=== PATIENT | female | born 1965 | race Caucasian/White ===

== ENCOUNTER 2023-09-15 07:30 | Outpatient (OUT) | payer OTHER, SELFPAY ==
[2023-09-15 08:01] LABS: Hemoglobin 13.8 g/dL (12.0-16.0); Mean Corpuscular HGB Conc 32.1 g/dL (29.9-35.2); Mean Corpuscular Hemoglobin 28.3 pg (26.7-34.0); Mean Corpuscular Volume 88.1 fL (81.0-99.0); Mean Platelet Volume 9.9 fL (9.5-13.5); Platelet Count 186 10^3/uL (150-450); Red Blood Count 4.88 10^6/uL (4.20-5.40); Red Cell Distribution Width 13.2 % (11.0-15.0); White Blood Count 4.9 10^3/uL (4.0-11.0)
[2023-09-15 08:47] LABS: Alanine Aminotransferase 35 U/L (14-59); Albumin Globulin Ratio 1.1; Albumin Level 3.5 g/dL (3.4-5.0); Alkaline Phosphatase 40 U/L (46-116); Anion Gap 9.5; Aspartate Amino Transferase 27 U/L (15-37); BUN Creatinine Ratio 27.6; Bilirubin Total 0.4 mg/dL (0.2-1.0); Calcium 8.7 mg/dL (8.5-10.1); Carbon Dioxide 32.6 mmol/L (21.0-32.0); Chloride 104 mmol/L (98-107); Chol HDL Ratio 2.2; Cholesterol 180 mg/dL (<=200); Estimated GFR (African America >60 (>=60); Estimated GFR (Non-African Ame >60 (>=60); Globulin 3.2 g/dL; Glucose 92 mg/dL (74-106); HDL Cholesterol 80 mg/dL (40-60); Potassium 4.1 mmol/L (3.5-5.1); Sodium 142 mmol/L (136-145); Total Protein 6.7 g/dL (6.4-8.2); Triglycerides 56 mg/dL (<=150); VLDL CHOLESTEROL 11.2 mg/dL
== END 2023-09-15 07:31 | disposition home or self-care (01) ==
LOC: LAB 07:36
PROVIDERS: PCP Family Medicine; Visit Provider Family Medicine
DX: E83.52 Hypercalcemia (principal); I10 Essential (primary) hypertension
CPT/HCPCS: 36415; 80053; 80061; 85027

== ENCOUNTER 2024-03-23 07:23 | Outpatient (OUT) | payer OTHER, SELFPAY ==
--- OUTSIDE RECORDS SUMMARY | 2024-03-23 07:27 | XMS_ITS ---
Patient Summarization (C-CDA 2.1 CCD) Created on: March 23, 2024 MARICEL EASTON : 1965 Sex: Female Author Organization Sample organization Care Team Providers Care Epic Kaleidoscope Analyst Name Role Phone Nica Nelson Unavailable Unavailable Michelle Perry Unavailable Fidel Soler Unavailable MD Nica Nelson Attending Provider [phone] DO Chente Barcenas Referring Provider DO Vishal Barcenas Primary Care Provider MD Fidel Soler Attending Provider DO Vishal Barcenas Primary Care Provider DO Vishal Barcensa Attending Provider [phone] ETHEL Perry Attending Provider VISHAL BARCENAS Primary Care Physician [phone] Darci Ambrose Attending Unavailable MD Nica Nelson Attending Provider DO Chente Barcenas Referring Provider [phone] DO Vishal Barcenas Primary Care Provider [phone] DO Vishal Carreon Attending Provider [phone] NO FAMILY, PHYSICIAN Primary Care Provider Unava ilable Vishal Barcenas Primary Care Unavailable Michelle Perry Admitting Unavailable Michelle Perry Attending Unavailable NO FAMILY, PHYSICIAN Primary Care Unavailable Vishal Carreon Admitting Unavailable Vishal Carreon Attending Unavailable Vishal Barcenas Primary Care Unavailable Chente Barcenas Referring Unavailable Nica Nelson Admitting Unavailable Nica Nelson Attending Unavailable Vishal Barcenas Primary Care Unavailable Michelle Perry Admitting Unavailable Vicky, Michelle R Attending Unavailable Vishal Barcenas Primary Care Unavailable Vishal Barcenas Attending Unavailable Vishal Barcenas Admitting Unavailable Vishal Barcenas DO Unavailable Sidney CenterMissy murray DO Primary Care Provider [phone] CUTLER, MISSY L Attending Unavailable VISHAL BARCENAS Referring Unavailable VISHAL CARREON Attending Unavailable VISHAL BARCENAS Attending Unavailable CUTLER, MISSY L Attending Unavailable CUTLER, MISSY L Referring Unavailable BLACKSTON, JONATHAN Attending Unavailable BLACKSTON, JONATHAN Attending Unavailable CUTLER, MISSY L Referring Unavailable BLACKSTON, JONATHAN Attending Unavailable CUTLER, MISSY L Referring Unavailable BLACKSTON, JONATHAN Attending Unavailable CUTLER, MISSY L Referring Unavailable BLACKSTON, JONATHAN Attending Unavailable CUTLER, MISSY L Referring Unavailable BLACKSTON, JONATHAN Attending Unavailable CUTLER, MISSY L Referring Unavailable BLACKSTON, JONAHTAN Attending Unavailable CUTLER, MISSY L Referring Unavailable BLACKSTON, JONATHAN Attending Unavailable CUTLER, MISSY L Referring Unavailable BLACKSTON, JONATHAN Attending Unavailable CUTLER, MISSY L Referring Unavailable BLACKSTON, JONATHAN Attending Unavailable CUTLER, MISSY L Referring Unavailable SWAPNAVISHAL Attending Unavailable VISHAL BARCENAS Referring Unavailable BIBONNY, VISHAL Paul Attending Unavailable BLACKSTON, JONATHAN Attending Unavailable CUTLER, MISSY L Referring Unavailable BLACKSTON, JONATHAN Attending Unavailable CUTLER, MISSY L Referring Unavailable SWAPNA, VISHAL Graham Attending Unavailable Allergies Allergy Classification Reported Allergen(s) Allergy Type Date of Onset Reaction(s) Facility (5 sources) HYDROmorphone; Translations: [hydromorphone] Drug Allergy 2 [facility] (1 source) Adhesive Bandage 1 Drug allergy [facility] Comment on above: durabond (1 source) Adhesive bandage; Translations: [Adhesive Bandage] Propensity to adverse reactions (disorder) [facility] (1 source) traMADol Drug Allergy 3 [facility] (1 source) Other Allergy to substance 2 [facility] (1 source) Wound Dressing Adhesive Drug Allergy 3 [facility] Encounters Encounter Date Encounter Type Care Provider Facility Start: 03-04-2024 End: 03-05-2024 ambulatory VISHAL BARCENAS Not Available Start: 02-23-2024 End: 02-23-2024 ambulatory JONATHAN ODENTON Not Available Start: 02-19-2024 End: 02-19-2024 ambulatory JONATHAN SALAZAR Not Available Start: 02-16-2024 End: 02-16-2024 ambulatory JONATHAN SALAZAR Not Available Start: 02-12-2024 End: 02-12-2024 ambulatory JONATHAN SALAZAR Not Available Start: 02-09-2024 End: 02-09-2024 ambulatory JONATHAN SALAZAR Not Available Start: 02-05-2024 End: 02-05-2024 ambulatory JONATHAN SALAZAR Not Available Start: 01-29-2024 End: 01-29-2024 ambulatory JONATHAN SALAZAR Not Available Start: 01-26-2024 End: 01-26-2024 ambulatory JONATHAN SALAZAR Not Available Start: 01-22-2024 End: 01-22-2024 ambulatory JONATHAN SALAZAR Not Available Start: 01-15-2024 End: 01-15-2024 ambulatory JONATHAN SALAZAR Not Available Start: 01-12-2024 End: 01-12-2024 ambulatory JONATHAN SALAZAR Not Available Start: 01-01-2024 End: 01-01-2024 ambulatory JONATHAN SALAZAR Not Available Start: 12-26-2023 End: 12-26-2023 ambulatory MISSY L CUTLER Not Available Start: 12-11-2023 End: 12-11-2023 ambulatory VISHAL BARCENAS Not Available Start: 12-11-2023 Chart abstracting Vishal shin DO Work Phone: [facility] Start: 11-13-2023 End: 11-13-2023 ambulatory MISSY L CUTLER Not Available Start: 09-26-2023 End: 09-26-2023 ambulatory VISHAL CARREON Not Available Start: 09-25-2023 End: 09-25-2023 ambulatory VISHAL BARCENAS Not Available Start: 09-12-2023 End: 09-12-2023 ambulatory PHYSICIAN NO FAMILY [facility] Start: 09-12-2023 End: 09-12-2023 ambulatory DO Chente Barcenas Work Phone: [facility] Work Phone: Start: 09-12-2023 End: 09-12-2023 Departed Referred DO Chente Barcenas Work Phone: [facility] [place] Work Phone: Start: 07-11-2023 ambulatory Vishal Barcenas Facility:[facility] Start: 07-11-2023 Registered Recurring DO Angeline Barcenas Work Phone: [facility] Work Phone: Start: 05-08-2023 End: 05-09-2023 Emergency department patient visit aAliyahmirnacoleman Ambrose Facility:[facility] Start: 05-08-2023 End: 05-08-2023 Emergency department patient visit Darci Ambrose [facility] Start: 03-10-2023 End: 03-10-2023 Patient encounter procedure Michelle Kingbarbrabruce [facility] Start: 03-10-2023 End: 03-10-2023 ambulatory DO Vishal Barcenas Work Phone: [facility] Other Start: 03-03-2023 End: 03-03-2023 ambulatory Vishal Barcenas Facility[facility] Start: 03-03-2023 End: 03-03-2023 Patient encounter procedure DO Vishal Barcenas Work Phone: [facility] [place] Work Phone: Start: 02-27-2023 End: 02-27-2023 ambulatory Michelle Perry Other [facility] Other Start: 02-27-2023 Patient encounter procedure Michelle Perry [facility] Start: 10-30-2022 Postop follow up vis it related to original px Fidel Soler [facility] Start: 10-30-2022 End: 10-30-2022 ambulatory Vishal Barcenas [email or web address] Other Start: 10-10-2022 End: 10-10-2022 ambulatory Michelle Perry Other [facility] Other Start: 10-10-2022 Patient encounter procedure Michelle Kingammon [facility] Start: 07-11-2022 End: 07-11-2022 Patient encounter procedure MD Nica Nelson Work Phone: [facility] Start: 07-10-2022 End: 07-10-2022 Registered Recurring MD Nica Nelson Work Phone: [facility] Start: 07-03-2022 (EVLT) EVLT saphenou s vein ablation Fidel Soler [facility] V[facility] Surgery Start: 07-03-2022 End: 07-03-2022 ambulatory Fidel Soler Other [facility] Other Start: 04-25-2022 End: 04-25-2022 ambulatory Fidel Soler Other [facility] Other Start: 04-25-2022 Office outpatient vi sit 25 minutes Fidel Soler [facility] V[facility] Surgery Start: 04-19-2022 End: 04-19-2022 ambulatory Michelle Kingbarbrabruce Other [facility] Other Start: 04-19-2022 Telephone encounter Michelle Kingammon [facility] Start: 04-04-2022 End: 04-04-2022 ambulatory Michelle Perry Other [facility] Other Start: 04-04-2022 Telephone encounter Michelle Kingammon [facility] [place] Start: 03-15-2022 (Sclerother) Sclerotherapy Fidel Soler [facility] Start: 03-15-2022 End: 03-15-2022 ambulatory Fidel Soler Other [facility] Other Start: 01-24-2022 End: 01-24-2022 ambulatory Michelle Perry Other [facility] Other Start: 01-24-2022 Follow-up encounter Michelle Corder[facility] Start: 12-17-2021 End: 12-17-2021 ambulatory Michelle Perry Other [facility] Other Start: 12-17-2021 Telephone encounter Michelle Corder[facility] Start: 12-11-2021 End: 12-11-2021 ambulatory Michelle Perry Other [facility] Other Start: 12-11-2021 Office outpatient vi sit 15 minutes Michelle Perry [facility] Vascular Surgery Start: 07-02-2018 Patient encounter Nica Arambula cility:[id number] Medications Current Medications Medication Drug Class(es) Dates Sig (Normalized) Sig (Original) ascorbic acid 60 mg / beta carotene 5000 unt / copper sulfate 40 mg / dl-alpha tocopheryl acetate 30 unt / sodium selenite 0.04 mg / zinc oxide 40 mg oral tablet (1 source) Vitamin C Multiple Vitamin (Multivitamin Adult) tablet Orally 0 Active calcium carbonate 1500 mg oral tablet (1 source) Start: 10-23-2023 take 1 tablet by mouth once daily at mealtime calcium carbonate 1500 (600 Ca) MG tablet Indications: Hyperparathyroidism (CMS/HCC) TAKE ONE TABLET BY MOUTH DAILY WITH A MEAL 30 tablet 5 10/23/2023 Active calcium carbonate 1500 mg / cholecalciferol 800 unt chewable tablet (6 sources) Vitamin D Start: 06-26-2017 Calcium Carbonate-Vitamin D3 (Caltrate 600 + D) 600 mg (1,500 mg)-800 unit Tablet,Chewable Active 1 TAB PO Twice daily June 25, 2017 11:00pm take 1 tablet by mouth twice gabby ly Calcium Carbonate-Vitamin D 600-400 MG-UNIT TAKE 1 TABLET BY MOUTH TWICE DAILY Oral for 30 Active Calcium Carbonate-Vitamin D 600-400 MG-UNIT (11 sources) take 1 tablet by mouth twice daily Calcium Carbonate-Vitamin D 600-400 MG-UNIT TAKE 1 TABLET BY MOUTH TWICE DAILY Oral for 30 Active cholecalciferol 0.05 mg oral tablet (1 source) Vitamin D Start: 3 take 1 tablet by mouth once daily cholecalciferol (Vitamin D-3) 50 MCG (1999 UT) tablet Indications: Vitamin D deficiency TAKE 1 TABLET BY MOUTH DAILY 30 tablet 5 10/23/2023 Active Compression stockings, 20-30mmHg, thigh 20-30mmHg (8 sources) Start: 2 Compression stockings, 20-30mmHg, thigh 20-30mmHg externally daily as directed for 3 months Mar, Active ferrous sulfate 325 mg delayed release oral tablet (20 sources) Start: 0 End: 3 take 325 mg by mouth once daily Ferrous Sulfate Active 325 MG PO Daily July 17, 2023 7:09am Start: 01-20-2020 End: 01-24-2020 take 325 mg by mouth once daily Ferrous Sulfate Discon tinued 325 MG PO Daily January 20, 2020 12:16pm January 24, 2020 8:58am Start: 06-26-2017 End: 01-20-2020 take 325 mg by mouth once daily Ferrous Sulfate Discon tinued 325 MG PO Daily January 18, 2020 7:32am January 20, 2020 12:15pm Start: 05-25-2015 take 1 tablet by [facility] three times daily ferrous sulfate 325 mg Tab 325 mg = 1 tab(s), Oral, TID, Refills(s) 0, Prophylaxis Start Date: 05/25/15 Status: Ordered take 1 tablet by [facility] once daily Ferrous Sulfate 325 (65 Fe) MG 1 tablet Orally Once a day Active lidocaine 0.05 mg/mg medicated patch (1 source) Antiarrhythmic, Amide Local Anesthetic Start: 05-08-2023 Lidoderm 5% Patch 1 patch(es), Topical, Daily, 7 EA, Refill(s) 0, apply 12 hours on and 12 hours off daily, [facility] [id number], 163, cm, 05/08/23 19:14:00 EDT, Height/Length Dosing, 47.8, kg, 05/08/23 19:14:00 EDT, Weight Dosing Start Date: 05/08/23 Status: Ordered lisinopril 10 mg oral tablet (18 sources) Angiotensin Converting Enzyme Inhibitor Start: 06-26-2017 End: 08-25-2024 take 1 tablet by mouth once daily lisinopril 10 MG tablet Indications: Primary hypertension (CMS/HCC) Take 1 tablet (10 mg) by mouth 1 (one) time each day at the same time. Take 10 mg by mouth 1 (one) time each day at the same time. 90 tablet 3 08/26/2023 08/25/2024 Active methocarbamol 500 mg oral tablet (1 source) Muscle Relaxant Start: 05-08-2023 End: 05-11-2023 take 1 tablet by mouth three times daily Robaxin 500 mg Tab 500 mg = 1 tab(s), Oral, TID, X 3 day(s), # 9 tab(s), Refills(s) 0, Pharmacy: [facility] [id number], 163, cm, 05/08/23 19:14:00 EDT, Height/Length Dosing, 47.8, kg, 05/08/23 19:14:00 EDT, Weight Dosing Start Date: 05/08/23 Stop Date: 05/11/23 Status: Ordered Multi Complete - (13 sources) Multi Complete - as directed Orally Active Multivitamin preparation (4 sources) Start: 06-26-2017 take 1 capsule by mouth once daily Multivitamin Active 1 CAP PO Daily June 25, 2017 11:00pm Start: 06-26-2017 take 1 capsule by [facility] once daily Multivitamin Active 1 CAP PO Daily June 26, 2017 12:00am naproxen 500 mg oral tablet (1 source) Nonsteroidal Anti-inflammatory Drug Start: 05-08-2023 take 1 tablet by mouth twice daily as needed for pain Naprosyn 500 mg Tab 500 mg = 1 tab(s), Oral, BID, PRN for pain, # 20 tab(s), Refills(s) 0, Pharmacy: [facility] [id number], 163, cm, 05/08/23 19:14:00 EDT, Height/Length Dosing, 47.8, kg, 05/08/23 19:14:00 EDT, Weight Dosing Start Date: 05/08/23 Status: Ordered omeprazole 40 mg delayed release oral capsule (1 source) Proton Pump Inhibitor Start: 05-26-2015 take 1 capsule by mouth once daily omeprazole 40 mg Cap-EC 40 mg = 1 cap(s), Oral, Daily, # 30 cap(s), Refills(s) 3 Start Date: 05/26/15 Status: Ordered Completed/Discontinued Medications Medication Drug Class(es) Dates Sig (Normalized) Sig (Original) acetaminophen 325 mg / HYDROcodone bitartrate 5 mg oral tablet (4 sources) Opioid Agonist Start: 12-25-2017 End: 01-06-2018 take 1 tablet by mouth every four to six hours Hydrocodone-Acetam inophen (Americus) 5-325 mg tablet Discontinued 1 TAB PO EVERY 4-6 HOURS December 25, 2017 January 06, 2018 2:32pm ascorbic acid 500 mg oral tablet (4 sources) Vitamin C Start: 12-17-2017 End: 07-02-2018 take 1 tablet by mouth once daily Ascorbic Acid (Vitamin C) (Vitamin C) 500 mg Tablet Discontinued 500 MG PO Daily December 17, 2017 12:00am July 02, 2018 2:37pm ibuprofen 600 mg oral tablet (4 sources) Nonsteroidal Anti-inflammatory Drug Start: 12-25-2017 End: 01-06-2018 take 600 mg by mouth every six hours Ibuprofen Discontinued 600 MG PO Q6H 28 December 25, 2017 12:00am January 06, 2018 2:32pm tamoxifen 20 mg oral tablet (20 sources) Estrogen Agonist/Antagonist Start: 06-26-2017 End: 12-09-2022 take 20 mg by mouth once Tamoxifen Discontinued 20 MG PO Once 1 September 23, 2019 12:00am February 16, 2020 7:29am Start: 05-25-2015 take 10 mg by mouth twice cinthia y tamoxifen 10 mg, Oral, BID, Refills(s) 0, Prophylaxis Start Date: 05/25/15 Status: Ordered Payers Date Payer Category Payer Unknown [id number] 2017 Self-pay [id number] 2016 Medicaid [employer] [place] [id number] 2016-Present [address] [place] [address] [id number] 2016 Unknown [id number] [id number] 1965 Unknown [id number] 2.16.840.1.745407.3.579.2.727 1965 Unknown [id number] 2.16.840.1.112774.3.579.2.1259 1965 Unknown [id number] 2.16.840.1.945519.3.579.2.1259 1965 Unknown [id number] 2.16.840.1.487774.3.579.2.1259 1965 Unknown [id number] 2.16.840.1.959606.3.579.2.125 1965 Unknown [id number] 2.16.840.1.096512.3.579.2.1259 1965 Unknown [id number] 2.16840.1.888297.3.579.2.125 1965 Unknown [id number] 2.16.840.1.774525.3.579.2.1259 1965 Unknown [id number] 2.16.840.1.304766.3.579.2.1259 1965 Unknown [id number] 2.16.840.1.698141.3.579.2.1259 1965 Unknown [id number] 2.16.840.1.678117.3.579.2.1259 1965 Unknown [id number] 2.16.840.1.761577.3.579.2.1259 1965 Unknown [id number] 2.16.840.1.027465.3.579.2.1259 1965 Unknown [id number] 2.16.840.1.943375.3.579.2.1259 1965 Unknown [id number] 2.16.840.1.278624.3.579.2.1259 1965 Unknown [id number] 2.16.840.1.125659.3.579.2.1259 1965 Unknown [id number] 2.16.840.1.663192.3.579.2.1259 1965 Unknown [id number] 2.16.840.1.310018.3.579.2.9 1965 Unknown [id number] 2.16.840.1.006668.3.579.2.1259 1965 Unknown [id number] 2.16.840.1.304213.3.579.2.1259 Unknown [id number] 2.16.840.1.387008.3.579.2.531 Unknown [id number] 2.16.840.1.219475.3.579.2.531 Unknown [id number] 2.16.840.1.322138.3.579.2.531 Unknown [id number] 2.16.840.1.488390.3.579.2.531 Unknown [id number] 2.16.840.1.071770.3.579.2.531 Plan of Treatment Date Care Activity Detail Author Start: 01-24-2031 Screening for malign ant neoplasm of colon [facility] Start: 07-16-2024 End: 07-16-2024 Patient encounter procedure 07/16/2024 9:15 AM EDT Office Visit [facility] [address] [place] [id number] Chente Barcenas, [address] [place] [address] [facility] Start: 04-02-2024 End: 04-02-2024 Patient encounter procedure 04/02/2024 9:45 AM EDT Office Visit [facility] [place] [address] [place] [phone] Vishal Carreon, DO [address] [place] [address] [facility] Start: 04-01-2024 End: 04-01-2024 Patient encounter procedure 04/01/2024 3:40 PM EDT [facility] [address] [place] [phone] Vishal Barcenas, DO [address] [place], [place] [id number] [facility] Start: 12-11-2023 End: 12-11-2023 Patient encounter procedure 12/11/2023 3:20 PM EST Office Visit [facility] [address] [place] [address] Vishal Barcenas, DO [address] [place], [place] [id number] [facility] Start: 06-27-2023 Influenza vaccination Influenza Vacc ine (#1) [facility] Start: 1965 Screening for malign ant neoplasm of colon [facility] MG Breast - left Screening [facility] Work Phone: MG Breast - left Screening [facility] Problems Active Problems Problem Classification Problem Date Documented Da te Episodic/Chronic Administrative/social admission (4 sources) Repeated prescription; Translations: [Encounter for issue of repeat prescription] 09-23-2019 Episodic Cancer of breast (9 sources) Malignant neoplasm of central part of female breast; Translations: [Malignant neoplasm of central portion of right female breast] Onset: 02-26-2023 07-14-2019 Chronic Essential hypertension (3 sources) Hypertensive disorder; Translations: [Essential (primary) hypertension] Onset: 02-26-2023 05-08-2023 Chronic Menopausal disorders (1 source) Atrophic vaginitis; Translations: [Postmenopausal atrophic vaginitis] Onset: 02-26-2023 02-26-2023 Chronic Menstrual disorders (2 sources) Menorrhagia; Translations: [Excessive and frequent menstruation with regular cycle] Onset: 11-26-2017 02-26-2023 Chronic Nonmalignant breast conditions (1 source) Fibrocystic disease of breast; Translations: [Diffuse cystic mastopathy of unspecified breast] Onset: 02-26-2023 02-26-2023 Chronic Other acquired deformities (13 sources) Scoliosis deformity of spine; Translations: [Scoliosis, unspecified] Chronic Other aftercare (3 sources) Patient encounter status; Translations: [Encounter for therapeutic drug level monitoring] 07-10-2022 Episodic Other aftercare (2 sources) Encounter for therapeutic drug level monitoring; Translations: [Encounter for therapeutic drug monitoring] 07-10-2022 Episodic Other and ill-defined heart disease (4 sources) Cardiomegaly; Translations: [Cardiomegaly] 07-02-2019 Chronic Other and ill-defined heart disease (3 sources) Cardiomegaly; Translations: [Cardiomegaly] 07-10-2022 Chronic Other bone disease and musculoskeletal deformities (4 sources) Idiopathic scoliosis of thoracic and lumbar spine; Translations: [Other idiopathic scoliosis, thoracolumbar region] 07-14-2019 Chronic Other bone disease and musculoskeletal deformities (3 sources) Other idiopathic scoliosis, thoracolumbar region; Translations: [Scoliosis [and kyphoscoliosis], idiopathic] 07-10-2022 Chronic Other bone disease and musculoskeletal deformities (1 source) Juvenile idiopathic scoliosis, thoracic region; Translations: [Scoliosis [and kyphoscoliosis], idiopathic] Onset: 02-26-2023 02-26-2023 Chronic Other bone disease and musculoskeletal deformities (1 source) Idiopathic kyphoscoliosis; Translations: [Other idiopathic scoliosis, site unspecified] Onset: 08-31-2012 05-13-2023 Chronic Other diseases of veins and lymphatics (13 sources) Peripheral venous insufficiency; Translations: [Venous insufficiency (chronic) (peripheral)] Episodic Other diseases of veins and lymphatics (5 sources) Venous insufficiency (chronic) (peripheral) Onset: 04-19-2022 Resolved: 04-19-2022 Episodic Other diseases of veins and lymphatics (4 sources) Venous insufficiency of leg; Translations: [Venous insufficiency (chronic) (peripheral)] Episodic Other endocrine disorders (1 source) Hyperparathyroidism, unspecified; Translations: [Hyperparathyroidism , unspecified] Onset: 03-03-2023 Chronic Other endocrine disorders (1 source) Hyperparathyroidism; Translations: [Hyperparathyroidism , unspecified] Onset: 02-26-2023 02-26-2023 Chronic Other female genital disorders (1 source) Abnormal uterine bleeding; Translations: [Abnormal uterine and vaginal bleeding, unspecified] Onset: 02-26-2023 02-26-2023 Chronic Other hematologic conditions (4 sources) H/O: anemia - iron deficient; Translations: [Personal history of diseases of the blood and blood-forming organs and certain disorders involving the immune mechanism] 07-02-2019 Episodic Other hematologic conditions (3 sources) Personal history of diseases of the blood and blood-forming organs and certain disorders involving the immune mechanism; Translations: [Personal history of diseases of blood and blood-forming organs] 07-10-2022 Episodic Other lower respiratory disease (13 sources) Dyspnea on exertion; Translations: [Other forms of dyspnea] Episodic Other lower respiratory disease (13 sources) Restrictive lung disease; Translations: [Other disorders of lung] Episodic Other lower respiratory disease (1 source) Pleuritic pain; Translations: [Pleurodynia] Onset: 05-08-2023 Episodic Other nutritional; endocrine; and metabolic disorders (1 source) Hypercalcemia; Translations: [Hypercalcemia] Onset: 02-26-2023 02-26-2023 Chronic Pulmonary heart disease (7 sources) Pulmonary hypertension, unspecified; Translations: [Mild pulmonary hypertension] 07-12-2020 Chronic Residual codes; unclassified (4 sources) History of total hysterectomy with bilateral salpingo-oophorectom y; Translations: [Acquired absence of both cervix and uterus] 01-06-2018 Episodic Residual codes; unclassified (3 sources) Acquired absence of both cervix and uterus; Translations: [Acquired absence of both cervix and uterus] 07-10-2022 Episodic Spondylosis; intervertebral disc disorders; other back problems (20 sources) Inflammation of sacroiliac joint; Translations: [Sacroiliitis, not elsewhere classified] Onset: 08-31-2012 05-13-2023 Chronic Spondylosis; intervertebral disc disorders; other back problems (13 sources) Low back pain; Translations: [Low back pain] Episodic Thyroid disorders (11 sources) Thyroid nodule; Translations: [Nontoxic single thyroid nodule] Onset: 02-26-2023 10-23-2020 Chronic Transient cerebral ischemia (2 sources) Amaurosis fugax; Translations: [Amaurosis fugax] Onset: 02-26-2023 02-26-2023 Chronic Unclassified (1 source) Malignant neoplasm of central portion of right female breast; Translations: [Malignant neoplasm of central portion of right female breast] Onset: 07-11-2023 Unclassified (1 source) Varicose veins of right lower extremity with pain; Translations: [Varicose veins of right lower extremity with pain] Onset: 03-10-2023 Past or Other Problems Problem Classification Problem Date Documented Da te Episodic/Chronic Cancer of breast (1 source) History of malignant neoplasm of breast; Translations: [Personal history of malignant neoplasm of breast] Onset: 08-14-2017 07-08-2023 Episodic Other screening for suspected conditions (not mental disorders or infectious disease) (15 sources) Imaging of liver abnormal; Translations: [Abnormal findings on diagnostic imaging of liver and biliary tract] Onset: 02-26-2023 07-12-2020 Episodic Phlebitis; thrombophlebitis and thromboembolism (1 source) Embolism and thrombosis of superficial veins of left lower extremity Onset: 04-25-2022 Resolved: 04-25-2022 Episodic Varicose veins of lower extremity (19 sources) Varicose veins of lower extremity; Translations: [Varicose veins of bilateral lower extremities with other complications] Onset: 09-11-2021 Resolved: 01-24-2022 Episodic Procedures Date Procedure Procedure Detail Performing Clinician Start: 07-10-2023 Screening mammograph y of left breast DO Chente Barcenas Work Phone: Start: 03-10-2023 Duplex scan of lower limb veins DO Vishal Barcenas Work Phone: Start: 07-11-2022 Duplex scan of lower limb veins MD Nica Nelson Work Phone: Start: 07-08-2022 Screening mammograph y of left breast MD Nica Nelson Work Phone: Start: 07-05-2021 Screening mammograph y of left breast MD Nica Nelson Work Phone: Start: 04-16-2021 Ultrasonography of b ilateral breasts MD Nica Nelson Work Phone: Start: 01-24-2021 Tova shin DO Work Phone: Start: 10-05-2020 Ultrasound procedure on topographic region MD Nica Nelson Work Phone: Start: 07-19-2020 Computed tomography of abdomen and pelvis with contrast MD Nica Nelson Work Phone: Start: 07-19-2020 CT of thorax with contrast MD Nica Nelson Work Phone: Start: 07-04-2020 Screening mammography Pato Nelson Work Phone: Start: 07-05-2019 US scan of thyroid MD Jean Carlos Nelson Work Phone: Start: 06-29-2019 Mammography MD Nica Page se Work Phone: Start: 07-01-2017 MM diagnostic mammo LT w/CAD MD Nica Nelson Work Phone: Results Test Name Value Interpretation Reference Range [facility] 09-12-2023 - -------- Specimen: [id number] Received: 09/15/23 Status: TIMOTHY Garibay Num: [id number] Spec Type: Cytology Subm Dr: Vishal Carreon,DO Tissues: A FNA SLIDES NOPATH (LT THYROID NOD) Procedures: Cyto Int and Re, PAPSTN/11 -------- Age/ Patient Sex Location Account Attending Physician -------- Maricel Easton 58/F OR [id number] Vishal Carreon,DO -------- SPEC NUM: [id number] RECD: 09/15/23 STATUS: TIMOTHY GARIBAY NUM: [id number] ALETA: 09/12/231145 [facility] DR: Vishal Carreon DO ENTERED: 09/15/[address] [facility] [address]: NOE TYPE: Cytology DEPT: CNG ENTERED BY: [id number] RECV BY: [id number] ORDERED: Cyto Int and Re, PAPSTN/11 ORDERED: Cyto Int and Re, PAPSTN/11 Pathological Diagnosis Thyroid nodule, left lobe, FNA: - Follicular lesion of undetermined significance (FLUS) - Crooks system diagnostic category: III Clinical Information Left thyroid nodule; fine needle aspiration left thyroid Gross Description Received is 15 ml of bright, red, hazy fixed fluid for cytology said to have been obtained as fine needle aspiration left thyroid. ThinPrep preparation is prepared for microscopic examination. Also received are ten smeared slides for microscopic examination. (SS/emmett) CPT Codes 95496 -------- -------- Specimen: [id number] Received: 09/15/23-1257 Status: TIMOTHY Hernandezyovani Num: [id number] Spec Type: Cytology Subm Dr: Vishal CarreonDO Tissues: A FNA SLIDES NOPATH (LT THYROID NOD) Procedures: Cyto Int and Re, PAPSTN/11 -------- Patient: Maricel Easton [id number] (Continued) -------- Signed (signature on file) Clay Chavira MD 09/17/23 1428 [facility] MM screening mammo LT w/CADo n 07-10-2023 MM screening mammo LT w/CAD [address] [address] Mammography Report Signed Patient: Maricel Easton MR#: [id number] : 1965 Acct:[id number] Age/Sex: 58 / F ADM Date: 07/10/23 Loc: XT Room: Type: REG RCR Attending Dr: Nica Nelson MD Copies to: MD Vishal Holman DO William D Bruner, DO Ordering Provider: Nica Nelson MD Date of Service: 07/10/23 MM/MM screening mammo LT w/CAD: history of breast cancer CLINICAL DATA: Screening for malignancy. Prior right mastectomy for carcinoma LEFT SCREENING MAMMOGRAMS - FULL FIELD DIGITAL WITH TOMOSYNTHESIS AND CAD Tomosynthesis craniocaudal and mediolateral oblique views of the left breast were obtained using low-dose digital technique. Comparison is made to prior studies from June 29, 2019 through July 08, 2022. This examination was reviewed with the aid of CAD. The breast parenchyma remains dense, lowering the sensitivity of mammography. There are no developing masses, typically malignant calcifications or architectural distortion. There has been no significant interval change. MM/MM screening mammo LT w/CAD IMPRESSION: NO MAMMOGRAPHIC EVIDENCE OF MALIGNANCY. ROUTINE FOLLOW-UP IS RECOMMENDED IN ONE YEAR. RESULT CODE: 1 Negative DENSITY CODE: 3 (approximately 51-75% glandular) FOLLOW UP: 1YR The false-negative rate of mammography is approximately 10-percent. Management of a palpable abnormality must be based on clinical grounds. Patient was entered into a reminder system with a target due date for the next mammogram. Impression dictated by: Delores Hi M.D.07/10/2023 1:45 PM Dictation Location: [facility] Transcribed By: [facility] 07/10/23 1345 Dictated By: Delores Hi MD 07/10/23 134 Signed By: 07/10/23 1345 [facility] CTA [place] 05-09-2023 CTA Chest Exam Date/Time: 05/08/2023 21:31 EDT Reason for Exam: Pulmonary embolism (PE) suspected, low to intermediate prob, positive D-dimer;Other (please specify) Report IMPRESSION: NO EVIDENCE OF PULMONARY EMBOLISM. NO ACUTE PROCESS IN THE CHEST. CLINICAL HISTORY: Pulmonary embolism (PE) suspected, low to intermediate prob, positive D-dimer COMPARISON: NONE. FINDINGS: Axial images were obtained after the rapid injection of IV contrast with the narrow collimation and reconstructed at a narrow interval. Coronal and sagittal reconstruction were performed. On the PACS, images were reviewed in cine display and using MIP postprocessing. Main, right and left pulmonary disease are well-opacified with contrast without filling defect. There are no filling defect in the segmental and lobar pulmonary arteries. There is mild right apical pleuroparenchymal thickening. There is no lung contusion or pleural effusion. There is no pericardial effusion. There is no mediastinal or axillary lymphadenopathy. Upper abdomen is unremarkable. There is S-shaped scoliosis of the thoracolumbar spine with marked dextroscoliosis of middle dorsal spine. There are bilateral breast implants. All CT scans at this facility use dose modulation, iterative reconstruction, and/or weight based dosing when appropriate to reduce radiation dose to as low as reasonably achievable. Ordering Provider: Darci Ambrose FINAL REPORT Dictated: 05/09/2023 9:23 am Loy Diaz M.D. Signed (Electronic Signature): 05/09/2023 9:23 am Signed by: Loy Diaz M.D. Transcribed by: ÓSCAR Technologist: MANUELA Technical Comments GFR (mL/min/1/73m2) na Contrast: Isovue 370 Contrast amount in ml's: 65 Normal [facility] Discharge Instructionson Discharge Instructions [id number] 3070 [id number]# 1.00CD:127 Normal [facility] ED Clinical Summaryon 2022 ED Clinical Summary [place] [id number] ED Clinical Summary Person Information Name: MARICEL EASTON [facility] Age: 58 Years : 1965 Sex: Female Language: Lao PCP: VISHAL BARCENAS DO Marital Status: Visit Id: Visit Reason: Shortness of breath; SOB/HURTS TO BREATHE Speciality: Acuity: 3 Enc Type: Emergency Med Service: Emergency Arrival: 05/08/2023 19:01:46 Discharge: 05/08/2023 22:53:20 LOS: 000 03:52 Checkin: 05/08/2023 19:01:46 Checkout: 05/08/2023 22:53:20 Dispo Type: Home (Routine DC) EVENTS: Event Name Event Status Request Date/Time Start Date/Time Complete Date/Time Arrive Complete 05/08/2023 19:01:46 05/08/2023 19:01:46 05/08/2023 19:01:46 Document Home Meds Request 05/08/2023 19:01:46 Triage Complete 05/08/2023 19:01:46 05/08/2023 19:14:11 05/08/2023 19:14:11 EKG Complete 05/08/2023 19:05:43 05/08/2023 19:10:34 Registration Complete 05/08/2023 19:09:59 05/08/2023 19:09:59 05/08/2023 19:09:59 Reg Complete Request 05/08/2023 19:09:59 Reg Bed Request Complete 05/08/2023 19:09:59 05/08/2023 19:09:59 05/08/2023 19:09:59 Bed Assign Complete 05/08/2023 19:12:50 05/08/2023 19:12:50 05/08/2023 19:12:50 Dr Exam Complete 05/08/2023 19:12:50 05/08/2023 19:19:12 05/08/2023 19:19:12 RN Exam Complete 05/08/2023 19:12:50 05/08/2023 19:23:30 05/08/2023 19:23:30 Registration Request 05/08/2023 19:19:12 Pending Labs Request 05/08/2023 19:37:35 Lab Complete 05/08/2023 19:37:35 05/08/2023 20:48:50 Meds Admin Complete 05/08/2023 19:37:35 05/08/2023 20:15:29 Patient Care Request 05/08/2023 19:37:35 RT Request 05/08/2023 19:37:35 X-Ray Complete 05/08/2023 19:37:35 05/08/2023 19:55:49 05/08/2023 20:52:52 Pending Labs Complete 05/08/2023 19:50:50 05/08/2023 19:50:50 05/08/2023 20:10:36 Lab Complete 05/08/2023 19:50:50 05/08/2023 19:50:50 05/08/2023 20:10:36 Pending Labs Complete 05/08/2023 19:54:47 05/08/2023 19:54:47 05/08/2023 19:54:54 Lab Complete 05/08/2023 19:54:47 05/08/2023 19:54:47 05/08/2023 19:54:54 CT Complete 05/08/2023 20:51:02 05/08/2023 21:29:14 05/08/2023 21:31:07 Wet Read Request 05/08/2023 20:52:52 Discharge Complete 05/08/2023 22:29:44 05/08/2023 22:53:27 05/08/2023 22:53:27 Meds Admin Complete 05/08/2023 22:30:15 05/08/2023 22:42:54 Transfer Complete 05/08/2023 22:53:27 05/08/2023 22:53:27 05/08/2023 22:53:27 ADDRESS: [address] [place] [id number] PHYS DOC NOTES: MEDICAL INFORMATION: Prescriptions Given: New Medications [facility] [id number], [address], [place] [id number], [phone] lidocaine topical (Lidoderm 5% Patch) 1 Patches Topical every day. apply 12 hours on and 12 hours off daily. Refills: 0. methocarbamol (Robaxin 500 mg Tab) 1 Tablets By Mouth 3 times a day for 3 Days. Refills: 0. naproxen (Naprosyn 500 mg Tab) 1 Tablets By Mouth 2 times a day as needed for pain. Refills: 0. Medications to Continue with No Changes Other Medications ferrous sulfate (ferrous sulfate 325 mg Tab) 1 Tablets By Mouth 3 times a day. omeprazole (omeprazole 40 mg Cap-EC) 1 Capsules By Mouth every day. Refills: 3. tamoxifen 10 Milligram By Mouth 2 times a day. PATIENT EDUCATION INFORMATION: Instructions: Costochondritis, Jfwg-qd-Ndbk Follow up: With: Address: When: VISHAL BARCENAS [address], [address] [place] [address] Business (1) In 3 days 05/11/2023 Comments: You can take the medications as prescribed as needed for pain. Please follow-up with your primary care doctor in the next 2 to 3 days for further evaluation management. Please return to the ED for any new or worsening symptoms. DIAGNOSIS: Rib pain on right side Normal [facility] ED Note-Physicianon 05-09-20 ED Note-Physician Basic Information Time Seen: Arnol Farooqaura Evangelista 05/08/2023 19:19 Chief Complaint SOB started tonight while she was batting during a baseball game. denies CP or palpitations. History of Present Illness Patient is a 58-year-old female with past medical history of hypertension, breast cancer in remission presenting to the ED for evaluation of right-sided chest wall pain in addition to shortness of breath. Patient states she has been having intermittent pain noted predominantly when she goes to swing the bat while playing baseball. Patient denies any fevers, chills, nausea, vomiting, recent falls or trauma. Review of Systems A 10 point review of systems is negative except as noted above. Medical and Surgical History: Reviewed and noted Social history: Lives at home Tobacco: Denies Physical Exam Vitals & Measurements T: 36.9 ?C(Oral) HR: 76(Monitored) RR: 16 BP: 138/89 SpO2: 99% HT: 163 cm WT: 47.8 kg BMI: 17.99 General: Well developed, non toxic appearing, no acute distress HEENT: Head atraumatic, Mucosa moist, hearing grossly normal Neck: No JVD, tracheal deviation Cardiac: Regular rate, rhythm, no murmurs, or gallops, 2+ radial pulses Respiratory: Lungs clear to auscultation B/L, normal respiratory effort there is palpation of the right chest wall Abdomen: Soft non tender, no rebound or guarding, no peritoneal signs Extremities: No edema noted in the LE B/L, no tenderness to palpation Neurologic: Alert and oriented, speech clear Skin: No rashes or lesions Psych: Appropriate mood and behavior Medical Decision Making .MEDICAL DECISION MAKING Number and Complexity of Problems Differential Diagnosis: [] [facility] Data External documents reviewed: [] My EKG interpretation: [] My CT interpretation: [] My X-ray interpretation: [] My Ultrasound interpretation: [] Decision rules/scores evaluated: [] Discussed with: [] Treatment and Disposition ED Course: Patient is a 58-year-old female presenting to the ED for evaluation of right chest wall pain. Patient is nontoxic and on arrival, no acute distress. Does have reproducible right chest wall pain noted on examination. Laboratory evaluation is obtained patient is given morphine, Toradol, lidocaine patch. Patient's laboratory evaluations unremarkable exception of a D-dimer elevated at 574. Chest x-ray with no focal infiltrates. CTA of the chest is obtained which shows no evidence of pulmonary embolism. On reevaluation patient is feeling improved. I believe this is likely muscular pain. She is discharged home with short course of pain medication, Muscle relaxers and Lidoderm patch. She is to follow-up with her primary care doctor in the next 2 to 3 days. She is to return to the ED for any new or worsening symptoms. Shared decision making: [] Code status: [] Assessment/Plan Rib pain on right side (R07.81: Pleurodynia) Orders: acetaminophen-hydroco done, 1 EA, Tab, Oral, Once, Stop date 05/08/23 22:30:00 EDT, STAT, Start date 05/08/23 22:30:00 EDT ketorolac, 30 mg = 1 mL, Injection, IV Push, Once, Stop date 05/08/23 19:37:00 EDT, STAT, Start date 05/08/23 19:37:00 EDT, 05/08/23 19:37:00 EDT lidocaine topical, 1 patch(es), Patch, TransDermal, Once, Stop date 05/08/23 19:37:00 EDT, STAT, Start date 05/08/23 19:37:00 EDT lidocaine topical, 1 patch(es), Topical, Daily, 7 EA, Refill(s) 0, apply 12 hours on and 12 hours off daily, [facility] [id number], 163, cm, 05/08/23 19:14:00 EDT, Height/Length Dosing, 47.8, kg, 05/08/23 19:14:00 EDT, Weight Dosing methocarbamol, 500 mg = 1 tab(s), Oral, TID, X 3 day(s), # 9 tab(s), Refills(s) 0, Pharmacy: [facility] [id number], 163, cm, 05/08/23 19:14:00 EDT, Height/Length Dosing, 47.8, kg, 05/08/23 19:14:00 EDT, Weight Dosing morphine, 4 mg = 2 mL, Injection, IV Push, Once, Stop date 05/08/23 19:37:00 EDT, STAT, Start date 05/08/23 19:37:00 EDT, 05/08/23 19:37:00 EDT naproxen, 500 mg = 1 tab(s), Oral, BID, PRN for pain, # 20 tab(s), Refills(s) 0, Pharmacy: [facility] [id number], 163, cm, 05/08/23 19:14:00 EDT, Height/Length Dosing, 47.8, kg, 05/08/23 19:14:00 EDT, Weight Dosing Automated Diff Basic Metabolic Panel CBC w/ Auto Diff CTA Chest D-Dimer ED Cardiac Monitoring eGFR Hepatic Function Panel Oxygen Saturation Oxygen Therapy PT & PTT Saline Lock Insert Troponin 0 Hr. XR Chest Single View Medications Administered Given ketorolac 30 mg/mL Inj 1 mL, 30 mg, IV Push Lidoderm 5% Patch, 1 patch(es), TransDermal morphine 2 mg/mL Inj, 2 mg, IV Push TO GO acetaminophen-hydroco done 325 mg - 5 mg, 1 EA, Oral Disposition Plan Discharge Prescription List Prescriptions Lidoderm 5% Patch, 1 patch(es), Topical, Daily Naprosyn 500 mg Tab, 500 mg= 1 tab(s), Oral, BID, PRN Robaxin 500 mg Tab, 500 mg= 1 tab(s), Oral, TID Follow-up With When Contact Information VISHAL BARCENAS In 3 days 05/11/[address], [address] [place] [address]- [phone] (more content not included)... [facility] Comment on above: Result Comment: Elec tronically Signed By: Darci Ambrose DO\.br\Date and Time Signed: 05/08/23 23:31 EDT ED Patient Education Noteon 05-09-2023 ED Patient Education Note Orthopedics Costochondritis Costochondritis is irritation and swelling (inflammation) of the tissue that connects the ribs to the breastbone (sternum). This tissue is called cartilage. Costochondritis causes pain in the front of the chest. Usually, the pain: ? Starts slowly. ? Is in more than one rib. What are the causes? The exact cause of this condition is not always known. It results from stress on the tissue in the affected area. The cause of this stress could be: ? Chest injury. ? Exercise or activity, such as lifting. ? Very bad coughing. What increases the risk? You are more likely to develop this condition if you: ? Are female. ? Are 30?40 years old. ? Recently started a new exercise or work activity. ? Have low levels of vitamin D. ? Have a condition that makes you cough often. What are the signs or symptoms? The main symptom of this condition is chest pain. The pain: ? Usually starts slowly and can be sharp or dull. ? Gets worse with deep breathing, coughing, or exercise. ? Gets better with rest. ? May be worse when you press on the affected area of your ribs and breastbone. How is this treated? This condition usually goes away on its own over time. Your doctor may prescribe an NSAID, such as ibuprofen. This can help reduce pain and inflammation. Treatment may also include: ? Resting and avoiding activities that make pain worse. ? Putting heat or ice on the painful area. ? Doing exercises to stretch your chest muscles. If these treatments do not help, your doctor may inject a numbing medicine to help relieve the pain. Follow these instructions at home: Managing pain, stiffness, and swelling ? If told, put ice on the painful area. To do this: ? Put ice in a plastic bag. ? Place a towel between your skin and the bag. ? Leave the ice on for 20 minutes, 2?3 times a day. ? If told, put heat on the affected area. Do this as often as told by your doctor. Use the heat source that your doctor recommends, such as a moist heat pack or a heating pad. ? Place a towel between your skin and the heat source. ? Leave the heat on for 20?30 minutes. ? Take off the heat if your skin turns bright red. This is very important if you cannot feel pain, heat, or cold. You may have a greater risk of getting burned. Activity ? Rest as told by your doctor. ? Do not do anything that makes your pain worse. This includes any activities that use chest, belly (abdomen), and side muscles. ? Do not lift anything that is heavier than 10 lb (4.5 kg), or the limit that you are told, until your doctor says that it is safe. ? Return to your normal activities as told by your doctor. Ask your doctor what activities are safe for you. General instructions ? Take hxud-ldi-cwngizo and prescription medicines only as told by your doctor. ? Keep all follow-up visits as told by your doctor. This is important. Contact a doctor if: ? You have chills or a fever. ? Your pain does not go away or it gets worse. ? You have a cough that does not go away. Get help right away if: ? You are short of breath. ? You have very bad chest pain that is not helped by medicines, heat, or ice. These symptoms may be an emergency. Do not wait to see if the symptoms will go away. Get medical help right away. Call your local emergency services (911 in the [place] Do not drive yourself to the hospital. Summary ? Costochondritis is irritation and swelling (inflammation) of the tissue that connects the ribs to the breastbone (sternum). ? This condition causes pain in the front of the chest. ? Treatment may include medicines, rest, heat or ice, and exercises. This information is not intended to replace advice given to you by your health care provider. Make sure you discuss any questions you have with your health care provider. Document Revised: 08/25/2020 Document Reviewed: 08/25/2020 Elsevier Patient Education ? 2022 [employer] Normal [facility] ED Patient Summaryon 023 ED Patient Summary [place] [id number] Patient Discharge Instructions Person Information Name: MARICEL EASTON Age: 58 Years [facility]: [id number] Arrival Date: 05/08/2023 19:01:46 Discharge Diagnosis: Rib pain on right side Primary Care Physician: VISHAL BARCENAS DO Provider Information Primary Provider: Darci Ambrose DO Advanced Finance Advisor:None The exam and treatment you received in the Emergency Department were for an urgent problem and are not intended as complete care. It is important that you follow up with a doctor, nurse practitioner, or physician?s blood donor unit assistant for ongoing care. If your symptoms become worse or you do not improve as expected and you are unable to reach your usual health care provider, you should return to the Emergency Department. We are available 24 hours a day. MARICEL EASTON has been given the following list of patient education materials, prescriptions and follow-up instructions: Follow-up Instructions: With: Address: When: VISHAL BARCENAS [address] [place] [address], [facility] [address] [place] [address] Business (1) In 3 days 05/11/2023 Comments: You can take the medications as prescribed as needed for pain. Please follow-up with your primary care doctor in the next 2 to 3 days for further evaluation management. Please return to the ED for any new or worsening symptoms. In the event that this physician does not participate in your insurance network, please consult with your insurance company to find a nearby participating provider. Patient Education Materials: Costochondritis, Qwuu-yf-Zkda A MESSAGE TO ALL PATIENTS REGARDING OPIOIDS PRESCRIPTION OPIOIDS: WHAT YOU NEED TO KNOW Prescription opioids can be used to help relieve uchvzkbi-vt-kuwodg pain and are often prescribed following a surgery or injury, or for certain health conditions. These medications can be an important part of the treatment but also come with serious risks. It is important to work with your healthcare provider to make sure you are getting the safest, most effective care. WHAT ARE THE RISKS AND SIDE EFFECTS OF OPIOID USE? Prescription opioids carry serious risks of addiction and overdose, especially with prolonged use. An opioid overdose, often marked by slowed breathing, can cause sudden . The use of prescription opioids can have a number of side effects as well, even when taken as directed: ? Tolerance?meaning you might need to take more of the medication for the same pain relief ? Physical dependence?meaning you have symptoms of withdrawal when a medication is stopped ? Increased sensitivity to pain ? Constipation ? Nausea, vomiting, and dry mouth ? Sleepiness and dizziness ? Confusion ? Depression ? Low levels of testosterone that can result in lower sex drive, energy, and strength ? Itching and sweating RISKS ARE GREATER WITH: ? History of drug misuse, substance use disorder, or overdose ? Mental health conditions (such as depression or anxiety) ? Sleep apnea ? Older age (65 years and older) ? Avoid alcohol while taking prescription opioids. Also, unless specifically advised by your health care provider, medications to avoid include: ? Benzodiazepines (such as Xanax or Valium) ? Muscle relaxants (such as Soma or Flexeril) ? Hypnotics (such as Ambien or Lunesta) ? Other prescription opioids KNOW YOUR OPTIONS Talk to your health care provider about ways to manage your pain that don?t involve prescription opioids. Some of these options may actually work better and have fewer risks and side effects. Options may include: ? Pain relievers such as acetaminophen, ibuprofen, and naproxen ? Some medication that are also used for depression or seizures ? Physical therapy and exercise ? Cognitive behavioral therapy, a psychological, goal-directed approach, in which patients learn how to modify physical, behavioral, and emotional triggers of pain and stress. IF YOU ARE PRESCRIBED OPIOIDS FOR PAIN: ? Never take opioids in greater amounts or more often than prescribed. ? Follow up with your primary health care provider. o Work together to create a plan on how to manage your pain. o Talk about ways to help manage your pain that don?t involve prescription opioids. o Talk about any and all concerns and side effects. ? Help prevent misuse and abuse o Never sell or share prescription opioids. o Never use another person?s prescription opioids. ? Store prescription opioids in a secure place and out of reach of others (this may include visitors, children, friends, and family). ? Safely dispose of unused prescription opioids: Find your community drug take-back program or your pharmacy mail-back program, or flush them down the toilet, following guidance from the Food and Drug Administration (www.fda.gov/Drugs/Re sourcesForYou). ? Visit www.cdc.gov/drugoverd ose to l (more content not included)... Normal [facility] RAD - Preliminary Cat Scan R eporton 05-09-2023 RAD - Preliminary Cat Scan Report [id number]# 1.00CD:127 Normal [facility] XR Chest Single Viewon 05-09 XR Chest Single View Exam Date/Time: 05/08/2023 20:52 EDT Reason for Exam: Chest pain Report IMPRESSION: NO ACTIVE PULMONARY DISEASE. CLINICAL HISTORY: Chest pain SOB COMPARISON: NONE. FINDINGS: AP upright portable chest shows normal-sized heart and unremarkable both lungs. There is marked dextroscoliosis of middle dorsal spine. Descending aorta is crossing the midline to the right. Ordering Provider: Darci Ambrose FINAL REPORT Dictated: 05/09/2023 6:56 am Loy Diaz M.D. Signed (Electronic Signature): 05/09/2023 6:56 am Signed by: Loy Diaz M.D. Transcribed by: ÓSCAR Technologist: BENITO Technical Comments Radiation Dose: Ka,r in mGy = na DAP = na Normal [facility] Auto Diffon 05-08-2023 Basophils/100 WBC (Bld) 0.9 % Normal 0.0-2.0 [facility] Comment on above: Order Comment: Order Added by Discern Expert. Performed By: #### 2 607840, 6911275, 6500029, 9160215, 61088147, 28927039, 6143591, 16512256 #### [facility] [address] [place] [address] Basophils/Leukocytes Auto (Bld) [Pure # fraction] 0.1 E9/L Normal 0.0-0.2 [facility] Comment on above: Order Comment: Order Added by Discern Expert. Performed By: #### 2 634061, 0818770, 2971017, 9963287, 89325517, 58117914, 5714940, 82542491 #### [facility] [address] [place] [address] Eosinophils/100 WBC (Bld) 1.2 % Normal 0.0-8.0 [facility] Comment on above: Order Comment: Order Added by Discern Expert. Performed By: #### 2 783129, 2461335, 8002335, 3415039, 99013908, 86158310, 8898547, 77752132 #### [facility] [address] [place] [address] Eosinophils/Leukocytes Auto (Bld) [Pure # fraction] 0.1 E9/L Normal 0.0-0.5 [facility] Comment on above: Order Comment: Order Added by Discern Expert. Performed By: #### 2 643906, 3890445, 4002161, 9442132, 48037083, 73794855, 8764053, 76683449 #### [facility] [address] [place] [address] Lymphocytes/100 WBC (Bld) 11.9 % Low 14.0-50.0 [facility] Comment on above: Order Comment: Order Added by Discern Expert. Performed By: #### 2 567798, 5729292, 6976988, 0689343, 50466000, 32121012, 9606314, 37481233 #### [facility] [address] [place] [address] Lymphocytes/Leukocytes Auto (Bld) [Pure # fraction] 0.8 E9/L Low 1.0-4.0 [facility] Comment on above: Order Comment: Order Added by Discern Expert. Performed By: #### 2 003858, 8610176, 7560889, 3370316, 91071034, 41827902, 3053205, 41729097 #### [facility] [address] [place] [address] Monocytes/100 WBC (Bld) 5.9 % Normal 4.0-14.0 [facility] Comment on above: Order Comment: Order Added by Discern Expert. Performed By: #### 2 645476, 6159025, 8520749, 0099829, 45872482, 15568948, 2164032, 42325469 #### [facility] [address] [place] [address] Monocytes/Leukocytes Auto (Bld) [Pure # fraction] 0.4 E9/L Normal 0.2-1.0 [facility] Comment on above: Order Comment: Order Added by Discern Expert. Performed By: #### 2 607139, 3645860, 8464362, 1550306, 75044145, 62306097, 5715053, 04521829 #### [facility] [address] [place] [address] Neutrophils/100 WBC (Bld) 80.1 % High 36.0-75.0 [facility] Comment on above: Order Comment: Order Added by Discern Expert. Performed By: #### 2 255567, 0598151, 3665114, 6536492, 90706345, 50529871, 2650138, 69840520 #### [facility] [address] [place] [address] Neutrophils/Leukocytes Auto (Bld) [Pure # fraction] 5.4 E9/L Normal 2.0-7.5 [facility] Comment on above: Order Comment: Order Added by Discern Expert. Performed By: #### 2 260448, 4155691, 4678738, 7950061, 40531656, 59996275, 4578694, 41053033 #### [facility] [address] [place] [address] [facility] 05-08-2023 Anion gap [Moles/Vol] 12 mmol/L Normal 6-16 [facility] Comment on above: Performed By: #### 2 421217, 1849301, 5377243, 5480143, 57553988, 70826845, 0371935, 25289209 #### [facility] [address] [place] [address] Calcium [Mass/Vol] 9.3 mg/dL Normal 8.9-11.1 [facility] Comment on above: Performed By: #### 2 271456, 7061078, 4650824, 2918519, 02499913, 00949754, 9685269, 86093278 #### [facility] [address] [place] [address] Chloride [Moles/Vol] 103 mmol/L Normal 101-111 [facility] Comment on above: Performed By: #### 2 156336, 8113074, 4961501, 7076660, 72767781, 54608154, 5005817, 14784188 #### [facility] [address] [place] [address] CO2 [Moles/Vol] 27 mmol/L Normal 21-31 [facility] Comment on above: Performed By: #### 2 751869, 4080445, 4268998, 5089260, 12119446, 60899660, 9863574, 50970587 #### [facility] [address] [place] [address] Creatinine [Mass/Vol] 1.0 mg/dL Normal 0.5-1.3 [facility] Comment on above: Performed By: #### 2 720024, 1255045, 3430925, 1493991, 24408966, 21874444, 9347905, 17055160 #### [facility] [address] [place] [address] Glucose [Mass/Vol] 103 mg/dL Normal 55-199 [facility] Comment on above: Result Comment: If t his glucose result represents a fasting glucose, interpretation should refer to the following reference range: 55-99 mg/dL Performed By: #### 2 548326, 4701967, 4762911, 7850344, 43436661, 63411842, 0399975, 78003761 #### [facility] [address] [place] [address] Potassium [Moles/Vol] 4.1 mmol/L Normal 3.5-5.3 [facility] Comment on above: Performed By: #### 2 355964, 2883347, 4919452, 1269026, 42037303, 82062731, 3023260, 71488139 #### [facility] [address] [place] [address] Sodium [Moles/Vol] 138 mmol/L Normal 135-145 [facility] Comment on above: Performed By: #### 2 849464, 1924323, 4059933, 9883261, 57314466, 12537995, 6566248, 17674123 #### [facility] [address] [place] [address] Urea nitrogen [Mass/Vol] 32 mg/dL High 5-21 [facility] Comment on above: Performed By: #### 2 172333, 7511420, 2203988, 4991855, 89290363, 46130878, 6629536, 81587824 #### [facility] [address] [place] [address] Urea nitrogen/Creatinine [Mass ratio] 32 No Units High 10-20 [facility] Comment on above: Performed By: #### 2 779908, 5012785, 5364464, 8947938, 31688224, 98820210, 7999929, 80601691 #### [facility] [address] [place] [address] CBC w/ Auto Diffon 3 Erythrocyte distribution width (RBC) [Ratio] 13.4 % Normal 10.9-14.2 [facility] Comment on above: Performed By: #### 2 583882, 4312315, 5845214, 4431574, 56197233, 07235749, 2175228, 51368341 #### [facility] [address] [place] [address] Hematocrit (Bld) [Volume fraction] 41.8 % Normal 34.0-46.0 [facility] Comment on above: Performed By: #### 2 922699, 9652345, 1210409, 7244829, 72457410, 11758777, 3008176, 71724867 #### [facility] [address] [place] [address] Hemoglobin (Bld) [Mass/Vol] 13.8 g/dL Normal 12.0-16.0 [facility] Comment on above: Performed By: #### 2 709830, 7027021, 0827410, 2347777, 76325405, 39109593, 8314299, 78536803 #### [facility] [address] [place] [address] MCH (RBC) [Entitic mass] 28.6 pg Normal 27.0-34.0 [facility] Comment on above: Performed By: #### 2 998399, 8549218, 4811429, 5689178, 03951232, 51582989, 7034327, 34711710 #### [facility] [address] [place] [address] MCHC (RBC) [Mass/Vol] 33.0 g/dL Normal 31.4-36.0 [facility] Comment on above: Performed By: #### 2 453036, 7125987, 0610007, 1655552, 77296054, 17111198, 3350001, 06844419 #### [facility] [address] [place] [address] MCV (RBC) [Entitic vol] 86.7 fL Normal 80.0-100.0 [facility] Comment on above: Performed By: #### 2 513542, 9676927, 6322174, 6198989, 42925112, 93852899, 7025984, 28995645 #### [facility] [address] [place] [address] Platelet mean volume (Bld) [Entitic vol] 8.7 fL Normal 6.4-10.8 [facility] Comment on above: Performed By: #### 2 132371, 5143772, 6152238, 9386707, 28721637, 07529662, 5567277, 24790393 #### [facility] [address] [place] [address] Platelets (Bld) [#/Vol] 179.0 E9/L Normal 150.0-500.0 [facility] Comment on above: Performed By: #### 2 042388, 5004477, 5024932, 3572677, 93731284, 80047493, 6468151, 49373500 #### [facility] [address] [place] [address] RBC (Bld) [#/Vol] 4.8 E12/L Normal 4.3-5.9 [facility] Comment on above: Performed By: #### 2 169166, 7728242, 5053992, 5078173, 55924232, 09589467, 0552913, 07615032 #### [facility] [address] [place] [address] WBC corrected for nucl RBC Auto (Bld) [#/Vol] 6.7 E9/L Normal 4.0-11.0 [facility] Comment on above: Performed By: #### 2 308835, 9528631, 0398258, 0843684, 95755108, 69518841, 6210712, 17155142 #### [facility] [address] [place] [address] CHEMISTRYOrdered By: SYSTEM SYSTEM on 05-08-2023 Albumin [Mass/Vol] 4.1 g/dL Normal 3.3 - 5.0 gm/dL [facility] Albumin/Globulin [Mass ratio] 1.6 {ratio} Normal 1.1 - 2.2 [facility] ALP [Catalytic activity/Vol] 34 [iU]/d Normal 21 - 98 Int._Unit/L [facility] ALT No additional P-5'-P [Catalytic activity/Vol] 30 [iU]/d Normal 6 - 46 Int._Unit/L [facility] Anion gap [Moles/Vol] 12 mmol/L Normal 6 - 16 mEq/L [facility] AST [Catalytic activity/Vol] 38 [iU]/d Normal 5 - 43 Int._Unit/L [facility] Bilirubin [Mass/Vol] 0.2 mg/dL Normal 0.0 - 1 .1 mg/dL [facility] Bilirubin.direct [Mass/Vol] mg/dL Normal 0.1 - 0.4 mg/dL [facility] Bilirubin.indirect [Mass or moles/Vol] Unable to Calculate mg/dL Invalid Interpretation Code 0.1 - 0.9 mg/dL [facility] Calcium [Mass/Vol] 9.3 mg/dL Normal 8.9 - 11. 1 mg/dL [facility] Chloride [Moles/Vol] 103 mmol/L Normal 101 - 1 11 mmol/L [facility] CO2 [Moles/Vol] 27 mmol/L Normal 21 - 31 mmol/L [facility] Creatinine [Mass/Vol] 1.0 mg/dL Normal 0.5 - 1.3 mg/dL [facility] GFR/1.73 sq M.predicted among non-blacks MDRD (S/P/Bld) [Vol rate/Area] 65 mL/min/1.73 m2 Normal >=59mL/min/1 .73 m2 [facility] Chem S Globulin (S) [Mass/Vol] 2.6 g/dL Normal 1.4 - 4.0 gm/dL [facility] Glucose [Mass/Vol] 103 mg/dL Normal 55 - 199 mg/dL [facility] Potassium [Moles/Vol] 4.1 mmol/L Normal 3.5 - 5.3 mmol/L [facility] Protein [Mass/Vol] 6.7 g/dL Normal 6.0 - 7.8 gm/dL [facility] Sodium [Moles/Vol] 138 mmol/L Normal 135 - 145 mmol/L [facility] Troponin I.cardiac [Mass/Vol] 10.00 pg/mL Low 10.10 - 27.10 pg/mL [facility] Urea nitrogen [Mass/Vol] 32 mg/dL High 5 - 21 mg/dL [facility] Urea nitrogen/Creatinine [Mass ratio] 32 mg/mg High 10 - 20 [facility] COAGULATIONOrdered By: Virginia June on 05-08-2023 aPTT Coag (PPP) [Time] 28.2 s Normal 25.1 - 36.5 second(s) [facility] Auto Coag Fibrin D-dimer FEU (PPP) [Mass/Vol] 574 ng/mL FEU Invalid Interpretation Code 215 - 500 ng/mL FEU [facility] Comment on above: Result Comment: Resu lts Called To medina sarabia By ts And Read Back For Confirmation On 05/08/2023 20:47:16 EDT Results Verified By Repeat Analysis INR Coag (PPP) [Relative time] 1.0 {INR} Invalid Interpretation Code [facility] Auto Coag PT Coag (PPP) [Time] 10.9 s Normal 9.4 - 1 2.5 second(s) [facility] Auto Coag Consent for Treatmenton 04-26 Consent for Treatment [id number] .[id number]:127 Normal [facility] D-Dimeron 05-08-2023 Fibrin D-dimer FEU (PPP) [Mass/Vol] 574 [id number] Abnormal 215-500 [facility] Comment on above: Result Comment: Resu lts Called To medina sarabia By ts And Read Back For Confirmation On 05/08/2023 20:47:16 EDT Results Verified By Repeat Analysis This assay is intended for use as an aid in the diagnosis of DVT or PE. These conditions cannot be excluded with certainty solely on the basis of a D-dimer concentration being within the reference range This D-Dimer assay may be used in conjunction with a non-high clinical pretest probability assessment to exclude deep-vein thrombosis(DVT). For exclusion of venous thrombosis or pulmonary embolism the analyte D-Dimer should not be used as an aid in patients with: Therapeutic dose anticoagulant therapy for >24 hours Fibrinolytic therapy within previous 7 days Trauma or surgery within previous 4 weeks Disseminated malignacies Aortic aneurysm Sepsis, severe infections, pneumonia, severe skin infections Liver cirrhosis Performed By: #### 2 594421, 5840137, 1549171, 0579219, 37993902, 47975356, 3450103, 09037049 #### [facility] [address] [place] [address] HEMATOLOGYOrdered By: SYSTEM SYSTEM on 05-08-2023 Basophils/100 WBC (Bld) 0.9 % Normal 0.0 - 2.0 % [facility] HemeAutoSS Basophils/Leukocytes Auto (Bld) [Pure # fraction] 0.1 E9/L Normal 0.0 - 0.2 E9/L [facility] HemeAutoSS Eosinophils/100 WBC (Bld) 1.2 % Normal 0.0 - 8.0 % [facility] HemeAutoSS Eosinophils/Leukocytes Auto (Bld) [Pure # fraction] 0.1 E9/L Normal 0.0 - 0.5 E9/L [facility] HemeAutoSS Lymphocytes/100 WBC (Bld) 11.9 % Low 14.0 - 50.0 % [facility] HemeAutoSS Lymphocytes/Leukocytes Auto (Bld) [Pure # fraction] 0.8 E9/L Low 1.0 - 4.0 E9/L [facility] HemeAutoSS Monocytes/100 WBC (Bld) 5.9 % Normal 4.0 - 14.0 % [facility] HemeAutoSS Monocytes/Leukocytes Auto (Bld) [Pure # fraction] 0.4 E9/L Normal 0.2 - 1.0 E9/L [facility]eAutoSS Neutrophils/100 WBC (Bld) 80.1 % High 36.0 - 75.0 % [facility] HemeAutoSS Neutrophils/Leukocytes Auto (Bld) [Pure # fraction] 5.4 E9/L Normal 2.0 - 7.5 E9/L [facility] HemeAutoSS HEMATOLOGYOrdered By: Mariola Hoskins on 05-08-2023 Erythrocyte distribution width (RBC) [Ratio] 13.4 % Normal 10.9 - 14.2 % [facility]eAutoSS Hematocrit (Bld) [Volume fraction] 41.8 % Normal 34.0 - 46.0 % [facility]eAutoSS Hemoglobin (Bld) [Mass/Vol] 13.8 g/dL Normal 12.0 - 16.0 gm/dL [facility]eAutoSS MCH (RBC) [Entitic mass] 28.6 pg Normal 27.0 - 34.0 pg [facility]eAutoSS MCHC (RBC) [Mass/Vol] 33.0 g/dL Normal 31.4 - 36.0 gm/dL [facility] MCV (RBC) [Entitic vol] 86.7 fL Normal 80.0 - 100.0 fL [facility]eAutoSS Platelet mean volume (Bld) [Entitic vol] 8.7 fL Normal 6.4 - 10.8 fL [facility] HemeAutoSS Platelets (Bld) [#/Vol] 179.0 E9/L Normal 150. 0 - 500.0 E9/L [facility] HemeAutoSS RBC (Bld) [#/Vol] 4.8 E12/L Normal 4.3 - 5.9 E12/L [facility] HemeAutoSS WBC corrected for nucl RBC Auto (Bld) [#/Vol] 6.7 E9/L Normal 4.0 - 11.0 E9/L [facility] HemeAutoSS Hep Func Panelon 05-08-2023 Albumin [Mass/Vol] 4.1 g/dL Normal 3.3-5.0 [facility] Comment on above: Performed By: #### 2 267691, 0379471, 3802932, 3298247, 58484764, 04128285, 4226524, 81980782 #### [facility] [address] [place] [address] Albumin/Globulin (S) [Mass conc ratio] 1.6 Normal 1.1-2.2 [facility] Comment on above: Performed By: #### 2 995347, 0355414, 8678144, 3957608, 23223217, 64931210, 2939854, 57077577 #### [facility] [address] [place] [address] ALP [Catalytic activity/Vol] 34 Int._Unit/L Normal 21-98 [facility] Comment on above: Performed By: #### 2 924846, 8228607, 4969393, 6377491, 11244489, 28568824, 2590740, 64783549 #### [facility] [address] [place] [address] ALT No additional P-5'-P [Catalytic activity/Vol] 30 Int._Unit/L Normal 6-46 [facility] Comment on above: Performed By: #### 2 915746, 7899682, 2902522, 8670693, 60569552, 02000635, 7245282, 47458315 #### [facility] [address] [place] [address] AST [Catalytic activity/Vol] 38 Int._Unit/L Normal 5-43 [facility] Comment on above: Performed By: #### 2 487831, 5765167, 4192568, 3816658, 57754234, 88328133, 6834073, 44134014 #### [facility] [address] [place] [address] Bilirubin [Mass/Vol] 0.2 mg/dL Normal 0.0-1.1 [facility] Comment on above: Performed By: #### 2 915350, 3973427, 7813224, 4334226, 68025305, 87619275, 9564924, 07890891 #### [facility] [address] [place] [address] Bilirubin.direct [Mass/Vol] mg/dL Normal 0.1-0.4 [facility] Comment on above: Performed By: #### 2 830185, 8045917, 7035172, 5485793, 74782937, 20370563, 0653023, 35239644 #### [facility] [address] [place] [address] Bilirubin.indirect [Mass or moles/Vol] UTC Abnormal 0.1-0.9 [facility] Comment on above: Result Comment: Resu lt verified by Discern Rule. Performed result UTC (Unable to Calculate) was sent as an Alpha code due the inability to calculate a valid numeric value. Performed By: #### 2 126990, 8102920, 7980135, 4066703, 66397855, 05265542, 9157739, 64093340 #### [facility] [address] [place] [address] Globulin (S) [Mass/Vol] 2.6 g/dL Normal 1.4-4.0 [facility] Comment on above: Performed By: #### 2 613246, 9538391, 0170692, 1980850, 47167616, 12394611, 4270343, 00336317 #### [facility] [address] [place] [address] Protein [Mass/Vol] 6.7 g/dL Normal 6.0-7.8 [facility] Comment on above: Performed By: #### 2 082881, 7206741, 2166759, 2116816, 19851397, 20374935, 6005345, 29192108 #### [facility] [address] [place] [address] PT & PTTon 05-08-2023 aPTT Coag (PPP) [Time] 28.2 second(s) Normal 25.1-36.5 [facility] Comment on above: Result Comment: Para meter 15 days - 4 weeks 1 - 5 months 6 - 11 months 1 - 5 years 6 - 10 years 11 - 17 years PTT Mean: 35.4 (27.6-45.6) Mean: 33.5 (24.8-40.7) Mean: 32.4 (25.1-40.7) Mean: 31.6 (24.0-39.2) Mean: 31.6 (26.9-38.7) Mean: 31.0 (24.6-38.4) Pediatric Reference ranges were obtained from a study by silverio Florian al. prepared from 1437 samples obtained at 7 different centers using the same coagulation reagent and instrumentation as [facility]. Currently there are no coagulation studies available worldwide for children to 14 days, and no normal ranges. Heparin therapeutic range (represented by Anti-Factor Xa activity of 0.2 - 0.4 U/mL) corresponds to PTT of 56.6 - 109.0 sec. Performed By: #### 2 024484, 9135550, 7838426, 3258130, 74709102, 86029427, 5844820, 61075286 #### [facility] [address] [place] [address] INR Coag (PPP) [Relative time] 1.0 {INR} Invalid Interpretation Code [facility] Comment on above: Result Comment: INR results are specifically intended to assess patients stabilized on long-term Anticoagulation therapy suggested INR?s ?Less Intensive Anticoagulation? 2.0 ? 3.0 Conventional Range 3.0 ? 4.5 Performed By: #### 2 655006, 5075207, 6077686, 6621137, 18908279, 48000184, 7232399, 91556903 #### [facility] [address] [place] [address] PT Coag (PPP) [Time] 10.9 second(s) Normal 9.4-12.5 [facility] Comment on above: Result Comment: 15 d ays - 4 weeks 1 - 5 months 6 -11 months 1 ? 5 years 6 ? 10 years 11 -17 years Mean: 11.2 (9.5 ? 12.6) Mean: 11.0 (9.7 ? 12.8) Mean: 11.0 (9.8 ? 13.0) Mean: 11.3 (9.9 ? 13.4) Mean: 11.7 (10.0 ? 14.6) Mean: 11.8 (10.0 - 14.1) Pediatric Reference ranges were obtained from a study by Tereso Mendez et al. prepared from 1437 samples obtained at 7 different centers using the same coagulation reagent and instrumentation as [facility]. Currently there are no coagulation studies available worldwide for children to 14 days, and no normal ranges. Performed By: #### 2 908337, 5724560, 2436327, 2172916, 45012793, 43136116, 5200009, 47494620 #### [facility] [address] [place] [address] Troponin 0 Hr.on 05-08-2023 Troponin I.cardiac [Mass/Vol] 10.00 pg/mL Low 10.10-27.10 [facility] Comment on above: Result Comment: The 95% CI (Confidence Interval) PPV (Positive Predictive Value) for myocardial infarction in females is 38 pg/mL, in males 51 pg/mL. The results should be used in conjunction with clinical conditions of myocardial infarction. (Access High Sensitivity Troponin I Instructions For Use, [place], May 2018) Performed By: #### 2 695762, 3682064, 0783921, 7655488, 18628778, 91064345, 9812835, 78571704 #### [facility] [address] [place] [address] eGFRon 05-08-2023 GFR/1.73 sq M.predicted among non-blacks MDRD (S/P/Bld) [Vol rate/Area] 65 mL/min/1.73 m2 Normal >=59 [facility] Comment on above: Order Comment: Order added by Discern Expert. Result Comment: Suspect Artist Supervisor preston kidney disease could be indicated at eGFR's of less than 60 mL/min/1.73m2. Kidney failure is indicated at less than 15 mL/min/1.73m2. Performed By: #### 2 242035, 5135103, 4854442, 8602999, 47022312, 43547701, 5419371, 44796180 #### [facility] [address] [id number] US venous duplex LE RTon US venous duplex LE RT [facility] [place] [address] [place], [place] [id number] Ultrasound Report Signed Patient: Maricel Easton MR#: [id number] : 1965 Acct:[id number] Age/Sex: 57 / F ADM Date: 03/10/23 Loc: [facility] Room: Type: [facility] Attending Dr: Michelle Perry BONDING AGENT-C Ordering Provider: Michelle Perry APRN Date of Service: 03/10/23 US/US venous duplex LE RT: [id number] Copies to: Michelle Perry APRN RIGHT LOWER EXTREMITY VENOUS DUPLEX INDICATION: Symptomatic varicose veins Unilateral right lower extremity venous duplex Doppler study was obtained utilizing B-mode, color- flow and spectral Doppler. FINDINGS: The right common femoral, femoral, and popliteal veins showed adequate compressibility, color-flow and augmentation. The right posterior tibial and peroneal veins were compressible, as well as proximal greater saphenous vein. The contralateral left common femoral vein was compressible with color-flow and augmentation. US/US venous duplex LE RT IMPRESSION: NO EVIDENCE OF DEEP VENOUS THROMBOSIS IN THE RIGHT LOWER EXTREMITY. NO SUPERFICIAL THROMBOPHLEBITIS WAS NOTED. No reflux was identified in the right lower extremity. This includes both the deep and superficial system. Impression dictated by: Fidel Soler MD03/10/2023 2:16 PM Dictation [facility] Tech: Jessica Kai Transcribed By: [facility] 03/10/23 141 Dictated By: Fidel Soler MD 03/10/231414 Signed By: 03/10/23 141 [facility] Alanine Aminotransferaseon 0 03-03-2023 ALT [Catalytic activity/Vol] 25 U/L [facility] Comment on above: Order Comment: PT FA STED 12 HOURS Reason for Exam Hyperparathyroidism;Primary hypertension;Thyroid nodule Reason for Exam Primary hypertension;Hyperparathyroidism;Thyroid nodule Performed By: #### T SH3, T4F, BMP, ALT, LIPID #### [facility] [address] [id number] [facility] Alanine aminotransferase [En zymatic activity/volume] in Serum or PlasmaOrdered By: Vishal Barcenas on 03-03-2023 ALT [Catalytic activity/Vol] 25 U/L [facility] Basic Metabolic Panelon Anion gap [Moles/Vol] 8.7 mmol/L Normal 6.0-15.0 [facility] Comment on above: Order Comment: PT FA STED 12 HOURS Reason for Exam Hyperparathyroidism;Primary hypertension;Thyroid nodule Reason for Exam Primary hypertension;Hyperparathyroidism;Thyroid nodule Performed By: #### T SH3, T4F, BMP, ALT, LIPID #### [facility] [address] Calcium [Mass/Vol] 8.5 mg/dL Low 8.6-10.3 [facility] Comment on above: Order Comment: PT FA STED 12 HOURS Reason for Exam Hyperparathyroidism;Primary hypertension;Thyroid nodule Reason for Exam Primary hypertension;Hyperparathyroidism;Thyroid nodule Performed By: #### T SH3, T4F, BMP, ALT, LIPID #### [facility] [address] [id number] [place] Chloride [Moles/Vol] 105 mmol/L Normal 98-107 [facility] Comment on above: Order Comment: PT FA STED 12 HOURS Reason for Exam Hyperparathyroidism;Primary hypertension;Thyroid nodule Reason for Exam Primary hypertension;Hyperparathyroidism;Thyroid nodule Performed By: #### T SH3, T4F, BMP, ALT, LIPID #### [facility] [address] [id number] [place] CO2 [Moles/Vol] 30.3 mmol/L Normal 21.0-31.0 [facility] Comment on above: Order Comment: PT FA STED 12 HOURS Reason for Exam Hyperparathyroidism;Primary hypertension;Thyroid nodule Reason for Exam Primary hypertension;Hyperparathyroidism;Thyroid nodule Performed By: #### T SH3, T4F, BMP, ALT, LIPID #### [facility] [address] Creatinine [Mass/Vol] 0.83 mg/dL Normal 0.60-1.20 [facility] Comment on above: Order Comment: PT FA STED 12 HOURS Reason for Exam Hyperparathyroidism;Primary hypertension;Thyroid nodule Reason for Exam Primary hypertension;Hyperparathyroidism;Thyroid nodule Performed By: #### T SH3, T4F, BMP, ALT, LIPID #### [facility] [address] [place] [address] [place] GFR/1.73 sq M.predicted MDRD (S/P/Bld) [Vol rate/Area] mL/min/{1.73_m2} [facility] Comment on above: Order Comment: PT FA STED 12 HOURS Reason for Exam Hyperparathyroidism;Primary hypertension;Thyroid nodule Reason for Exam Primary hypertension;Hyperparathyroidism;Thyroid nodule Performed By: #### T SH3, T4F, BMP, ALT, LIPID #### [facility] [address] Glucose [Mass/Vol] 83 mg/dL Normal 70-100 [facility] Comment on above: Order Comment: PT FA STED 12 HOURS Reason for Exam Hyperparathyroidism;Primary hypertension;Thyroid nodule Reason for Exam Primary hypertension;Hyperparathyroidism;Thyroid nodule Result Comment: [facility] Glucose Reference Range is dependent on time and content of last meal. Glucose of more than 200 mg/dL in a nonstressed, ambulatory subject supports the diagnosis of Diabetes Mellitus. ADA recommended reference range Performed By: #### T SH3, T4F, BMP, ALT, LIPID #### [facility] [address] Potassium [Moles/Vol] 4.0 mmol/L Normal 3.5-5.1 [facility] Comment on above: Order Comment: PT FA STED 12 HOURS Reason for Exam Hyperparathyroidism;Primary hypertension;Thyroid nodule Reason for Exam Primary hypertension;Hyperparathyroidism;Thyroid nodule Performed By: #### T SH3, T4F, BMP, ALT, LIPID #### [facility] [address] Sodium [Moles/Vol] 140 mmol/L Normal 136-145 [facility] Comment on above: Order Comment: PT FA STED 12 HOURS Reason for Exam Hyperparathyroidism;Primary hypertension;Thyroid nodule Reason for Exam Primary hypertension;Hyperparathyroidism;Thyroid nodule Performed By: #### T SH3, T4F, BMP, ALT, LIPID #### [facility] [address] Urea nitrogen [Mass/Vol] 17 mg/dL Normal 7-25 [facility] Comment on above: Order Comment: PT FA STED 12 HOURS Reason for Exam Hyperparathyroidism;Primary hypertension;Thyroid nodule Reason for Exam Primary hypertension;Hyperparathyroidism;Thyroid nodule Performed By: #### T SH3, T4F, BMP, ALT, LIPID #### [facility] [address] Basophils Auto (Bld) [#/Vol] Ordered By: Vishal Barcenas on 03-03-2023 Basophils (Bld) [#/Vol] 0.0 10*3/uL 0.0-0.2 [facility] Basophils/100 WBC Auto (Bld) Ordered By: Vishal Barcenas on 03-03-2023 Basophils/100 WBC (Bld) 0.9 % . [facility] [place] Calcium [Mass/volume] in Ser um or PlasmaOrdered By: Vishal Barcenas on 03-03-2023 Calcium [Mass/Vol] 8.5 mg/dL 8.6-10.3 [facility] Carbon dioxide, total [Moles /volume] in Serum or PlasmaOrdered By: Vishal Barcenas on 03-03-2023 CO2 [Moles/Vol] 30.3 mmol/L 21.0-31.0 [facility] Chloride [Moles/volume] in S alissa or PlasmaOrdered By: Vishal Barcenas on 03-03-2023 Chloride [Moles/Vol] 105 mmol/L 98-107 [facility] Cholesterol [Mass/volume] in Serum or PlasmaOrdered By: Vishal Barcenas on 03-03-2023 Cholesterol [Mass/Vol] 158 mg/dL 140-200 [facility] Comment on above: Chol less than 200 m g/dl low riskChol 201-239 mg/dl borderline riskChol 240 mg/dl and greater high risk Cholesterol in LDL Calc [Mas s/Vol]Ordered By: Vishal Barcenas on 03-03-2023 Cholesterol in LDL [Mass/Vol] 80 mg/dL 0-100 [facility] Comment on above: LDL ATP III CLASSIFI CATIONLDL less than 100 mg/dL OptimalLDL 100-129 mg/dL Near or above optimalLDL 130-159 mg/dL Borderline highLDL 160-189 mg/dL HighLDL greater than 189 mg/dL Very high Cholesterol in VLDL Calc [Ma ss/Vol]Ordered By: Vishal Barcenas on 03-03-2023 Cholesterol in VLDL [Mass/Vol] 8 mg/dL [facility] Complete Blood Count Auto Di ffon 03-03-2023 Basophils (Bld) [#/Vol] 0.0 10*3/uL Normal 0.0-0.2 [facility] Comment on above: Order Comment: Reaso n for Exam Primary hypertension;Hyperparathyroidism;Thyroid nodule Result Comment: PERF ORMED BY: [place] [address] PATHOLOGIST SHROUDMAN HIREN SMITH M.D. Performed By: #### C BC #### [facility] [address] Basophils/100 WBC (Bld) 0.9 % Normal . [facility] [place] Comment on above: Order Comment: Reaso n for Exam Primary hypertension;Hyperparathyroidism;Thyroid nodule Performed By: #### C BC #### [facility] [address] [place] [address] [place] Eosinophils (Bld) [#/Vol] 0.2 10*3/uL Normal 0.0-0.45 [facility] Comment on above: Order Comment: Reaso n for Exam Primary hypertension;Hyperparathyroidism;Thyroid nodule Performed By: #### C BC #### [facility] [address] [place] [address] [place] Eosinophils/100 WBC (Bld) 3.9 % Normal . [facility] Comment on above: Order Comment: Reaso n for Exam Primary hypertension;Hyperparathyroidism;Thyroid nodule Performed By: #### C BC #### [facility] [address] [place] [address] [place] Erythrocyte distribution width (RBC) [Ratio] 13.6 % Normal 11.9-15.3 [facility] Comment on above: Order Comment: Reaso n for Exam Primary hypertension;Hyperparathyroidism;Thyroid nodule Performed By: #### C BC #### [address] Hematocrit (Bld) [Volume fraction] 41.6 % Normal 34.0-46.4 [facility] Comment on above: Order Comment: Reaso n for Exam Primary hypertension;Hyperparathyroidism;Thyroid nodule Performed By: #### C BC #### [address] Hemoglobin (Bld) [Mass/Vol] 13.6 g/dL Normal 11.8-15.4 [facility] Comment on above: Order Comment: Reaso n for Exam Primary hypertension;Hyperparathyroidism;Thyroid nodule Performed By: #### C BC #### [address] Lymphocytes (Bld) [#/Vol] 1.4 10*3/uL Normal 1.00-4.8 [facility] Comment on above: Order Comment: Reaso n for Exam Primary hypertension;Hyperparathyroidism;Thyroid nodule Performed By: #### C BC #### [address] Lymphocytes/100 WBC (Bld) 27.4 % Normal . [facility] Comment on above: Order Comment: Reaso n for Exam Primary hypertension;Hyperparathyroidism;Thyroid nodule Performed By: #### C BC #### [address] MCH (RBC) [Entitic mass] 28.3 pg Normal 24.7-34.3 [facility] Comment on above: Order Comment: Reaso n for Exam Primary hypertension;Hyperparathyroidism;Thyroid nodule Performed By: #### C BC #### [address] MCV (RBC) [Entitic vol] 86.7 fL Normal 80-100 [facility] [place] Comment on above: Order Comment: Reaso n for Exam Primary hypertension;Hyperparathyroidism;Thyroid nodule Performed By: #### C BC #### [address] [place] [address] [place] Mean Corpuscular HGB Conc 32.7 g/dL Normal 32.0-35.0 [facility] Comment on above: Order Comment: Reaso n for Exam Primary hypertension;Hyperparathyroidism;Thyroid nodule Performed By: #### C BC #### [facility] [address] Monocytes (Bld) [#/Vol] 0.4 10*3/uL Normal 0.0-0.8 [facility] Comment on above: Order Comment: Reaso n for Exam Primary hypertension;Hyperparathyroidism;Thyroid nodule Performed By: #### C BC #### [facility] [address] [place] [address] Monocytes/100 WBC (Bld) 8.6 % Normal . [facility] Comment on above: Order Comment: Reaso n for Exam Primary hypertension;Hyperparathyroidism;Thyroid nodule Performed By: #### C BC #### [facility] [address] [place] [address] Neutrophils (Bld) [#/Vol] 3.1 10*3/uL Normal 1.8-7.7 [facility] Comment on above: Order Comment: Reaso n for Exam Primary hypertension;Hyperparathyroidism;Thyroid nodule Performed By: #### C BC #### [address] Neutrophils/100 WBC (Bld) 59.2 % Normal . [facility] Comment on above: Order Comment: Reaso n for Exam Primary hypertension;Hyperparathyroidism;Thyroid nodule Performed By: #### C BC #### [address] NRBC% 0.1 /100{WBC} Normal 0-0.5 [facility] Comment on above: Order Comment: Reaso n for Exam Primary hypertension;Hyperparathyroidism;Thyroid nodule Performed By: #### C BC #### [address] Platelet mean volume (Bld) [Entitic vol] 9.1 fL Normal 6.3-10.7 [facility] Comment on above: Order Comment: Reaso n for Exam Primary hypertension;Hyperparathyroidism;Thyroid nodule Performed By: #### C BC #### [facility] [address] Platelets (Bld) [#/Vol] 175 10*3/uL Normal 150-450 [facility] Comment on above: Order Comment: Reaso n for Exam Primary hypertension;Hyperparathyroidism;Thyroid nodule Performed By: #### C BC #### [facility] [address] RBC (Bld) [#/Vol] 4.80 10*6/uL Normal 3.60-5.00 [facility] Comment on above: Order Comment: Reaso n for Exam Primary hypertension;Hyperparathyroidism;Thyroid nodule Performed By: #### C BC #### [facility] [address] WBC (Bld) [#/Vol] 5.2 10*3/uL Normal 3.8-11.6 [facility] Comment on above: Order Comment: Reaso n for Exam Primary hypertension;Hyperparathyroidism;Thyroid nodule Performed By: #### C BC #### [facility] [address] Creatinine [Mass/volume] in Serum or PlasmaOrdered By: Vishal Barcenas on 03-03-2023 Creatinine [Mass/Vol] 0.83 mg/dL 0.60-1.20 [facility] Creatinine [Mass/volume] in UrineOrdered By: Vishal Barcenas on 03-03-2023 Creatinine (U) [Mass/Vol] 203.0 mg/dL 11.0-20.0 [facility] Eosinophils Auto (Bld) [#/Vo l]Ordered By: Vishal Barcenas on 03-03-2023 Eosinophils (Bld) [#/Vol] 0.2 10*3/uL 0.0-0.45 [facility] Eosinophils/100 WBC Auto (Bl d)Ordered By: Vishal Barcenas on 03-03-2023 Eosinophils/100 WBC (Bld) 3.9 % . [facility] Erythrocyte distribution wid th Auto (RBC) [Ratio]Ordered By: Vishal Barcenas on 03-03-2023 Erythrocyte distribution width (RBC) [Ratio] 13.6 % 11.9-15.3 [facility] Free T4 (Free Thyroxine)on 0 03-03-2023 Free T4 [Mass/Vol] 0.92 ng/dL Normal 0.61-1.12 [facility] Comment on above: Order Comment: PT FA STED 12 HOURS Reason for Exam Hyperparathyroidism;Primary hypertension;Thyroid nodule Reason for Exam Primary hypertension;Hyperparathyroidism;Thyroid nodule Performed By: #### T SH3, T4F, BMP, ALT, LIPID #### [address] Glucose [Mass/volume] in Ser um or PlasmaOrdered By: Vishal Barcenas on 03-03-2023 Glucose [Mass/Vol] 83 mg/dL 70-100 [facility] Comment on above: ADA recommended refe rence rangeRandom Glucose Reference Range is dependent on time and content of last meal. Glucose of more than 200 mg/dL in a nonstressed, ambulatory subject supports the diagnosis of Diabetes Mellitus. Hematocrit Auto (Bld) [Volum e fraction]Ordered By: Vishal Barcenas on 03-03-2023 Hematocrit (Bld) [Volume fraction] 41.6 % 34.0-46.4 [facility] Hemoglobin [Mass/volume] in BloodOrdered By: Vishal Barcenas on 03-03-2023 Hemoglobin (Bld) [Mass/Vol] 13.6 g/dL 11.8-15.4 [facility] Leukocytes [#/volume] correc jimob for nucleated erythrocytes in Blood by Automated counOrdered By: Vishal Barcenas on 03-03-2023 WBC corrected for nucl RBC Auto (Bld) [#/Vol] 5.2 10*3/uL 3.8-11.6 [facility] Lipid Panelon 03-03-2023 Cholesterol [Mass/Vol] 158 mg/dL Normal 140-200 [facility] Comment on above: Order Comment: PT FA STED 12 HOURS Reason for Exam Hyperparathyroidism;Primary hypertension;Thyroid nodule Reason for Exam Primary hypertension;Hyperparathyroidism;Thyroid nodule Result Comment: Chol less than 200 mg/dl low risk Chol 201-239 mg/dl borderline risk Chol 240 mg/dl and greater high risk Performed By: #### T SH3, T4F, BMP, ALT, LIPID #### [facility] [address] [place] [address] [place] Cholesterol in HDL [Mass/Vol] 70 mg/dL Normal 35-85 [facility] Comment on above: Order Comment: PT FA STED 12 HOURS Reason for Exam Hyperparathyroidism;Primary hypertension;Thyroid nodule Reason for Exam Primary hypertension;Hyperparathyroidism;Thyroid nodule Result Comment: HDL CHOL ATP-III CLASSIFICATION Cardiovascular Risk HDL > or equal to 60 mg/dL LOW HDL < 40 mg/dL HIGH Performed By: #### T SH3, T4F, BMP, ALT, LIPID #### [facility] [address] Cholesterol.total/Eva sterol in HDL [Mass ratio] 2.3 {ratio} Normal <5.0 [facility] Comment on above: Order Comment: PT FA STED 12 HOURS Reason for Exam Hyperparathyroidism;Primary hypertension;Thyroid nodule Reason for Exam Primary hypertension;Hyperparathyroidism;Thyroid nodule Performed By: #### T SH3, T4F, BMP, ALT, LIPID #### [facility] [address] LDL Cholesterol,Calculated 80 mg/dL Normal 0-100 [facility] Comment on above: Order Comment: PT FA STED 12 HOURS Reason for Exam Hyperparathyroidism;Primary hypertension;Thyroid nodule Reason for Exam Primary hypertension;Hyperparathyroidism;Thyroid nodule Result Comment: LDL ATP III CLASSIFICATION LDL less than 100 mg/dL Optimal LDL 100-129 mg/dL Near or above optimal LDL 130-159 mg/dL Borderline high LDL 160-189 mg/dL High LDL greater than 189 mg/dL Very high Performed By: #### T SH3, T4F, BMP, ALT, LIPID #### [facility] [address] [id number] [place] Triglyceride w/Reflex 41 mg/dL Normal 0-149 [facility] Comment on above: Order Comment: PT FA STED 12 HOURS Reason for Exam Hyperparathyroidism;Primary hypertension;Thyroid nodule Reason for Exam Primary hypertension;Hyperparathyroidism;Thyroid nodule Result Comment: TRIG ATP III CLASSIFICATION TRIG less than 150 mg/dL Normal TRIG 150-199 mg/dL Borderline high TRIG 200-500 mg/dL High TRIG greater than 500 mg/dL Very high Standard traceable to the Center for Disease Conrtrol and Prevention (CDC) test method. Performed By: #### T SH3, T4F, BMP, ALT, LIPID #### [facility] [address] VLDL CHOLESTEROL 8 mg/dL Normal [facility] Comment on above: Order Comment: PT FA STED 12 HOURS Reason for Exam Hyperparathyroidism;Primary hypertension;Thyroid nodule Reason for Exam Primary hypertension;Hyperparathyroidism;Thyroid nodule Performed By: #### T SH3, T4F, BMP, ALT, LIPID #### [facility] [address] Lymphocytes Auto (Bld) [#/Vo l]Ordered By: Vishal Barcenas on 03-03-2023 Lymphocytes (Bld) [#/Vol] 1.4 10*3/uL 1.00-4.8 [facility] Lymphocytes/100 WBC Auto (Bl d)Ordered By: Vishal Barcenas on 03-03-2023 Lymphocytes/100 WBC (Bld) 27.4 % . [facility] MCH Auto (RBC) [Entitic mass ]Ordered By: Vishal Barcenas on 03-03-2023 MCH (RBC) [Entitic mass] 28.3 pg 24.7-34.3 [facility] MCHC Auto (RBC) [Mass/Vol]Or dered By: Vishal Barcenas on 03-03-2023 MCHC (RBC) [Mass/Vol] 32.7 g/dL 32.0-35.0 [facility] MCV Auto (RBC) [Entitic vol] Ordered By: Vishal Barcenas on 03-03-2023 MCV (RBC) [Entitic vol] 86.7 fL 80-100 [facility] MicroAlb Creat Ratio,Uon Albumin DL <= 20 mg/L (U) [Mass/Vol] 29.3 mg/dL High 0.0-1.8 [facility] Comment on above: Order Comment: Reaso n for Exam Hyperparathyroidism;Primary hypertension;Thyroid nodule Performed By: #### U RMACRERAT #### [facility] [address] Creatinine, Urine (Random) 203.0 mg/dL High 11.0-20.0 [facility] Comment on above: Order Comment: Reaso n for Exam Hyperparathyroidism;Primary hypertension;Thyroid nodule Performed By: #### U RMACRERAT #### [facility] [address] [place] [address] [place] Microalbumin/Creatinine Ratio 144.0 mg/g High 0.0-30.0 [facility] Comment on above: Order Comment: Reaso n for Exam Hyperparathyroidism;Primary hypertension;Thyroid nodule Result Comment: 30-3 00 mg/g indicates an increased risk for diabetic nephropathy. Greater than 300 mg/g is consistent with clinical nephropathy. (Am. J. Kidney Disease 1995, 25:107) PERFORMED BY: [facility] [address] [facility] [place] [address] PATHOLOGIST SHROUDMAN HIREN SMITH M.D. Performed By: #### U RMACRERAT #### [facility] [address] [id number] [facility] Microalbumin [Mass/volume] i n UrineOrdered By: Vishal Barcenas on 03-03-2023 Albumin DL <= 20 mg/L (U) [Mass/Vol] 29.3 mg/dL 0.0-1.8 [facility] Monocytes Auto (Bld) [#/Vol] Ordered By: Vishal Barcenas on 03-03-2023 Monocytes (Bld) [#/Vol] 0.4 10*3/uL 0.0-0.8 [facility] Monocytes/100 WBC Auto (Bld) Ordered By: Vishal Barcenas on 03-03-2023 Monocytes/100 WBC (Bld) 8.6 % . [facility] Neutrophils Auto (Bld) [#/Vo l]Ordered By: Vishal Barcenas on 03-03-2023 Neutrophils (Bld) [#/Vol] 3.1 10*3/uL 1.8-7.7 [facility] Neutrophils/100 WBC Auto (Bl d)Ordered By: Vishal Barcenas on 03-03-2023 Neutrophils/100 WBC (Bld) 59.2 % . [facility] No Panel InformationOrdered By: Vishal Barcenas on 03-03-2023 Estimated GFR (CKD-EPI) > 60.0 mL/Min [facility] Creatinine Clearance (Chem N/A [facility] Nucleated erythrocytes [Pres ence] in Blood by Automated countOrdered By: Vishal Barcenas on 03-03-2023 Nucleated RBC Auto Ql (Bld) 0.1 /100{WBC} 0-0.5 [facility] Platelet mean volume Auto (B ld) [Entitic vol]Ordered By: Vishal Barcenas on 03-03-2023 Platelet mean volume (Bld) [Entitic vol] 9.1 fL 6.3-10.7 [facility] Platelets Auto (Bld) [#/Vol] Ordered By: Vishal Barcenas on 03-03-2023 Platelets (Bld) [#/Vol] 175 10*3/uL 150-450 [facility] Potassium [Moles/volume] in Serum or PlasmaOrdered By: Vishal Barcenas on 03-03-2023 Potassium [Moles/Vol] 4.0 mmol/L 3.5-5.1 [facility] RBC Auto (Bld) [#/Vol]Ordere d By: Vishal Barcenas on 03-03-2023 RBC (Bld) [#/Vol] 4.80 10*6/uL 3.60-5.00 [facility] Serum or plasma anion gap de terminationOrdered By: Vishal Barcenas on 03-03-2023 Anion gap [Moles/Vol] 8.7 mmol/L 6.0-15.0 [facility] Serum or plasma high density lipoprotein (HDL) cholesterol measurementOrdered By: Vishal Barcenas on 03-03-2023 Cholesterol in HDL [Mass/Vol] 70 mg/dL 35-85 [facility] Comment on above: HDL CHOL ATP-III CLA SSIFICATION Cardiovascular RiskHDL > or equal to 60 mg/dL LOWHDL < 40 mg/dL HIGH Serum or plasma total choles terol/high density lipoprotein (HDL) cholesterol mass ratOrdered By: Vishal Barcenas on 03-03-2023 Cholesterol.total/Eva sterol in HDL [Mass ratio] 2.3 {ratio} <5.0 [facility] Sodium [Moles/volume] in Ser um or PlasmaOrdered By: Vishal Barcenas on 03-03-2023 Sodium [Moles/Vol] 140 mmol/L 136-145 [facility] Thyroid Stimulating Hormoneo n 03-03-2023 TSH Qn 1.40 m[IU]/L Normal 0.45-5.33 [facility] Comment on above: Order Comment: PT FA STED 12 HOURS Reason for Exam Hyperparathyroidism;Primary hypertension;Thyroid nodule Reason for Exam Primary hypertension;Hyperparathyroidism;Thyroid nodule Result Comment: PERF ORMED BY: [facility] [address] [place] [address] PATHOLOGIST SHROUDMAN HIREN SMITH M.D. Performed By: #### T SH3, T4F, BMP, ALT, LIPID #### [facility] [address] Thyrotropin [Units/volume] i n Serum or PlasmaOrdered By: Vishal Barcenas on 03-03-2023 TSH Qn 1.40 m[IU]/L 0.45-5.33 [facility] Thyroxine (T4) free [Mass/vo lume] in Serum or PlasmaOrdered By: Vishal Barcenas on 03-03-2023 Free T4 [Mass/Vol] 0.92 ng/dL 0.61-1.12 [facility] Triglyceride [Mass/volume] i n Serum or PlasmaOrdered By: Vishal Barcenas on 03-03-2023 Triglyceride [Mass/Vol] 41 mg/dL 0-149 [facility] Comment on above: TRIG ATP III CLASSIF ICATIONTRIG less than 150 mg/dL NormalTRIG 150-199 mg/dL Borderline highTRIG 200-500 mg/dL High TRIG greater than 500 mg/dL Very highStandard traceable to the Center for Disease Conrtrol and Prevention (CDC) test method. Urea nitrogen [Mass/volume] in Serum or PlasmaOrdered By: Vishal Barcenas on 03-03-2023 Urea nitrogen [Mass/Vol] 17 mg/dL 7- [facility] Urine microalbumin/creatinin e mass ratioOrdered By: Vishal Barcenas on 03-03-2023 Albumin/Creatinine DL <= 20 mg/L (U) [Mass ratio] 144.0 mg/g 0.0-30.0 [facility] Comment on above: 30-300 mg/g indicate s an increased risk for diabetic nephropathy. Greater than 300 mg/g is consistent with clinical nephropathy. (Am. J. Kidney Disease 1995, 25:107) WBC Auto (Bld) [#/Vol]Ordere d By: Vishal Barcenas on 03-03-2023 WBC (Bld) [#/Vol] 5.2 10*3/uL 3.8-11.6 [facility] US venous duplex LE RTon US venous duplex LE RT [place] [address] Ultrasound Report Signed with Addenda Patient: Maricel Easton MR#: [id number] : 1965 Acct:[id number] Age/Sex: 57 / F ADM Date: 10/30/22 Loc: [facility] Room: Type: [facility] Attending Dr: Michelle Perry [employer] Ordering Provider: Michelle Perry APRN Date of Service: 10/30/22 US/US venous duplex LE RT: [id number] Copies to: Michelle Perry APRN ADDENDUM 1 No reflux was identified in the right lower extremity. This includes the deep and superficial system. Impression dictated by: Fidel Soler MD11/04/2022 2:24 PM Dictation Location: [place] [address] Addendum Dictated By: Fidel Soler MD Addendum Signed By: 11/04/221423 Addendum Cosigned By: DD/ /19/1424 TD/TT: 11/04/2207/19/1424 RIGHT LOWER EXTREMITY VENOUS DUPLEX INDICATION: Symptomatic varicose veins Unilateral right lower extremity venous duplex Doppler study was obtained utilizing B-mode, color- flow and spectral Doppler. FINDINGS: The right common femoral, femoral, and popliteal veins showed adequate compressibility, color-flow and augmentation. The right posterior tibial and peroneal veins were compressible, as well as proximal greater saphenous vein. The contralateral left common femoral vein was compressible with color-flow and augmentation. US/US venous duplex LE RT IMPRESSION: NO EVIDENCE OF DEEP VENOUS THROMBOSIS IN THE RIGHT LOWER EXTREMITY. NO SUPERFICIAL THROMBOPHLEBITIS WAS NOTED. Impression dictated by: Fidel Soler MD10/31/2022 4:01 PM Dictation Location: [place] [address] Tech: Patti Luke Transcribed By: CHA 10/31/22 1601 Dictated By: Fidel Soler MD 10/31/22 1600 Signed By: 10/31/22 1601 [facility] Blood Count with Au to Diffon 03-04-2022 Basophils (Bld) [#/Vol] 0.06 10*3/uL Normal 0.00-0.20 [facility] Comment on above: Performed By: #### C MP, LIPD, CBCAD #### [facility] [address], [place] [id number] Basophils/100 WBC (Bld) 1.4 % Normal N [facility] Comment on above: Performed By: #### C MP, LIPD, CBCAD #### [facility] [address], [place] [id number] Eosinophils (Bld) [#/Vol] 0.17 10*3/uL Normal 0.02-0.50 [facility] Comment on above: Performed By: #### C MP, LIPD, CBCAD #### [facility] [address] [facility] [place] [id number] Eosinophils/100 WBC (Bld) 4.0 % Normal [facility] Comment on above: Performed By: #### C MP, LIPD, CBCAD #### [facility] [address], [place] [id number] Erythrocyte distribution width (RBC) [Ratio] 13.0 % Normal 11.0-15.0 [facility] Comment on above: Performed By: #### C MP, LIPD, CBCAD #### [facility] [address] [facility] [place] [id number] Hematocrit (Bld) [Volume fraction] 42.7 % Normal 35.0-47.0 [facility] Comment on above: Performed By: #### C MP, LIPD, CBCAD #### [facility] [address] [facility] [place] [id number] Hemoglobin (Bld) [Mass/Vol] 13.8 g/dL Normal 11.6-15.5 [facility] Comment on above: Performed By: #### C MP, LIPD, CBCAD #### [facility] [address], [place] [id number] Lymphocytes (Bld) [#/Vol] 1.5 10*3/uL Normal 0.9-3.9 [facility] Comment on above: Performed By: #### C MP, LIPD, CBCAD #### [facility] [address], [place] [id number] Lymphocytes/100 WBC (Bld) 35.5 % Normal [facility] Comment on above: Performed By: #### C MP, LIPD, CBCAD #### [facility] [address], [place] [id number] MCH (RBC) [Entitic mass] 28.1 pg Normal 27.0-33.0 [facility] Comment on above: Performed By: #### C MP, LIPD, CBCAD #### [facility] [address], [place] [id number] MCHC (RBC) [Mass/Vol] 32.3 g/dL Normal 32.0-36.0 [facility] Comment on above: Performed By: #### C MP, LIPD, CBCAD #### [facility] [address], [place] [id number] MCV (RBC) [Entitic vol] 87 fL Normal 80-100 [facility] Comment on above: Performed By: #### C MP, LIPD, CBCAD #### [facility] [address], [place] [id number] Monocytes (Bld) [#/Vol] 0.4 10*3/uL Normal 0.2-0.9 [facility] Comment on above: Performed By: #### C MP, LIPD, CBCAD #### [facility] [address], [place] [id number] Monocytes/100 WBC (Bld) 9.2 % Normal [facility] Comment on above: Performed By: #### C MP, LIPD, CBCAD #### [facility] [address], [place] [id number] Neutrophils (Bld) [#/Vol] 2.1 10*3/uL Normal 1.5-7.8 [facility] Comment on above: Performed By: #### C MP, LIPD, CBCAD #### [facility] [address], [place] [id number] Neutrophils/100 WBC (Bld) 49.7 % Normal [facility] Special[facility] Comment on above: Performed By: #### C MP, LIPD, CBCAD #### [facility] [address], [place] [id number] Platelet mean volume (Bld) [Entitic vol] 11.40 fL Normal 7.50-12.50 [facility] Comment on above: Performed By: #### C MP, LIPD, CBCAD #### [facility] [address], [place] [id number] Platelets (Bld) [#/Vol] 198 10*3/uL Normal 140-400 [facility] Comment on above: Performed By: #### C MP, LIPD, CBCAD #### [facility] [address], [place] [id number] RBC (Bld) [#/Vol] 4.91 10*6/uL Normal 3.90-5.20 [facility] Comment on above: Performed By: #### C MP, LIPD, CBCAD #### [facility] [address], [place] [id number] RDW-SD 41.5 fL Normal 37.0-50.0 [facility] Comment on above: Performed By: #### C MP, LIPD, CBCAD #### [facility] [address], [place] [id number] WBC (Bld) [#/Vol] 4.2 10*3/uL Normal 3.8-11.0 [facility] Comment on above: Performed By: #### C MP, LIPD, CBCAD #### [facility] [address], [place] [id number] Comprehensive Metabolic Pane cortney 03-04-2022 Albumin [Mass/Vol] 4.6 g/dL Normal 3.6-5.1 [facility] Comment on above: Performed By: #### C MP, LIPD, CBCAD #### [facility] [address], [place] [id number] Albumin/Globulin [Mass ratio] 2.6 {ratio} High 1.0-2.5 [facility] Comment on above: Performed By: #### C MP, LIPD, CBCAD #### [facility] [address], [place] [id number] ALP [Catalytic activity/Vol] 40 U/L Normal 35-119 [facility] Comment on above: Performed By: #### C MP, LIPD, CBCAD #### [facility] [address], [place] [id number] ALT [Catalytic activity/Vol] 25 U/L Normal 6-33 [facility] Comment on above: Result Comment: 09/26 Female reference range changed. Performed By: #### C MP, LIPD, CBCAD #### [facility] [address], [place] [id number] Anion gap [Moles/Vol] 15 mmol/L Normal 12-20 [facility] Comment on above: Result Comment: Effe ctive 11/01/2019 reference range changed. Performed By: #### C MP, LIPD, CBCAD #### [facility] [address], [place] [id number] AST [Catalytic activity/Vol] 33 U/L Normal 9-34 [facility] Comment on above: Performed By: #### C MP, LIPD, CBCAD #### [facility] [address], [place] [id number] Bilirubin [Mass/Vol] 0.32 mg/dL Normal 0.30-1.20 [facility] Comment on above: Performed By: #### C MP, LIPD, CBCAD #### [facility] [address], [place] [id number] BUN/CREA 24 Ratio High 6-22 [facility] Special[facility] Comment on above: Performed By: #### C MP, LIPD, CBCAD #### [facility] [address] [facility] [place] [id number] Calcium [Mass/Vol] 9.0 mg/dL Normal 8.6-10.2 [facility] [employer] Comment on above: Performed By: #### C MP, LIPD, CBCAD #### [facility] [address], [place] [id number] Chloride [Moles/Vol] 102 mmol/L Normal 98-107 [facility] Comment on above: Performed By: #### C MP, LIPD, CBCAD #### [facility] [address], [place] [id number] CO2 [Moles/Vol] 26 mmol/L Normal 20-31 [facility] Comment on above: Performed By: #### C MP, LIPD, CBCAD #### [facility] [address], [place] [id number] Creatinine [Mass/Vol] 0.7 mg/dL Normal 0.6-1.4 [facility] Comment on above: Performed By: #### C MP, LIPD, CBCAD #### [facility] [address], [place] [id number] eGFRAA 102 mL/min/1.73m2 Normal >60 [facility] Specialist Comment on above: Performed By: #### C MP, LIPD, CBCAD #### [facility] [address], [place] [id number] eGFRNAA 84 mL/min/1.73m2 Normal >60 [facility] Comment on above: Performed By: #### C MP, LIPD, CBCAD #### [facility] [address], [place] [id number] Globulin (S) [Mass/Vol] 1.8 g/dL Low 1.9-3.7 [facility] Comment on above: Performed By: #### C MP, LIPD, CBCAD #### [facility] [address], [place] [id number] Glucose [Mass/Vol] 89 mg/dL Normal 65-99 [facility] [place] [employer] Comment on above: Result Comment: For FASTING Glucose --- ADA reference ranges: Normal 65-99 mg/dl Prediabetes 100-125 Diabetes >/= 126 Performed By: #### C MP, LIPD, CBCAD #### [facility] [address] [place], [place] [id number] Potassium [Moles/Vol] 4.3 mmol/L Normal 3.5-5.5 [facility] Comment on above: Performed By: #### C VINNIE STROUDD, CBCAD #### [facility] [address], [place] [id number] Protein [Mass/Vol] 6.4 g/dL Normal 6.1-8.1 [facility] Specialist Comment on above: Performed By: #### C MAXIMUS, LIPD, CBCAD #### [facility] [address], [place] [id number] Sodium [Moles/Vol] 139 mmol/L Normal 135-146 [facility] [employer] Comment on above: Performed By: #### C MAXIMUS LIPD, CBCAD #### [facility] [address], [place] [id number] Urea nitrogen [Mass/Vol] 18 mg/dL Normal 7-25 [facility] Special[facility] Comment on above: Performed By: #### C MAXIMUS LIPD, CBCAD #### [facility] [address], [place] [id number] Lipid Panelon 03-04-2022 Cholesterol [Mass/Vol] 165 mg/dL Normal 125-200 No [facility] Comment on above: Result Comment: Low risk < 200mg/dL Borderline risk 201-239 mg/dl High risk > or equal to 240 Performed By: #### C MAXIMUS LIPD, CBCAD #### [facility] [address], [place] [id number] Cholesterol in HDL [Mass/Vol] 74 mg/dL Normal >40 [facility] Special[facility] Comment on above: Result Comment: High Cardiovascular Risk HDL <40 mg/dL Low Cardiovascular Risk HDL > or equal to 60 mg/dl Performed By: #### C MAXIMUS, LIPD, CBCAD #### [facility] [address], [place] [id number] Cholesterol in LDL [Mass/Vol] 82 mg/dL Normal [facility] Comment on above: Result Comment: LDL ATP III CLASSIFICATION LDL less than 100 mg/dl Optimal LDL 100-129 mg/dl Near or above optimal LDL 130-159 Borderline high LDL 160-189 High LDL greater than 189 mg/dl Very High Performed By: #### C MP, LIPD, CBCAD #### [facility] [address], [place] [id number] Cholesterol in VLDL [Mass/Vol] 9 mg/dL Normal [facility] Specialist Comment on above: Performed By: #### C MP, LIPD, CBCAD #### [facility] [address], [place] [id number] Cholesterol.total/Eva sterol in HDL [Mass ratio] 2 {ratio} Normal [facility] Specialist Comment on above: Performed By: #### C MP, LIPD, CBCAD #### [facility] [address], [place] [id number] Triglyceride [Mass/Vol] 45 mg/dL Normal 30-150 [facility] Comment on above: Result Comment: TRIG ATPIII CLASSIFICATIONS TRIG less than 150 mg/dl Normal TRIG 150-199 mg/dl Borderline High TRIG 200-500 mg/dl High TRIG greather than 500 mg/dl Very High Performed By: #### C MP, LIPD, CBCAD #### [facility] [address], [place] [id number] Microalbumin (with Creat)on 03-04-2022 mALB 18.8 mg/dL Normal [facility] Comment on above: Result Comment: mALB reference range not established. Performed By: #### m ALBC #### [facility] [address], [place] [id number] mALB/Creat Ratio 80.0 MCG/MG Normal [facility] Specialist Comment on above: Result Comment: The ADA (Diabetes Care 26:S94-S98, 2003) defines abnormalities in Albumin excretion as follows: Category Result (MCG/MG Creatinine) Normal <30 Microalbuminuria 30-299 Clinical Albuminuria > or = 300 Performed By: #### m ALBC #### [facility] [address], [place] [id number] UCREA 235 mg/dL High 28-217 [facility] Specialist Comment on above: Performed By: #### m ALBC #### [facility] [address], [place] [id number] US Venous, Unilat, Lower Ext Lefton 11-20-2021 US Venous, Unilat, Lower Ext Left CLINICAL HISTORY: 3 day history of leg pain with bruise in the upper medial calf COMPARISON: None. TECHNIQUE: The left lower extremity veins were evaluated with color Doppler, grayscale imaging, and spectral analysis while using compression and augmentation when possible. FINDINGS: Evaluation of the left lower extremity veins from the thigh to the calf shows normal phasic flow, normal augmentation of the Doppler signal, and normal compression of the deep veins. There is no sonographic evidence for acute deep venous thrombosis from the left groin to the popliteal region. There is no sonographic evidence for acute deep vein thrombosis in the left calf veins. Multiple noncompressible varicose veins are noted in the medial calf, corresponding with the area of pain IMPRESSION: No acute DVT of the left lower extremity veins from the groin to the knee. No acute DVT of the left calf veins. Multiple noncompressible varicose veins. Report reported and signed by JAKE MCCOY on 11/20/2021 1206 Normal [facility] Specialist Albumin [Mass/volume] in Ser um or Plasmaon 07-19-2020 Albumin [Mass/Vol] 4.1 g/dL 3.2-5.5 [facility] Basophils Auto (Bld) [#/Vol] on 07-19-2020 Basophils (Bld) [#/Vol] 0.1 10*3/uL 0.0-0.2 [facility] Basophils/100 WBC Auto (Bld) on 07-19-2020 Basophils/100 WBC (Bld) 1.2 % . [facility] [place] Blood hemoglobin measurement (mass/volume)on 07-19-2020 Hemoglobin (Bld) [Mass/Vol] 14.4 g/dL 11.8-15.4 [facility] Blood leukocytes automated c ount (number/volume)on 07-19-2020 WBC (Bld) [#/Vol] 5.0 10*3/uL 4.5-11.0 [facility] Creatinine and Glomerular fi ltration rate.predicted panel (S/P/Bld)on 07-19-2020 Creatinine [Mass/Vol] 0.83 mg/dL 0.44-1.03 [facility] Eosinophils Auto (Bld) [#/Vo l]on 07-19-2020 Eosinophils (Bld) [#/Vol] 0.2 10*3/uL 0.0-0.45 [facility] Eosinophils/100 WBC Auto (Bl d)on 07-19-2020 Eosinophils/100 WBC (Bld) 4.4 % . [facility] Erythrocyte distribution wid th Auto (RBC) [Ratio]on 07-19-2020 Erythrocyte distribution width (RBC) [Ratio] 13.4 % 11.9-15.3 [facility] Estimated glomerular filtrat ion rate (GFR) non- Americanon 07-19-2020 GFR/1.73 sq M.predicted among non-blacks MDRD (S/P/Bld) [Vol rate/Area] mL/min/{1.73_m2} [facility] Globulin Calc (S) [Mass/Vol] on 07-19-2020 Globulin (S) [Mass/Vol] 2.7 g/dL [facility] [place] Hematocrit Auto (Bld) [Volum e fraction]on 07-19-2020 Hematocrit (Bld) [Volume fraction] 43.7 % 34.0-46.4 [facility] - Chemistry and C hemistry - challengeon 07-19-2020 GFR/1.73 sq M.predicted MDRD (S/P/Bld) [Vol rate/Area] mL/min/{1.73_m2} [facility] Comment on above: GFR estimated refere nce range: According to KDOQI guidelines, <60 ml/min/1.73m2 is sufficient to diagnose a patient with chronic kidney disease. Laboratory - Hematology and Cell countson 07-19-2020 Nucleated RBC/100 WBC (Bld) [Ratio] 0.2 % 0-0.5 [facility] Lymphocytes Auto (Bld) [#/Vo l]on 07-19-2020 Lymphocytes (Bld) [#/Vol] 1.5 10*3/uL 1.00-4.8 [facility] Lymphocytes/100 WBC Auto (Bl d)on 07-19-2020 Lymphocytes/100 WBC (Bld) 29.5 % . [facility] MCH Auto (RBC) [Entitic mass ]on 07-19-2020 MCH (RBC) [Entitic mass] 28.6 pg 24.7-34.3 [facility] MCHC Auto (RBC) [Mass/Vol]on 07-19-2020 MCHC (RBC) [Mass/Vol] 33.0 g/dL 32.0-35.0 [facility] MCV Auto (RBC) [Entitic vol] on 07-19-2020 MCV (RBC) [Entitic vol] 86.5 fL 80-100 [facility] [place] Monocytes Auto (Bld) [#/Vol] on 07-19-2020 Monocytes (Bld) [#/Vol] 0.5 10*3/uL 0.0-0.8 [facility] Monocytes/100 WBC Auto (Bld) on 07-19-2020 Monocytes/100 WBC (Bld) 9.7 % . [facility] Neutrophils Auto (Bld) [#/Vo l]on 07-19-2020 Neutrophils (Bld) [#/Vol] 2.7 10*3/uL 1.8-7.7 [facility] Neutrophils/100 WBC Auto (Bl d)on 07-19-2020 Neutrophils/100 WBC (Bld) 55.2 % . [facility] No Panel Informationon 07-19 Pharmacy Creatinine Clearance (Chem 65.81 [facility] Platelet mean volume Auto (B ld) [Entitic vol]on 07-19-2020 Platelet mean volume (Bld) [Entitic vol] 8.6 fL 6.3-10.7 [facility] Platelets Auto (Bld) [#/Vol] on 07-19-2020 Platelets (Bld) [#/Vol] 183 10*3/uL 150-450 [facility] Protein [Mass/volume] in Ser um or Plasmaon 07-19-2020 Protein [Mass/Vol] 6.8 g/dL 6.1-7.9 [facility] RBC Auto (Bld) [#/Vol]on RBC (Bld) [#/Vol] 5.05 10*6/uL 3.60-5.00 [facility] Serum or plasma alanine tao otransferase measurement without P-5'-P (enzymatic activion 07-19-2020 ALT No additional P-5'-P [Catalytic activity/Vol] 25 U/L 10-60 [facility] Serum or plasma albumin/glob ulin mass ratioon 07-19-2020 Albumin/Globulin [Mass ratio] 1.5 {ratio} [facility] Serum or plasma alkaline syeda sphatase measurement (enzymatic activity/volume)on 07-19-2020 ALP [Catalytic activity/Vol] 36 U/L 32-92 [facility] Serum or plasma aspartate am inotransferase measurement (enzymatic activity/volume)on 07-19-2020 AST [Catalytic activity/Vol] 31 U/L 10-42 [facility] Serum or plasma calcium naatoliy urement (mass/volume)on 07-19-2020 Calcium [Mass/Vol] 8.9 mg/dL 8.2-10.2 [facility] Serum or plasma chloride bob surement (moles/volume)on 07-19-2020 Chloride [Moles/Vol] 104 mmol/L 95-114 [facility] Serum or plasma glucose anatoliy urement (mass/volume)on 07-19-2020 Glucose [Mass/Vol] 98 mg/dL 70-100 [facility] Comment on above: ADA recommended refe rence range Random Glucose Reference Range is dependent on time and content of last meal. Glucose of more than 200 mg/dL in a nonstressed, ambulatory subject supports the diagnosis of Diabetes Mellitus. ADA recommended refe rence rangeRandom Glucose Reference Range is dependent on time and content of last meal. Glucose of more than 200 mg/dL in a nonstressed, ambulatory subject supports the diagnosis of Diabetes Mellitus. Serum or plasma potassium me asurement (moles/volume)on 07-19-2020 Potassium [Moles/Vol] 3.7 mmol/L 3.5-5.1 [facility] Serum or plasma sodium measu rement (moles/volume)on 07-19-2020 Sodium [Moles/Vol] 139 mmol/L 136-146 [facility] Serum or plasma total biliru bin measurement (mass/volume)on 07-19-2020 Bilirubin [Mass/Vol] 0.6 mg/dL 0.3-1.2 [facility] Serum or plasma total carbon dioxide measurement (moles/volume)on 07-19-2020 CO2 [Moles/Vol] 27.0 mmol/L 22.0-30.0 [facility] Serum or plasma urea nitroge n measurement (mass/volume)on 07-19-2020 Urea nitrogen [Mass/Vol] 17 mg/dL 07-19 [facility] Ferritin [Mass/volume] in Se rum or Plasmaon 07-02-2019 Ferritin [Mass/Vol] 225.0 ng/mL 11-306.8 [facility] Iron [Mass/volume] in Serum or Plasmaon 07-02-2019 Iron [Mass/Vol] 77 ug/dL 40-150 [facility] Iron binding capacity [Mass/ volume] in Serum or Plasmaon 07-02-2019 Iron binding capacity [Mass/Vol] 356 ug/dL 255-450 [facility] Iron saturation [Mass Fracti on] in Serum or Plasmaon 07-02-2019 Iron saturation [Mass fraction] 21.0 % 20-50 [facility] Serum or plasma transferrin measurement (mass/volume)on 07-02-2019 Transferrin [Mass/Vol] 254 mg/dL 180-380 [facility] TSH DL <= 0.005 mIU/L Qnon 0 07-02-2019 TSH Qn 0.90 m[IU]/L 0.45-5.33 [facility] Thyroxine (T4) free [Mass/vo lume] in Serum or Plasmaon 07-02-2019 Free T4 [Mass/Vol] 0.81 ng/dL 0.61-1.12 [facility] Social History Date Type Detail Facility Start: 12-11-2023 Alcohol intake Lifetime non-d baljit (finding) [facility] Start: 09-26-2023 Tobacco use and exposure Smokeless tobacco non-user [facility] Start: 07-08-2023 End: 11-13-2023 Sex Assigned At [facility] Start: 07-08-2023 End: 11-13-2023 History of Social function [facility] Start: 02-28-2023 Alcohol Comment Caffeine intak e: none [facility] Start: 07-10-2022 End: 09-26-2023 Tobacco smoking status NHIS Never smoked tobacco (finding) [facility] Start: 1965 Sex Assigned At Female [facility] [place] Start: 1965 Sex Assigned At Not on file [facility] Tobacco smoking status No Smoking Status Entered [facility] How often to you hav e a drink containing alcohol? Never [facility] How many standard drinks containing alcohol do you have on a typical day? Patient does not drink [facility] NEGATED: Highlighted rowStart: NINF History of tobacco use Passive smoker [facility] Vital Signs Date Time Vital Sign Value Performing Clinician Facility 07-11-2023 08:56-0400 Body height 164.49 cm DO Chente Barcenas Work Phone: [facility] 07-11-2023 08:56-0400 Body temperature 97.8 [degF] DO Chente Barcenas Work Phone: [facility] 07-11-2023 08:56-0400 Body weight 48.67 kg DO Chente Barcenas Work Phone: [facility] 07-11-2023 08:56-0400 Diastolic blood pressure 78 mm[Hg] DO Chente Barcenas Work Phone: [facility] 07-11-2023 08:56-0400 Heart rate 60 /min DO Chente Barcenas Work Phone: [facility] 07-11-2023 08:56-0400 Respiratory rate 20 /min DO Chente Barcenas Work Phone: [facility] 07-11-2023 08:56-0400 SaO2% (BldA) [Mass fraction] 97 % DO Chente Barcenas Work Phone: [facility] 07-11-2023 08:56-0400 Systolic blood pressure 117 mm[Hg] DO Chente Barcenas Work Phone: [facility] 05-08-2023 22:52-0400 Diastolic blood pressure 89 mm[Hg] Farooqaura Doteaen [facility] 05-08-2023 22:52-0400 Heart rate 76 /min Kaanan Dokken [facility] 05-08-2023 22:52-0400 Mean blood pressure 105 mm[Hg] Kaylinn Dokken [facility] 05-08-2023 22:52-0400 Nursing Progress Note Reason Other: discharge instructons given. pt verbalized understanding. family at bedside Kaylinn Dokken [facility] 05-08-2023 22:52-0400 SaO2% (BldA) [Mass fraction] 99 % Kaylinn Dokken [facility] 05-08-2023 22:52-0400 Systolic blood pressure 138 mm[Hg] Kaylinn Dokken [facility] 05-08-2023 22:45-0400 Diastolic blood pressure 69 mm[Hg] Kaylinn Dokken [facility] 05-08-2023 21:47-0400 Diastolic blood pressure 78 mm[Hg] Kaylinn Dokken [facility] 05-08-2023 21:47-0400 Heart rate 66 /min Kaylinn Dokken [facility] 05-08-2023 21:47-0400 Mean blood pressure 98 mm[Hg] Kaylinn Dokken [facility] 05-08-2023 21:47-0400 Nursing Progress Note Reason Other: resting in bed. states pain slightly better family at bedside Kaylinn Dokken [facility] 05-08-2023 21:47-0400 SaO2% (BldA) [Mass fraction] 100 % Kaylinn Dokken [facility] 05-08-2023 21:47-0400 Systolic blood pressure 139 mm[Hg] Kaylinn Dokken [facility] 05-08-2023 21:46-0400 Heart rate 64 /min Kaylinn Dokken [facility] 05-08-2023 21:46-0400 Respiratory rate 16 /min Kaylinn Dokken [facility] 05-08-2023 21:46-0400 SaO2% (BldA) [Mass fraction] 99 % Kaylinn Dokken [facility] 05-08-2023 20:15-0400 Heart rate 61 /min Kaylinn Dokken [facility] 05-08-2023 20:15-0400 Respiratory rate 16 /min Kaylinn Dokken [facility] 05-08-2023 19:05-0400 Body temperature 98.42 [degF] Kaylinn Dokken [facility] 05-08-2023 19:05-0400 Heart rate 84 /min Kaylinn Dokken [facility] 05-08-2023 19:05-0400 Respiratory rate 18 /min Kaylinn Dokken [facility] 03-10-2023 10:30-0400 Body height 165.1 cm Michelle Perry Other [email or web address] Other 03-10-2023 10:30-0400 Body temperature Michelle Perry Other [employer] Other 03-10-2023 10:30-0400 Diastolic blood pressure 78 mm[Hg] Michelle Perry Other [employer] Other 05-15-2023 10:30-0400 SaO2% (BldA) [Mass fraction] 97 % Michelle Perry Other [employer] Other 03-10-2023 10:30-0400 Systolic blood pressure 122 mm[Hg] Michelle Teeo Other [employer] Other 02-27-2023 10:00-0400 Body height 165.1 cm Michelle Perry Other [employer] Other 02-27-2023 10:00-0400 Body mass index (BMI) [Ratio] 17.64 kg/m2 Michelle Perry Other [employer] Other 02-27-2023 10:00-0400 Body temperature 97.3 [degF] Michelle Perry Other [employer] Other 02-27-2023 10:00-0400 Body weight 48.08 kg Michelle Perry Other [employer] Other 02-27-2023 10:00-0400 Diastolic blood pressure 72 mm[Hg] Michelle Perry Other [employer] Other 02-27-2023 10:00-0400 SaO2% (BldA) [Mass fraction] 99 % Michelle Perry Other [employer] Other 02-27-2023 10:00-0400 Systolic blood pressure 116 mm[Hg] Michelle [facility] Other [facility] Other 10-30-2022 10:30-0500 Body height 165.1 cm Fidel Soler Other [facility] Other 10-30-2022 10:30-0500 Body mass index (BMI) [Ratio] 17.64 kg/m2 Fidel Ryder Other [facility] Other 10-30-2022 10:30-0500 Body temperature 96.2 [degF] Fidel Soler Other [facility] Other 10-30-2022 10:30-0500 Body weight 48.08 kg Fidel Ryder Other [facility] Other 10-30-2022 10:30-0500 Diastolic blood pressure 60 mm[Hg] Fidel Soler Other [facility] Other 10-30-2022 10:30-0500 SaO2% (BldA) [Mass fraction] 96 % Fidelmarcela Soler Other [facility] Other 10-30-2022 10:30-0500 Systolic blood pressure 102 mm[Hg] Fidel Soler Other [facility] Other 10-10-2022 09:30-0500 Body height 165.1 cm Michelle Perry Other [facility] Other 10-10-2022 09:30-0500 Body mass index (BMI) [Ratio] 17.64 kg/m2 Michelle Perry Other [facility] Other 10-10-2022 09:30-0500 Body temperature 97.8 [degF] Michelle Perry Other [facility] Other 10-10-2022 09:30-0500 Body weight 48.08 kg Michelle Perry Other [email or web address] Other 10-10-2022 09:30-0500 Diastolic blood pressure 82 mm[Hg] Michelle Perry Other [email or web address] Other 10-10-2022 09:30-0500 SaO2% (BldA) [Mass fraction] 98 % Michelle Perry Other [email or web address] Other 10-10-2022 09:30-0500 Systolic blood pressure 22 mm[Hg] Michelle Perry Other [email or web address] Other 07-10-2022 09:03-0400 Body temperature 97.8 [degF] MD Nica Nelson Work Phone: [facility] 07-10-2022 09:03-0400 Body weight 48.98 kg MD Nica Nelson Work Phone: [facility] 07-10-2022 09:03-0400 Diastolic blood pressure 84 mm[Hg] MD Nica Nelson Work Phone: [facility] 07-10-2022 09:03-0400 Heart rate 66 /min MD Nica Nelson Work Phone: [facility] 07-10-2022 09:03-0400 Respiratory rate 16 /min MD Nica Nelson Work Phone: [facility] 07-10-2022 09:03-0400 SaO2% (BldA) [Mass fraction] 99 % MD Nica Nelson Work Phone: [facility] 07-10-2022 09:03-0400 Systolic blood pressure 128 mm[Hg] MD Nica Nelson Work Phone: [facility] 04-25-2022 09:45-0400 Body height 165.1 cm Fidel Soler Other [facility] Other 04-25-2022 09:45-0400 Body mass index (BMI) [Ratio] 19.97 kg/m2 Fidel Ryder Other [facility] Other 04-25-2022 09:45-0400 Body temperature 96.6 [degF] Fidel Soler Other [facility] Other 04-25-2022 09:45-0400 Body weight 54.43 kg Fidel Soler Other [facility] Other 04-25-2022 09:45-0400 Diastolic blood pressure 82 mm[Hg] Fidel Soler Other [facility] Other 04-25-2022 09:45-0400 SaO2% (BldA) [Mass fraction] 99 % Fidel Ryder Other [facility] Other 04-25-2022 09:45-0400 Systolic blood pressure 120 mm[Hg] Fidel Soler Other [facility] Other 01-24-2022 10:30-0400 Body height 165.1 cm Michelle Perry Other [facility] Other 01-24-2022 10:30-0400 Body mass index (BMI) [Ratio] 19.97 kg/m2 Michelle Perry Other [facility] Other 01-24-2022 10:30-0400 Body temperature 97.4 [degF] Michelle Perry Other [facility] Other 01-24-2022 10:30-0400 Body weight 54.43 kg Michelle Perry Other [facility] Other 01-24-2022 10:30-0400 Diastolic blood pressure 64 mm[Hg] Michelle Teeo Other [facility] Other 01-24-2022 10:30-0400 SaO2% (BldA) [Mass fraction] 97 % Michelle Teeo Other [facility] Other 01-24-2022 10:30-0400 Systolic blood pressure 100 mm[Hg] Michelle Teeo Other [facility] Other 12-11-2021 10:15-0500 Body height 165.1 cm Michelle Perry Other [facility] Other 12-11-2021 10:15-0500 Body mass index (BMI) [Ratio] 19.97 kg/m2 Michelle Teeo Other [facility] Other 12-11-2021 10:15-0500 Body temperature 99 [degF] Michelle Teeo Other [facility] Other 12-11-2021 10:15-0500 Body weight 54.43 kg Michelle Teeo Other [facility] Other 12-11-2021 10:15-0500 Diastolic blood pressure 68 mm[Hg] Michelle Teeo Other [facility] Other 12-11-2021 10:15-0500 SaO2% (BldA) [Mass fraction] 89 % Michelle Teeo Other [facility] Other 12-11-2021 10:15-0500 Systolic blood pressure 102 mm[Hg] Michelle Perry Other [facility] Other 04-18-2021 09:09-0400 Body height 164.49 cm MD Nica Nelson Work Phone: [facility] Functional Status Date Assessment Result Facility 05-08-2023 Functional Status N/A [facility] Clinical Notes 07-08-2017 to 05-09-2023 Note Date & Type Note Facility 05-09-2023 Hospital Discharg e instructions Patient Education 05/08/2023 22:53:28 Costochondritis, [id number] Costochondritis Costochondritis is irritation and swelling (inflammation) of the tissue that connects the ribs to the breastbone (sternum). This tissue is called cartilage. Costochondritis causes pain in the front of the chest. Usually, the pain: Starts slowly. Is in more than one rib. What are the causes? The exact cause of this condition is not always known. It results from stress on the tissue in the affected area. The cause of this stress could be: Chest injury. Exercise or activity, such as lifting. Very bad coughing. What increases the risk? You are more likely to develop this condition if you: Are female. Are 30 40 years old. Recently started a new exercise or work activity. Have low levels of vitamin D. Have a condition that makes you cough often. What are the signs or symptoms? The main symptom of this condition is chest pain. The pain: Usually starts slowly and can be sharp or dull. Gets worse with deep breathing, coughing, or exercise. Gets better with rest. May be worse when you press on the affected area of your ribs and breastbone. How is this treated? This condition usually goes away on its own over time. Your doctor may prescribe an NSAID, such as ibuprofen. This can help reduce pain and inflammation. Treatment may also include: Resting and avoiding activities that make pain worse. Putting heat or ice on the painful area. Doing exercises to stretch your chest muscles. If these treatments do not help, your doctor may inject a numbing medicine to help relieve the pain. Follow these instructions at home: Managing pain, stiffness, and swelling If told, put ice on the painful area. To do this: ?Put ice in a plastic bag. ?Place a towel between your skin and the bag. ?Leave the ice on for 20 minutes, 2 3 times a day. If told, put heat on the affected area. Do this as often as told by your doctor. Use the heat source that your doctor recommends, such as a moist heat pack or a heating pad. ?Place a towel between your skin and the heat source. ?Leave the heat on for 20 30 minutes. ?Take off the heat if your skin turns bright red. This is very important if you cannot feel pain, heat, or cold. You may have a greater risk of getting burned. Activity Rest as told by your doctor. Do not do anything that makes your pain worse. This includes any activities that use chest, belly (abdomen), and side muscles. Do not lift anything that is heavier than 10 lb (4.5 kg), or the limit that you are told, until your doctor says that it is safe. Return to your normal activities as told by your doctor. Ask your doctor what activities are safe for you. General instructions Take [id number] and prescription medicines only as told by your doctor. Keep all follow-up visits as told by your doctor. This is important. Contact a doctor if: You have chills or a fever. Your pain does not go away or it gets worse. You have a cough that does not go away. Get help right away if: You are short of breath. You have very bad chest pain that is not helped by medicines, heat, or ice. These symptoms may be an emergency. Do not wait to see if the symptoms will go away. Get medical help right away. Call your local emergency services (911 in the [place] Do not drive yourself to the hospital. Summary Costochondritis is irritation and swelling (inflammation) of the tissue that connects the ribs to the breastbone (sternum). This condition causes pain in the front of the chest. Treatment may include medicines, rest, heat or ice, and exercises. This information is not intended to replace advice given to you by your health care provider. Make sure you discuss any questions you have with your health care provider. Document Revised: 08/25/2020 Document Reviewed: 08/25/2020 [employer] Patient Education 2022 [employer]. Follow Up Care 05/08/2023 19:03:42 With:VISHAL BARCENAS Address: [address] [place] [address], [address] [address] [facility] (1) When:05/11/2023 Comments:You can take the medications as prescribed as needed for pain. Please follow-up with your primary care doctor in the next 2 to 3 days for further evaluation management. Please return to the ED for any new or worsening symptoms. [facility] 05-08-2023 Evaluation + Plan note Extrac jimbo from: Title:ED Note Author:Darci Ambrose DO Date :05/08/23 Rib pain on right side (R07. 81: Pleurodynia) Orders: acetaminophen-hydrocodone, 1 EA, Tab, Oral, Once, Stop date 05/08/23 22:30:00 EDT, STAT, Start date 05/08/23 22:30:00 EDT ketorolac, 30 mg = 1 mL, Injection, IV Push, Once, Stop date 05/08/23 19:37:00 EDT, STAT, Start date 05/08/23 19:37:00 EDT, 05/08/23 19:37:00 EDT lidocaine topical, 1 patch(es), Patch, TransDermal, Once, Stop date 05/08/23 19:37:00 EDT, STAT, Start date 05/08/23 19:37:00 EDT lidocaine topical, 1 patch(es), Topical, Daily, 7 EA, Refill(s) 0, apply 12 hours on and 12 hours off daily, [facility] [id number], 163, cm, 05/08/23 19:14:00 EDT, Height/Length Dosing, 47.8, kg, 05/08/23 19:14:00 EDT, Weight Dosing methocarbamol, 500 mg = 1 tab(s), Oral, TID, X 3 day(s), # 9 tab(s), Refills(s) 0, Pharmacy: [facility] [id number], 163, cm, 05/08/23 19:14:00 EDT, Height/Length Dosing, 47.8, kg, 05/08/23 19:14:00 EDT, Weight Dosing morphine, 4 mg = 2 mL, Injection, IV Push, Once, Stop date 05/08/23 19:37:00 EDT, STAT, Start date 05/08/23 19:37:00 EDT, 05/08/23 19:37:00 EDT naproxen, 500 mg = 1 tab(s), Oral, BID, PRN for pain, # 20 tab(s), Refills(s) 0, Pharmacy: [facility] [id number], 163, cm, 05/08/23 19:14:00 EDT, Height/Length Dosing, 47.8, kg, 05/08/23 19:14:00 EDT, Weight Dosing Automated Diff Basic Metabolic Panel CBC w/ Auto Diff CTA Chest D-Dimer ED Cardiac Monitoring eGFR Hepatic Function Panel Oxygen Saturation Oxygen Therapy PT & PTT Saline Lock Insert Troponin 0 Hr. XR Chest Single View [facility]05-15-2023 Evaluation note* Encounter Date Diagnosis Assessment Notes Treatment Notes Treatment Clinical Notes February, Venous insufficiency (ICD-10 - I87.2) We reviewed today's full functional duplex of the right lower extremity which shows very mild reflux of the right GSV otherwise no valvular incompetence identified. I Do not believe this mild reflux is the cause of her ongoing right leg pain. We discussed the various etiologies of leg pain to include low back issues. I do not believe that she would benefit from Varithena injection of the right AASV at this point in time. We discussed the chronic nature of venous disease and the importance of ongoing conservative therapy efforts. I would recommend that she follow-up with her PCP and pain management for further evaluation of her right leg symptoms. We will continue to follow her along on an as-needed basis going forward. She is aware of the chronic and progressive nature of venous disease. [facility] Other 05-04-2023 Evaluation note* Encounter Date Diagnosis Assessment Notes Treatment Notes Treatment Clinical Notes February, Venous insufficiency of both lower extremities (ICD-10 - I87.2) This patient continues to do well with management of her chronic venous disease overall. She does continue with complaints of achiness and heaviness on the right leg. She does have significant secondary varicosities present to the anterior leg with a quite prominent anterior saphenous branch by physical exam. We will go ahead and order a repeat full functional duplex on the right leg as it has been a year he has had 1 obtained to evaluate for any right anterior saphenous branch insufficiency. She understands the importance of conservative therapy efforts long-term to avoid issues with her chronic venous disease. She understands the chronic and progressive nature of venous disease. February, Symptomatic varicose veins of both lower extremities (ICD-10 - I83.893) [facility] Other 01-04-2023 Evaluation note* Encounter Date Diagnosis Assessment Notes Treatment Notes Treatment Clinical Notes Oct, Venous insufficiency (ICD-10 - I87.2) Oct, Other We will see thi s patient back in 2 to 4 months. She is undergoing the remodeling phase after her vein procedure and I expect full recovery in the near future. She should continue with the prescribed treatment of leg elevation moisturizer therapy alternating ice with warm compresses and compression stockings. All of her questions were addressed. She understands agrees the plan. [facility] Other 12-15-2022 Evaluation note* Encounter Date Diagnosis Assessment Notes Treatment Notes Treatment Clinical Notes Sep, Venous insufficiency of both lower extremities (ICD-10 - I87.2) This patient continues with achiness and heaviness in the right lower extremity along with some pain in her anterior upper leg. She has had RF ablation of the right GSV. Postprocedure duplex showed good closure of the greater saphenous vein 1.9 cm from the junction as expected.. With her reports of symptoms today, I would recommend repeat full functional venous duplex of the right lower extremity to evaluate for any other problematic areas for treatment. She should continue use of her graded compression stockings, leg elevation, and good skin care moisturizer therapy along with weight management and frequent activity in the overall management of her chronic venous disease. We will get this full functional of the right lower extremity and go from there and have her back to the office to discuss any further treatment recommendations based on those studies. She verbalizes understanding of all discussion, agrees with this plan, denies any questions. [facility] Other 06-30-2022 Evaluation note* Encounter Date Diagnosis Assessment Notes Treatment Notes Treatment Clinical Notes Mar, Superficial thrombosis of left lower extremity (ICD-10 - I82.812) This patient has superficial thrombosis of the left greater saphenous vein as to be expected. This was our goal of the procedure. I consider this a successful outcome. I explained to the patient that this is normal and that she is going through a remodeling phase with her vein. This is the reason why her pain has gone away. I congratulated her. Now, we need to work on the right leg. The patient also has pain in this leg which I believe is related to her superficial varicosities. The patient has reflux of 3 seconds in the right greater saphenous vein although she does have a severely dilated right greater saphenous vein of 0.50. There are also 2 locations that the measures 0.42 along the thigh. For this side I do not recommend the foam injection because of the diameter. I am recommending an ablation with either the VenaSeal closure technique and with a over the RFA. I believe this approach will address her pain in the right lower extremity as well. We will submit this for insurance approval and plan to schedule this in the vein clinic in a few weeks. The patient understands agrees the plan all of her questions were addressed. [facility] Other 06-24-2022 Evaluation note* Encounter Date Diagnosis Assessment Notes Treatment Notes Treatment Clinical Notes Mar, Venous insufficiency (ICD-10 - I87.2) [facility] Other 03-31-2022 Evaluation note* Encounter Date Diagnosis Assessment Notes Treatment Notes Treatment Clinical Notes Dec, Symptomatic varicose veins of both lower extremities (ICD-10 - I83.893) We reviewed results of today's full functional venous duplex which revealed reflux of the right GSV 2 to 3 seconds and left GSV of 3 seconds. The left lower extremity had reflux 1 to 2 seconds of the CFV, 3 seconds in the SF J, and 3 seconds in the GSV. The LSV from the thigh shows continuous flow bilaterally through proximal LSV he understands that about 80% of individuals. She also has significant dilation of the vessels in the left lower extremity in excess of 0.73 cm which travels down the leg into the calf to an area of bulging varicosities. Discussed recommendation for Varithena procedure bilaterally and as her left lower extremity is more symptomatic than her right, she would like to start with treatment of the left leg. Are happy with the results after this procedure. She will continue using her graded compression stockings, elevation of her legs, and continue practicing good skin care moisturizer therapy. We discussed the procedure, risk, benefits of Varithena and she wishes to proceed with treatment at this time. We will get this scheduled for her in the future. [facility] Other 03-31-2022 Evaluation note* Encounter Date Diagnosis Assessment Notes Treatment Notes Treatment Clinical Notes Dec, Symptomatic varicose veins of both lower extremities (ICD-10 - I83.893) We reviewed results of today's full functional venous duplex which revealed reflux of the right GSV 2 to 3 seconds and left GSV of 3 seconds. The left lower extremity had reflux 1 to 2 seconds of the CFV, 3 seconds in the SF J, and 3 seconds in the GSV. The LSV from the thigh shows continuous flow bilaterally through proximal LSV he understands that about 80% of individuals Are happy with the results after this procedure. She also has significant dilation of the vessels in the left lower extremity in excess of 0.73 cm which travels down the leg into the calf to an area of bulging varicosities. Discussed recommendation for Varithena procedure bilaterally and as her left lower extremity is more symptomatic than her right, she would like to start with treatment of the left leg. She will continue using her graded compression stockings, elevation of her legs, and continue practicing good skin care moisturizer therapy. We discussed the procedure, risk, benefits of Varithena and she wishes to proceed with treatment at this time. We will get this scheduled for her in the future. [facility] Other 02-17-2022 Progress note Author [facility] December 13, 2021 10:37am Note Date/Time December 13, 2021 10:26am [facility] at [address] [address] Hem/Onc Follow Up Note - OP Signed Patient: Maricel Easton MR#: [id number] : 1965 Acct:[id number] Age/Sex: 56 / F Type: REG RCR Copies to: Vishal Barcenas,DO Chente Barcenas,DO~ Subjective Date/Time of Service: Date of Service: 12/13/2021 Time of Service: 10:24 Chief Complaint: Patient is here today for 8 month follow up visit and last mamogram was 07/05/2021 HPI: Patient is a 56-year-old female with history of early stage right breast cancer,pT1b pN0 M0, ER/NE positive, HER-2 negative, status post right breast mastectomy. She started tamoxifen because she was premenopausal when she was diagnosed. She has continued tamoxifen ever since. Clinically she has been doing well and she has tolerated tamoxifen well without significant complaints. She denies coughing, SOB, headaches, new lumps/bumps, pain, lymphedema, lower extremity edema or weight loss. She does mention some occasional pain in her right hand and right foot, but very rarely. She has continued work at [employer]. She had negative mammogram in June 2021 and bilateral axillary lymph node U/S in 03/2021 which demonstrated benign findings. DIAGNOSES 1. 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 She status post mastectomy with specimen sent for Oncotype, returning aslow risk, recurrence score 16, correlating to 10-year distant recurrence of 6% on tamoxifen alone. She is premenopausal and has tolerated tamoxifen well since 11/15/2014. 2. Iron deficiency anemia after complaint of fatigue summer 2014. She was on ferrous sulfate twice daily and had EGD and colonoscopy with Dr. Mcdaniel at [facility]. She was found to have moderate antral gastritis with gastric erosions, normal duodenum, with random biopsies for celiac disease negative, and colonoscopy with small nonbleeding internal hemorrhoids, otherwisenegative. She had prior low platelets and was referred for a liver biopsy, whichwas normal. She stopped oral iron in late May 2015 and followup iron studies in October 2015 were normal, therefore the patient was changed to a multivitaminwith iron. 3. She was seen in the emergency department for hypertensive urgency. She reported a home blood pressure on a wrist cuff of 181/115, and when presented tot ER in late September 2015 blood pressure was 164/110. She was treated with increased dose of lisinopril. 4. She had previous oligomenorrhea, but now cycles are heavier. Her menses were about every six weeks, then menses 12/20/2016 was heavy like a normal menstrual period lasting 7 days, prior month menses lasted 13 days. No hot flashes on tamoxifen. She experienced urinary retention over the past year and had endometrial biopsy which was negative for malignancy. She underwent total abdominal hysterectomy and bilateral oophorectomy on 12/24/2017 with no evidence of malignancy (fibroid tumors, adenomyosis, right hemorrhagic luteal cyst only). Recovered well without pelvic pain. 5. She has long-standing scoliosis and has noted increasing back pain over the last 1-2 years. She has a 69? curvature and has been seeing Dr. Jensen without any improvement of symptoms with injection therapy. She previously was seen by [facility] spine service many years ago and was told this was not covered by her current insurance. She had a second opinion with another area Neurosurgeon but was not felt to be a surgical candidate. Back pain is stable and she does not take chronic pain meds. 07/01/2019: Maricel presents today for her annual follow-up nearly 5 years after diagnosis of right breast cancer, s/p mastectomy. I was contacted by Dr. Raymond who ordered a CT of chest due to worsening right chest pain over incisionover the past few months. No skin erythema, nodularity, or right axillary or arm swelling. CT did not show any abnormalities of the right chest wall, but she raised concerns with multiple incidental findings on imaging and Dr. Ryan referred her back to me for further workup. She has not reviewed these issues with her primary physician Dr. Cr. --Cardiomegaly noted. She has no history of chest pain, dizziness, dyspnea on exertion, or pedal edema. She does not know of any prior history of valvular disease but agrees to echocardiogram to evaluate wall motion and valve function. No obvious murmur on exam. --Found to have a small left thyroid nodule . Size was not characterized and Iadvised her that we will send TSH, free T4 to see if this is a functional noduleand send for thyroid ultrasound. --Indeterminate liver lesion. This is tiny and may be followed up with subsequent imaging. - Summary of Therapies Summary of Therapies: 1. Right mastectomy 10/06/2014 2. Tamoxifen 20 mg daily since October 2014 for a planned 10 year course due to premenopausal status. Does not want to change to aromatase inhibitor therapyafter KIMO/BSO as she is worried that she will have worsening arthralgias. ROS Details: All systems reviewed & no additional complaints except as documented Subjective/ROS - Narrative: Constitutional: no fever or weight loss. HEENT: Eyes: no visual changes or eye pain; no headache, no congestion, sore throat, sinusitis or ear pain. Cardiovascular: no palpitations, dyspnea on exertion, edema, syncope or claudication. Respiratory: no shortness of breath, cough, congestion, wheezing or sputum production. Gastrointestinal: no abdominal pain, hematemesis, melena, nausea, vomiting, diarrhea, or reflux disease. Genitourinary: no dysuria, urgency, or burning with urination. Musculoskeletal: no chronic muscle or joint pain. No current cervical, thoracic or lumbar pain or immobility. Skin: No rash, pruritus, ulcerations. Neurologic: no headache, vertigo, weakness, numbness or tingling. No syncope described. Endocrine: no polyuria, polydipsia, heat or cold intolerance. No history of thyroid disease. Psychiatric: no hallucinations, new stressors, or change in sleep patterns. Hematologic: no abnormal bleeding or bruising. No lymphadenopathy noted. Immunologic: No history of frequent infections or delayed wound healing. [facility] - Medical History Medical History: Medical History (Last Updated 08/06/21 @ 12:44 by Delores Sanderson RN) Breast CA rt breast Hypertension Scoliosis - Surgical History Surgical History: Surgical History (Last Updated 08/06/21 @ 12:44 by Delores Sanderson RN) H/O exploratory laparotomy H/O right mastectomy Hx of hysterectomy - Family History Family History: Family History (Last Updated 08/06/21 @ 12:45 by Delores Sanderson RN) Father Prostate cancer Diabetes Mother Pacemaker Brother Lung cancer - Social History Smoking Status: Never smoker Substance Use Type: None Home Medications & Allergies Allergies hydromorphone [From Dilaudid] Adverse Reaction (Mild, Verified 12/13/21 09:54) [place] Home Medications calcium carbonate 600 mg-vitamin D3 20 mcg (800 unit) chewable tablet (Caltrate 600 plus D) 1 tab PO BID 06/26/17 [History Confirmed 08/06/21] lisinopril 10 mg tablet 10 mg PO QDAY 06/26/17 [History Confirmed 08/06/21] multivitamin 1 cap PO DAILY 06/26/17 [History Confirmed 08/06/21] ferrous sulfate 325 mg (65 mg iron) tablet,delayed release 325 mg PO DAILY #30 tab 10/16/21 [Rx] tamoxifen 20 mg tablet 20 mg PO QDAY #90 tab 12/13/21 [Rx] Objective - Resuscitation Status Resuscitation Status: Full Code - Height/Weight Height/Weight: Height 5 ft 4.76 in Weight 53.524 kg - Vital Signs Vital Signs: 12/13/21 09:54 Pulse Rate [Left Brachial] 67 Respiratory Rate 16 Blood Pressure [Left Arm] 131/80 02 Sat by Pulse Oximetry 99 - Pain Right Breast Pain Intensity: 0 Lower Back Pain Intensity: 3 Pain Location Body Site: Back Right Leg Pain Intensity: 0 Medial Abdomen Pain Intensity: 0 Bilateral Leg Pain Intensity: 0 - Distress Screening Distress Screen Results: RN Distress Screening Start: 07/08/17 15:42 Freq: Q30D Status: Active Protocol: Document 07/08/17 15:42 AA (Rec: 07/08/17 15:46 AA [id number]) Distress Screening Distress Score: 10 Worst distress/worry Physical Concerns Pain,Feeling tired or a lack of energy,Trouble Sleeping Distress Screening Total 10 Physical Exam Narrative: CONSTITUTIONAL: [No apparent distress. Alert, oriented.] HEAD: [Normocephalic, atraumatic.] EYES: [EOMI. Pupils equal and reactive. Conjunctiva normal.] ENT: [External auditory canals wnl. No rhinorrhea. No pharyngeal exudates or erythema.] NECK: [Supple, no adenopathy.] LYMPH NODES: [No palpable lymph nodes.] LUNGS: [No distress. Lungs clear bilaterally. No wheezes, rales or rhonchi.] CARDIOVASCULAR: [Regular rate and rhythm. No murmurs. Symmetric palpable radial and dorsalis pedis pulses.] ABDOMEN: [Soft, non-tender, non-distended. Normal bowel sounds.] BREAST: Right breast mastectomy; left breast no masses, skin changes or abnormalities. No palpable axillary, infra/supraclavicular or cervical lymphadenopathy. BACK: [No midline or paraspinal tenderness.] SKIN: [Intact. No rash. No trauma.] NEUROLOGIC: [II-XII Cranial nerves grossly intact. No focal neurologic deficits.] PSYCHIATRIC: [Mood is appropriate.] - ECOG Performance Status ECOG Score: 0 Results - Labs Labs: Diagram of Most Recent CBC and CMP 07/19/20 08:45 07/19/20 08:32 - Impressions Ordering Provider: Nica Nelson MD Date of Service: 07/05/21 MM/MM screening mammo LT w/CAD: annual on tamoxifen Copies to: MD Gwendolyn Holman MD William D Bruner,DO~ Left Screening Full Field digital mammogram with 3-D imaging. Full field digital CC and MLO imaging performed. CAD utilized. COMPARISON: 07/04/20 HISTORY:Screening FINDINGS: The breast parenchyma is heterogeneously dense. No developing architectural distortion, developing focal breast asymmetry or developing malignant calcifications identified. MM/MM screening mammo LT w/CAD IMPRESSION:No mammographic evidence of malignancy. Routine follow-up recommended in one year. RESULT CODE: 1 Negative DENSITY CODE: 3 (approximately 51-75% glandular) FOLLOW UP: 1YR Assessment and Plan (1) Cancer of central portion of right female breast Qualifiers: Estrogen receptor status: positive Qualified Code(s): C50.111 - Malignant neoplasm of central portion of right female breast; Z17.0 - Estrogen receptor positive status [ER+] This is a 56-year-old female who was originally diagnosed with early stage (hormone positive), stage I right central breast cancer in September 2014, status post mastectomy with low risk Oncotype RS, who has completed 7 years of Tamoxifen. - Tamoxifen is well tolerated and she denies any issues or untoward side effects. Her last screening mammogram dated: 07/05/2021 was negative for evidence of malignancy. Her next left breast screening mammogram will be due in June 2022 - this was ordered today and she has requested follow up thereafter. We will see her back in ~ 7 months after mammogram and she may be changed to annually once again, thereafter. Of note, She had ultrasound of her bilateral axilla which showed small benign looking lymph nodes back in March 2021; she has no changes on self breast exam and no changes/concerns or physical findings of enlarging lymph nodes. She will continue tamoxifen for a total of 10 years (through October 2024). (2) S/P total hysterectomy and bilateral salpingo-oophorectomy Prior altered menstrual frequency with heavier periods over several months. She referred to EXTENDER with negative endometrial biopsy for malignancy and pelvic ultrasound revealing only a large fibroid. Since she was taking tamoxifen, EXTENDER ultimately decided to perform hysterectomy and this was negative for malignancy. Patient recovered well. She continues annual follow up with Dr. Chente Barcenas - last saw June 2021. - Chemo Plan Chemo Plan (Dose, Rate, Freq): Tamoxifen 20mg daily for 10 year course (end of therapy in 10/2024) Goal of Treatment: Curative - Time with Patient Time Spent with Patient (Follow Up Visit): 25 minutes Coordination of Care & Counseling Time: Greater than 50% of time spent with patient was for coordination of care (as documented) and [id number] counseling of patient and/or family. Dictated By: Rachel Hastings APRN DD/ 1024 Signed By: <Electronically signed by FERNANDO Hastings> 12/13/[address] [place] [address] Work Phone: [phone] 855-782402-15-2022 Evaluation note* Encounter Date Diagnosis Assessment Notes Treatment Notes Treatment Clinical Notes Nov, Symptomatic varicose veins of both lower extremities (ICD-10 - I83.893) Extensive discussion with the patient over her symptomatic varicose veins and overall history. We discussed the vein handout page by page and all of her questions were addressed. Recommend graded compression stockings, elevation of lower extremities when she can, and good skin care and moisturizer therapy. We will start by obtaining a full functional venous duplex of bilateral lower extremities and have her back to discuss these results and any further treatment recommendations based on the studies. She verbalizes understanding of all discussion, agrees with this plan, denies any additional questions. [place] Other 06-23-2021 Progress note Author Donnell [facility] April 18, 2021 1:38pm Note Date/Time April 18, 2021 11:3 0[facility] [place] [id number] Hem/Onc Follow Up Note - OP Signed Patient: Maricel Easton MR#: [id number] : 1965 Acct:[id number] Age/Sex: 55 / F Type: REG RCR Copies to: MD Chente Ponce,DO~ Subjective Date/Time of Service: Date of Service: 04/18/2021 Time of Service: 11:29 Chief Complaint: Patient is here for a 6 month follow up for breast cancer. She had a breast ultrasound 04/16/21 for review today. She is on Tamoxifen. She has questions about the COVID vaccine. She states she is having new pain in her hands, legs, and feet. HPI: Patient is a 55-year-old female with history of stage renal vein breast cancer, pT1b pN0 M0, ER/NE positive, HER-2 negative, status post mastectomy. She started tamoxifen because she was premenopausal when she was diagnosed. She hascontinued tamoxifen ever since. Clinically she has been doing well and she has tolerated tamoxifen well without significant complaints. She denies coughing, SOB, headaches, new lumps bumps, or weight loss. She does mention some occasional pain in her right hand and right foot, but very rarely. She has continued work at [employer]. She has not had Covid- 19 vaccination yet. DIAGNOSES 1. 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 She status post mastectomy with specimen sent for Oncotype, returning aslow risk, recurrence score 16, correlating to 10-year distant recurrence of 6% on tamoxifen alone. She is premenopausal and has tolerated tamoxifen well since 11/15/2014. 2. Iron deficiency anemia after complaint of fatigue summer 2014. She was on ferrous sulfate twice daily and had EGD and colonoscopy with Dr. Mcdaniel at [facility]. She was found to have moderate antral gastritis with gastric erosions, normal duodenum, with random biopsies for celiac disease negative, and colonoscopy with small nonbleeding internal hemorrhoids, otherwisenegative. She had prior low platelets and was referred for a liver biopsy, whichwas normal. She stopped oral iron in late May 2015 and followup iron studies in October 2015 were normal, therefore the patient was changed to a multivitaminwith iron. 3. She was seen in the emergency department for hypertensive urgency. She reported a home blood pressure on a wrist cuff of 181/115, [facility]110. She was treated with increased dose of lisinopril. 4. She had previous oligomenorrhea, but now cycles are heavier. Her menses were about every six weeks, then menses 12/20/2016 was heavy like a normal menstrual period lasting 7 days, prior month menses lasted 13 days. No hot flashes on tamoxifen. She experienced urinary retention over the past year and had endometrial biopsy which was negative for malignancy. She underwent total abdominal hysterectomy and bilateral oophorectomy on 12/24/2017 with no evidence of malignancy (fibroid tumors, adenomyosis, right hemorrhagic luteal cyst only). Recovered well without pelvic pain. 5. She has long-standing scoliosis and has noted increasing back pain over the last 1-2 years. She has a 69? curvature and has been seeing Dr. Jensen without any improvement of symptoms with injection therapy. She previously was seen by [facility] spine service many years ago and was told this was not covered by her current insurance. She had a second opinion with another area Neurosurgeon but was not felt to be a surgical candidate. Back pain is stable and she does not take chronic pain meds. 07/01/2019: Maricel presents today for her annual follow-up nearly 5 years after diagnosis of right breast cancer, s/p mastectomy. I was contacted by Dr. Raymond who ordered a CT of chest due to worsening right chest pain over incisionover the past few months. No skin erythema, nodularity, or right axillary or arm swelling. CT did not show any abnormalities of the right chest wall, but she raised concerns with multiple incidental findings on imaging and Dr. Ryan referred her back to me for further workup. She has not reviewed these issues with her primary physician Dr. Cr. --Cardiomegaly noted. She has no history of chest pain, dizziness, dyspnea on exertion, or pedal edema. She does not know of any prior history of valvular disease but agrees to echocardiogram to evaluate wall motion and valve function. No obvious murmur on exam. --Found to have a small left thyroid nodule . Size was not characterized and Iadvised her that we will send TSH, free T4 to see if this is a functional noduleand send for thyroid ultrasound. --Indeterminate liver lesion. This is tiny and may be followed up with subsequent imaging. - Summary of Therapies Summary of Therapies: 1. Right mastectomy 10/06/2014 2. Tamoxifen 20 mg daily since October 2014 for a planned 10 year course due topremenopausal status. Does not want to change to aromatase inhibitor therapy after KIMO/BSO as she is worried that she will have worsening arthralgias. ROS Details: All systems reviewed & no additional complaints except as documented Subjective/ROS - Narrative: Constitutional: [No fever or weight loss.] Eyes: [No visual changes or eye pain.] Ear, Nose and throat: [No congestion, sore throat, sinusitis or ear pain.] Cardiovascular: [No palpitations, dyspnea on exertion, edema, syncope or claudication.] Respiratory: [No shortness of breath, cough, congestion, wheezing or sputum production.] Gastrointestinal: [No abdominal pain, hematemesis, melena, nausea, vomiting, diarrhea, or reflux disease.] Genitourinary: [No dysuria, urgency, or burning with urination.] Musculoskeletal: [No chronic muscle or joint pain. No current cervical, thoracic or lumbar pain or immobility. She reports very occasional pain in her right hand and foot, last one 2 months ago.] Skin: [No rash, pruritus, ulcerations.] Neurologic: [No headache, vertigo, weakness, numbness or tingling. No syncope described.] Endocrine: [No polyuria, polydipsia, heat or cold intolerance. No history of thyroid disease.] Psychiatric: [No hallucinations, new stressors, or change in sleep patterns.] Hematologic: [No abnormal bleeding or bruising. No lymphadenopathy noted.] Immunologic: [No history of frequent infections or delayed wound healing.] PMFSH - Medical History Medical History: Medical History (Last Reviewed 10/23/20 @ 19:03 by Nica Nelson MD) Breast CA Hypertension Scoliosis - Surgical History Surgical History: Surgical History (Last Reviewed 10/23/20 @ 19:03 by Nica Nelson MD) Hx of hysterectomy - Social History Smoking Status: Never smoker Substance Use Type: None Home Medications & Allergies Allergies hydromorphone [From Dilaudid] Adverse Reaction (Mild, Verified 04/18/21 09:09) [place] Home Medications calcium carbonate-vitamin D3 [Caltrate 600 + D] 1 tab PO BID 06/26/17 [History Confirmed 04/18/21] lisinopril 10 mg PO QDAY 06/26/17 [History Confirmed 04/18/21] multivitamin 1 cap PO DAILY 06/26/17 [History Confirmed 04/18/21] tamoxifen 20 mg PO QDAY #90 tab 02/09/21 [Rx Confirmed 04/18/21] ferrous sulfate 325 mg PO DAILY #30 tab 03/19/21 [Rx Confirmed 04/18/21] Objective - Height/Weight Height/Weight: Height 5 ft 4.76 in Weight 53.932 kg - Vital Signs Vital Signs: 04/18/21 09:09 Temperature 97.8 F Pulse Rate [Left Brachial] 67 Respiratory Rate 20 Blood Pressure [Left Arm] 128/82 02 Sat by Pulse Oximetry 100 - Pain Lower Back Pain Intensity: 8 Pain Location Body Site: Back Medial Abdomen Pain Intensity: 5 Bilateral Leg Pain Intensity: 5 Right Breast Pain Intensity: 4 Right Leg Pain Intensity: 2 - Emotional Needs Assessment Emotional Needs Assessment: Emotional Needs Identified? No Physical Exam Narrative: CONSTITUTIONAL: [No apparent distress. Alert, oriented.] HEAD: [Normocephalic, atraumatic.] EYES: [EOMI. Pupils equal and reactive. Conjunctiva normal.] ENT: [External auditory canals wnl. No rhinorrhea. No pharyngeal exudates or erythema.] NECK: [Supple, no adenopathy.] LYMPH NODES: [No palpable lymph nodes.] LUNGS: [No distress. Lungs clear bilaterally. No wheezes, rales or rhonchi.] CARDIOVASCULAR: [Regular rate and rhythm. No murmurs. Symmetric palpable radial and dorsalis pedis pulses.] ABDOMEN: [Soft, non-tender, non-distended. Normal bowel sounds.] BACK: [No midline or paraspinal tenderness.] SKIN: [Intact. No rash. No trauma.] NEUROLOGIC: [II-XII Cranial nerves grossly intact. No focal neurologic deficits.] PSYCHIATRIC: [Mood is appropriate.] - ECOG Performance Status ECOG Score: 0 Results - Labs Labs: Diagram of Most Recent CBC and CMP 07/19/20 08:45 07/19/20 08:32 - Impressions Ultrasound: Redemonstration of benign-appearing lymph nodes in the left axilla which are essentially unchanged. There is a benign-appearing lymph node in the right axilla demonstrated. No pathologically enlarged or atypical lymph nodes are noted. Assessment and Plan (1) Cancer of central portion of right female breast Qualifiers: Estrogen receptor status: positive Qualified Code(s): C50.111 - Malignant neoplasm of central portion of right female breast; Z17.0 - Estrogen receptor positive status [ER+] This is a 55-year-old female who was diagnosed with stage I right central breast cancer in September 2014, status post mastectomy with low risk Oncotype RS, who has completed 6.5 years of Tamoxifen. Her next screening mammogram is due in June 2021. She had ultrasound of her bilateral axilla which showed small benign looking lymph nodes. She will continue tamoxifen for a total of 10 years. She will follow up with Dr. Nelson in 6 months. (2) S/P total hysterectomy and bilateral salpingo-oophorectomy Prior altered menstrual frequency with heavier periods over several months. She referred to EXTENDER with negative endometrial biopsy for malignancy and pelvic ultrasound revealing only a large fibroid. Since she was taking tamoxifen, EXTENDER ultimately decided to perform hysterectomy and this was negative for malignancy. Patient recovered well. - Chemo Plan Goal of Treatment: Curative - Time with Patient Time Spent with Patient (Follow Up Visit): 35 minutes Coordination of Care & Counseling Time: Greater than 50% of time spent with patient was for coordination of care (as documented) and [id number] counseling of patient and/or family. Dictated By: Donnell Jane MD DD/ [id number] Signed By: <Electronically signed by Donnell Jane MD> 04/18/[id number] [facility] Work Phone: [phone] Progress note Author Nica [facility] October 23, 2020 7:19pm Note Date/Time October 23, 2020 10:06am [facility] [place] [id number] Hem/Onc Follow Up Note - OP Signed Patient: Maricel Easton MR#: [id number] : 1965 Acct:[id number] Age/Sex: 55 / F Type: REG RCR Copies to: MD Vishal Ponce DO William D Bruner,~ Subjective Date/Time of Service: Date of Service: 10/23/2020 Time of Service: 10:06 Chief Complaint: Patient is here for a 3 month follow up for breast cancer. She had an ultrasound of the right axilla 10/05 for review. She is concerned about some discoloration in her left ear. HPI: 10/23/2020: Maricel is here for 3 month followup and ultrasound review for left axillary lymph node enlargement seen on 06/2020 CT ordered for right chest wall pain. She still notes persistent right chest wall pain. She was evaluated by pulmonary medicine for dyspnea and pulmonary hypertension on prior Echo. No further intervention required and recommended prn followup only with pulmonary medicine. She also notes recent discoloration of mid left ear pinna--I recommended she discuss this with her primary physician for dermatology evaluation--this appears more consistent with telangiectasia, but I am not concerned with malignant features. --Left axillary ultrasound showed fatty hilum which suggests benign reactive changes. No palpable adenopathy on exam. In absence of left breast changes or lymphedema of left arm, I recommend f/u surveillance US and exam in 6 months. Continue Tamoxifen 20mg daily. Next left mammogram due 06/2021. 07/12/2020: Maricel is here for annual followup. She was evaluated by cardiology last year--noted to have findings on Echo with cardiomegaly, normal ejection fraction, and mild pulmonary hypertension. He did not feel this was clinically significant. May be related to pulmonary changes due to severe scoliosis. She also had an indeterminate tiny lesion in the liver. She has stable intermittent right chest wall pain at mastectomy site with no changes on exam. She requests followup chest and abdomen CT to evaluate heart and liver lesions. I will contact her with results. Prefers Tamoxifen over AI therapy as she fearsworsening myalgias. 07/14/2019: Maricel is here for two-week follow-up of her imaging for incidental findings of cardiomegaly and thyroid nodules on CT scan. She notes some mild dyspnea on exertion with activities at work and leg cramping but no other interval symptoms. --07/05/2019: Thyroid ultrasound showed a small septated cyst within the upper portion of the left thyroid measuring 4 x 2 x 4 mm. A complex cystic solid structure in the midportion of the left thyroid measuring 1.4 x 0.8 x 0.9 cm corresponding to a smal hypoechoic lesions shown on recent CT chest.l recommendation was for thyroid ultrasound-guided fine-needle aspiration. TSH and free T4 are normal. I have requested ENT consultation to arrange ultrasound-guided biopsy and further follow-up of results. --07/08/2019: Echocardiogram revealed normal ejection fraction 55 to 60%, normal left ventricular size, thickness, and function. Normal left ventricular wall motion. Trace mitral regurgitation and trace tricuspid regurgitation. Abnormalfinding of inferior vena cava severely dilated with a decrease in inspiratory collapse. This may be consistent with pulmonary hypertension and I am referringthe patient to cardiology for further evaluation. The patient is now annual follow-up for her right breast cancer which showed no evidence of recurrence at her follow-up 2 weeks ago. Her primary physician Dr. Cr is unavailable until early July, therefore I will have her follow-up after ENT and cardiology consultations with him and I will defer follow-up with me until her one year mammography and surveillance exam. DIAGNOSES 1. 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 She status post mastectomy with specimen sent for Oncotype, returning aslow risk, recurrence score 16, correlating to 10-year distant recurrence of 6% on tamoxifen alone. She is premenopausal and has tolerated tamoxifen well since 11/15/2014. 2. Iron deficiency anemia after complaint of fatigue summer 2014. She was on ferrous sulfate twice daily and had EGD and colonoscopy with Dr. Mcdaniel at [facility]. She was found to have moderate antral gastritis with gastric erosions, normal duodenum, with random biopsies for celiac disease negative, and colonoscopy with small nonbleeding internal hemorrhoids, otherwisenegative. She had prior low platelets and was referred for a liver biopsy, whichwas normal. She stopped oral iron in late May 2015 and followup iron studies in October 2015 were normal, therefore the patient was changed to a multivitaminwith iron. 3. She was seen in the emergency department for hypertensive urgency. She reported a home blood pressure on a wrist cuff of 181/115, and when presented tot ER in late September 2015 blood pressure was 164/110. She was treated with increased dose of lisinopril. 4. She had previous oligomenorrhea, but now cycles are heavier. Her menses were about every six weeks, then menses 12/20/2016 was heavy like a normal menstrual period lasting 7 days, prior month menses lasted 13 days. No hot flashes on tamoxifen. She experienced urinary retention over the past year and had endometrial biopsy which was negative for malignancy. She underwent total abdominal hysterectomy and bilateral oophorectomy on 12/24/2017 with no evidence of malignancy (fibroid tumors, adenomyosis, right hemorrhagic luteal cyst only). Recovered well without pelvic pain. 5. She has long-standing scoliosis and has noted increasing back pain over the last 1-2 years. She has a 69? curvature and has been seeing Dr. Jensen without any improvement of symptoms with injection therapy. She previously was seen by [facility] spine service many years ago and was told this was not covered by her current insurance. She had a second opinion with another area Neurosurgeon but was not felt to be a surgical candidate. Back pain is stable and she does not take chronic pain meds. 07/01/2019: Maricel presents today for her annual follow-up nearly 5 years after diagnosis of right breast cancer, s/p mastectomy. I was contacted by Dr. Raymond who ordered a CT of chest due to worsening right chest pain over incisionover the past few months. No skin erythema, nodularity, or right axillary or arm swelling. CT did not show any abnormalities of the right chest wall, but she raised concerns with multiple incidental findings on imaging and Dr. Ryan referred her back to me for further workup. She has not reviewed these issues with her primary physician Dr. Cr. --Cardiomegaly noted. She has no history of chest pain, dizziness, dyspnea on exertion, or pedal edema. She does not know of any prior history of valvular disease but agrees to echocardiogram to evaluate wall motion and valve function. No obvious murmur on exam. --Found to have a small left thyroid nodule . Size was not characterized and Iadvised her that we will send TSH, free T4 to see if this is a functional noduleand send for thyroid ultrasound. --Indeterminate liver lesion. This is tiny and may be followed up with subsequent imaging. For annual left mammogram was reviewed from 06/29/2019 showing no evidence of recurrence. Routine follow-up in 1 year recommended. --She agrees to follow-up results of repeat imaging in 1-2 weeks. If no new issues she will resume annual breast cancer follow-up. Plan to continue tamoxifen for 10-year course unless poor tolerance. - Summary of Therapies Summary of Therapies: 1. Right mastectomy 10/06/2014 2. Tamoxifen 20 mg daily since October 2014 for a planned 10 year course due topremenopausal status. Does not want to change to aromatase inhibitor therapy after KIMO/BSO as she is worried that she will have worsening arthralgias. ROS Details: All systems reviewed & no additional complaints except as documented Subjective/ROS - Narrative: Constitutional: fair state of general health, no fatigue, no fever, no weakness,no weight gain, no weight loss Eyes: no symptoms, no change in vision ENT: no symptoms, no headaches, no vertigo, no lightheadedness, no decreased hearing, no nasal congestion, no sore throat--no dysphagia or hoarseness, no obvious neck mass. Cardiovascular: no chest pain, no palpitations, no dyspnea on exertion, no edema Respiratory: no cough, no respiratory infections, mild shortness of breath with exertion, mild exercise intolerance (pulmonary medicine without new recommendations for pulmonary hypertension likely due to severe scoliosis), no sputum production, no wheezing Gastrointestinal: no change in appetite, no dysphagia, no indigestion, no postprandial pain, no abdominal pain, no bloating, no nausea, no vomiting, no jaundice, no constipation, no diarrhea, no flatulence, no change in bowel habits, no rectal bleeding Genitourinary: other - S/P KIMO/BSO 12/24/2017, no frequency, no dysuria, no hematuria, no change in stream, no urinary retention - Resolved, no vaginal discharge Musculoskeletal: other - Thoracolumbar pain which is stable recently and has notresponded to injection therapy by Dr. Jensen. Marked kyphoscoliosis. Right chestwall pain prompting Dr. Ryan to order CT scan 06/2020. Patient is anxious regarding multiple abnormalities but no evidence of chest wall recurrence or masses in opposite breast. 3 month surveillance axillary US with mild enlargement of left axillary LN, fatty hilum suggests benign disease. Integumentary: no rash, no eczema, no lesions, no petechiae, no bruising, no pruritus LEFT breast: no changes, no lumps, no tenderness, no swelling, no nipple discharge RIGHT breast: other - Status post prior right mastectomy well-healed, no changes, no lumps, no tenderness, no incision site Neurological: no dizzy, no headache, no numbness, no paraesthesias Psychiatric: Positive anxiety regarding recent CT scan findings, no depression, no insomnia Endocrine: no excessive sweating, no flushing, no intolerance to cold, no intolerance to heat Hematologic/Lymphatic: no bleeds easily, no bruises easily, no enlarged lymph nodes Allergic/Immunologic: no pruritus PMFSH - History Attestation statement: The following information was validated with the patient. Source: Old Records Reviewed - Medical History Medical History: Medical History (Last Reviewed 10/23/20 @ 19:02 by Nica Nelson MD) Breast CA Hypertension Scoliosis - Surgical History Surgical History: Surgical History (Last Reviewed 10/23/20 @ 19:02 by Nica Nelson MD) Hx of hysterectomy - Social History Smoking Status: Never smoker Substance Use Type: None Home Medications & Allergies Allergies hydromorphone [From Dilaudid] Adverse Reaction (Mild, Verified 10/23/20 09:57) [place] Home Medications calcium carbonate-vitamin D3 [Caltrate 600 + D] 1 tab PO BID 06/26/17 [History Confirmed 10/23/20] lisinopril 10 mg PO QDAY 06/26/17 [History Confirmed 10/23/20] multivitamin 1 cap PO DAILY 06/26/17 [History Confirmed 10/23/20] tamoxifen 20 mg PO QDAY #90 tab 02/16/20 [Rx Confirmed 10/23/20] ferrous sulfate 325 mg PO DAILY #30 tab 08/21/20 [Rx Confirmed 10/23/20] Objective - Height/Weight Height/Weight: Height 5 ft 4.76 in Weight 55.1 kg - Vital Signs Vital Signs: 10/23/20 09:58 Temperature 96.7 F L Pulse Rate [Left Brachial] 59 L Respiratory Rate 20 Blood Pressure [Left Arm] 135/87 02 Sat by Pulse Oximetry 99 - Pain Lower Back Pain Intensity: 8 Pain Location Body Site: Back Medial Abdomen Pain Intensity: 5 Bilateral Leg Pain Intensity: 5 Right Breast Pain Intensity: 4 - Emotional Needs Assessment Emotional Needs Assessment: Emotional Needs Identified? No Distress Screening Total 0 Expressed/Other Feelings patient states that she is feeling fine today Comment Physical Exam Narrative: - Constitutional no acute distress, thin, no cachectic, no chronically ill appearing, cooperative - Routine HEENT Exam Head: normocephalic, atraumatic Eye: EOMI, PERRL, normal accommodation ENT: mucous membranes moist, dentition normal - Routine Neck Exam supple, full ROM--no palpable thyroid nodule - Routine Chest/Breast/Axilla Exam Chest wall: no tenderness Breast: no tenderness, no induration, no mass, no swelling, right mastectomy - Well-healed, no tenderness of the chest wall or nodularity. Left breast unremarkable Axillae: no lymphadenopathy (no tenderness or swelling in area of concern), no mass, no tenderness, other - No right or left upper extremity lymphedema - Routine Respiratory Exam no accessory muscle use, CTA bilaterally, no rales, no respiratory distress, no rhonchi, no wheezes - Routine Cardiovascular Exam RRR, no murmur, no gallop, no irregular rhythm - Routine Abdominal Exam soft, normoactive bowel sounds, no tenderness, no distended, no organomegaly, nomass, no hernia, surgical scars - well healed incision pelvis from abdominal hysterectomy - Routine Exam Groin: Absent: inguinal lymphadenopathy - Routine Extremities Exam Present: full ROM, pulses intact, normal capillary refill. Absent: cyanosis, clubbing, edema, calf tenderness, tenderness - Routine Back/Spine/Pelvis Exam Back/Spine: Present: paraspinal tenderness - Unchanged from baseline, muscle spasm, marked scoliosis/kyphosis. Absent: CVA tenderness, vertebral tenderness - Routine Skin Exam Present: intact, warm, normal turgor. Absent: lesions, jaundice - Routine Neurological Exam Present: alert, oriented X3, CN II-XII intact, normal reflexes, moving all extremities, vision grossly intact, hearing grossly intact, normal speech. Absent: abnormal gait - Routine Psychiatric Exam Present: normal affect, normal thought process, cooperative. + anxious. Absent:depressed. - ECOG Performance Status ECOG Score: 1 Results - Labs Labs: Diagram of Most Recent CBC and CMP 07/19/20 08:45 07/19/20 08:32 - Impressions Date of Service: 10/05/20 US/US extremity nonvascular: enlarged left axilla LN with normal mammo, surveil LIMITED LEFT AXILLARY ULTRASOUND CLINICAL DATA: History of right mastectomy for cancer. Enlarging left axillary lymph node on CT COMPARISON: CT 07/19/2020 Real-time ultrasound evaluation the right axilla was performed. There are a couple lymph nodes with fatty ivanna. The larger measures 19 x 7 x 9 mm. This correlates with the lymph node of concern on CT. The smaller node measures 13 x5 x 5 mm. No other cystic or solid masses are seen. US/US extremity nonvascular IMPRESSION: LEFT AXILLARY LYMPH NODES WITH FATTY VIANNA. CLINICAL MANAGEMENT IS SUGGESTED. Impression dictated by: Delores Hi M.D.10/05/2020 2:[address] chest w con, CT abdomen pelvis w con 07/19/2020 8:32 AM SIGN AND SYMPTOMS: History of breast cancer, evaluate prior to liver lesion, follow-up CONTRAST: 95 mL of intravenous Isovue-300 TECHNIQUE: Multidetector CT axial slices of the chest, abdomen and pelvis were obtainedwith IV contrast. Multiplanar reformats were performed and viewed on a separate workstation and reviewed to further define anatomy and possible pathology. CT was performed with one or more of the following dose reduction techniques: Automated exposure control, adjustment of the mA and/or kV accordingto patient size, or use of iterative reconstruction technique. COMPARISON: 06/17/2019. FINDINGS: Lower neck: Thyroid gland within normal limits, no supraclavicle adenopathy. Vessels: Within normal limits. Mediastinum and Ivanna: Within normal limits. Heart: There is mild cardiomegaly. . Airways: Within normal limits Lungs: There is scarring there is also scarring in the right lung base. In the lung apices. Pleura: Within normal limits. Chest Wall: There is evidence of previous right mastectomy. There is a larger 1.2 x 0.9 cm left axillary lymph node. This is nonspecific but has increased insize when compared to the prior study. Abdomen: Liver: There is a similar 8 mm hypoattenuating structure posteriorly along the right hepatic lobe which becomes isoattenuating on delayed phase images. This is unchanged in size. This most likely represents a hemangioma. There is an unchanged 8 mm hypoattenuating lesion along the anterior margin of the right hepatic lobe near the junction of the right and left hepatic lobe which shows no enhancement on portal venous or delayed phase. This most likely represents a cyst and is unchanged. The liver is otherwise normal in appearance. Bile Ducts: Normal caliber. Gallbladder: No calcified gallstones. Normal caliber wall. Pancreas: within normal limits. Spleen: within normal limits. Adrenals: within normal limits. Kidneys: Simple cysts are noted in the renal cortices bilaterally which require no further follow-up. There is no evidence of hydronephrosis. Pelvis: Reproductive Organs: No pelvic masses. Ureters: within normal limits. Bladder: within normal limits. Bowel: Normal caliber. Mesenteric Lymph Nodes: No enlarged mesenteric lymph nodes. Peritoneum: No ascites or free air, no fluid collection. Vessels: Minimal atherosclerotic changes are noted in the lower abdominal aorta.. Retroperitoneum: within normal limits. Abdominal Wall: within normal limits. Bones: There is a dextro convex curvature of the thoracic spine. There is a levoconvex curvature of the lumbar spine. CT/CT chest w con IMPRESSION: Unchanged liver lesions suggesting one hepatic cyst and one hemangioma with measurements given above. Evidence of prior bilateral mastectomy. Interval increase in size of a left axillary lymph node now measuring 1.2 x 0.9 cm in greatest dimension. No metastatic disease is not excluded. The lung parenchyma is grossly within normal limits. No evidence of new metastatic disease otherwise. Impression dictated by: Germán Cummings M.D.07/19/2020 3:10 PM Assessment and Plan (1) Cancer of central portion of right female breast Qualifiers: Estrogen receptor status: positive Qualified Code(s): C50.111 - Malignant neoplasm of central portion of right female breast; Z17.0 - Estrogen receptor positive status [ER+] 1. This is a 55-year-old female who was diagnosed with stage I right central breast cancer in September 2014, status post mastectomy with low risk Oncotype, who has completed nearly six years of hormonal antagonist therapy. We are continuing tamoxifen for a total of 10 years as patient does not wish to change to aromatase inhibitor therapy due to chronic back pain and leg cramps from scoliosis and varicosities. 2. She was noted to have iron deficiency summer 2015 due to gastric erosions one year ago and had normalization of her complete blood count (borderline low platelets in November 2017). Her recurrent charley horses of the legs responded to resuming her iron therapy and use of compression stockings for venous varicosities. Resolved leg cramps and with normal iron levels 06/2019 and normal hemoglobin today. 3. She has hypertension, now managed by her primary care physician. This appears to be in better control, and her workup showed no evidence of secondary hypertension, although she did have abnormal echocardiogram showing signs of possible pulmonary hypertension. I requested cardiology consultation without concerning findings and followup as needed. She is also being evaluated by ENT for complex cyst of the left thyroid. 4. We will continue annual mammograms for surveillance of potential recurrence with clinical exam now annually. --Her most recent unilateral diagnostic mammogram showed no recurrence in all June 2020. --She saw Dr. Ryan in 06/2019 and due to right-sided chest wall pain CT was ordered with multiple findings as noted below. No evidence of local recurrence on chest CT and chest wall pain is intermittent and manageable. --F/u Chest and Abdomen CT to followup heart and liver lesion: left axillary LN with 3 month surveillance ultrasound showing findings consistent with benign reactive changes (fatty hilum). Liver lesion most consistent with benign hemangioma RECOMMENDATION: 6 month f/u surveillance left axillary US and exam with Dr. Nelson. Next mammogram due 06/2021. --This is a moderate complexity visit 30 minutes due to follow-up of exam and imaging noted above. (2) Mild pulmonary hypertension She was noted to have cardiomegaly on Chest CT scan and does not have a prior cardiac history. No signs or symptoms of congestive heart failure and she has not had a prior documented heart murmur. Echocardiogram from 07/08/2019 showed normal ejection fraction, normal left ventricular wall motion, normal valves, but severe inspiratory collapse of the IVC. I recommended cardiology consultation for possible pulmonary hypertension although he did not recommend further cardiology evaluation or followup. --Referred to pulmonary medicine for chronic dyspnea--no further interventions recommended for pulmonary hypertension. Stable cardiomegaly on one year Chest CT. Continue surveillance of symptoms with primary care physician (3) Thyroid nodule Incidental finding of thyroid nodule on recent imaging. She does not have symptomatic hyper or hypothyroidism, and we reviewed that her TSH and free T4 are normal which excludes a functional nodule. Thyroid ultrasound was reviewed and she was found to have a complex cystic left thyroid nodule. I sent her for ENT consultation to coordinate ultrasound-guided biopsy and to review results. Follow-up with her primary physician after ENT evaluation--Dr. Carreon receommended annual thyroid US (overdue, should have been in 06/2020 and will need f/u with ENT). --Follow-up with me will be in 6 months for US and exam surveillance as noted above for her breast cancer (4) History of iron deficiency anemia Prior increased leg cramps and required iron repletion in the past due to iron deficiency anemia. Follow-up CBC and iron studies 06/2019 had no evidence of deficiency. Hemoglobin normal and leg cramps improved. (5) Abnormal finding on imaging of liver She had a small indeterminate lesion of liver on imaging. Comprehensive metabolic panel with liver function normal. One year f/u Chest/Abdomen CT 06/2020 shows this lesion is most consistent with hemangioma and stable in size. No further recommendation for surveillance imaging. (6) Idiopathic scoliosis of thoracolumbar region She has marked scoliosis and did not have improvement of her pain after injections with Dr. Jensen of pain clinic. She had a followup spine clinic consultation in 2016 (she did not state who she saw or provide records) but she was not felt to be a surgical candidate. Will continue followup with pain clinic as needed for local therapy. (7) S/P total hysterectomy and bilateral salpingo-oophorectomy Prior altered menstrual frequency with heavier periods over several months. She referred to [facility] with negative endometrial biopsy for malignancy and pelvic ultrasound revealing only a large fibroid. Since she was taking tamoxifen, EXTENDER ultimately decided to perform hysterectomy and this was negative for malignancy. Patient recovered well. - Chemo Plan Chemo Plan (Dose, Rate, Freq): Tamoxifen 20mg daily for 10 year course (end of therapy in 10/2024) Goal of Treatment: Curative - Time with Patient Total Time Spent with Patient: 30 min Coordination of Care & Counseling Time: Greater than 50% of time spent with patient was for coordination of care (as documented) and [id number] counseling of patient and/or family. Dictated By: Nica Nelson MD DD/ [id number] Signed By: <Electronically signed by MD Nica Nelson> 10/23/[id number] [facility] Work Phone: [phone] Progress note Author Nica [facility] July 12, 2020 11:21pm Note Date/Time July 12, 2020 10:11am [facility] at [address] [address] Hem/Onc Follow Up Note - OP Signed Patient: Maricel Easton MR#: [id number] : 1965 Acct:[id number] Age/Sex: 55 / F Type: REG RCR Copies to: MD Gwendolyn Babcock MD William D Bruner,DO~ Subjective Date/Time of Service: Date of Service: 07/12/2020 Time of Service: 10:10 Chief Complaint: Patient is here for one year follow up history of breast cancerwith mammogram for review. Patient continues with Tamoxifen. Patient complains of having a burning sensation in left nipple when she showered at a few different occasions. Patient has a rash on neck that is also bothers here. Patient also wonders if spot on liver needs monitored. HPI: 07/12/2020: Maricel is here for annual followup. She was evaluated by cardiology last year--noted to have findings on Echo with cardiomegaly, normal ejection fraction, and mild pulmonary hypertension. He did not feel this was clinically significant. May be related to pulmonary changes due to severe scoliosis. She also had an indeterminate tiny lesion in the liver. She has stable intermittent right chest wall pain at mastectomy site with no changes on exam. She requests followup chest and abdomen CT to evaluate heart and liver lesions. I will contact her with results. Prefers Tamoxifen over AI therapy as she fearsworsening myalgias. 07/14/2019: Maricel is here for two-week follow-up of her imaging for incidental findings of cardiomegaly and thyroid nodules on CT scan. She notes some mild dyspnea on exertion with activities at work and leg cramping but no other interval symptoms. --07/05/2019: Thyroid ultrasound showed a small septated cyst within the upper portion of the left thyroid measuring 4 x 2 x 4 mm. A complex cystic solid structure in the midportion of the left thyroid measuring 1.4 x 0.8 x 0.9 cm corresponding to a smal hypoechoic lesions shown on recent CT chest.l recommendation was for thyroid ultrasound-guided fine-needle aspiration. TSH and free T4 are normal. I have requested ENT consultation to arrange ultrasound-guided biopsy and further follow-up of results. --07/08/2019: Echocardiogram revealed normal ejection fraction 55 to 60%, normal left ventricular size, thickness, and function. Normal left ventricular wall motion. Trace mitral regurgitation and trace tricuspid regurgitation. Abnormalfinding of inferior vena cava severely dilated with a decrease in inspiratory collapse. This may be consistent with pulmonary hypertension and I am referringthe patient to cardiology for further evaluation. The patient is now annual follow-up for her right breast cancer which showed no evidence of recurrence at her follow-up 2 weeks ago. Her primary physician Dr. Cr is unavailable until early July, therefore I will have her follow-up after ENT and cardiology consultations with him and I will defer follow-up with me until her one year mammography and surveillance exam. DIAGNOSES 1. 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 She status post mastectomy with specimen sent for Oncotype, returning aslow risk, recurrence score 16, correlating to 10-year distant recurrence of 6% on tamoxifen alone. She is premenopausal and has tolerated tamoxifen well since 11/15/2014. 2. Iron deficiency anemia after complaint of fatigue summer 2014. She was on ferrous sulfate twice daily and had EGD and colonoscopy with Dr. Mcdaniel at [facility]. She was found to have moderate antral gastritis with gastric erosions, normal duodenum, with random biopsies for celiac disease negative, and colonoscopy with small nonbleeding internal hemorrhoids, otherwisenegative. She had prior low platelets and was referred for a liver biopsy, whichwas normal. She stopped oral iron in late May 2015 and followup iron studies in October 2015 were normal, therefore the patient was changed to a multivitaminwith iron. 3. She was seen in the emergency department for hypertensive urgency. She reported a home blood pressure on a wrist cuff of 181/115, [facility]110. She was treated with increased dose of lisinopril. 4. She had previous oligomenorrhea, but now cycles are heavier. Her menses were about every six weeks, then menses 12/20/2016 was heavy like a normal menstrual period lasting 7 days, prior month menses lasted 13 days. No hot flashes on tamoxifen. She experienced urinary retention over the past year and had endometrial biopsy which was negative for malignancy. She underwent total abdominal hysterectomy and bilateraly oophorectomy on 12/24/2017 with no evidenceof malignancy (fibroid tumors, adenomyosis, right hemorrhagic luteal cyst only). Recovered well without pelvic pain. 5. She has long-standing scoliosis and has noted increasing back pain over the last 1-2 years. She has a 69? curvature and has been seeing Dr. Jensen without any improvement of symptoms with injection therapy. She previously was seen by [facility] spine service many years ago and was told this was not covered by her current insurance. She had a second opinion with another area Neurosurgeon but was not felt to be a surgical candidate. Back pain is stable and she does not take chronic pain meds. 07/01/2019: Maricel presents today for her annual follow-up nearly 5 years after diagnosis of right breast cancer, s/p mastectomy. I was contacted by Dr. Raymond who ordered a CT of chest due to worsening right chest pain over incisionover the past few months. No skin erythema, nodularity, or right axillary or arm swelling. CT did not show any abnormalities of the right chest wall, but she raised concerns with multiple incidental findings on imaging and Dr. Ryan referred her back to me for further workup. She has not reviewed these issues with her primary physician Dr. Cr. --Cardiomegaly noted. She has no history of chest pain, dizziness, dyspnea on exertion, or pedal edema. She does not know of any prior history of valvular disease but agrees to echocardiogram to evaluate wall motion and valve function. No obvious murmur on exam. --Found to have a small left thyroid nodule . Size was not characterized and Iadvised her that we will send TSH, free T4 to see if this is a functional noduleand send for thyroid ultrasound. --Indeterminate liver lesion. This is tiny and may be followed up with subsequent imaging. For annual left mammogram was reviewed from 06/29/2019 showing no evidence of recurrence. Routine follow-up in 1 year recommended. --She agrees to follow-up results of repeat imaging in 1-2 weeks. If no new issues she will resume annual breast cancer follow-up. Plan to continue tamoxifen for 10-year course unless poor tolerance. - Summary of Therapies Summary of Therapies: 1. Right mastectomy 10/06/2014 2. Tamoxifen 20 mg daily since October 2014 for a planned 10 year course due topremenopausal status. Does not want to change to aromatase inhibitor therapy after KIMO/BSO as she is worried that she will have worsening arthralgias. ROS Details: All systems reviewed & no additional complaints except as documented Subjective/ROS - Narrative: Constitutional: fair state of general health, no fatigue, no fever, no weakness,no weight gain, no weight loss Eyes: no symptoms, no change in vision ENT: no symptoms, no headaches, no vertigo, no lightheadedness, no decreased hearing, no nasal congestion, no sore throat--no dysphagia or hoarseness, no obvious neck mass. Cardiovascular: no chest pain, no palpitations, no dyspnea on exertion, no edema Respiratory: no cough, mild exercise intolerance, no respiratory infections, mild shortness of breath with exertional, mild exercise intolerance, no sputum production, no wheezing Gastrointestinal: no change in appetite, no dysphagia, no indigestion, no postprandial pain, no abdominal pain, no bloating, no nausea, no vomiting, no jaundice, no constipation, no diarrhea, no flatulence, no change in bowel habits, no rectal bleeding Genitourinary: other - S/P KIMO/BSO 12/24/2017, no frequency, no dysuria, no hematuria, no change in stream, no urinary retention - Resolved, no vaginal discharge Musculoskeletal: other - Thoracolumbar pain which is stable recently and has notresponded to injection therapy by Dr. Jensen. Marked kyphoscoliosis. Recent right chest wall pain prompting Dr. Ryan to order CT scan. Patient is anxiousregarding multiple abnormalities but no evidence of chest wall recurrence or masses in opposite breast. Integumentary: no rash, no eczema, no lesions, no petechiae, no bruising, no pruritus LEFT breast: no changes, no lumps, no tenderness, no swelling, no nipple discharge RIGHT breast: other - Status post prior right mastectomy well-healed, no changes, no lumps, no tenderness, no incision site Neurological: no dizzy, no headache, no numbness, no paraesthesias Psychiatric: Positive anxiety regarding recent CT scan findings, no depression, no insomnia Endocrine: no excessive sweating, no flushing, no intolerance to cold, no intolerance to heat Hematologic/Lymphatic: no bleeds easily, no bruises easily, no enlarged lymph nodes Allergic/Immunologic: no pruritus PMFSH - History Attestation statement: The following information was validated with the patient. Source: Old Records Reviewed - Medical History Medical History: Medical History (Last Reviewed 07/12/20 @ 23:09 by Nica Nelson MD) Breast CA Hypertension Scoliosis - Surgical History Surgical History: Surgical History (Last Reviewed 07/12/20 @ 23:09 by Nica Nelson MD) Hx of hysterectomy - Social History Smoking Status: Never smoker Substance Use Type: None Home Medications & Allergies Allergies hydromorphone [From Dilaudid] Adverse Reaction (Mild, Verified 09/23/19 09:45) [place] Home Medications calcium carbonate-vitamin D3 [Caltrate 600 + D] 1 tab PO BID 06/26/17 [History Confirmed 07/12/20] lisinopril 10 mg PO QDAY 06/26/17 [History Confirmed 07/12/20] multivitamin 1 cap PO DAILY 06/26/17 [History Confirmed 07/12/20] ferrous sulfate 325 mg PO DAILY #30 tab 01/24/20 [Rx Confirmed 07/12/20] tamoxifen 20 mg PO QDAY #90 tab 02/16/20 [Rx Confirmed 07/12/20] Objective - Height/Weight Height/Weight: Height 5 ft 4.76 in Weight 54.431 kg - Vital Signs Vital Signs: 07/12/20 10:01 Temperature 97.7 F Pulse Rate [Left Brachial] 67 Respiratory Rate 20 Blood Pressure [Left Arm] 137/88 02 Sat by Pulse Oximetry 99 - Pain Lower Back Pain Intensity: 8 Pain Location Body Site: Back Medial Abdomen Pain Intensity: 5 Bilateral Leg Pain Intensity: 5 Right Breast Pain Intensity: 4 - Emotional Needs Assessment Emotional Needs Assessment: Emotional Needs Identified? No Distress Screening Total 0 - ECOG Performance Status ECOG Score: 1 - Secondary to thoracolumbar pain Physical Exam Narrative: - Constitutional no acute distress, thin, no cachectic, no chronically ill appearing, cooperative - Routine HEENT Exam Head: normocephalic, atraumatic Eye: EOMI, PERRL, normal accommodation ENT: mucous membranes moist, dentition normal - Routine Neck Exam supple, full ROM--no palpable thyroid nodule - Routine Chest/Breast/Axilla Exam Chest wall: no tenderness Breast: no tenderness, no induration, no mass, no swelling, right mastectomy - Well-healed, no tenderness of the chest wall or nodularity. Left breast unremarkable Axillae: no lymphadenopathy, no mass, no tenderness, other - No right upper extremity lymphedema - Routine Respiratory Exam no accessory muscle use, CTA bilaterally, no rales, no respiratory distress, no rhonchi, no wheezes - Routine Cardiovascular Exam RRR, no murmur, no gallop, no irregular rhythm - Routine Abdominal Exam soft, normoactive bowel sounds, no tenderness, no distended, no organomegaly, nomass, no hernia, surgical scars - well healed incision pelvis from abdominal hysterectomy - Routine Exam Groin: Absent: inguinal lymphadenopathy - Routine Extremities Exam Present: full ROM, pulses intact, normal capillary refill. Absent: cyanosis, clubbing, edema, calf tenderness, tenderness - Routine Back/Spine/Pelvis Exam Back/Spine: Present: paraspinal tenderness - Unchanged from baseline, muscle spasm, marked scoliosis/kyphosis. Absent: CVA tenderness, vertebral tenderness - Routine Skin Exam Present: intact, warm, normal turgor. Absent: lesions, jaundice - Routine Neurological Exam Present: alert, oriented X3, CN II-XII intact, normal reflexes, moving all extremities, vision grossly intact, hearing grossly intact, normal speech. Absent: abnormal gait - Routine Psychiatric Exam Present: normal affect, normal thought process, cooperative. + anxious. Absent:depressed. Results - Labs Labs: Diagram of Most Recent CBC and CMP 07/02/19 16:45 07/02/19 16:45 - Impressions Date of Service: 07/04/20 MM/MM screening mammo LT w/CAD: prior R mastectomy Copies to: MD Gwendolyn Holman MD William D Bruner,DO~ CLINICAL DATA: Screening for malignancy. Prior right mastectomy for carcinoma LEFT SCREENING MAMMOGRAMS - FULL FIELD DIGITAL WITH TOMOSYNTHESIS AND CAD Tomosynthesis craniocaudal and mediolateral oblique views of the left breast were obtained using low-dose digital technique. Comparison is made to prior studies from June 27, 2016 through June 29, 2019. This examination was reviewed with the aid of CAD. The breast parenchyma is heterogeneously dense. There are no dominant masses, typically malignant calcifications or architectural distortion. There has been no significant interval change. MM/MM screening mammo LT w/CAD IMPRESSION: NO MAMMOGRAPHIC EVIDENCE OF MALIGNANCY. ROUTINE FOLLOW-UP IS RECOMMENDED IN ONE YEAR. RESULT CODE: 1 Negative DENSITY CODE: 3 (approximately 51-75% glandular) FOLLOW UP: 1YR The false-negative rate of mammography is approximately 10-percent. Management of a palpable abnormality must be based on clinical grounds. Patient was entered into a reminder system with a target due date for the next mammogram. Impression dictated by: Delores Hi M.D.07/04/2020 11:31 AM Assessment and Plan (1) Cancer of central portion of right female breast Qualifiers: Estrogen receptor status: positive Qualified Code(s): C50.111 - Malignant neoplasm of central portion of right female breast; Z17.0 - Estrogen receptor positive status [ER+] 1. This is a 55-year-old female who was diagnosed with stage I right central breast cancer in September 2014, status post mastectomy with low risk Oncotype, who has completed nearly six years of hormonal antagonist therapy. We are continuing tamoxifen for a total of 10 years as patient does not wish to change to aromatase inhibitor therapy due to chronic back pain and leg cramps from scoliosis and varicosities. 2. She was noted to have iron deficiency summer 2015 due to gastric erosions one year ago and had normalization of her complete blood count (borderline low platelets in November 2017). Her recurrent charley horses of the legs responded to resuming her iron therapy and use of compression stockings for venous varicosities. Resolved leg cramps and with normal iron levels 06/2019 and normal hemoglobin today. 3. She has hypertension, now managed by her primary care physician. This appears to be in better control, and her workup showed no evidence of secondary hypertension, although she did have abnormal echocardiogram showing signs of possible pulmonary hypertension. I requested cardiology consultation without concerning findings and followup as needed. She is also being evaluated by ENT for complex cyst of the left thyroid. 4. We will continue annual mammograms for surveillance of potential recurrence with clinical exam now annually. Her most recent unilateral diagnostic mammogram showed no recurrence in all June 2020. She saw Dr. Ryan in 06/2019 and due to right- sided chest wall pain CT was ordered with multiple findings as noted below. No evidence of local recurrence on chest CT and chest wall pain is intermittent and manageable. F/u Chest and Abdomen CT to followup heart and liver lesion and will call with results. --This is a moderate complexity visit 30 minutes due to follow-up of labs and imaging noted below (2) Mild pulmonary hypertension She is noted to have cardiomegaly on recent CT scan and does not have a prior cardiac history. No signs or symptoms of congestive heart failure and she has not had a prior documented heart murmur. Echocardiogram from 07/08/2019 showed normal ejection fraction, normal left ventricular wall motion, normal valves, but severe inspiratory collapse of the IVC. I recommended cardiology consultation for possible pulmonary hypertension although he did not recommend further cardiology evaluation or followup. Will followup chronic dyspnea and reeval cardiomegaly on one year Chest CT. (3) Thyroid nodule Incidental finding of thyroid nodule on recent imaging. She does not have symptomatic hyper or hypothyroidism, and we reviewed that her TSH and free T4 are normal which excludes a functional nodule. Thyroid ultrasound was reviewed and she was found to have a complex cystic left thyroid nodule. I sent her for ENT consultation to coordinate ultrasound-guided biopsy and to review results. Follow-up with her primary physician after ENT evaluation. Follow-up with me will be annual as noted above for her breast cancer (4) History of iron deficiency anemia Prior increased leg cramps and required iron repletion in the past due to iron deficiency anemia. Follow-up CBC and iron studies 06/2019 had no evidence of deficiency. Hemoglobin normal and leg cramps improved. (5) Abnormal finding on imaging of liver She had a small indeterminate lesion of liver on imaging. Comprehensive metabolic panel with liver function normal. She request one year f/u Chest/Abdomen CT. (6) Idiopathic scoliosis of thoracolumbar region She has marked scoliosis and did not have improvement of her pain after injections with Dr. Jensen of pain clinic. She had a followup spine clinic consultation in 2017 (she did not state who she saw or provide records) but she was not felt to be a surgical candidate. Will continue followup with pain clinic as needed for local therapy. (7) S/P total hysterectomy and bilateral salpingo-oophorectomy Prior altered menstrual frequency with heavier periods over several months. She referred to [facility] with negative endometrial biopsy for malignancy and pelvic ultrasound revealing only a large fibroid. Since she was taking tamoxifen, EXTENDER ultimately decided to perform hysterectomy and this was negative for malignancy. Patient recovered well. - Chemo Plan Goal of Treatment: Curative - Time with Patient Total Time Spent with Patient: 30 min Coordination of Care & Counseling Time: Greater than 50% of time spent with patient was for coordination of care (as documented) and [id number] counseling of patient and/or family. Dictated By: Nica Nelson MD [id number]/ [id number] Signed By: <Electronically signed by MD Nica Nelson> 07/12/[address] [facility] Work Phone: [phone] Progress note Author Nica [facility] July 14, 2019 8:34am Note Date/Time July 14, 2019 8:08am [facility] [place] [address] Hem/Onc Follow Up Note - OP Signed Patient: Maricel Easton MR#: [id number] : 1965 Acct:[id number] Age/Sex: 54 / F Type: REG RCR Copies to: MD Chente Ponce,DO~ Subjective Date/Time of Service: Date of Service: 07/14/2019 Time of Service: 08:07 Chief Complaint: Patient is here for follow up appointment for review of thyroidultrasound, echo and lab results. HPI: 07/14/2019: Maricel is here for two-week follow-up of her imaging for incidental findings of cardiomegaly and thyroid nodules on CT scan. She notes some mild dyspnea on exertion with activities at work and leg cramping but no other interval symptoms. --07/05/2019: Thyroid ultrasound showed a small septated cyst within the upper portion of the left thyroid measuring 4 x 2 x 4 mm. A complex cystic solid structure in the midportion of the left thyroid measuring 1.4 x 0.8 x 0.9 cm corresponding to a smal hypoechoic lesions shown on recent CT chest.l recommendation was for thyroid ultrasound-guided fine-needle aspiration. TSH and free T4 are normal. I have requested ENT consultation to arrange ultrasound-guided biopsy and further follow-up of results. --07/08/2019: Echocardiogram revealed normal ejection fraction 55 to 60%, normal left ventricular size, thickness, and function. Normal left ventricular wall motion. Trace mitral regurgitation and trace tricuspid regurgitation. Abnormalfinding of inferior vena cava severely dilated with a decrease in inspiratory collapse. This may be consistent with pulmonary hypertension and I am referringthe patient to cardiology for further evaluation. The patient is now annual follow-up for her right breast cancer which showed no evidence of recurrence at her follow-up 2 weeks ago. Her primary physician Dr. Cr is unavailable until early July, therefore I will have her follow-up after ENT and cardiology consultations with him and I will defer follow-up with me until her one year mammography and surveillance exam. 07/01/2019: Maricel presents today for her annual follow-up nearly 5 years after diagnosis of right breast cancer, s/p mastectomy. I was contacted by Dr. Raymond who ordered a CT of chest due to worsening right chest pain over incisionover the past few months. No skin erythema, nodularity, or right axillary or arm swelling. CT did not show any abnormalities of the right chest wall, but she raised concerns with multiple incidental findings on imaging and Dr. Ryan referred her back to me for further workup. She has not reviewed these issues with her primary physician Dr. Cr. --Cardiomegaly noted. She has no history of chest pain, dizziness, dyspnea on exertion, or pedal edema. She does not know of any prior history of valvular disease but agrees to echocardiogram to evaluate wall motion and valve function. No obvious murmur on exam. --Found to have a small left thyroid nodule . Size was not characterized and Iadvised her that we will send TSH, free T4 to see if this is a functional noduleand send for thyroid ultrasound. --Indeterminate liver lesion. This is tiny and may be followed up with subsequent imaging. For annual left mammogram was reviewed from 06/29/2019 showing no evidence of recurrence. Routine follow-up in 1 year recommended. --She agrees to follow-up results of repeat imaging in 1-2 weeks. If no new issues she will resume annual breast cancer follow-up. Plan to continue tamoxifen for 10-year course unless poor tolerance. DIAGNOSES 1. 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 She status post mastectomy with specimen sent for Oncotype, returning aslow risk, recurrence score 16, correlating to 10-year distant recurrence of 6% on tamoxifen alone. She is premenopausal and has tolerated tamoxifen well since 11/15/2014. 2. Iron deficiency anemia after complaint of fatigue summer 2014. She was on ferrous sulfate twice daily and had EGD and colonoscopy with Dr. Mcdaniel at [facility]. She was found to have moderate antral gastritis with gastric erosions, normal duodenum, with random biopsies for celiac disease negative, and colonoscopy with small nonbleeding internal hemorrhoids, otherwisenegative. She had prior low platelets and was referred for a liver biopsy, whichwas normal. She stopped oral iron in late May 2015 and followup iron studies in October 2015 were normal, therefore the patient was changed to a multivitaminwith iron. 3. She was seen in the emergency department for hypertensive urgency. She reported a home blood pressure on a wrist cuff of 181/115, [facility]110. She was treated with increased dose of lisinopril. 4. She had previous oligomenorrhea, but now cycles are heavier. Her menses were about every six weeks, then menses 12/20/2016 was heavy like a normal menstrual period lasting 7 days, prior month menses lasted 13 days. No hot flashes on tamoxifen. She experienced urinary retention over the past year and had endometrial biopsy which was negative for malignancy. She underwent total abdominal hysterectomy and bilateraly oophorectomy on 12/24/2017 with no evidence ofmalignancy (fibroid tumors, adenomyosis, right hemorrhagic luteal cyst only). Recovered well without pelvic pain. 5. She has long-standing scoliosis and has noted increasing back pain over the last 1-2 years. She has a 69? curvature and has been seeing Dr. Jensen without any improvement of symptoms with injection therapy. She previously was seen by [facility] spine service many years ago and was told this was not covered by her current insurance. She had a second opinion with another area Neurosurgeon but was not felt to be a surgical candidate. Back pain is stable and she does not take chronic pain meds. - Summary of Therapies Summary of Therapies: 1. Right mastectomy 10/06/2014 2. Tamoxifen 20 mg daily since October 2014 for a planned 10 year course due topremenopausal status. Does not want to change to aromatase inhibitor therapy after KIMO/BSO as she is worried that she will have worsening arthralgias. ROS Details: All systems reviewed & no additional complaints except as documented Subjective/ROS - Narrative: No interval change in review of systems but now notes some mild exercise intolerance and shortness of breath with exertion only Constitutional: fair state of general health, no fatigue, no fever, no weakness,no weight gain, no weight loss Eyes: no symptoms, no change in vision ENT: no symptoms, no headaches, no vertigo, no lightheadedness, no decreased hearing, no nasal congestion, no sore throat--no dysphagia or hoarseness, no obvious neck mass. Cardiovascular: no chest pain, no palpitations, no dyspnea on exertion, no edema Respiratory: no cough, mild exercise intolerance, no respiratory infections, mild shortness of breath with exertional, no sputum production, no wheezing Gastrointestinal: no change in appetite, no dysphagia, no indigestion, no postprandial pain, no abdominal pain, no bloating, no nausea, no vomiting, no jaundice, no constipation, no diarrhea, no flatulence, no change in bowel habits, no rectal bleeding Genitourinary: other - S/P KIMO/BSO 12/24/2017, no frequency, no dysuria, no hematuria, no change in stream, no urinary retention - Resolved, no vaginal discharge Musculoskeletal: other - Thoracolumbar pain which is stable recently and has notresponded to injection therapy by Dr. Jensen. Marked kyphoscoliosis. Recent right chest wall pain prompting Dr. Ryan to order CT scan. Patient is anxiousregarding multiple abnormalities but no evidence of chest wall recurrence or masses in opposite breast. Integumentary: no rash, no eczema, no lesions, no petechiae, no bruising, no pruritus LEFT breast: no changes, no lumps, no tenderness, no swelling, no nipple discharge RIGHT breast: other - Status post prior right mastectomy well-healed, no changes, no lumps, no tenderness, no incision site Neurological: no dizzy, no headache, no numbness, no paraesthesias Psychiatric: Positive anxiety regarding recent CT scan findings, no depression, no insomnia Endocrine: no excessive sweating, no flushing, no intolerance to cold, no intolerance to heat Hematologic/Lymphatic: no bleeds easily, no bruises easily, no enlarged lymph nodes Allergic/Immunologic: no pruritus PMFSH - History Attestation statement: The following information was validated with the patient. - Social History Smoking Status: Never smoker Substance Use Type: None Home Medications & Allergies Allergies hydromorphone [From Dilaudid] Adverse Reaction (Mild, Verified 12/24/17 14:20) [place] Home Medications calcium carbonate-vitamin D3 [Caltrate 600 + D] 1 tab PO BID 06/26/17 [History Confirmed 07/01/19] lisinopril 10 mg PO QDAY 06/26/17 [History Confirmed 07/01/19] multivitamin 1 cap PO DAILY 06/26/17 [History Confirmed 07/01/19] ferrous sulfate 325 mg PO DAILY #30 tab 11/23/18 [Rx Confirmed 07/01/19] tamoxifen 20 mg PO QDAY #90 tab 02/22/19 [Rx Confirmed 07/01/19] Objective - Resuscitation Status Resuscitation Status: Full Code - Height/Weight Height/Weight: Height 5 ft 4.76 in Weight 55 kg - Vital Signs Vital Signs: 07/14/19 08:04 Temperature 97.7 F Pulse Rate [Left Brachial] 70 Respiratory Rate 20 Blood Pressure [Left Arm] 132/87 02 Sat by Pulse Oximetry 98 - Pain Right Breast Pain Intensity: 4 Lower Back Pain Intensity: 8 Pain Location Body Site: Back Medial Abdomen Pain Intensity: 5 Bilateral Leg Pain Intensity: 5 - Emotional Needs Assessment Emotional Needs Assessment: Emotional Needs Identified? Yes Distress Screening Total 3 Expressed Feelings Stress - ECOG Performance Status ECOG Score: 1 - Secondary to thoracolumbar pain Physical Exam Narrative: Physical exam deferred today. Here for results reviewed. Please see exam from 07/01/2019. - Constitutional no acute distress, thin, no cachectic, no chronically ill appearing, cooperative - Routine HEENT Exam Head: normocephalic, atraumatic Eye: EOMI, PERRL, normal accommodation ENT: mucous membranes moist, dentition normal - Routine Neck Exam supple, full ROM--no palpable thyroid nodule - Routine Chest/Breast/Axilla Exam Chest wall: no tenderness Breast: no tenderness, no induration, no mass, no swelling, right mastectomy - Well-healed, no tenderness of the chest wall or nodularity. Left breast unremarkable Axillae: no lymphadenopathy, no mass, no tenderness, other - No right upper extremity lymphedema - Routine Respiratory Exam no accessory muscle use, CTA bilaterally, no rales, no respiratory distress, no rhonchi, no wheezes - Routine Cardiovascular Exam RRR, no murmur, no gallop, no irregular rhythm - Routine Abdominal Exam soft, normoactive bowel sounds, no tenderness, no distended, no organomegaly, nomass, no hernia, surgical scars - well healed incision pelvis from abdominal hysterectomy - Routine Exam Groin: Absent: inguinal lymphadenopathy - Routine Extremities Exam Present: full ROM, pulses intact, normal capillary refill. Absent: cyanosis, clubbing, edema, calf tenderness, tenderness - Routine Back/Spine/Pelvis Exam Back/Spine: Present: paraspinal tenderness - Unchanged from baseline, muscle spasm, marked scoliosis/kyphosis. Absent: CVA tenderness, vertebral tenderness - Routine Skin Exam Present: intact, warm, normal turgor. Absent: lesions, jaundice - Routine Neurological Exam Present: alert, oriented X3, CN II-XII intact, normal reflexes, moving all extremities, vision grossly intact, hearing grossly intact, normal speech. Absent: abnormal gait - Routine Psychiatric Exam Present: normal affect, normal thought process, cooperative. + anxious. Absent:depressed. Results - Labs Labs: Diagram of Most Recent CBC and CMP 07/02/19 16:45 07/02/19 16:45 - Impressions Date of Service: 07/05/19 US/US thyroid: incidental nodule on imaging, eval size/density Copies to: Nica Nelson MD~ ULTRASOUND THYROID: CLINICAL INFORMATION: Follow-up hypodense nodule within the left thyroid shown on recent CT chest. COMPARISON: CT chest on 06/18/2019 FINDINGS: Multiple ultrasonographic scans of the thyroid gland were obtained and show unremarkable size of the thyroid gland. The right thyroid lobe measures 5.0 x 1.3 x 1.6 cm and the left thyroid lobe measures 3.8 x 1.2 x 1.9 cm. No focal abnormality within the right thyroid lobe is noted. There is a small septated cyst within the upper portion of the left thyroid measuring 4 x 2 x 4 mm. A complex cystic/solid structure is noted within the midportion of left thyroid measuring 1.4 x 0.8 x 0.9 cm corresponding to a smallhypoechoic lesion shown on recent CT chest. US/US thyroid IMPRESSION: A COMPLEX ECHOGENIC LESION WITHIN THE MIDPORTION OF LEFT THYROID MEASURING 1.4 X0.8 X 0.9 CM. FURTHER EVALUATION WITH ULTRASOUND-GUIDED FINE-NEEDLE BIOPSY IS RECOMMENDED. A SMALL SEPTATED CYST WITHIN THE UPPER PORTION OF LEFT THYROID MEASURING 4 X 2 X4 MM. Impression dictated by: Loy Osborne M.D.07/05/2019 11:44 AM - Other Results Results/Comments: Date of Service: 07/08/19 ECH/ECH echo transthoracic: Incidental cardiomegaly on imaging, eval EF/valve Copies to: MD Massimo Holman MD~ Height: 64 in Referring Physician: Chente Barcenas Weight: 119 lb Performed By: LION Kiran BSA: 1.6 m2 HR: 62 Reason For Study: Incidental cardiomegaly on imaging, eval EF/valve History: Hypertension Interpretation Summary Ejection Fraction = 55-60%. The left ventricular size, thickness and function are normal The left ventricular wall motion is normal. There is trace mitral regurgitation. There is trace tricuspid regurgitation. The inferior vena cava is severily dilated with a decrease in inspiratory collapse There is no comparison study available. Procedure/Quality: A two-dimensional transthoracic echocardiogram with color flow and Doppler was performed. Left Ventricle: The left ventricular size, thickness and function are normal. Ejection Fraction = 55-60%. The left ventricular wall motion is normal. Left Atrium: The left atrium appears normal in size. Right Atrium: The right atrium appears normal in size. Right Ventricle: The right ventricular size, thickness and function are normal. Aortic Valve: The aortic valve is normal in structure and function. No aortic regurgitation is present. Mitral Valve: The mitral valve is normal in structure and function. There is trace mitral regurgitation. Tricuspid Valve: The tricuspid valve is normal in structure and function. There is trace tricuspid regurgitation. Pulmonic Valve: The pulmonic valve is normal in structure and function. Arteries: The aortic root is normal size. Pericardium/Pleura: No pericardial effusion seen. There is no pleural effusion. IVC/Hepatic Viens: The inferior vena cava is severily dilated with a decrease in inspiratory collapse. Measurements with Normals IVSd: 0.74 cm (0.7-1.1 cm)LVIDd: 4.6 cm (3.7-5.4 cm) LVPWd: 0.80 cm (0.7-1.1 cm)LVIDs: 3.0 cm (2.3-3.6 cm) LA dimension: 2.6 cm(2.3-4.0 cm)Ao root diam: 3.1 cm(2.0-3.2 cm) Doppler with Normals RVSP(TR): 37.4 mmHg (18-35mmHg) MV E max brian: 80.5 cm/sec(0.8-1.3m/s) MV A max brian: 66.0 cm/sec(0.0-0.0m/s) MV E/A: 1.2 (<1.5) MMode/2D Measurements & Calculations RVDd: 2.1 cm FS: 34.9 % Ao root area: LVLd ap4: 7.5 cm EDV(Teich): 7.7 cm2 EDV(MOD-sp4): 95.2 ml 63.1 ml ESV(Teich): LVLs ap4: 6.4 cm 34.1 ml ESV(MOD-sp4): EF(Teich): 64.2 % 26.4 ml EF(MOD-sp4): 58.2 % __ SV(MOD-sp4): 36.7 ml Doppler Measurements & Calculations MV dec time: MV max PG: E/E' lat: 7.7 MV dec slope: 0.24 sec 72.0 mmHg E/E' med: 9.6 336.3 cm/sec2 __ MR max brian: TV max PG: TR max brian: 423.3 cm/sec 22.0 mmHg 236.5 cm/sec MR max PG: TR max P.7 mmHg 22.4 mmHg RAP systole: 15.0 mmHg __ Assessment and Plan (1) Cancer of central portion of right female breast Qualifiers: Estrogen receptor status: positive Qualified Code(s): C50.111 - Malignant neoplasm of central portion of right female breast; Z17.0 - Estrogen receptor positive status [ER+] 1. This is a 54-year-old female who was diagnosed with stage I right central breast cancer in September 2014, status post mastectomy with low risk Oncotype, who has completed nearly five years of hormonal antagonist therapy. We are continuing tamoxifen for a total of 10 years as patient does not wish to change to aromatase inhibitor therapy due to chronic back pain and leg cramps from scoliosis and varicosities. 2. She was noted to have iron deficiency summer 2015 due to gastric erosions one year ago and had normalization of her complete blood count (borderline low platelets in November 2017). Her recurrent charley horses of the legs responded to resuming her iron therapy and use of compression stockings for venous varicosities. Has persistent leg cramps and repeating iron levels with labs today. 3. She has hypertension, now managed by her primary care physician. This appears to be in better control, and her workup showed no evidence of secondary hypertension, although she did have abnormal echocardiogram showing signs of possible pulmonary hypertension. I have requested cardiology consultation as noted below. She is also being evaluated by ENT for complex cyst of the left thyroid. 4. We will continue annual mammograms for surveillance of potential recurrence with clinical exam now annually. Her most recent unilateral diagnostic mammogram showed no recurrence in all June 2019. She recently saw Dr. Ryan and due to right- sided chest wall pain CT was ordered with multiple findings as noted below. No evidence of local recurrence on chest CT and chest wall pain is intermittent and manageable. --This is a moderate complexity visit 30 minutes due to follow-up of labs and imaging noted below (2) Abnormal echocardiogram findings without diagnosis She is noted to have cardiomegaly on recent CT scan and does not have a prior cardiac history. No signs or symptoms of congestive heart failure and she has not had a prior documented heart murmur. Today we reviewed her echocardiogram from 07/08/2019 which showed normal ejection fraction, normal left ventricular wall motion, normal valves, but severe inspiratory collapse of the IVC. I have recommended cardiology consultation for possible pulmonary hypertension although I do not feel that I have the complete work-up to make this diagnosis. I recommended that she follow-up after cardiology evaluation with her primary physician to discuss findings and any recommended changes in medication. (3) Thyroid nodule Incidental finding of thyroid nodule on recent imaging. She does not have symptomatic hyper or hypothyroidism, and we reviewed that her TSH and free T4 are normal which excludes a functional nodule. Thyroid ultrasound was reviewed and she was found to have a complex cystic left thyroid nodule. I am sending her for ENT consultation to coordinate ultrasound-guided biopsy and to review results. Follow-up with her primary physician after ENT evaluation. Follow-up with me will be annual as noted above for her breast cancer (4) History of iron deficiency anemia She recently notes some increased leg cramps and has required iron repletion in the past due to iron deficiency anemia. Follow-up CBC and iron studies were reviewed and have no evidence of deficiency. Possibly could be related to pulmonary hypertension and should be reviewed with the national park ranger the time of consultation. (5) Abnormal finding on imaging of liver She has a small indeterminate lesion on imaging. Comprehensive metabolic panel is ordered and liver function is within normal limits. I doubt that she requires liver ultrasound at this time, but this may be followed up by her primary physician for surveillance of this tiny opacity. (6) Idiopathic scoliosis of thoracolumbar region She has marked scoliosis and did not have improvement of her pain after injections with Dr. Jensen of pain clinic. She had a followup spine clinic consultation in 2017 (she did not state who she saw or provide records) but she was not felt to be a surgical candidate. Will continue followup with pain clinic as needed for local therapy. (7) S/P total hysterectomy and bilateral salpingo-oophorectomy Prior altered menstrual frequency with heavier periods over several months. She referred to EXTENDER with negative endometrial biopsy for malignancy and pelvic ultrasound revealing only a large fibroid. Since she was taking tamoxifen, EXTENDER ultimately decided to perform hysterectomy and this was negative for malignancy. Patient recovered well. - Chemo Plan Goal of Treatment: Curative - Time with Patient Coordination of Care & Counseling Time: Greater than 50% of time spent with patient was for coordination of care (as documented) and [id number] counseling of patient and/or family. Dictated By: Nica Nelson MD DD/ [id number] Signed By: <Electronically signed by MD Nica Nelson> 07/14/[address] [facility] Work Phone: [phone]) 685-216309-06-2019 Progress note Author Nica [facility] July 02, 2019 2:00pm Note Date/Time July 01, 2019 9:14am [place] [address] Hem/Onc Follow Up Note - OP Signed Patient: Maricel Easton MR#: [id number] : 1965 Acct:[id number] Age/Sex: 54 / F Type: REG RCR Copies to: MD Gwendolyn Babcock MD William D Bruner,DO~ Subjective Date/Time of Service: Date of Service: 07/01/2019 Time of Service: 09:14 Chief Complaint: Patient is here for routine follow up history of breast cancer,mammogram for review. Patient voices concern over recent CT scan of the chest ordered by surgeon. Patient also complains of having hot flashes. HPI: Maricel presents today for her annual follow-up nearly 5 years after diagnosis of right breast cancer, s/p mastectomy. I was contacted by Dr. Casper Ryan who ordered a CT of chest due to worsening right chest pain over incision over the past few months. No skin erythema, nodularity, or right axillary or arm swelling. CT did not show any abnormalities of the right chest wall, but she raised concerns with multiple incidental findings on imaging and Dr. Ryan referred her back to me for further workup. She has not reviewed these issues with her primary physician Dr. Cr. --Cardiomegaly noted. She has no history of chest pain, dizziness, dyspnea on exertion, or pedal edema. She does not know of any prior history of valvular disease but agrees to echocardiogram to evaluate wall motion and valve function. No obvious murmur on exam. --Found to have a small left thyroid nodule . Size was not characterized and Iadvised her that we will send TSH, free T4 to see if this is a functional noduleand send for thyroid ultrasound. --Indeterminate liver lesion. This is tiny and may be followed up with subsequent imaging. For annual left mammogram was reviewed from 06/29/2019 showing no evidence of recurrence. Routine follow-up in 1 year recommended. --She agrees to follow-up results of repeat imaging in 1-2 weeks. If no new issues she will resume annual breast cancer follow-up. Plan to continue tamoxifen for 10-year course unless poor tolerance. DIAGNOSES 1. 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 She status post mastectomy with specimen sent for Oncotype, returning aslow risk, recurrence score 16, correlating to 10-year distant recurrence of 6% on tamoxifen alone. She is premenopausal and has tolerated tamoxifen well since 11/15/2014. 2. Iron deficiency anemia after complaint of fatigue summer 2014. She was on ferrous sulfate twice daily and had EGD and colonoscopy with Dr. Mcdaniel at [facility]. She was found to have moderate antral gastritis with gastric erosions, normal duodenum, with random biopsies for celiac disease negative, and colonoscopy with small nonbleeding internal hemorrhoids, otherwisenegative. She had prior low platelets and was referred for a liver biopsy, whichwas normal. She stopped oral iron in late May 2015 and followup iron studies in October 2015 were normal, therefore the patient was changed to a multivitaminwith iron. 3. She was seen in the emergency department for hypertensive urgency. She reported a home blood pressure on a wrist cuff of 181/115, [facility]110. She was treated with increased dose of lisinopril. 4. She had previous oligomenorrhea, but now cycles are heavier. Her menses were about every six weeks, then menses 12/20/2016 was heavy like a normal menstrual period lasting 7 days, prior month menses lasted 13 days. No hot flashes on tamoxifen. She experienced urinary retention over the past year and had endometrial biopsy which was negative for malignancy. She underwent total abdominal hysterectomy and bilateraly oophorectomy on 12/24/2017 with no evidenceof malignancy (fibroid tumors, adenomyosis, right hemorrhagic luteal cyst only). Recovered well without pelvic pain. 5. She has long-standing scoliosis and has noted increasing back pain over the last 1-2 years. She has a 69? curvature and has been seeing Dr. Jensen without any improvement of symptoms with injection therapy. She previously was seen by [facility] spine service many years ago and was told this was not covered by her current insurance. She had a second opinion with another area Neurosurgeon but was not felt to be a surgical candidate. Back pain is stable and she does not take chronic pain meds. - Summary of Therapies Summary of Therapies: 1. Right mastectomy 10/06/2014 2. Tamoxifen 20 mg daily since October 2014 for a planned 10 year course due topremenopausal status. Does not want to change to aromatase inhibitor therapy after KIMO/BSO as she is worried that she will have worsening arthralgias. ROS Details: All systems reviewed & no additional complaints except as documented Subjective/ROS - Narrative: Constitutional: fair state of general health, no fatigue, no fever, no weakness,no weight gain, no weight loss Eyes: no symptoms, no change in vision ENT: no symptoms, no headaches, no vertigo, no lightheadedness, no decreased hearing, no nasal congestion, no sore throat--no dysphagia or hoarseness, no obvious neck mass. Cardiovascular: no chest pain, no palpitations, no dyspnea on exertion, no edema Respiratory: no cough, no exercise intolerance, no respiratory infections, no shortness of breath, no sputum production, no wheezing Gastrointestinal: no change in appetite, no dysphagia, no indigestion, no postprandial pain, no abdominal pain, no bloating, no nausea, no vomiting, no jaundice, no constipation, no diarrhea, no flatulence, no change in bowel habits, no rectal bleeding Genitourinary: other - S/P KIMO/BSO 12/24/2017, no frequency, no dysuria, no hematuria, no change in stream, no urinary retention - Resolved, no vaginal discharge Musculoskeletal: other - Thoracolumbar pain which is stable recently and has notresponded to injection therapy by Dr. Jensen. Marked kyphoscoliosis. Recent right chest wall pain prompting Dr. Ryan to order CT scan. Patient is anxiousregarding multiple abnormalities but no evidence of chest wall recurrence or masses in opposite breast. Integumentary: no rash, no eczema, no lesions, no petechiae, no bruising, no pruritus LEFT breast: no changes, no lumps, no tenderness, no swelling, no nipple discharge RIGHT breast: other - Status post prior right mastectomy well-healed, no changes, no lumps, no tenderness, no incision site Neurological: no dizzy, no headache, no numbness, no paraesthesias Psychiatric: Positive anxiety regarding recent CT scan findings, no depression, no insomnia Endocrine: no excessive sweating, no flushing, no intolerance to cold, no intolerance to heat Hematologic/Lymphatic: no bleeds easily, no bruises easily, no enlarged lymph nodes Allergic/Immunologic: no pruritus PMFSH - History Attestation statement: The following information was validated with the patient. Source: Old Records Reviewed - Records reviewed from recent evaluation by Dr. Ryan - Social History Smoking Status: Never smoker Substance Use Type: None Home Medications & Allergies Allergies hydromorphone [From Dilaudid] Adverse Reaction (Mild, Verified 12/24/17 14:20) [place] Home Medications calcium carbonate-vitamin D3 [Caltrate 600 + D] 1 tab PO BID 06/26/17 [History Confirmed 07/01/19] lisinopril 10 mg PO QDAY 06/26/17 [History Confirmed 07/01/19] multivitamin 1 cap PO DAILY 06/26/17 [History Confirmed 07/01/19] ferrous sulfate 325 mg PO DAILY #30 tab 11/23/18 [Rx Confirmed 07/01/19] tamoxifen 20 mg PO QDAY #90 tab 02/22/19 [Rx Confirmed 07/01/19] Objective - Height/Weight Height/Weight: Height 5 ft 4.76 in Weight 53.977 kg - Vital Signs Vital Signs: 07/01/19 09:08 Temperature 97.8 F Pulse Rate [Left Brachial] 72 Respiratory Rate 20 Blood Pressure [Left Arm] 139/96 02 Sat by Pulse Oximetry 99 - Pain Right Breast Pain Intensity: 4 Lower Back Pain Intensity: 10 - As per HPI, followed by pain clinic, referral made for spine clinic at Pain Location Body Site: Back Medial Abdomen Pain Intensity: 5 Bilateral Leg Pain Intensity: 5 - Emotional Needs Assessment Emotional Needs Assessment: Emotional Needs Identified? Yes Distress Screening Total 3 Expressed Feelings Stress - ECOG Performance Status ECOG Score: 1 - Secondary to thoracolumbar pain Physical Exam Narrative: - Constitutional no acute distress, thin, no cachectic, no chronically ill appearing, cooperative - Routine HEENT Exam Head: normocephalic, atraumatic Eye: EOMI, PERRL, normal accommodation ENT: mucous membranes moist, dentition normal - Routine Neck Exam supple, full ROM--no palpable thyroid nodule - Routine Chest/Breast/Axilla Exam Chest wall: no tenderness Breast: no tenderness, no induration, no mass, no swelling, right mastectomy - Well-healed, no tenderness of the chest wall or nodularity. Left breast unremarkable Axillae: no lymphadenopathy, no mass, no tenderness, other - No right upper extremity lymphedema - Routine Respiratory Exam no accessory muscle use, CTA bilaterally, no rales, no respiratory distress, no rhonchi, no wheezes - Routine Cardiovascular Exam RRR, no murmur, no gallop, no irregular rhythm - Routine Abdominal Exam soft, normoactive bowel sounds, no tenderness, no distended, no organomegaly, nomass, no hernia, surgical scars - well healed incision pelvis from abdominal hysterectomy - Routine Exam Groin: Absent: inguinal lymphadenopathy - Routine Extremities Exam Present: full ROM, pulses intact, normal capillary refill. Absent: cyanosis, clubbing, edema, calf tenderness, tenderness - Routine Back/Spine/Pelvis Exam Back/Spine: Present: paraspinal tenderness - Unchanged from baseline, muscle spasm, marked scoliosis/kyphosis. Absent: CVA tenderness, vertebral tenderness - Routine Skin Exam Present: intact, warm, normal turgor. Absent: lesions, jaundice - Routine Neurological Exam Present: alert, oriented X3, CN II-XII intact, normal reflexes, moving all extremities, vision grossly intact, hearing grossly intact, normal speech. Absent: abnormal gait - Routine Psychiatric Exam Present: normal affect, normal thought process, cooperative. + anxious. Absent:depressed. Results - Labs Labs: No recent labs for review. I ordered CMP due to cardiomegaly, follow-up iron and TIBC profile with ferritin, and TSH/free T4 due to thyroid nodule. We will follow-up these results in 1-2 weeks with echo and thyroid ultrasound ordered today. - Impressions Date of Service: 06/29/19 MM/MM diagnostic mammo LT w/CAD: r mastectomy for breast cancer, annual f/u Copies to: MD Gwendolyn Holman MD William D Bruner,DO~ CLINICAL DATA: History of right mastectomy for carcinoma. LEFT DIAGNOSTIC MAMMOGRAMS - FULL FIELD DIGITAL WITH TOMOSYNTHESIS AND CAD Tomosynthesis craniocaudal and mediolateral oblique views of the left breast were obtained using low-dose digital technique. Comparison is made to prior studies from June 21, 2015 through June 27, 2018. This examination was reviewed with the aid of CAD. The breast parenchyma is heterogeneously dense. A few benign calcifications arepresent. There are no developing masses, typically malignant calcifications or architectural distortion. There has been no significant interval change. MM/MM diagnostic mammo LT w/CAD IMPRESSION: NO MAMMOGRAPHIC EVIDENCE OF MALIGNANCY. ROUTINE FOLLOW-UP IS RECOMMENDED IN ONE YEAR. RESULT CODE: 2 Benign Findings(s) DENSITY CODE: 3 (approximately 51-75% glandular) FOLLOW UP: 1YR The false-negative rate of mammography is approximately 10-percent. Management of a palpable abnormality must be based on clinical grounds. Patient was entered into a reminder system with a target due date for the next mammogram. Impression dictated by: Delores Hi M.D.06/29/2019 8:08 AM Date of Service: 06/17/19 CT/CT chest w con: chest pain, bone pain;Right-sided chest wall pain;Malignant Copies to: MD Connor Babcock,Cas[place] ~ CT chest 06/17/2019. CLINICAL DATA: Right chest pain. History of breast cancer. TECHNIQUE: CT of the chest was performed with intravenous contrast. Axial, sagittal, and coronal reconstructions were created and reviewed. This CT exam was performed using one or more of the following dose reduction techniques: Automated exposure control, adjustment of the mA and/or kV according to patient size, or use of iterative reconstruction technique. COMPARISON: 10/15/2015. FINDINGS: There is significant thoracic dextroscoliosis. The heart is enlarged. The thoracic aorta appears unremarkable. A small nodule is noted in the left lobe of the thyroid. There is no mediastinal or hilar lymphadenopathy. The central airways appear unremarkable. No pulmonary consolidation or collapse is identified. No pleural effusion is seen. The right breast is surgically absent. Images of the upper abdomen demonstrate a tiny low attenuation lesion in the liver anteriorly. This finding is too small to accurately characterize and is not visualized on the prior exam. CT/CT chest w con IMPRESSION: 1. Significant thoracic dextroscoliosis. 2. Cardiomegaly. 3. Small left thyroid lobe nodule. 4. Tiny indeterminate liver lesion. Impression dictated by: Maris Waddell Jr., M.D.06/18/2019 12:06 PM Assessment and Plan (1) Cancer of central portion of right female breast Qualifiers: Estrogen receptor status: positive Qualified Code(s): C50.111 - Malignant neoplasm of central portion of right female breast; Z17.0 - Estrogen receptor positive status [ER+] 1. This is a 54-year-old female who was diagnosed with stage I right central breast cancer in September 2014, status post mastectomy with low risk Oncotype, who has completed nearly five years of hormonal antagonist therapy. We are continuing tamoxifen for a total of 10 years as patient does not wish to change to aromatase inhibitor therapy due to chronic back pain and leg cramps from scoliosis and varicosities. 2. She was noted to have iron deficiency summer 2015 due to gastric erosions one year ago and had normalization of her complete blood count (borderline low platelets in November 2017). Her recurrent charley horses of the legs responded to resuming her iron therapy and use of compression stockings for venous varicosities. Has persistent leg cramps and repeating iron levels with labs today. 3. She has hypertension, now managed by her primary care physician. This appears to be in better control, and her workup showed no evidence of secondary hypertension. 4. We will continue annual mammograms for surveillance of potential recurrence with clinical exam now annually. Her most recent unilateral diagnostic mammogram showed no recurrence in all June 2019. She recently saw Dr. Steward and due to right- sided chest wall pain CT was ordered with multiple findings as noted below. No evidence of local recurrence on chest CT and chest wall pain is intermittent and manageable. This is a --This is a high complexity visit 45 minutes due to patient's multiple new concerns noted below (2) Cardiomegaly She is noted to have cardiomegaly on recent CT scan and does not have a prior cardiac history. No signs or symptoms of congestive heart failure and she has not had a prior documented heart murmur. We are sending for echocardiogram for further evaluation and to determine whether she requires cardiology evaluation consultation. This will be reviewed at follow-up in the next 1 to 2 weeks. (3) Thyroid nodule Incidental finding of thyroid nodule on recent imaging. She does not have symptomatic hyper or hypothyroidism, however she will have TSH and free T4 to exclude a functional nodule. Thyroid ultrasound will be performed to further characterize the nodule and to determine if ENT or endocrinology follow-up is warranted. Follow- up results in the next 1 to 2 weeks. (4) History of iron deficiency anemia She recently notes some increased leg cramps and has required iron repletion in the past due to iron deficiency anemia. Follow-up CBC and iron studies are ordered with her other labs will be followed up with her in the next 1 to 2 weeks. (5) Abnormal finding on imaging of liver She has a small indeterminate lesion on imaging. Comprehensive metabolic panel is ordered and we will determine whether follow-up liver ultrasound or CT is recommended for surveillance of this tiny opacity. (6) Idiopathic scoliosis of thoracolumbar region She has marked scoliosis and did not have improvement of her pain after injections with Dr. Jensen of pain clinic. She had a followup spine clinic consultation in 2017 (she did not state who she saw or provide records) but she was not felt to be a surgical candidate. Will continue followup with pain clinic as needed for local therapy. (7) S/P total hysterectomy and bilateral salpingo-oophorectomy Prior altered menstrual frequency with heavier periods over several months. She referred to EXTENDER with negative endometrial biopsy for malignancy and pelvic ultrasound revealing only a large fibroid. Since she was taking tamoxifen, EXTENDER ultimately decided to perform hysterectomy and this was negative for malignancy. Patient recovered well. - Chemo Plan Goal of Treatment: Curative - Time with Patient Coordination of Care & Counseling Time: Greater than 50% of time spent with patient was for coordination of care (as documented) and [id number] counseling of patient and/or family. Dictated By: Nica Nelson MD DD/ 2 Signed By: <Electronically signed by MD Nica Nelson> 07/02/19 [address] [facility] Work Phone: [phone] 397-336909-06-2018 Progress note Author Nica [facility] July 02, 2018 6:02pm Note Date/Time July 02, 2018 3:48pm [facility] [place] [address] Hem/Onc Follow Up Note - OP Signed Patient: Maricel Easton MR#: [id number] : 1965 Acct:[id number] Age/Sex: 53 / F Type: REG RCR Copies to: Gwendolyn Cr MD~ Subjective Date/Time of Service: Date of Service: 07/02/2018 Time of Service: 15:47 Chief Complaint: Patient is here for routine follow up history of breast cancer currently on Tamoxifen tolerating well. Patient notes has had leg cramps the past month. - Diagnosis DIAGNOSIS: 1. 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 She status post mastectomy with specimen sent for Oncotype, returning aslow risk, recurrence score 16, correlating to 10-year distant recurrence of 6% on tamoxifen alone. She is premenopausal and has tolerated tamoxifen well since 11/15/2014. 2. Iron deficiency anemia after complaint of fatigue summer 2014. She was on ferrous sulfate twice daily and had EGD and colonoscopy with Dr. Mcdaniel at [facility]. She was found to have moderate antral gastritis with gastric erosions, normal duodenum, with random biopsies for celiac disease negative, and colonoscopy with small nonbleeding internal hemorrhoids, otherwisenegative. She had prior low platelets and was referred for a liver biopsy, whichwas normal. She stopped oral iron in late May 2015 and followup iron studies in October 2015 were normal, therefore the patient was changed to a multivitaminwith iron. 3. She was seen in the emergency department for hypertensive urgency. She reported a home blood pressure on a wrist cuff of 181/115, and when presented tot ER in late September 2015 blood pressure was 164/110. She was treated with increased dose of lisinopril. 4. She had previous oligomenorrhea, but now cycles are heavier. Her menses were about every six weeks, then menses 12/20/2016 was heavy like a normal menstrual period lasting 7 days, prior month menses lasted 13 days. No hot flashes on tamoxifen. She experienced urinary retention over the past year and had endometrial biopsy which was negative for malignancy. She underwent total abdominal hysterectomy and bilateraly oophorectomy on 12/24/2017 with no evidenceof malignancy (fibroid tumors, adenomyosis, right hemorrhagic luteal cyst only). Recovered well without pelvic pain. 5. She has long-standing scoliosis and has noted increasing back pain over the last 1-2 years. She has a 69? curvature and has been seeing Dr. Jensen without any improvement of symptoms with injection therapy. She previously was seen by [facility] spine service over 5 years ago and was told this was not covered by her current insurance. She had a second opinion with another area Neurosurgeon but was not felt to be a surgical candidate. Back pain is stable and she does not take chronic pain meds. SOCIAL HISTORY: She continues to work full-time. She is and a single mother, lifelong nonsmoker. Does not drink alcohol or use recreational drugs. HPI: Maricel presents today for her 8 month follow-up. She had a KIMO/BSO which revealed all benign tissue (fibroids) with no further urinary retention. Deniesany dysuria, hematuria, or pelvic pain (other than postop). She was referred toDr. Jensen for chronic back pain, but reports no improvement of symptoms after previous back injections. She has daily leg pain similar to a charley horse pain. She has not been given any supplemental pain medications. No further surgical interventions offered by geoscience specialist she saw in 2016. She was seen for left leg pain in ED October 2016--doppler US negative for DVT. Improved with use of thigh high compression stockings. Still intermittent cramping due to venous varicosities. She has no changes on self breast exam and her mammogram was unremarkable. Normal left mammogram 06/2018 reviewed with patient today. We will extend to one-year follow-up visits after mammogram unless new symptoms arise. - Summary of Therapies Summary of Therapies: 1. Right mastectomy 10/06/2014 2. Tamoxifen 20 mg daily since October 2014 for a planned 10 year course due topremenopausal status. Does not want to change to aromatase inhibitor therapy after KIMO/BSO as she is worried that she will have worsening arthralgias. ROS Details: All systems reviewed & no additional complaints except as documented Constitutional: fair state of general health, no fatigue, no fever, no weakness,no weight gain, no weight loss Eyes: no symptoms, no change in vision ENT: no symptoms, no headaches, no vertigo, no lightheadedness, no decreased hearing, no nasal congestion, no sore throat Cardiovascular: no chest pain, no palpitations, no dyspnea on exertion, no edema Respiratory: no cough, no exercise intolerance, no respiratory infections, no shortness of breath, no sputum production, no wheezing Gastrointestinal: no change in appetite, no dysphagia, no indigestion, no postprandial pain, no abdominal pain, no bloating, no nausea, no vomiting, no jaundice, no constipation, no diarrhea, no flatulence, no change in bowel habits, no rectal bleeding Genitourinary: other - S/P KIMO/BSO 12/24/2017, no frequency, no dysuria, no hematuria, no change in stream, no urinary retention - Resolved, no vaginal discharge Musculoskeletal: other - Thoracolumbar pain which is stable recently and has notresponded to injection therapy by Dr. Jensen. Marked kyphoscoliosis Integumentary: no rash, no eczema, no lesions, no petechiae, no bruising, no pruritis LEFT breast: no changes, no lumps, no tenderness, no swelling, no nipple discharge RIGHT breast: other - Status post prior right mastectomy well-healed, no changes, no lumps, no tenderness, no incision site Neurological: no dizzy, no headache, no numbness, no parasthesias Psychiatric: no anxiety, no depression, no insomnia Endocrine: no excessive sweating, no flushing, no intolerance to cold, no intolerance to heat Hematologic/Lymphatic: no bleeds easily, no bruises easily, no enlarged lymph nodes Allergic/Immunologic: no pruritis Home Medications & Allergies Allergies Allergy/AdvReac Type Severity Reaction Status Date / Time hydromorphone [From Dilaudid] AdvReac Mild Flushing Verified 12/24/17 14:20 Home Medications Medication Instructions Recorded Confirmed Type calcium carbonate-vitamin D3 1 tab PO BID 06/26/17 07/02/18 History [Caltrate 600 + D] lisinopril 10 mg PO QDAY 06/26/17 07/02/18 History multivitamin 1 cap PO DAILY 06/26/17 07/02/18 History tamoxifen 20 mg PO QDAY 06/26/17 07/02/18 History ferrous sulfate 325 mg PO DAILY #30 tab 04/27/18 07/02/18 Rx Objective - Resuscitation Status Resuscitation Status: Full Code - Height/Weight Height/Weight: Height 5 ft 4.76 in Weight 53.977 kg - Vital Signs Vital Signs: Temp 97.6 F 07/02/18 15:38 Pulse 70 07/02/18 15:38 Resp 20 07/02/18 15:38 BP 124/87 07/02/18 15:38 Pulse Ox 98 07/02/18 15:38 - Pain Lower Back Pain Intensity: 10 - As per HPI, followed by pain clinic, referral made for spine clinic at Pain Location Body Site: Back Medial Abdomen Pain Intensity: 5 Bilateral Leg Pain Intensity: 5 - Emotional Needs Assessment Emotional Needs Assessment: Emotional Needs Identified? No Distress Screening Total 0 Expressed/Other Feelings Patient is dealing with back and sleep problems Comment - ECOG Performance Status ECOG Score: 1 - Secondary to thoracolumbar pain Physical Exam - Constitutional no acute distress, thin, no cachectic, no chronically ill appearing, cooperative - Routine HEENT Exam Head: normocephalic, atraumatic Eye: EOMI, PERRL, normal accommodation ENT: mucous membranes moist, dentition normal - Routine Neck Exam supple, full ROM - Routine Chest/Breast/Axilla Exam Chest wall: no tenderness Breast: no tenderness, no induration, no mass, no swelling, right mastectomy - Well-healed, no tenderness of the chest wall or nodularity. Left breast unremarkable Axillae: no lymphadenopathy, no mass, no tenderness, other - No right upper extremity lymphedema - Routine Respiratory Exam no accessory muscle use, CTA bilaterally, no rales, no respiratory distress, no rhonchi, no wheezes - Routine Cardiovascular Exam RRR, no murmur, no gallop, no irregular rhythm - Routine Abdominal Exam soft, normoactive bowel sounds, no tenderness, no distended, no organomegaly, nomass, no hernia, surgical scars - well healed incision pelvis from abdominal hysterectomy - Routine Exam Groin: Absent: inguinal lymphadenopathy - Routine Extremities Exam Present: full ROM, pulses intact, normal capillary refill. Absent: cyanosis, clubbing, edema, calf tenderness, tenderness - Routine Back/Spine/Pelvis Exam Back/Spine: Present: paraspinal tenderness - Unchanged from baseline, muscle spasm, scoliosis, kyphosis. Absent: CVA tenderness, vertebral tenderness - Routine Skin Exam Present: intact, warm, normal turgor. Absent: lesions, jaundice - Routine Neurological Exam Present: alert, oriented X3, CN II-XII intact, normal reflexes, moving all extremities, vision grossly intact, hearing grossly intact, normal speech. Absent: abnormal gait - Routine Psychiatric Exam Present: normal affect, normal thought process, cooperative. Absent: depressed,anxious Results - Labs Labs: Unremarkable CBC and chemistry panel NovemberDecember 2017. - Other Results Results/Comments: Date of Service: 06/27/18 MM/MM screening mammo LT w/CAD: SCREENING Copies to: Zakcery Mejia MD~ Left Screening Full Field digital mammogram with 3-D imaging. Full field digital CC and MLO imaging performed. CAD utilized. COMPARISON: 07/01/17 HISTORY:Right mastectomy. History of breast cancer FINDINGS: The breast parenchyma is heterogeneously dense. No developing architectural distortion, developing focal breast asymmetry or developing malignant calcifications identified. IMPRESSION:No mammographic evidence of malignancy. Routine follow-up recommended in one year. RESULT CODE: 1 Negative DENSITY CODE: 3 FOLLOW UP: 1YR THE FALSE-NEGATIVE RATE OF MAMMOGRAPHY IS APPROXIMATELY 10%. IMAGING OF A PALPABLE ABNORMALITY MUST BE BASED ON CLINICAL GROUNDS. PATIENT WAS ENTERED INTO A REMINDER SYSTEM WITH A TARGET DUE DATE FOR THE NEXT MAMMOGRAM. Transcribed By: CHA 06/30/18 0849 Dictated By: Jamal Solorzano DO 06/30/18 0853 Assessment and Plan (1) Cancer of central portion of right female breast Qualifiers: Estrogen receptor status: positive Qualified Code(s): C50.111 - Malignant neoplasm of central portion of right female breast; Z17.0 - Estrogen receptor positive status [ER+] Status: Chronic 1. This is a 53-year-old female who was diagnosed with stage I right central breast cancer in September 2014, status post mastectomy with low risk Oncotype, who is on five years of hormonal antagonist therapy. We are continuing tamoxifen for a total of 10 years as patient does not wish to change to aromatase inhibitor therapy due to chronic back pain and leg cramps from scoliosis and varicosities. 2. She was noted to have iron deficiency summer 2015 due to gastric erosions one year ago and had normalization of her complete blood count (borderline low platelets in November 2017). Her recurrent charley horses of the legs responded to resuming her iron therapy and use of compression stockings for venous varicosities. 3. She has hypertension, now managed by her primary care physician. This appears to be in better control, and her workup showed no evidence of secondary hypertension. 4. We will continue annual mammograms for surveillance of potential recurrence with clinical exam now annually. Her next unilateral diagnostic mammogram is ordered for June 2019. This is a low complexity visit. (2) Idiopathic scoliosis of thoracolumbar region Status: Chronic She has marked scoliosis and did not have improvement of her pain after injections with Dr. Jensen of pain clinic. She had a followup spine clinic consultation in 2016 (she did not state who she saw or provide records) but she was not felt to be a surgical candidate. Will continue followup with pain clinic as needed for local therapy. (3) S/P total hysterectomy and bilateral salpingo-oophorectomy Status: Chronic Prior altered menstrual frequency with heavier periods over several months. She referred to EXTENDER with negative endometrial biopsy for malignancy and pelvic ultrasound revealing only a large fibroid. Since she was taking tamoxifen, EXTENDER ultimately decided to perform hysterectomy and this was negative for malignancy. Patient recovered well. - Chemo Plan Goal of Treatment: Curative - Time Spent with Patient Greater than 50% of time spent with patient was for coordination of care (as documented) and [id number] counseling of patient and/or family. less than 15 minutes Dictated By: Nica Nelson MD DD/ 1547 Signed By: <Electronically signed by Nica Nelson MD> 07/02/[address] [facility] Work Phone: [phone] [phone] Progress note Author Nica [facility] January 06, 2018 9:44pm Note Date/Time January 06, 2018 3:5 3pm [facility] [place] [address] Hem/Onc Follow Up Note - OP Signed Patient: Maricel Easton MR#: [id number] : 1965 Acct:[id number] Age/Sex: 52 / F Type: REG RCR Copies to: Gwendolyn Cr MD~ Subjective Date/Time of Service: Date of Service: 01/06/2018 Time of Service: 15:40 Chief Complaint: Patient is here for follow up post hysterctomy, history of breast cancer curently on tamoxifen. - Diagnosis DIAGNOSIS: 1. 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 She status post mastectomy with specimen sent for Oncotype, returning aslow risk, recurrence score 16, correlating to 10-year distant recurrence of 6% on tamoxifen alone. She is premenopausal and has tolerated tamoxifen well since 11/15/2014. 2. Iron deficiency anemia after complaint of fatigue summer 2014. She was on ferrous sulfate twice daily and had EGD and colonoscopy with Dr. Mcdaniel at [facility]. She was found to have moderate antral gastritis with gastric erosions, normal duodenum, with random biopsies for celiac disease negative, and colonoscopy with small nonbleeding internal hemorrhoids, otherwisenegative. She had prior low platelets and was referred for a liver biopsy, whichwas normal. She stopped oral iron in late May 2015 and followup iron studies in October 2015 were normal, therefore the patient was changed to a multivitaminwith iron. 3. She was seen in the emergency department for hypertensive urgency. She reported a home blood pressure on a wrist cuff of 181/115, and when presented tot ER in late September 2015 blood pressure was 164/110. She was treated with increased dose of lisinopril. 4. She had previous oligomenorrhea, but now cycles are heavier. Her menses were about every six weeks, then menses 12/20/2016 was heavy like a normal menstrual period lasting 7 days, prior month menses lasted 13 days. No hot flashes on tamoxifen. She experienced urinary retention over the past year and had endometrial biopsy which was negative for malignancy. She underwent total abdominal hysterectomy and bilateraly oophorectomy on 12/24/2017 with no evidenceof malignancy (fibroid tumors, adenomyosis, right hemorrhagic luteal cyst only). Recovering well without pelvic pain 5. She has long-standing scoliosis and has noted increasing back pain over the last 1-2 years. She has a 69? curvature and has been seeing Dr. Jensen without any improvement of symptoms with injection therapy. She previously was seen by [facility] spine service over 5 years ago and was told this was not covered by her current insurance. She had a second opinion with another area Neurosurgeon but was not felt to be a surgical candidate. Back pain is stable and she does not take chronic pain meds. SOCIAL HISTORY: She continues to work full-time. She is and a single mother, lifelong nonsmoker. Does not drink alcohol or use recreational drugs. HPI: Maricel presents today for her 6 month follow-up. She had a KIMO/BSO which revealed all benign tissue (fibroids) with no further urinary retention. Deniesany dysuria, hematuria, or pelvic pain (other than postop). She was referred toDr. Jensen for chronic back pain, but reports no improvement of symptoms after previous back injections. She has daily leg pain similar to a charley horse pain. She has not been given any supplemental pain medications. No further surgical interventions offered by geoscience specialist she saw over the last 6 months. She was seen for left leg pain in ED October 2016--doppler US negative for DVT. Improved with use of thigh high compression stockings. She has no changes on self breast exam and her mammogram was unremarkable. Nextmammogram due 06/2018. - Summary of Therapies Summary of Therapies: 1. Right mastectomy 10/06/2014 2. Tamoxifen 20 mg daily since October 2014 for a planned 10 year course due topremenopausal status. Does not want to change to aromatase inhibitor therapy after KIMO/BSO as she is worried that she will have worsening arthralgias. ROS Details: All systems reviewed & no additional complaints except as documented Constitutional: fair state of general health, no fatigue, no fever, no weakness,no weight gain, no weight loss Eyes: no symptoms, no change in vision ENT: no symptoms, no headaches, no vertigo, no lightheadedness, no decreased hearing, no nasal congestion, no sore throat Cardiovascular: no chest pain, no palpitations, no dyspnea on exertion, no edema Respiratory: no cough, no exercise intolerance, no respiratory infections, no shortness of breath, no sputum production, no wheezing Gastrointestinal: no change in appetite, no dysphagia, no indigestion, no postprandial pain, no abdominal pain, no bloating, no nausea, no vomiting, no jaundice, no constipation, no diarrhea, no flatulence, no change in bowel habits, no rectal bleeding Genitourinary: other - S/P KIMO/BSO 12/24/2017, no frequency, no dysuria, no hematuria, no change in stream, no urinary retention - Resolved, no vaginal discharge Musculoskeletal: other - Thoracolumbar pain which is stable recently and has notresponded to injection therapy by Dr. Jensen. Marked kyphoscoliosis Integumentary: no rash, no eczema, no lesions, no petechiae, no bruising, no pruritis LEFT breast: no changes, no lumps, no tenderness, no swelling, no nipple discharge RIGHT breast: other - Status post prior right mastectomy well-healed, no changes, no lumps, no tenderness, no incision site Neurological: no dizzy, no headache, no numbness, no parasthesias Psychiatric: no anxiety, no depression, no insomnia Endocrine: no excessive sweating, no flushing, no intolerance to cold, no intolerance to heat Hematologic/Lymphatic: no bleeds easily, no bruises easily Allergic/Immunologic: no pruritis Home Medications & Allergies Allergies Allergy/AdvReac Type Severity Reaction Status Date / Time hydromorphone [From Dilaudid] AdvReac Mild Flushing Verified 12/24/17 14:20 Home Medications Medication Instructions Recorded Confirmed Type calcium carbonate-vitamin D3 1 tab PO BID 06/26/17 01/06/18 History [Caltrate 600 + D] lisinopril 10 mg PO QDAY 06/26/17 01/06/18 History multivitamin 1 cap PO DAILY 06/26/17 01/06/18 History tamoxifen 20 mg PO QDAY 06/26/17 01/06/18 History ferrous sulfate 325 mg PO DAILY #30 tab 09/29/17 01/06/18 Rx ascorbic acid (vitamin C) [Vitamin 500 mg PO DAILY 12/17/17 01/06/18 History C] Objective - Resuscitation Status Resuscitation Status: Full Code - Height/Weight Height/Weight: Height 5 ft 4.76 in Weight 50.7 kg - Vital Signs Vital Signs: Last Vital Signs Temp 97.6 F 01/06/18 15:33 Pulse 67 01/06/18 15:33 Resp 20 01/06/18 15:33 BP 114/76 01/06/18 15:33 Pulse Ox 98 01/06/18 15:33 - Pain Lower Back Pain Intensity: 10 - As per HPI, followed by pain clinic, referral made for spine clinic at Pain Location Body Site: Back Medial Abdomen Pain Intensity: 5 - Emotional Needs Assessment Emotional Needs Assessment: Emotional Needs Identified? No Distress Screening Total 0 Expressed/Other Feelings Patient is dealing with back and sleep problems Comment - ECOG Performance Status ECOG Score: 1 - Secondary to thoracolumbar pain Physical Exam - Constitutional mild distress, thin, no cachectic, no chronically ill appearing, cooperative - Routine HEENT Exam Head: normocephalic, atraumatic Eye: EOMI, PERRL, normal accommodation ENT: mucous membranes moist, dentition normal - Routine Neck Exam supple, full ROM - Routine Chest/Breast/Axilla Exam Chest wall: no tenderness Breast: no tenderness, no induration, no mass, no swelling, right mastectomy - Well-healed, no tenderness of the chest wall or nodularity. Left breast unremarkable Axillae: no lymphadenopathy, no mass, no tenderness, other - No right upper extremity lymphedema - Routine Respiratory Exam no accessory muscle use, CTA bilaterally, no rales, no respiratory distress, no rhonchi, no wheezes - Routine Cardiovascular Exam RRR, no murmur, no gallop, no irregular rhythm - Routine Abdominal Exam soft, normoactive bowel sounds, tenderness - pain over hysterectomy incision, nodrainage, well healed, no distended, no organomegaly, no mass, no hernia, surgical scars - well healed incision pelvis from recent hysterectomy - Routine Extremities Exam Present: full ROM, pulses intact, normal capillary refill. Absent: cyanosis, clubbing, edema, calf tenderness, tenderness - Routine Back/Spine/Pelvis Exam Back/Spine: Present: paraspinal tenderness, muscle spasm, scoliosis, kyphosis. Absent: CVA tenderness, vertebral tenderness - Routine Skin Exam Present: intact, warm, normal turgor. Absent: lesions, jaundice - Routine Neurological Exam Present: alert, oriented X3, CN II-XII intact, normal reflexes, moving all extremities, normal speech. Absent: abnormal gait - Routine Psychiatric Exam Present: normal affect, normal thought process, cooperative. Absent: depressed,anxious Results - Labs Labs: CBC 12/25/2017: WBC 9,500; Hemoglobin 11.5; Hematocrit 34.5%, Platelet 149,000 chemistry with normal preop electrolytes - Other Results Results/Comments: No new imaging for review Assessment and Plan (1) Cancer of central portion of right female breast Qualifiers: Estrogen receptor status: positive Qualified Code(s): C50.111 - Malignant neoplasm of central portion of right female breast; Z17.0 - Estrogen receptor positive status [ER+] Status: Chronic 1. This is a 52-year-old female who was diagnosed with stage I right central breast cancer in September 2014, status post mastectomy with low risk Oncotype, who is on five years of hormonal antagonist therapy. We are continuing tamoxifen at this time due to continued menses. However, if the patient does not have menstrual periods for over 6 months, we would consider checking her estrogen levels and possible change to aromatase inhibitor at that time. 2. She was noted to have iron deficiency summer 2015 due to gastric erosions one year ago and had normalization of her complete blood count (mild anemia recently). Her recurrent charley horses of the legs responded to resuming her iron therapy. 3. She has hypertension, now managed by her primary care physician. This appears to be in better control, and her workup showed no evidence of secondary hypertension. 4. We will continue annual mammograms for surveillance of potential recurrence with clinical exam every 6 months. Her next unilateral mammogram is ordered for June 2018. This is a moderate complexity visit for management of multiple symptomatic complaints. (2) Idiopathic scoliosis of thoracolumbar region Status: Chronic She has marked scoliosis and did not have improvement of her pain after injections with Dr. Jensen of pain clinic. She had a followup spine clinic consultation (she did not state who she saw or provide records) but she was not felt to be a surgical candidate. Will continue followup with pain clinic as needed for local therapy. (3) S/P total hysterectomy and bilateral salpingo-oophorectomy Status: Chronic Prior altered menstrual frequency with heavier periods over several months. She referred to [facility]ENDER with negative endometrial biopsy for malignancy and pelvic ultrasound revealing only a large fibroid. Since she was taking tamoxifen, EXTENDER ultimately decided to perform hysterectomy and this was negative for malignancy. Patient is recovering well. - Chemo Plan Goal of Treatment: Curative - Time Spent with Patient Greater than 50% of time spent with patient was for coordination of care (as documented) and [id number] counseling of patient and/or family. 25 - 35 minutes Dictated By: Nica Nelson MD DD/ 1552 Signed By: <Electronically signed by MD Nica Nelson> 01/06/[address] [facility] Work Phone: [phone] Progress note Author Nica [facility] July 08, 2017 6:57pm Note Date/Time July 08, 2017 4:12pm [facility] [place] [id number] Hem/Onc Follow Up Note - OP Signed Patient: Maricel Easton MR#: [id number] : 1965 Acct:[id number] Age/Sex: 52 / F Type: REG RCR cc: Gwendolyn Cr MD, Albert MD~ Subjective Date/Time of Service: Date of Service: 07/08/2017 Time of Service: 16:00 Chief Complaint: Patient is here for routine follow up. Patient has been following with Dr Jensen for back pain. - Diagnosis DIAGNOSIS: 1. 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 She status post mastectomy with specimen sent for Oncotype, returning aslow risk, recurrence score 16, correlating to 10-year distant recurrence of 6% on tamoxifen alone. She is premenopausal and has tolerated tamoxifen well since 11/15/2014. 2. Iron deficiency anemia after complaint of fatigue summer 2014. She was on ferrous sulfate twice daily and had EGD and colonoscopy with Dr. Mcdaniel at [facility]. She was found to have moderate antral gastritis with gastric erosions, normal duodenum, with random biopsies for celiac disease negative, and colonoscopy with small nonbleeding internal hemorrhoids, otherwisenegative. She had prior low platelets and was referred for a liver biopsy, whichwas normal. She stopped oral iron in late May 2015 and followup iron studies in October 2015 were normal, therefore the patient was changed to a multivitaminwith iron. She now has resumed menses. 3. She was seen in the emergency department for hypertensive urgency. She reported a home blood pressure on a wrist cuff of 181/115, and when presented tot ER in late September 2015 blood pressure was 164/110. She was treated with increased dose of lisinopril. 4. She had previous oligomenorrhea, but now cycles are heavier. Her menses were about every six weeks and she reviewed her menstrual cycles with me today. Mostrecent menses 12/20/2016 was heavy like a normal menstrual period lasting 7 days,prior month menses lasted 13 days. No hot flashes on tamoxifen. Her last EXTENDER exam with Pap smear in April 2016 was normal but she has had some issues with urinary retention recently. She had endometrial biopsy recently which was negative for malignancy. She has not had any further menses since November 2016. 5. She has long-standing scoliosis and has noted increasing back pain over the last 1-2 years. She has a 69? curvature and has been seeing Dr. Jensen without any improvement of symptoms with injection therapy. She previously was seen by [facility] spine service over 5 years ago and was told this was not covered by her current insurance. She is interested in seeking a second opinionif it is covered by insurance. SOCIAL HISTORY: She continues to work full-time. She is and a single mother, lifelong nonsmoker. Does not drink alcohol or use recreational drugs. HPI: Maricel presents today for her 6 month follow-up. She has resolution of prior symptoms of urinary retention and denies any dysuria, hematuria, or pelvic pain. She was referred to Dr. Jensen for chronic back pain, but reports no improvement of symptoms after recent back injections. She has daily leg pain similar to a charley horse pain. She has not been given any supplemental pain medications and is unsure what she can take. She would be interested in seeing a geoscience specialist for further medical or surgical options. Change in menstrual period frequency as noted above. Last menstrual period in 2Febru2016, now scant intermittent flow since negative endometrial biopsy by EXTENDER. Pelvic US in late March 2017 did show heterogeneous uterine mass consistentwith a large fibroid. She was not offered any further options 1 endometrial biopsy was negative and has not noticed any abdominal pain or bloating. She was seen for left leg pain in ED October 2016--doppler US negative for DVT. Now improved with use of thigh high compression stockings. She has no changes on self breast exam and her mammogram was unremarkable. She has chronic thoracolumbar pain but has marked scoliosis and feels that she has increased pain over the past year. She does not take any pain medication other than occasional [id number] Tylenol. - Summary of Therapies Summary of Therapies: 1. Right mastectomy 10/06/2014 2. Tamoxifen 20 mg daily since October 2014 for a planned 10 year course due topremenopausal status. ROS Details: All systems reviewed & no additional complaints except as documented Constitutional: fair state of general health, no fatigue, no fever, no weakness,no weight gain, no weight loss Eyes: no symptoms, no change in vision ENT: no symptoms, no headaches, no vertigo, no lightheadedness, no decreased hearing, no nasal congestion, no sore throat Cardiovascular: no chest pain, no palpitations, no dyspnea on exertion, no edema Respiratory: no cough, no exercise intolerance, no respiratory infections, no shortness of breath, no sputum production, no wheezing Gastrointestinal: no change in appetite, no dysphagia, no indigestion, no postprandial pain, no abdominal pain, no bloating, no nausea, no vomiting, no jaundice, no constipation, no diarrhea, no flatulence, no change in bowel habits, no rectal bleeding Genitourinary: irregular menses - As per HPI, no frequency, no dysuria, no hematuria, no change in stream, no urinary retention - Resolved, no vaginal discharge Musculoskeletal: other - Thoracolumbar pain which is more intense recently and has not responded to injection therapy by Dr. Jensen. Marked kyphoscoliosis Integumentary: no rash, no eczema, no lesions, no petechiae, no bruising, no pruritis LEFT breast: no changes, no lumps, no tenderness, no swelling, no nipple discharge RIGHT breast: other - Status post prior right mastectomy well-healed, no changes, no lumps, no tenderness, no incision site Neurological: no dizzy, no headache, no numbness, no parasthesias Psychiatric: no anxiety, no depression, no insomnia Endocrine: no excessive sweating, no flushing, no intolerance to cold, no intolerance to heat Hematologic/Lymphatic: no bleeds easily, no bruises easily Allergic/Immunologic: no pruritis Home Medications & Allergies Allergies Allergy/AdvReac Type Severity Reaction Status Date / Time No Known Allergies Allergy Verified 07/08/17 15:42 Home Medications Medication Instructions Recorded Confirmed Type calcium carbonate-vitamin D3 1 tab PO BID 06/26/17 07/08/17 History [Caltrate 600 + D] ferrous sulfate 325 mg PO DAILY 06/26/17 07/08/17 History lisinopril 10 mg PO QDAY 06/26/17 07/08/17 History multivitamin 1 cap PO DAILY 06/26/17 07/08/17 History tamoxifen 20 mg PO QDAY 06/26/17 07/08/17 History Objective - Resuscitation Status Resuscitation Status: Full Code - Height/Weight Height/Weight: Height 5 ft 4.76 in Weight 108 lb 0.424 oz - Vital Signs Vital Signs: Last Vital Signs Temp 97.9 F 07/08/17 15:47 Pulse 69 07/08/17 15:47 Resp 69 H 07/08/17 15:47 BP 126/88 07/08/17 15:47 Pulse Ox 98 07/08/17 15:47 - Pain Lower Back Pain Intensity: 10 - As per HPI, followed by pain clinic, referral made for spine clinic at Pain Location Body Site: Back - Emotional Needs Assessment Emotional Needs Assessment: Emotional Needs Identified? Yes Distress Screening Total 10 Expressed/Other Feelings Patient is dealing with back and sleep problems Comment - ECOG Performance Status ECOG Score: 1 - Secondary to thoracolumbar pain Physical Exam - Constitutional mild distress, thin, no cachectic, no chronically ill appearing, cooperative - Routine HEENT Exam Head: normocephalic, atraumatic Eye: EOMI, PERRL, normal accommodation ENT: mucous membranes moist, dentition normal - Routine Neck Exam supple, full ROM - Routine Chest/Breast/Axilla Exam Chest wall: no tenderness Breast: no tenderness, no induration, no mass, no swelling, right mastectomy - Well-healed, no tenderness of the chest wall or nodularity. Left breast unremarkable Axillae: no lymphadenopathy, no mass, no tenderness, other - No right upper extremity lymphedema - Routine Respiratory Exam no accessory muscle use, CTA bilaterally, no rales, no respiratory distress, no rhonchi, no wheezes - Routine Cardiovascular Exam RRR, no murmur, no gallop - Routine Abdominal Exam soft, normoactive bowel sounds, no tenderness, no distended, no organomegaly - Routine Extremities Exam Present: full ROM, pulses intact, normal capillary refill. Absent: cyanosis, clubbing, edema - Routine Back/Spine/Pelvis Exam Back/Spine: Present: paraspinal tenderness, muscle spasm, scoliosis, kyphosis. Absent: CVA tenderness, vertebral tenderness - Routine Skin Exam Present: intact, warm, normal turgor - Routine Neurological Exam Present: alert, oriented X3, normal reflexes, normal speech - Routine Psychiatric Exam Present: normal affect, normal thought process Results - Labs Labs: No recent laboratories for review - Other Results Results/Comments: MRI lumbar spine 04/15/2017. CLINICAL DATA: Low back pain with radiation to both lower extremities. History of scoliosis. TECHNIQUE: MRI of the lumbar spine was performed. COMPARISON: None. FINDINGS: There is lumbar spinal curvature with the apex to the left. Vertebral alignment is normal and the intervertebral disc spaces are relatively intact. Mild posterior disc bulging is identified. Mild hypertrophic ligamentous and facet joint changes are also seen. No significant lumbar spinal canal stenosis or lateral recess narrowing is visualized. No significant neural foraminal narrowing is noted on the right or left. IMPRESSION: 1. Lumbar levoscoliosis. 2. Mild posterior disc bulging and mild hypertrophic ligamentous and facet jointchanges. 3. No significant lumbar spinal canal stenosis and no significant lateral recessor neural foraminal narrowing. Dictation Location: [facility] <Electronically signed by MARIS WADDELL JR, MD in [place]> 04/15/17 1936 Assessment and Plan (1) Cancer of central portion of right female breast Status: Acute 1. This is a 52-year-old female who was diagnosed with stage I right central breast cancer in September 2014, status post mastectomy with low risk Oncotype, who is on five years of hormonal antagonist therapy. We are continuing tamoxifenat this time due to continued menses. However, if the patient does not have menstrual periods for over 6 months, we would consider checking her estrogen levels and possible change to aromatase inhibitor at that time. 2. She was noted to have iron deficiency summer 2015 due to gastric erosions oneyear ago and had normalization of her complete blood count. Her recurrent charley horses of the legs responded to resuming her iron therapy. 3. She has hypertension, now managed by her primary care physician. This appearsto be in better control, and her workup showed no evidence of secondary hypertension. 4. She has variable menstrual frequency that has tended towards heavier periods over the past 2 months. She was r referred to EXTENDER with negative endometrial biopsy for malignancy and pelvic ultrasound revealing only a large fibroid whichdoes not require further intervention. Since she is taking tamoxifen, we are following her menses closely although these seem to be less frequent over the last 6 months. We will continue to follow for perimenopausal symptoms. Patient is in agreement with this plan. 5. He has marked scoliosis and did not have improvement of her pain after injections with Dr. Jensen of pain clinic. We have initiated a [facility] spine clinic consultation has she was told that [facility] does not take her insurance plan. 6. We will continue annual mammograms for surveillance of potential recurrence with clinical exam every 6 months. Her next unilateral mammogram is ordered forSeptember 2018. This is a moderate complexity visit for management of multiple symptomatic complaints. (2) Idiopathic scoliosis of thoracolumbar region Status: Acute Referral to [facility] spine clinic. I am deferring medication therapyfor pain to Dr. Jensen pending her spine clinic referral. - Chemo Plan Chemo Plan (Dose, Rate, Freq): Tamoxifen ?10 years. May change to aromatase inhibitor if deemed menopausal by cessation of menses and low estrogen levels Goal of Treatment: Curative - Time Spent with Patient Greater than 50% of time spent with patient was for coordination of care (as documented) and [id number] counseling of patient and/or family. Dictated By: Nica Nelson MD DD/ 1600 Signed By: <Electronically signed by MD Nica Nelson> 07/08/17 1857 [facility] Work Phone: evaluation noteNo InformationNortUniversity of Pennsylvania Health System [email or web address] Other Evaluation note* Diagnosis Onset Date Resolution Status Cardiomegaly acute Abnormal echocardiogram findings without diagnosis chronic Abnormal finding on imaging of liver chronic Cancer of central portion of right female breast chronic History of iron deficiency anemia chronic Idiopathic scoliosis of thoracolumbar region chronic Mild pulmonary hypertension chronic S/P total hysterectomy and b ilateral salpingo-oophorectomy chronic Thyroid nodule chronic [facility] Work Phone: evaluation note* Diagnosis Onset Date Resolution Status Cardiomegaly acute Abnormal echocardiogram findings without diagnosis chronic Abnormal finding on imaging of liver chronic Cancer of central portion of right female breast chronic Encounter for monitoring tamoxifen therapy chronic History of iron deficiency anemia chronic Idiopathic scoliosis of thoracolumbar region chronic Mild pulmonary hypertension chronic S/P total hysterectomy and b ilateral salpingo-oophorectomy chronic Thyroid nodule chronic [facility] Work Phone: Evaluyrfha noteNo assessment information available [facility] Work Phone: Hisswad general Narrative - Reported* Type Description Date Medical History scoliosis Medical History breast cancer Medical History HTN Medical History VV mari. legs Surgical History wisdom teeth extract Surgical History lump on left breast removed Surgical History mastectomy right 2014 Surgical History Hyster 11/2017 Hospitalization History see above [facility] general Narrative - Reported* Type Description Date Medical History scoliosis Medical History breast cancer Medical History HTN Medical History VV mari. legs Surgical History wisdom teeth extract Surgical History lump on left breast removed Surgical History mastectomy right 2014 Surgical History Hyster 11/2017 Surgical History Bilateral greater saphenous vei n ablation Hospitalization History see above [facility] Other Hospital course Narrative [facility] data [facility] for this section [facility] data available for this section [facility] Summary Purpose Family History No Family History Records Found Relationship Condition Age at Onset Recorded Date/T alex father Malignant neoplasm of prostate Unknown Diabetes mellitus Unknown Not Specified Presence of cardiac pacemaker Unknown brother Malignant neoplasm of lung Unknown Advance Directives No Advanced Directives Records Found Advance Directive Response Recorded Date/ Time Advance Directives No June 23, 2017 7:32pm Advance Directive Response Recorded Date/ Time Advance Directives No June 23, 2017 6:32pm Chief Complaint and Reason for Visit Chief Complaint Breast Cancer Reason for Visit Cardiomegaly Abnormal echocardiogram findings without diagnosis Abnormal finding on imaging of liver Cancer of central portion of right female breast History of iron deficiency anemia Idiopathic scoliosis of thoracolumbar region Mild pulmonary hypertension S/P total hysterectomy and bilateral salpingo-oophorectomy Thyroid nodule Chief Complaint Breast Cancer I83.811 s/p RFA Reason for Visit Cardiomegaly Abnormal echocardiogram findings without diagnosis Abnormal finding on imaging of liver Cancer of central portion of right female breast Encounter for monitoring tamoxifen therapy History of iron deficiency anemia Idiopathic scoliosis of thoracolumbar region Mild pulmonary hypertension S/P total hysterectomy and bilateral salpingo-oophorectomy Thyroid nodule Chief Complaint E21.3;I10;E04.1 i83.811 Chief Complaint Breast Cancer Fine needle aspiration of left thyroid nodule Reason for Visit Cardiomegaly Abnormal echocardiogram findings without diagnosis Abnormal finding on imaging of liver Cancer of central portion of right female breast Encounter for monitoring tamoxifen therapy History of iron deficiency anemia Idiopathic scoliosis of thoracolumbar region Mild pulmonary hypertension S/P total hysterectomy and bilateral salpingo-oophorectomy Thyroid nodule Additional Source Comments INFORMATION SOURCE (unrecogn ized section and content) DATE CREATED AUTHOR 08/05/2018 [facility] DATE CREATED AUTHOR AUTHOR'S ORGANIZ ATION 03/04/2022 [facility] dical Specialist DATE CREATED AUTHOR AUTHOR'S ORGANIZ ATION 05/09/2023 [facility] DATE CREATED AUTHOR AUTHOR'S ORGANIZ ATION 09/23/2023 [facility] DATE CREATED AUTHOR AUTHOR'S ORGANIZ ATION 03/08/2024 [facility] dical Specialists [facility] REASON FOR VISIT (unrecogniz ed section and content) ClinicalVARICOSE VEINSClinic alVASC 6 WK FOLLOW UP; FF VENOUS DUPLEX BOTH LEGS 8:30AVASC 6 WK FOLLOW UP; FF VENOUS DUPLEX BOTH LEGS 8:30AVARITHENA LEFT LEG4 WK S/P VARITHENA LEFT LEGstockingsRFA RT Leg3 mo f/u to rfa rightGO OVER F/F RT LEG4 MONTH FOLLOW UP; VEINS2 WK FOLLOW UP; FULL FUNCTIONAL VENOUS DUPLEX RIGHT LEG 9A Care Teams (unrecognized sec tion and content) Team Status: Active Member Role Status Dates PHYSICIAN NO FAMILY Primary Care Provider Active Team Status: Active Member Role Status Dates Nica Nelson MD Attending Provider Active Chente Barcenas , DO Referring Provider Active Vishal Barcenas , Primary Care Provider Active Team Status: Inactive Member Role Status Dates Vishal Carreon , Attending Provider Active PHYSICIAN NO FAMILY Primary Care Provider Active Team Status: Active Member Role Status Dates Vishal Barcenas , Primary Care Provider Active Team Status: Inactive Member Role Status Dates Vishal Barcenas , Primary Care Provider Active Fidel Soler MD Attending Provider Active Team Status: Inactive Member Role Status Dates Vishal Barcenas , Primary Care Provider, Attending Prov ider Active Team Status: Inactive Member Role Status Dates Vishal Barcenas , Primary Care Provider Active Michelle Perry NP-C Attending Provider Active [employer] Kaleidoscope Analyst Relationship Specialty Start Date End Date Vishal Barcenas DO [address] [place] [address] PCP - [facility] 01/25/23 Missy England DO [address] [place] [address] PCP - General Family Medicine 11/13/23 Goals (unrecognized section and content) Goals may be documented in a n alternate section FOR RECORDS PERTAINING TO PATIENTS WHO ARE OR HAVE BEEN ENROLLED IN A CHEMICAL DEPENDENCY/SUBSTANCEABUSE PROGRAM, SOME INFORMATION MAY BE OMITTED. This clinical summary was aggregated from multiple sources. Caution should be exercised in using it in the provision of clinical care. This summary normalizes information from multiple sources, and as a consequence, information in this document may materially change the coding, format and clinical context of patient data. In addition, data may be omitted in some cases. CLINICAL DECISIONS SHOULD BE BASED ON THE PRIMARY CLINICAL RECORDS. [employer] provides no warranty or guarantee of the accuracy or completeness of information in this document.
[2024-03-23 08:08] LABS: Basophils Absolute Auto 0.1 10^3/uL (0.0-0.1); Basophils Percent Auto 1.3 % (0.2-2.0); Eosinophils Absolute Auto 0.4 10^3/uL (0.0-0.7); Hematocrit 42.5 % (36.0-48.0); Hemoglobin 13.5 g/dL (12.0-16.0); Immature Granulocytes Abs Auto 0.01 10^3/uL (0.00-0.03); Immature Granulocytes Pct Auto 0.2 % (0.0-0.5); Lymphocytes Absolute Auto 1.4 10^3/uL (1.2-3.8); Lymphocytes Percent Auto 26.7 % (20.5-60.0); Mean Corpuscular HGB Conc 31.8 g/dL (29.9-35.2); Mean Corpuscular Hemoglobin 28.7 pg (26.7-34.0); Mean Corpuscular Volume 90.2 fL (81.0-99.0); Mean Platelet Volume 10.6 fL (9.5-13.5); Monocytes Absolute Auto 0.4 10^3/uL (0.3-0.8); Monocytes Percent Auto 7.6 % (1.7-12.0); Neutrophils Absolute Auto 3.1 10^3/uL (1.4-6.5); Neutrophils Percent Auto 57.2 % (43.0-75.0); Platelet Count 210 10^3/uL (150-450); Red Blood Count 4.71 10^6/uL (4.20-5.40); Red Cell Distribution Width 12.9 % (11.0-15.0); White Blood Count 5.4 10^3/uL (4.0-11.0)
[2024-03-23 08:44] LABS: Alanine Aminotransferase 38 U/L (14-59); Albumin Globulin Ratio 1.2; Albumin Level 3.5 g/dL (3.4-5.0); Alkaline Phosphatase 41 U/L (46-116); Anion Gap 9.8; Aspartate Amino Transferase 34 U/L (15-37); Bilirubin Total 0.5 mg/dL (0.2-1.0); Calcium 8.5 mg/dL (8.5-10.1); Carbon Dioxide 30.4 mmol/L (21.0-32.0); Chloride 105 mmol/L (98-107); Chol HDL Ratio 2.2; Cholesterol 164 mg/dL (<=200); Estimated GFR (African America >60 (>=60); Estimated GFR (Non-African Ame >60 (>=60); Glucose 93 mg/dL (74-106); HDL Cholesterol 73 mg/dL (40-60); Potassium 4.2 mmol/L (3.5-5.1); Sodium 141 mmol/L (136-145); Total Protein 6.5 g/dL (6.4-8.2); Triglycerides 35 mg/dL (<=150)
== END 2024-03-23 07:24 | disposition home or self-care (01) ==
LOC: LAB 07:24
PROVIDERS: PCP Family Medicine; Visit Provider Family Medicine
DX: Z00.00 Encounter for general adult medical examination without abnormal findings (principal); I10 Essential (primary) hypertension
CPT/HCPCS: 36415; 80053; 80061; 85025

== ENCOUNTER 2024-10-02 07:03 | Outpatient (OUT) | payer OTHER, SELFPAY ==
[2024-10-02 07:43] LABS: Basophils Absolute Auto 0.1 10^3/uL (0.0-0.1); Basophils Percent Auto 1.2 % (0.2-2.0); Eosinophils Absolute Auto 0.2 10^3/uL (0.0-0.7); Eosinophils Percent Auto 4.2 % (0.9-7.0); Hematocrit 43.4 % (36.0-48.0); Immature Granulocytes Abs Auto 0.01 10^3/uL (0.00-0.03); Immature Granulocytes Pct Auto 0.2 % (0.0-0.5); Lymphocytes Absolute Auto 1.6 10^3/uL (1.2-3.8); Lymphocytes Percent Auto 30.1 % (20.5-60.0); Mean Corpuscular HGB Conc 32.3 g/dL (29.9-35.2); Mean Corpuscular Hemoglobin 28.4 pg (26.7-34.0); Mean Platelet Volume 10.4 fL (9.5-13.5); Monocytes Absolute Auto 0.5 10^3/uL (0.3-0.8); Monocytes Percent Auto 8.7 % (1.7-12.0); Neutrophils Absolute Auto 2.9 10^3/uL (1.4-6.5); Neutrophils Percent Auto 55.6 % (43.0-75.0); Platelet Count 203 10^3/uL (150-450); Red Blood Count 4.93 10^6/uL (4.20-5.40); Red Cell Distribution Width 13.1 % (11.0-15.0); White Blood Count 5.2 10^3/uL (4.0-11.0)
[2024-10-02 08:00] LABS: Alanine Aminotransferase 36 U/L (14-59); Albumin Globulin Ratio 1.2; Albumin Level 3.6 g/dL (3.4-5.0); Alkaline Phosphatase 37 U/L (46-116); Anion Gap 10.2; Aspartate Amino Transferase 35 U/L (15-37); BUN Creatinine Ratio 24.4; Bilirubin Total 0.5 mg/dL (0.2-1.0); Calcium 8.9 mg/dL (8.5-10.1); Carbon Dioxide 33.1 mmol/L (21.0-32.0); Chloride 105 mmol/L (98-107); Chol HDL Ratio 2.2; Cholesterol 173 mg/dL (<=200); Estimated GFR (African America >60 (>=60 mL/min/1.73m^2); Estimated GFR (Non-African Ame >60 (>=60 mL/min/1.73m^2); Glucose 93 mg/dL (74-106); HDL Cholesterol 80 mg/dL (40-60); Potassium 4.3 mmol/L (3.5-5.1); Sodium 144 mmol/L (136-145); Total Protein 6.6 g/dL (6.4-8.2); Triglycerides 39 mg/dL (<=150); VLDL CHOLESTEROL 7.8 mg/dL
== END 2024-10-02 07:04 | disposition home or self-care (01) ==
LOC: LAB 07:05
PROVIDERS: PCP Family Medicine; Visit Provider Family Medicine
DX: E04.1 Nontoxic single thyroid nodule (principal); I10 Essential (primary) hypertension
CPT/HCPCS: 36415; 80053; 80061; 85025

== ENCOUNTER 2025-04-02 07:15 | Outpatient (OUT) | payer OTHER, SELFPAY ==
--- OUTSIDE RECORDS SUMMARY | 2025-03-28 04:04 | XMS_ITS | Continuity of Care Document ---
Author Organization [facility] Address [address] [place] [address] Phone Care Team Providers [facility] Aide Name Role Phone Roma NILTONSurya Unavailable Unavailable [...] Prophylaxis Adult [employer] [place] Oral Hygiene Instruction Moderate Risk Prophylaxis Adult [employer] [place] [employer] Aug Oral Hygiene Instruction Bitewings Four Films Periodic Oral Eval Estab Patient 2023 Prophylaxis Adult Moderate Risk [employer] [place] February Oral Hygiene Instruction Prophylaxis Adult [employer] [place] Aug Oral Hygiene Instruction Bitewings Four Films Prophylaxis Adult Moderate Risk [employer] [place] February Oral Hygiene Instruction Periodic Oral Eval Estab Patient 2022 Prophylaxis Adult Oral Hygiene Instruction Bitewings Four Films Periodic Oral Eval Estab Patient 2021 Prophylaxis Adult Oral Hygiene Instruction Prophylaxis Adult Oral Hygiene Instruction [employer] [place] [employer] Nov Intraoral-periapical 1st Film Periodic Oral Eval Estab Patient 2020 Prophylaxis Adult PPE Prophylaxis Adult Oral Hygiene Instruction Prophylaxis Adult Oral Hygiene Instruction Bitewings Four Films Prophylaxis Adult Periodic Oral Eval Estab Patient 2018 [employer] [place] [employer] Dec Oral Hygiene Instruction Prophylaxis Adult [...] Diagnoses Date Provider Providers Copied on Encounter [facility], [address] [place] [address], [id number] , tel: [phone] [facility] Well child HPI (chief complaint)pa (chief complaint) Body mass index [BMI] 20.0-20.9, adultEncounter for screening for dental disorders 5 Roma London. [address] [place] [address], [id number], [place]. tel:[phone] [facility], [address] [place] [address], [id number] , tel:[phone] [facility] Clinic pa (chief complaint) Encounter for screening for dental disorders 4 Roma London. [address], [place], [id number], [place]. tel:[phone] [facility], [address], [place], [id number] , [place] tel:[phone] [facility] PA (chief complaint) Body mass index [BMI] 20.0-20.9, adultEncounter for screening for dental disorders 4 Kimodarnell CALLAWAY Surya. [address], [place], [id number], [place]. tel:[phone] [facility], [address], [place], [id number] , [place] tel:[phone] [facility] PA (chief complaint) Encounter for screening for dental disorders 3 Roma GARAY Betty. . tel:[phone] [facility], [address], [place], [id number] , [place] tel:[phone] [facility] PA (chief complaint) Encounter for screening for dental disorders 3 Roma CALLAWAY Surya. [address], [place], [id number], [place]. tel:[phone] [facility], [address], [place], [id number] , [place] tel:[phone] [facility] prophy (chief complaint) Encounter for screening for dental disorders 2 Toshia Aguilar. [address] [place], [address], [place]. tel:[phone] [facility], [address], [place], [id number] , [place] tel:[phone] [facility] Prophy (chief complaint) Encounter for screening for dental disorders 2 Vinod Morales. [address], [place], [id number], [place]. tel:[phone] [facility], [address], [place], [id number] , [place] tel:[phone] [facility] prophy (chief complaint) Encounter for screening for dental disorders 1 Meño [facility] Cali. [address] [place], [address], [place]. tel:[phone] [facility], [address], [place], [id number] , [place] tel: [phone] [facility] PA (chief complaint) Encounter for screening for dental disorders 1 Vinod Morales. [address], [place], [id number], [place]. tel:[phone] [facility], [address], [place], [id number] , [place] tel: [phone] Dental Clinic Encounter for screening for dental disorders 0 [facility]. [address] [place] [address], [id number], [place]. tel:[phone] [facility], [address] [place] [address], [id number] , [place] tel: [phone] [facility] Clinic Encounter for screening for dental disorders 9 [facility] [address], [place], [id number], [place]. tel:[phone] [facility], [address] [place] [address], [id number] , [place] tel: [phone] [facility] Prophy (chief complaint) Encounter for screening for dental disorders 9 [facility]. [address] [place] [address], [id number], [place]. tel:[phone] [facility], [address] [place] [address], [id number] , [place] tel: [phone] [facility] Clinic prophy (chief complaint) Encounter for screening for dental disorders 8 Colleen islas. [address] [place], [address], [place]. tel:[phone] [facility], [address], [place], [id number] , [place] tel: [phone] Dental Clinic filling (chief complaint) Encounter for screening for dental disorders 8 Colleen guzman DMD Deepasulochan a. [address] [place], [address], [place]. tel:[phone] [facility], [address], [place], [id number] , [place] tel: [phone] Dental Clinic filling (chief complaint) Encounter for screening for dental disorders 8 Colleen guzman DMD Deepasulochan a. [address] [place], [address], [place]. tel:[phone] [facility], [address] [place] [address], [id number] , [place] tel: [phone] [facility] Clinic prophy (chief complaint) Encounter for screening for dental disorders 8 Chance eddy DMD Ashleyn. [address] [place], [address], [place]. tel:[phone] [facility], [address] [place] [address], [id number] , [place] tel: [phone] [facility] Endometrial biopsy (chief complaint) Other specified irregular menstruation 7 Tomas Bui. [address], [place], [id number], [place]. tel:[phone] [facility], [address] [place] [address], [id number] , [place] tel:[phone] [facility] Adult Prophy (chief complaint) Encounter for screening for dental disorders 7 Abebe Del Angel. [address], [place], [id number], [place]. tel:[phone] PREV VISIT, EST, AGE 40-64 [facility], [address] [place] [address], [id number] , [place] tel:[phone] [facility] annual exam (chief complaint) Encntr for motor operator exam (general) (routine) w/o abn findingsIrregul ar periodsEncounte r for STD screeningOther problem related to lifestyle Mar-2 0- 7 [facility] Tegan. [address], [place], [id number], [place]. tel:[phone] [facility], [address], [place], [address] , [place] tel:[phone] Dental Clinic Encounter for screening for dental disorders 4-201 7 Dominic Ahnbo. [address] [place], [address], [place]. tel:[phone] [facility], [address], [place], [id number] , [place] tel:[phone] Dental Clinic Encounter for screening for dental disorders - 7 Dominic Sims. [address] [place], [address], [place]. tel:[phone] [facility], [address] [place] [address], [id number] , [place] tel:[phone] Dental Clinic prophy (chief complaint) Encounter for screening for dental disorders 6 [facility] January. [address], [place], [id number], [place]. tel:[phone] PREV VISIT, EST, AGE 40-64 [facility], [address] [place] [address], [id number] , [place] tel:[phone] [facility] Update (chief complaint)an nual exam (chief complaint) Encounter for general motor operator exam without abnormal findingEncounte r for STD screeningOther problem related to lifestyle 3-201 6 [facility] Tegan. [address], [place], [id number], [place]. tel:[phone] [facility], [address], [place], [address] , [place] tel:[phone] Dental Clinic prophy (chief complaint) Encounter for screening for dental disorders 2 5 [facility] January. [address], [place], [id number], [place]. tel:[phone] [facility], [address], [place], [address] , [place] tel: [phone] [facility] Polyp Removal (chief complaint) Cervical polyp 5 [facility] Tegan. [address], [place], [id number], [place]. tel:[phone] PREV VISIT, EST, AGE 40-64 [facility], [address], [place], [id number] , [place] tel: [phone] [facility] annual exam (chief complaint) ROUTINE YOUTH WORKER EXAMINATIONColo n cancer screeningMammog addie, Screening 5 [facility] Tegan. [address], [place], [id number], [place]. tel:[phone] [facility], [address] [place] [address], [id number] , [place] tel: [phone] Dental Clinic Dental examination 5 January. [address], [place], [id number], [place]. tel:[phone] [facility], [address] [place] [address], [id number] , [place] tel: [phone] [facility] referral (chief complaint) Unspecified abnormal mammogram 4 [facility] Tegan. [address], [place], [id number], [place]. tel:[phone] [facility], [address] [place] [address], [id number] , [place] tel: [phone] [facility] Mammogram report (chief complaint) Unspecified abnormal mammogram 4 [facility] Tegan. [address], [place], [id number], [place]. tel:[phone] [facility], [address] [place] [address], [id number] , [place] tel: [phone] Dental Clinic Dental examination 4 [place] DMD January. [address], [place], [id number], [place]. tel:[phone] [facility], [address] [facility] [place], [id number] , [place] tel: [phone] [facility] annual visit (chief complaint) Mammogram, ScreeningGyneco logical Examination 4 [facility] Tegan. [address], [place], [id number], [place]. tel:[phone] [facility], [address], [place], [address] , [place] tel: [phone] Dental Clinic Dental examination 4 Merritt DMD January. [address], [place], [id number], [place]. tel:[phone] [facility], [address], [place], [address] , [place] tel: [phone] [facility] Dental examination 4 [place] DMD January. [address], [place], [id number], [place]. tel:[phone] [facility], [address], [place], [address] , [place] tel: [phone] [facility] Dental examination 3 [place] DMD January. [address], [place], [address], [place]. tel:[phone] PREV VISIT, EST, AGE 12-17 [facility], [address], [place], [id number] , [place] tel: [phone] [facility] annual visit (chief complaint) Gynecological Examination 3 Lamp Sweta. [address], [place], [id number], [place]. tel:[phone] [facility], [address] [place] [address], [id number] , [place] tel: [phone] [facility] No Information Dec-2 9-201 2 Burton Sol. [address], [place], [id number], [place]. tel:[phone] [facility], [address], [place], [address] , [place] tel: [phone] [facility] No Information Dec-2 2-201 1 Lamp Sweta. [address], [place], [id number], [place]. tel:[phone] [facility], [address], [place], [id number] , [place] tel: [phone] [facility] No Information 8-201 0 Tomas Bui. [address], [place], [id number], [place]. tel:[phone] [facility], [address] [place] [address], [id number] , [place] tel: [phone] [facility] No Information Dec-0 4-200 9 Salvatore Mondragon. [address] [place] [address], [id number]. tel:[phone] Family History Family Member Type Diagnosis Age [...] kidney Payers Payer name Insurance type Covered green party ID Authorcristobala tieric(s) D [employer] [facility] [id number] D Medicaid [facility] [id number] Social History Type Description Quantity Date Captured Comments Alcohol Use Details No Caffeine Use Details No Tobacco Use Status Never smoked tobacco 2024 Smoking Status Never smoker Non-Smoking Tobacco Use Details : No Details Available : No Details Available Sex Female Sexual Orientation Straight or heterosexual Gender Identity Female Vital Signs Date / Time: Height Weight [...] Of Treatment Date Type Action Status Goal FOBT. Due on due Goal Tdap. Due on due Goal FIT. Due on due Goal FIT-DNA. Due on due Goal Influenza vaccine. Due on due Goal Hepatitis C screening. Due o n due Goal CT-Colonography. Due on due Goal Depression screening. Due on due Goal Lipid panel. Due on 025 due Goal Tdap Vaccine. Due on 2024 due Goal Mammogram. Due on 7 due Goal Unhealthy drug use screening . Due on due Goal Zoster vaccine (). Due on due Goal HPV. Due on due Goal PRAPARE ASSESSMENT. Due on due Goal Dietary manageme nt education, guidance, and counseling completed Goal Hepatitis C screening. Due o n due Goal Zoster vaccine (1st). Due on due Goal PRAPARE ASSESSMENT. Due on N due Goal Influenza vaccine. Due on No due Goal FIT. Due on due Goal Tdap Vaccine. Due on 2023 due Goal Depression screening. Due on due Goal Mammogram. Due on 7 due Goal HPV. Due on due Goal Unhealthy drug use screening . Due on due Goal Tdap. Due on due Goal CT-Colonography. Due on due Goal Lipid panel. Due on due Goal FOBT. Due on due Goal FIT-DNA. Due on due Goal Hep A. Due on du e Goal CT-Colonography. Due on due Goal Zoster vaccine (1st). Due on due Goal Influenza vaccine. Due on due Goal FIT. Due on due Goal HPV. Due on due Goal Depression [...] C screening. Due o n due Goal Dietary manageme nt education, guidance, and counseling completed Goal FOBT. Due on due Goal Depression screening. Due on due Goal PRAPARE ASSESSMENT. Due on N due Goal Influenza vaccine. Due on due Goal FIT. Due on due Goal CT-Colonography. Due on due Goal Mammogram. Due on 7 due Goal Tdap Vaccine. Due on 2022 due Goal Hepatitis C screening. Due o n due Goal HPV. Due on due Goal Tdap. Due on due Goal Unhealthy drug use screening . Due on due Goal Zoster vaccine (). Due on due Goal FIT-DNA. Due on due Goal Lipid panel. Due on due Goal Zoster vaccine (1st). Due on due Goal FOBT. Due on due Goal Depression screening. Due on due Goal Lipid panel. Due on 023 due Goal Mammogram. Due on due Goal Tdap Vaccine. Due on 2022 due Goal Hep A. Due on du e Goal Influenza vaccine. Due on Ma due Goal Hep A. Due on du e Goal PRAPARE ASSESSMENT. Due on M due Goal Tdap. Due on due Goal Lipid panel. Due on 022 due Goal FOBT. Due on due Goal Zoster vaccine (). Due on due Goal Depression screening. Due on due Goal Influenza vaccine. Due on Oc due Goal Mammogram. Due on due Goal Tdap. Due on due Goal PRAPARE ASSESSMENT. Due on O due Goal Zoster vaccine (). Due on due Goal FOBT. Due on due Goal Influenza vaccine. Due on Ma due Goal Mammogram. Due on 7 due Goal Tdap. Due on due Goal Depression screening. Due on due Goal Mammogram. Due on due Goal FOBT. Due on due Goal Influenza vaccine. Due on Au due Goal Tdap. Due on due Goal Zoster vaccine (1st). Due on due Goal Depression screening. Due on due Goal Mammogram. Due on due Goal FOBT. Due on due Goal Depression screening. Due on due Goal Tdap. Due on due Goal Zoster vaccine (). Due on due Goal Influenza vaccine. Due on due Goal Zoster vaccine (). Due on due Goal Influenza vaccine. Due on due Goal Tdap. Due on due Goal Depression screening. Due on due Goal FOBT. Due on due Goal Mammogram. Due on due Goal Tdap. Due on due Goal Influenza vaccine. Due on due Goal FOBT. Due on due Goal YOUTH WORKER exam. Due on due Goal Mammogram. Due on due Goal Depression screening. Due on due Goal Tdap. Due on due Goal Influenza vaccine. Due on due Goal Mammogram. Due on due Goal YOUTH WORKER exam. Due on due Goal Depression screening. Due on due Goal FOBT. Due on due Goal FOBT. Due on due Goal Tdap. Due on due Goal Mammogram. Due on due Goal Depression screening. Due on due Goal YOUTH WORKER exam. Due on due Goal Influenza vaccine. Due on due Goal Influenza vaccine. Due on due Goal Tdap. Due on due Goal YOUTH WORKER exam. Due on due Goal FOBT. Due on due Goal H&P. Due on due Goal Mammogram. Due on due Goal FOBT. Due on due Goal Mammogram. Due on due Goal YOUTH WORKER exam. Due on due Goal Tdap. Due on due Goal Influenza vaccine. Due on due Goal H&P. Due on due Goal H&P. Due on due Goal YOUTH WORKER exam. Due on due Goal Tdap. Due on due Goal Influenza vaccine. Due on due Goal FOBT. Due on due Goal Mammogram. Due on due Goal FOBT. Due on due Goal H&P. Due on due Goal Tdap. Due on due Goal YOUTH WORKER exam. Due on due Goal Influenza vaccine. Due on due Goal H&P. Due on due Goal Influenza vaccine. Due on due Goal YOUTH WORKER exam. Due on due Goal Tdap. Due on due Goal FOBT. Due on due Goal FOBT. Due on due Goal Tdap. Due on due Goal YOUTH WORKER exam. Due on due Goal Influenza vaccine. Due on due Goal H&P. Due on due Goal Sigmoidoscopy. Due on due Goal Tdap. Due on due Goal Lipid panel. Due on 017 due Goal H&P. Due on due Goal Influenza vaccine. Due on due Goal Td vaccine. Due on due Goal FOBT. Due on due Goal YOUTH WORKER exam. Due on due Goal Td vaccine. Due on 17 due Goal Tdap. Due on due Goal H&P. Due on due Goal FOBT. Due on due Goal Influenza vaccine. Due on due Goal Sigmoidoscopy. Due on due Goal YOUTH WORKER exam. Due on due Goal Lipid panel. Due on 017 due Goal Td vaccine. Due on 16 due Goal H&P. Due on due Goal FOBT. Due on due Goal Influenza vaccine. Due on due Goal Tdap. Due on due Goal YOUTH WORKER exam. Due on due Goal Sigmoidoscopy. Due on due Goal Td vaccine. Due on 16 due Goal Tdap. Due on due Goal H&P. Due on due Goal YOUTH WORKER exam. Due on due Goal FOBT. Due on due Goal Sigmoidoscopy. Due on due Goal Influenza vaccine. Due on due Goal Sigmoidoscopy. Due on due Goal Depression screening. Due on due Goal Influenza vaccine. Due on due Goal YOUTH WORKER exam. Due on due Goal H&P. Due on due Goal FOBT. Due on due Goal Td vaccine. Due on 15 due Goal Tdap. Due on due Goal YOUTH WORKER exam. Due on due Goal H&P. Due on due Goal Td vaccine. Due on 15 due Goal Tdap. Due on due Goal Depression screening. Due on due Goal Depression screening. Due on due Goal Tdap. Due on due Goal Pap/HPV testing. Due on due Goal H&P. Due on due Goal YOUTH WORKER exam. Due on due Goal Td vaccine. Due on 15 due Goal Pap/HPV testing. Due on due Goal H&P. Due on due Goal Tdap. Due on due Goal Depression screening. Due on due Goal Td vaccine. Due on 15 due Goal YOUTH WORKER exam. Due on due Goal Mammogram. Due on 4 due Goal PAP. Due on due Goal YOUTH WORKER exam. Due on due Goal H&P. Due on due Referral Ordered: Screening Colonoscopy ordered Referral Ordered: MAMMOGRAM, SCREENING Appointment date/timeframe: 06/21/2015 ordered Referral Ordered: [facility] ordered Appointment Maricel Easton BOOKED Appointment Maricel Easton BOOKED History Of Present Illness Encounter Date Complaint History Of Prese nt Illness Well child HPI pa pa pa pa pa PA PA PA PA PA PA prophy prophy Prophy prophy prophy PA PA [...] if desires results. Related to Encntr for motor operator exam (general) (routine) w/o abn findings Cervical [...] is menopausal Related to Encounter for general motor operator exam without abnormal finding Cervical polyp remov [...] for cervical polyp removal Related to ROUTINE YOUTH WORKER EXAMINATION Assessments Type Assessment Date assessment Body mass index [BMI] 20.0-20.9, adult Patient Care Teams Name Effective Dates (start - stop) Status Members No Information
--- OUTSIDE RECORDS SUMMARY | 2025-04-01 09:30 | XMS_ITS | Encounter Summary ---
Author Organization [facility] Address [address] [place] [address] Care Team Providers Care Sanding Machine Operator Name Role Phone Vishal Mazariegos DO Unavailable [phone] Vishal Mazariegos DO Primary Care Provider [phone] Nica Nelson MD Unavailable Vishal Bernabe DO Unavailable [phone] Reason for Visit * Reason Comments Thyroid Nodule Yearly US Encounter Details Date Type Department Care Team (Late st Contact Info) Description 04/01/2025 9:30 AM EDT Office Visit [facility] [address] [place] [address] Vishal Bernabe DO [address] [place] [address] Social History Tobacco Use Types Packs/Day Years Used Date Smoking Tobacco: Never Passive Smoke Exposure: Never Smokeless Tobacco: Never Tobacco Cessation:Counseling Given: Not Answered Alcohol Use Standard Drinks/Week Comments Never 0 (1 standard drink = 0.6 oz pur e alcohol) Caffeine intake: none B1300 Health Literacy Answer Date Recor ded How often do you need to hav e someone help you when you read instructions, pamphlets, or other written material from your doctor or pharmacy? Never 04/01/2025 Social Connection and Isolat ion Panel [NHANES] Answer Date Recorded In a typical week, how many times do you talk on the phone with family, friends, or neighbors? More than three times a week 04/01/2025 How often do you get togethe r with friends or relatives? Once a week 04/01/2025 How often do you attend chur ch or anglican services? More than 4 times per year 04/01/2025 Do you belong to any clubs o r organizations such as evangelical groups, unions, fraternal or athletic groups, or school groups? Yes 04/01/2025 How often do you attend meet ings of the clubs or organizations you belong to? More than 4 times per year 04/01/2025 Are you , , di vorced, , never , or living with a partner? 04/01/2025 AUDIT-C Answer Date Recorded Q1: How often do you have a drink containing alcohol? Never 04/01/2025 Q2: How many drinks containi ng alcohol do you have on a typical day when you are drinking? Patient does not drink Q3: How often do you have si x or more drinks on one occasion? Never 04/01/2025 Overall Financial Resource Strain (CARDIA) Answe r Date Recorded How hard is it for you to pa y for the very basics like food, housing, medical care, and heating? Not hard at all 04/01/2025 PHQ-2 Answer Date Recorded Patient Health Questionnaire-2 Score 0 07/16/2024 [facility] - Occupational Stress Questionnaire Answer Date Recorded Do you feel stress - tense, restless, nervous, or anxious, or unable to sleep at night because your mind is troubled all the time - these days? Very much 04/01/2025 Exercise Vital Sign Answer Date Recorde d On average, how many days pe r week do you engage in moderate to strenuous exercise (like a brisk walk)? 7 days Minutes of Exercise per Session Not on file 04/01/2025 Hunger Vital Sign Answer Date Recorded Within the past 12 months, y ou worried that your food would run out before you got the money to buy more. Never true 04/01/20 25 Within the past 12 months, t he food you bought just didn't last and you didn't have money to get more. Never true 04/01/2025 PRAPARE - Transportation Answer Date Re corded In the past 12 months, has l ack of transportation kept you from medical appointments or from getting medications? No 03/2025 In the past 12 months, has l ack of transportation kept you from meetings, work, or from getting things needed for daily living? No 04/01/2025 Housing Stability Vital Sign Answer Alber e Recorded In the last 12 months, was t here a time when you were not able to pay the mortgage or rent on time? No 04/01/2025 Number of Times Moved in the Last Year Not on fi le 04/01/2025 At any time in the past 12 m [facility], were you homeless or living in a long-term (including now)? No 04/01/2025 Comments No Sex and Gender Information Value Date Recorded Sex Assigned at Not on file Legal Sex Female 8:01 PM EDT Gender Identity Not on file Sexual Orientation Not on file Occupation Industry Job Start Date Job End Date [employer] Not on file Not on file Not on file documented as of this encounter Last Filed Vital Signs Vital Sign Reading Time Taken Comments Blood Pressure - - Pulse - - Temperature - - Respiratory Rate - - Oxygen Saturation - - Inhaled Oxygen Concentration - - Weight 47.2 kg (104 lb) 04/01/2025 9:16 AM EDT Height 165.1 cm (5' 5 ) 04/01/2025 9:16 AM EDT Body Mass Index 17.31 04/01/2025 9:16 AM EDT documented in this encounter Functional Status * Audit-C Score Answer Date of Assessment Author 0 04/01/2025 8:48 AM EDT Julieta, Generic * Q1: How often do you have a drink containing alcohol? Answer Date of Assessment Author Never 04/01/2025 8:48 AM EDT Julieta, Generic * Q2: How many drinks containing alcohol do you have on a typical day when you are drinking? Answer Date of Assessment Author Patient does not drink 04/01/2025 8:48 AM EDT My chart, Generic * Q3: How often do you have six or more drinks on one occasion? Answer Date of Assessment Author Never 04/01/2025 8:48 AM EDT Julieta, Generic documented as of this encounter Plan of Treatment Upcoming Encounters Date Type Department Care Team (Late st Contact Info) Description 04/06/2025 11:00 AM EDT Office Visit [facility] [address] [place] [address] Jr. Krishna Martin, DO [address] [place] [address] 04/08/2025 2:00 PM EDT Office Visit [facility] [address] [place] [address] Vishal Mazariegos, [address] [place] [address] 07/22/2025 9:15 AM EDT Office Visit [facility] [address] [place] [address] Chente Mazariegos, [address] [place], [place] [address] 04/03/2026 9:30 AM EDT Office Visit [facility] [place] [address] [place] [phone] Vishal Bernabe DO [address] [place] [address] documented as of this encounter Visit Diagnoses Not on filedocumented in this encounter Care Teams Sanding Machine Operator Relationship Specialty Start Date End Date Vishal Mazariegos DO [address] [place] [address] PCP - [facility] 01/25/23 Vishal Mazariegos DO [address] [place] [address] PCP - General Family Medicine 01/05/24 Nica Nelson MD [address] [place] [address] [place] [address] Oncology 04/01/25 Vishal Bernabe, [address] [place] [address] Otolaryngology 04/01/25 documented as of this encounter
--- OUTSIDE RECORDS SUMMARY | 2025-04-02 07:19 | XMS_ITS | Encounter Summary ---
Author Organization [facility] Address [address] [place] [address] Care Team Providers Care Prune Washer Name Role Phone Vishal Mazariegos DO Unavailable [phone] Vishal Mazariegos DO Primary Care Provider [phone] Nica Nelson MD Unavailable Vishal Bernabe DO Unavailable [phone] Encounter Details Date Type Department Care Team (Late st Contact Info) Description 10/04/2024 Abstract [facility] [address] [facility] 230 [place] [phone] Vishal Mazariegos DO [address] [facility] [address] [place], [place] [id number] Social History Tobacco Use Types Packs/Day Years Used Date Smoking Tobacco: Never Passive Smoke Exposure: Never Smokeless Tobacco: Never Alcohol Use Standard Drinks/Week Comments Never 0 (1 standard drink = 0.6 oz pur e alcohol) Caffeine intake: none AUDIT-C Answer Date Recorded Q1: How often do you have a drink containing alcohol? Never 07/16/2024 Q2: How many drinks containi ng alcohol do you have on a typical day when you are drinking? Patient does not drink Q3: How often do you have si x or more drinks on one occasion? Never 07/16/2024 PHQ-2 Answer Date Recorded Patient Health Questionnaire-2 Score 0 07/16/2024 Comments No Sex and Gender Information Value Date Recorded Sex Assigned at Not on file Legal Sex Female 8:01 PM EDT Gender Identity Not on file Sexual Orientation Not on file Occupation Industry Job Start Date Job End Date [employer] Not on file Not on file Not on file documented as of this encounter Plan of Treatment Upcoming Encounters Date Type Department Care Team (Late st Contact Info) Description 04/06/2025 11:00 AM EDT Office Visit [facility] [address] [place] [address] Jr. Krishna Martin, DO [address] [place] [address] 04/08/2025 2:00 PM EDT Office Visit [facility] FM [address] [place] [address] Vishal Mazariegos, [address] [place], [place] [id number] 07/22/2025 9:15 AM EDT Office Visit [facility] [address] [place] [address] Chente Mazariegos, DO [address] [place], [place] [address] 04/03/2026 9:30 AM EDT Office Visit [facility] [place] [address] [phone] Vishal Bernabe DO [address] [place] [address] documented as of this encounter Visit Diagnoses Not on filedocumented in this encounter Care Teams Prune Washer Relationship Specialty Start Date End Date Vishal Mazariegos DO [address] [place] [address] [facility] 01/25/23 Vishal Mazariegos DO [address] [place] [address] PCP - General Family Medicine 01/05/24 Nica Nelson MD [address] [place] [address] Oncology 04/01/25 Vishal Bernabe DO [address] [place] [address] Otolaryngology 04/01/25 documented as of this encounter
--- OUTSIDE RECORDS SUMMARY | 2025-04-02 07:19 | XMS_ITS | Encounter Summary ---
Author Organization [facility] Address [address] [place] [address] Care Team Providers Care Public Health Program Manager Name Role Phone Vishal Mazariegos DO Primary Care Provider [phone] Vishal Mazariegos DO Unavailable [phone] Justin England DO Primary Care Provider [phone] Vishal Mazariegos DO Primary Care Provider [phone] Nica Nelson MD Unavailable Vishal Bernabe DO Unavailable [phone] Encounter Details Date Type Department Care Team (Late st Contact Info) Description 02/28/2023 Abstract [facility] FM [address] [facility] 230 [place] [address] Vishal Mazariegos DO [address] [facility] 230 [place], [place] [address] Social History Tobacco Use Types Packs/Day Years Used Date Smoking Tobacco: Never Tobacco Cessation:Counseling Given: Not Answered Alcohol Use Standard Drinks/Week Comments Never 0 (1 standard drink = 0.6 oz pur e alcohol) Caffeine intake: none Comments Unknown Sex and Gender Information Value Date Recorded [...] ORTHO [address] [place] [address] Jr. Krishna Martin, DO [address] [place] [address] 04/08/2025 2:00 PM EDT Office Visit [facility] [address] [place] [address] Vishal Mazariegos, DO [address] [place] [address] 07/22/2025 9:15 AM EDT Office Visit [facility] [address] [place] [address] Chente Mazariegos, DO [address] [place] [address] 04/03/2026 9:30 AM EDT Office Visit [facility] [place] [address] [place] [address] Vishal Bernabe DO [address] [place] [address] documented as of this encounter Visit Diagnoses Not on filedocumented in this encounter Care Teams Public Health Program Manager Relationship Specialty Start Date End Date Vishal Mazariegos DO PCP - General Family Medicine 03/27/23 11/12/23 Vishal Mazariegos DO [address] [place] [address] PCP - [facility] 01/25/23 Justin England DO [address] [place] [address] PCP - General Family Medicine 11/13/23 01/04/24 Vishal Mazariegos DO [address] [place] [address] [place] [address] PCP - General Family Medicine 01/05/24 Nica Nelson MD [address] [facility] [place] [address] Oncology 04/01/25 Vishal Bernabe DO [address] [place] [address] Otolaryngology 04/01/25 documented as of this encounter
--- OUTSIDE RECORDS SUMMARY | 2025-04-02 07:19 | XMS_ITS | Encounter Summary ---
Author Organization [facility] Address [address] [place] [place] [address] Care Team Providers Care Activity Therapy Teacher Name Role Phone Vishal Mazariegos DO Unavailable [phone] Vishal Mazariegos DO Primary Care Provider [phone] Nica Nelson MD Unavailable Vishal Bernabe DO Unavailable [phone] Encounter Details Date Type Department Care Team (Late st Contact Info) Description 01/13/2025 Orders Only [facility] [address] [facility] [address] [place] [phone] A, Unknown Practice [address] [place], [place] [phone] Social History Tobacco Use Types Packs/Day Years [...] [address] [place] [address] Jr. Krishna Martin, DO [address] [place] [address] 04/08/2025 2:00 PM EDT Office Visit [facility] [address] [place] [address] Vishal Mazariegos, [address] [place] [address] 07/22/2025 9:15 AM EDT Office Visit [facility] [address] [place] [address] Chente Mazariegos, DO [address] [place] [address] 04/03/2026 9:30 AM EDT Office Visit [facility] [place] [address] [place] [phone] Vishal Bernabe DO [address] [place] [address] documented as of this encounter Visit Diagnoses Not on filedocumented in this encounter Care Teams Activity Therapy Teacher Relationship Specialty Start Date End Date Vishal Mazariegos DO [address] [place] [address] PCP - [facility] 01/25/23 Vishal Mazariegos DO [address] [place] [address] PCP - General Family Medicine 01/05/24 Nica Nelson MD [address] [place] [address] Oncology 04/01/25 Vishal Bernabe DO [address] [place] [address] Otolaryngology 04/01/25 documented as of this encounter
--- OUTSIDE RECORDS SUMMARY | 2025-04-02 07:19 | XMS_ITS | Encounter Summary ---
Author Organization [facility] Address [address] [place] [address] Care Team Providers Care Highwall Drill Operator Name Role Phone Vishal Mazariegos DO Unavailable [phone] Vishal Mazariegos DO Primary Care Provider [phone] Nica Nelson MD Unavailable Vishal Bernabe DO Unavailable [phone] Encounter Details Date Type Department Care Team (Latest Contact Info) Description 04/01/2025 Travel Social History Tobacco Use Types Packs/Day Years [...] often do you attend chur ch or hinduism services? More than 4 times per year 04/01/2025 Do you belong to any clubs o r organizations such as shinto groups, unions, fraternal or athletic groups, or [...] Recorded Patient Health Questionnaire-2 Score 0 07/16/2024 [facility] - Occupational Stress [...] any time in the past 12 m [facility], were you homeless or living in a long term (including now)? No 04/01/2025 Comments No Sex and Gender Information Value Date Recorded Sex Assigned at Not on file Legal Sex Female 8:01 PM EDT Gender Identity Not on file Sexual Orientation Not on file Occupation Industry Job Start Date Job End Date [employer] Not on file Not on file Not on file documented as of this encounter Functional Status * Audit-C Score Answer Date of Assessment Author 0 04/01/2025 8:48 AM EDT Mychart, Generic * Q1: How often do you have a drink containing alcohol? Answer Date of Assessment Author Never 04/01/2025 8:48 AM EDT Mychart, Generic * Q2: How many drinks containing alcohol do you have on a typical day when you are drinking? Answer Date of Assessment Author Patient does not drink 04/01/2025 8:48 AM EDT My chart, Generic * Q3: How often do you have six or more drinks on one occasion? Answer Date of Assessment Author Never 04/01/2025 8:48 AM EDT Mychart, Generic documented as of this encounter Plan of Treatment Upcoming Encounters Date Type Department Care Team (Late st Contact Info) Description 04/06/2025 11:00 AM EDT Office Visit [facility] [address] [place] [address] Jr. Krishna Martin, DO [address] [place] [address] 04/08/2025 2:00 PM EDT Office Visit [facility] [address] [place] [address] Vishal Mazariegos, DO [address] [place] [address] 07/22/2025 9:15 AM EDT Office Visit [facility] [address] [place] [address] Chente Mazariegos, DO [address] [place] [address] 04/03/2026 9:30 AM EDT Office Visit [facility] [place] [address] [place] [phone] Vishal Bernabe, [address] [place] [address] documented as of this encounter Visit Diagnoses Not on filedocumented in this encounter Care Teams Highwall Drill Operator Relationship Specialty Start Date End Date Vishal Mazariegos DO [address] [place] [address] PCP - [facility] 01/25/23 Vishal Mazariegos DO [address] [place] [address] PCP - General Family Medicine 01/05/24 Nica Nelson MD [address] [facility] [address] Oncology 04/01/25 Vishal Bernabe DO [address] [place] [address] Otolaryngology 04/01/25 documented as of this encounter
--- OUTSIDE RECORDS SUMMARY | 2025-04-02 07:19 | XMS_ITS | Encounter Summary ---
Author Organization [facility] Address [address] [facility] [place] [address] Care Team Providers Care Drafter Chief Design Name Role Phone Vishal Mazariegos DO Unavailable [phone] Vishal Mazariegos DO Primary Care Provider [phone] Encounter Details Date Type Department Care Team (Latest Contact Info) Description 03/30/2025 Travel Social History Tobacco Use Types Packs/Day [...] 04/06/2025 11:00 AM EDT Office Visit [facility] [address] [place] [address] Jr. Krishna Martin, DO [address] [place] [address] 04/08/2025 2:00 PM EDT Office Visit [facility] [address] [place] [address] Vishal Mazariegos, DO [address] [place] [address] 07/22/2025 9:15 AM EDT Office Visit [facility] [address] [place] [address] Chente Mazariegos, DO [address] [place] [address] 04/03/2026 9:30 AM EDT Office Visit [facility] [place] [address] [place] [address] Vishal Bernabe DO [address] [place] [address] documented as of this encounter Visit Diagnoses Not on filedocumented in this encounter Care Teams Drafter Chief Design Relationship Specialty Start Date End Date Vishal Mazariegos DO [address] [place] [address] PCP - [facility] 01/25/23 Vishal Mazariegos DO [address] [place] [address] PCP - General Family Medicine 01/05/24 documented as of this encounter
--- OUTSIDE RECORDS SUMMARY | 2025-04-02 07:19 | XMS_ITS | Encounter Summary ---
Author Organization [facility] Address [address] [place] [address] Care Team Providers Care Sharepoint Designer Developer Name Role Phone Vishal Mazariegos DO Unavailable [phone] Vishal Mazariegos DO Primary Care Provider [phone] Nica Nelson MD Unavailable Vishal Bernabe DO Unavailable [phone] Encounter Details Date Type Department Care Team (Late st Contact Info) Description 06/17/2024 Abstract [facility] FM [address] [facility] 230 [place] [address] Vishal Mazariegos DO [address] [facility] 230 [place], [place] [phone] Social History Tobacco Use Types Packs/Day Years Used Date Smoking Tobacco: Never Passive Smoke Exposure: Never Smokeless Tobacco: Never Alcohol Use Standard Drinks/Week Comments Never 0 (1 standard drink = 0.6 oz pur e alcohol) Caffeine intake: none AUDIT-C Answer Date Recorded Q1: How often do you have a drink containing alcohol? Never 07/08/2023 Q2: How many drinks containi ng alcohol do you have on a typical day when you are drinking? Patient does not drink Q3: How often do you have si x or more drinks on one occasion? Never 07/08/2023 PHQ-2 Answer Date Recorded Patient Health Questionnaire-2 Score 0 12/26/2023 Comments No Sex and Gender Information Value [...] [address] [place] [address] Jr. Krishna Martin, DO [address] [place] [address] 04/08/2025 2:00 PM EDT Office Visit [facility] FM [address] [place] [address] Vishal Mazariegos, [address] [place], [place] [address] 07/22/2025 9:15 AM EDT Office Visit [facility] [address] [place] [address] Chente Mazariegos, DO [address] [place], [place] [address] 04/03/2026 9:30 AM EDT Office Visit [facility] [place] [address] [place] [address] Vishal Bernabe DO [address] [place] [address] documented as of this encounter Visit Diagnoses Not on filedocumented in this encounter Care Teams Sharepoint Designer Developer Relationship Specialty Start Date End Date Vishal Mazariegos DO [address] [place] [address] [facility] 01/25/23 Vishal Mazariegos DO [address] [place] [address] PCP - General Family Medicine 01/05/24 Nica Nelson MD [address] [place] [address] Oncology 04/01/25 Vishal Bernabe DO [address] [place] [address] Otolaryngology 04/01/25 documented as of this encounter
--- OUTSIDE RECORDS SUMMARY | 2025-04-02 07:19 | XMS_ITS | Encounter Summary ---
Author Organization [facility] Address [address] [place] [address] Care Team Providers Care Finisher Brush Name Role Phone Vishal Mazariegos DO Primary Care Provider [phone] Vishal Mazariegos DO Unavailable [phone] Justin England DO Primary Care Provider [phone] Vishal Mazariegos DO Primary Care Provider [phone] Nica Nelson MD Unavailable Vishal Bernabe DO Unavailable [phone] Encounter Details Date Type Department Care Team (Late st Contact Info) Description 07/07/2023 Abstract [facility] [address] [facility] [address] [place] [phone] Chente Mazariegos, DO [address] [facility] [address] [place] [address] Social History Tobacco Use Types Packs/Day Years Used Date Smoking Tobacco: Never Smokeless Tobacco: Never Alcohol Use Standard [...] Date Recorded Patient Health Questionnaire-2 Score 0 07/08/2023 Comments Unknown Sex and Gender Information Value [...] Score Answer Date of Assessment Author 0 07/08/2023 9:20 AM Shar Siddiqui MA * Question Answer Date of Assessment Author Q1: How often do you have a drink containing alcohol? Never 07/08/2023 9:20 AM Caro Siddiqui MA Q2: How many drinks containing alcohol do you have on a typical day when you are drinking? Patient does not drink 07/08/2023 9:20 AM Caro Siddiqui MA Q3: How often do you have six or more drinks on one occasion? Never 07/08/2023 9:20 AM Caro Siddiqui MA * Over the past 2 weeks, how often have you been bothered by any of the following problems? Question Answer Date of Assessment Author Little interest or pleasure in doing things Not at all 07/08/2023 9:20 AM Caro Siddiqui MA Feeling down, depressed, or hopeless Not at all 07/08/2023 9:20 AM Caro Siddiqui MA Patient Health Questionnaire -2 Score 0 07/08/2023 9:20 AM Caro Siddiqui MA documented as of this encounter Plan of Treatment Upcoming Encounters Date Type Department Care Team (Late st Contact Info) Description 04/06/2025 11:00 AM EDT Office Visit [facility] [address] [place] [address] Jr. Krishna Martin, DO [address] [place] [address] 04/08/2025 2:00 PM EDT Office Visit [facility] FM [address] [place] [address] Vishal Mazariegos, DO [address] [place] [address] 07/22/2025 9:15 AM EDT Office Visit [facility] [address] [place] [address] Chente Mazariegos, [address] [place] [address] 04/03/2026 9:30 AM EDT Office Visit [facility] [place] [address] [place] [phone] Vishal Bernabe DO [address] [place] [address] documented as of this encounter Visit Diagnoses Not on filedocumented in this encounter Care Teams Finisher Brush Relationship Specialty Start Date End Date Vishal Mazariegos DO PCP - General Family Medicine 03/27/23 11/12/23 Vishal Mazariegos DO [address] [place] [address] PCP - [facility] 01/25/23 Justin England DO [address] [place] [address] PCP - General Family Medicine 11/13/23 01/04/24 Vishal Mazariegos DO [address] [place] [address] PCP - General Family Medicine 01/05/24 Nica Nelson MD [address] [place] [address] Oncology 04/01/25 Vishal Bernabe DO [address] [place] [address] Otolaryngology 04/01/25 documented as of this encounter
--- OUTSIDE RECORDS SUMMARY | 2025-04-02 07:19 | XMS_ITS | Encounter Summary ---
Author Organization [facility] Address [address] [place] [address] Care Team Providers Care Flight Readiness Technician Name Role Phone Vishal Mazariegos DO Unavailable [phone] Vishal Mazariegos DO Primary Care Provider [phone] Nica Nelson MD Unavailable Vishal Bernabe DO Unavailable Encounter Details Date Type Department Care Team (Late st Contact Info) Description 04/01/2025 Bamboo flowsheet [facility] [place] [address] [place] [address] Vishal Bernabe DO [address] [place] [address] Social History Tobacco Use Types Packs/Day Years [...] often do you attend chur ch or islam services? More than 4 times per year 04/01/2025 Do you belong to any clubs o r organizations such as baptism groups, unions, fraternal or athletic groups, or [...] Recorded Patient Health Questionnaire-2 Score 0 07/16/2024 [facility] - Occupational [...] any time in the past 12 m [facility], were you homeless or living in a fdc (including now)? No 04/01/2025 Comments No Sex [...] ORTHO [address] [place] [address] Jr. Krishna Martin, DO [address] [place] [address] 04/08/2025 2:00 PM EDT Office Visit [facility] [address] [place] [address] Vishal Mazariegos, DO [address] [place] [address] 07/22/2025 9:15 AM EDT Office Visit [facility] [address] [place] [address] Chente Mazariegos, DO [address] [place] [address] 04/03/2026 9:30 AM EDT Office Visit [facility] [place] [address] [place] [address] Vishal Bernabe DO [address] [place] [address] documented as of this encounter Visit Diagnoses Not on filedocumented in this encounter Care Teams Flight Readiness Technician Relationship Specialty Start Date End Date Vishal Mazariegos DO [address] [place] [address] PCP - [facility] 01/25/23 Vishal Mazariegos DO [address] [place] [address] PCP - General Family Medicine 01/05/24 Nica Nelson MD [address] [place] [address] Oncology 04/01/25 Vishal Bernabe DO [address] [place] [address] Otolaryngology 04/01/25 documented as of this encounter
--- OUTSIDE RECORDS SUMMARY | 2025-04-02 07:19 | XMS_ITS | Clinical Summary ---
Author Organization [facility] Address [address] [place] [address] Care Team Providers Care Maintenance Groundskeeper Name Role Phone Vishal Mazariegos DO Unavailable [phone] Vishal Mazariegos DO Primary Care Provider [phone] Nica Nelson MD Unavailable Vishal Bernabe DO Unavailable [phone] Allergies Active Allergy Reactions Criticality Noted Date Comments Hydromorphone Low 07/22/2024 Other Reaction(s): Flushing Other 02/11/2022 Other Reaction(s): Unknown Tramadol 02/26/2023 Other Reaction(s): Unknown Wound Dressing Adhesive 02/26/2023 Other Reaction(s): Unknown Medications Multiple Vitamin (Multivitamin Adult) tablet Active cholecalciferol (Vitamin D-3) 50 MCG (1999 UT) tabletIndication s:Vitamin D deficiency TAKE 1 TABLET BY MOUTH DAILY 30 tablet 5 4 Active lisinopril 10 MG tabletIndication s:Primary hypertension (CMS/HCC) Take 1 tablet (10 mg) by mouth Daily 90 tablet 3 4 Active calcium carbonate 1500 (600 Ca) MG tabletIndication s:Hyperparathyro idism (CMS/HCC) TAKE 1 TABLET BY MOUTH DAILY WITH A MEAL 30 tablet 5 4 Active ferrous sulfate 325 (65 Fe) MG EC tabletIndication s:Anemia, unspecified type Take 1 tablet (325 mg) by mouth in the morning. Take with meals. Do not crush, chew, or split.. 90 tablet 3 5 026 Active tamoxifen (Nolvadex) 20 MG chemo tablet Take 20 mg by mouth Daily. 025 Discontinued naproxen (Naprosyn) 500 MG tabletIndication s:Lumbar facet arthropathy 1 po bid with food prn pain 60 tablet 1 4 025 Discontinued cyclobenzaprine (Flexeril) 10 MG tabletIndication s:Lumbar facet arthropathy Take 1 tablet (10 mg) by mouth 3 (three) times a day as needed for muscle spasms 30 tablet 2 4 025 Discontinued Active Problems Problem Noted Date Diagnosed Date Lateral epicondylitis of right elbow 01/01/2024 Elbow pain 01/01/2024 Iron deficiency anemia 12/25/2023 Scoliosis 12/25/2023 Amaurosis fugax 02/26/2023 Elevated cancer antigen 125 (CA-125) 02/26/2023 Fibrocystic breast changes 02/26/2023 Hypercalcemia 02/26/2023 Hyperparathyroidism 02/26/2023 Juvenile idiopathic scoliosis of thoracic region 02/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 Malignant neoplasm of central part of female ila ast 02/26/2023 Multinodular goiter 02/26/2023 Nontoxic single thyroid nodule 02/26/2023 Postmenopausal atrophic vaginitis 02/26/2023 Primary hypertension 02/26/2023 Thyroid nodule 02/26/2023 TIA (transient ischemic attack) 02/26/2023 Varicose veins of bilateral lower extremities wi th pain 02/26/2023 Pain due to varicose veins of both lower extremi ties 09/11/2021 Personal history of malignant neoplasm of breast 08/14/2017 History of right mastectomy 04/18/2015 Idiopathic scoliosis and kyphoscoliosis 08/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 Lumbar facet arthropathy 08/31/2012 Encounters Date Type Department Care Team Description 04/01/2025 9:30 AM EDT Office Visit [facility] [place] [address] [place] [address] Vishal Bernabe, 04/01/2025 Bamboo flowsheet [facility] [place] [address] [place] [address] Vishal Bernabe, DO 04/01/2025 Travel 03/30/2025 Travel 01/13/2025 Orders Only [facility] FM [address] [place] [address] A, Unknown Practice 01/05/2025 11:00 AM EDT Office Visit [facility]O [address] [place] [address] Jr. Krishna Martin, DO Lateral epicondylitis of right elbow (Primary Dx); Right elbow pain 01/05/2025 Bamboo flowsheet [facility] OR[facility]O [address] [place] [address] Jr. Krishna Martin, DO 01/05/2025 Travel from Last 3 Months Family History Medical History Relation Name Comments Cancer Brother Femi matute Cancer Father Femi stover. Prostate cancer Father Femi sr. 79 yrs Colon cancer Maternal Grandfather Hypertension Mother Zhane Breast cancer Other Pat cousin Ila ast Cancer No Known Problems Sister 1 No Known Problems Sister 2 Ovarian cancer Neg Hx Relation Name Status Comments Brother Femi moreno. Alive Father Femi sr. Alive Maternal Grandfather Mother Zhane Alive Other Sister 1 Alive Sister 2 Alive Social History Tobacco Use Types Packs/Day Years [...] week 04/01/2025 How often do you attend [facility] or orthodox services? More than 4 times per year 04/01/2025 Do you belong to any clubs o r organizations such as hinduism groups, unions, fraternal or athletic groups, or [...] Recorded Patient Health Questionnaire-2 Score 0 07/16/2024 [facility] - Occupational [...] any time in the past 12 m [facility], were you homeless or living in a retirement (including now)? No 04/01/2025 Comments No Sex and Gender Information Value Date Recorded Sex Assigned at Not on file Legal Sex Female 8:01 PM EDT Gender Identity Not on file Sexual Orientation Not on file Occupation Industry Job Start Date Job End Date [employer] Not on file Not on file Not on file Last Filed Vital Signs Vital Sign Reading Time Taken Comments Blood Pressure 110/78 10/07/2024 3:18 PM EST Pulse 80 10/07/2024 3:18 PM EST Temperature 36.6 C (97.9 F) 10/07/2024 3:18 PM EST Respiratory Rate - - Oxygen Saturation 100% 08/26/2024 8:58 AM EDT Inhaled Oxygen Concentration - - Weight 47.2 kg (104 lb) 04/01/2025 9:16 AM EDT Height 165.1 cm (5' 5 ) 04/01/2025 9:16 AM EDT Body Mass Index 17.31 04/01/2025 9:16 AM EDT Plan of Treatment Upcoming Encounters Date Type Department Care Team (Late st Contact Info) Description 04/06/2025 11:00 AM EDT Office Visit [facility] [address] [place] [address] Jr. Krishna Martin, DO [address] [place] [address] 04/08/2025 2:00 PM EDT Office Visit [facility] [address] [place] [address] Vishal Mazariegos, [address] [place] [address] 07/22/2025 9:15 AM EDT Office Visit [facility] [address] [place] [address] Chente Mazariegos, DO [address] [place] [address] 04/03/2026 9:30 AM EDT Office Visit [facility] [place] [address] [place] [address] Vishal Bernabe, DO [address] [place] [address] Health Maintenance Due Date Last Done Comments CT Colonography 1965 FIT-DNA 1965 FIT 1965 FOBT 1965 Sigmoidoscopy 1965 Influenza Vaccine (Season Ended) 2025 Colonoscopy 01/24/2031 01/24/2021 Colorectal Cancer Screening 01/24/2031 Cervical Cancer Screening Discontinued Pap Smear Discontinued 07/08/2023 HPV/Cotest Discontinued Procedures Procedure Name Priority Date/Time Associated Diagnosis Comments THINPREP TIS PAP Routine 07/08/2023 10:3 3 AM EDT Encounter for gynecological examination without abnormal finding Encounter for Papanicolaou smear of vagina COLONOSCOPY Routine 01/24/2021 12:00 PM EDT from Last 3 Months or Most Recently Relevant to Health Maintenance Results * THINPREP TIS PAP (07/08/2023 10:33 AM EDT) CLINICAL INFORMATION [facility] Comment:None given LMP [facility] Comment:KIMO BSO 2018 PREV. PAP [facility] Comment:NEG PREV. BX [facility] Comment:NONE GIVEN SOURCE [facility] Comment:None given STATEMENT OF ADEQUACY [facility] Comment:SATISFACTORY FOR JASEN LUATION INTERPRETATION/RESUL T [facility] Comment: Cytology Results: Negative for intraepithelial lesion or malignancy. Atrophic pattern; predominantly parabasal cells COMMENT [facility] Comment: This Pap test has been evaluated with computer assisted technology. BILLING CONTROL CLERK [facility] Comment: LEYDI EDMONDSON(ASCP) CT screening location: [place] [address]. (ALWAYS MESSAGE) [facility] Comment: EXPLANATORY NOTE: The Pap is a screening test for cervical cancer. It is not a diagnostic test and is subject to false negative and false positive results. It is most reliable when a satisfactory sample, regularly obtained, is submitted with relevant clinical findings and history, and when the Pap result is evaluated along with historic and current clinical information. Swab 07/08/2023 10:3 3 AM EDT 07/09/2023 3:50 AM EDT Narrative Resulting Agency Comment Performing Organization Information Site ID: [id number] Name: [facility] Address: [address] [place] [address], [address] [place] [address] Director: Fab Murphy MD Chente Mazariegos DO LAB BLOOD ORDERABLES Final R esult [facility] * Colonoscopy (01/24/2021 12:00 PM EDT) Anatomical Region Laterality Modality Endoscopy 01/24/2021 12:0 0 PM EDT Narrative 01/24/2021 12:00 PM EDT PERFORMED AT [facility] LOCATION:[id number] SSI Procedure Note CONVERSION, GENERIC - 03/12/2023 PERFORMED AT [facility] LOCATION:[id number] [facility] Vishal Mazariegos DO ENDOSCOPY PROCEDURE ORDERABLES Final Result from Last 3 Months or Most Recently Relevant to Health Maintenance Insurance [employer] Care Teams Maintenance Groundskeeper Relationship Specialty Start Date End Date Vishal Mazariegos, [address] [place] [address] PCP - [facility] 01/25/23 Vishal Mazariegos DO [address] [place] [address] PCP - General Family Medicine 01/05/24 Nica Nelson MD [address] [place] [address] Oncology 04/01/25 Vishal Bernabe, [address] [place] [address] Otolaryngology 04/01/25
--- OUTSIDE RECORDS SUMMARY | 2025-04-02 07:19 | XMS_ITS | Encounter Summary ---
Author Organization [facility] Address [address] [place] [address] Care Team Providers Care Guest Service Manager Name Role Phone Vishal Mazariegos DO Unavailable [phone] Vishal Mazariegos DO Primary Care Provider [phone] Nica Nelson MD Unavailable Vishal Bernabe DO Unavailable [phone] Encounter Details Date Type Department Care Team (Late st Contact Info) Description 10/04/2024 Abstract [facility] FM [address] [facility] 230 [place] [phone] Vishal Mazariegos DO [address] [facility] [address] [place], [place] [id number] Social History Tobacco Use Types Packs/Day Years [...] [address] [place] [address] Jr. Krishna Martin, DO [address] [place] [address] 04/08/2025 2:00 PM EDT Office Visit [facility] FM [address] [place] [address] Vishal Mazariegos, [address] [place], [place] [address] 07/22/2025 9:15 AM EDT Office Visit [facility] [address] [place] [address] Chente Mazariegos, DO [address] [place], [place] [address] 04/03/2026 9:30 AM EDT Office Visit [facility] [place] [address] [phone] Vishal Bernabe DO [address] [place] [address] documented as of this encounter Visit Diagnoses Not on filedocumented in this encounter Care Teams Guest Service Manager Relationship Specialty Start Date End Date Vishal Mazariegos DO [address] [place] [address] [facility] 01/25/23 Vishal Mazariegos DO [address] [place] [address] PCP - General Family Medicine 01/05/24 Nica Neslon MD [address] [place] [address] Oncology 04/01/25 Vishal Bernabe DO [address] [place] [address] Otolaryngology 04/01/25 documented as of this encounter
--- OUTSIDE RECORDS SUMMARY | 2025-04-02 07:19 | XMS_ITS | Encounter Summary ---
Author Organization [facility] Address [address] [place] [address] Care Team Providers Care Roving Frame Tender Name Role Phone Vishal Mazariegos DO Primary Care Provider [phone] Vishal Mazariegos DO Unavailable [phone] Justin England DO Primary Care Provider [phone] Vishal Mazariegos DO Primary Care Provider [phone] Nica Nelson MD Unavailable Vishal Bernabe DO Unavailable [phone] Encounter Details Date Type Department Care Team (Late st Contact Info) Description 09/15/2023 Orders Only [facility] [address] [facility] [address] [place] [address] A, Unknown Practice [address] [place], [place] [address] Social History Tobacco Use Types Packs/Day Years [...] Patient Health Questionnaire-2 Score 0 07/08/2023 Comments No Sex and Gender Information Value [...] 04/06/2025 11:00 AM EDT Office Visit [facility] ORTHO [address] [place] [address] Jr. Krishna Martin, DO [address] [place] [address] 04/08/2025 2:00 PM EDT Office Visit [facility] [address] [place] [address] Vishal Mazariegos, DO [address] [place] [address] 07/22/2025 9:15 AM EDT Office Visit [facility] OB [address] [place] [address] Chente Mazariegos, DO [address] [place] [address] 04/03/2026 9:30 AM EDT Office Visit [facility] [address] [place] [address] Vishal Bernabe, DO [address] [place] [address] documented as of this encounter Procedures Procedure Name Priority Date/Time Associated Diagnosis Comments SCANNED LABS Routine 09/15/2023 10:48 AM EST documented in this encounter Results * SCANNED LABS (09/15/2023 10:48 AM EST) us Unknown Practice A LAB CHG PERFORMABLES Final Re sult documented in this encounter Visit Diagnoses Not on filedocumented in this encounter Care Teams Roving Frame Tender Relationship Specialty Start Date End Date Vishal Mazariegos, DO PCP - [facility] 03/27/23 11/12/23 Vishal Mazariegos, DO [address] [place] [address] PCP - [facility] 01/25/23 Justin England, DO [address] [place] [address] PCP - [facility] 11/13/23 01/04/24 Vishal Mazariegos, DO [address] [place] [address] PCP - General [facility] 01/05/24 Nica Nelson MD [address] [place] [address] Oncology 04/01/25 Vishal Bernabe, DO [address] [place] [address] Otolaryngology 04/01/25 documented as of this encounter
--- OUTSIDE RECORDS SUMMARY | 2025-04-02 07:19 | XMS_ITS | Encounter Summary ---
Author Organization [facility] Address [address] [place] [address] Care Team Providers Care Hospitality Director Name Role Phone Vishal Mazariegos DO Unavailable [phone] Vishal Mazariegos DO Primary Care Provider [phone] Nica Nelson MD Unavailable Vishal Bernabe DO Unavailable [phone] Encounter Details Date Type Department Care Team (Late st Contact Info) Description 07/15/2024 External Result Encounter [facility] External Department Unsolicited Zhane Thrasher, [facility] [address] [place] [address] Social History Tobacco Use Types Packs/Day Years [...] Score Answer Date of Assessment Author 0 07/16/2024 8:59 AM EDShar Jewell MA * Question Answer Date of Assessment Author Q1: How often do you have a drink containing alcohol? Never 07/16/2024 8:59 AM FÉLIXT Caro Zimmerman MA Q2: How many drinks containing alcohol do you have on a typical day when you are drinking? Patient does not drink 07/16/2024 8:59 AM EDT Caro Zimmerman MA Q3: How often do you have six or more drinks on one occasion? Never 07/16/2024 8:59 AM Caro Siddiqui MA * Over the past 2 weeks, how often have you been bothered by any of the following problems? Question Answer Date of Assessment Author Little interest or pleasure in doing things Not at all 07/16/2024 8:59 AM Caro Siddiqui MA Feeling down, depressed, or hopeless Not at all 07/16/2024 8:59 AM FÉLIXT Caro Zimmerman MA Patient Health Questionnaire -2 Score 0 07/16/2024 8:59 AM Caro Siddiqui MA documented as of this encounter Plan of Treatment Upcoming Encounters Date Type Department Care Team (Late st Contact Info) Description 04/06/2025 11:00 AM EDT Office Visit [facility] [address] [place] [address] Jr. Krishna Martin, DO [address] [place] [address] 04/08/2025 2:00 PM EDT Office Visit [facility] [address] [place] [address] Vishal Mazariegos DO [address] [place] [address] 07/22/2025 9:15 AM EDT Office Visit [facility] [address] [place] [address] Chente Mazariegos, DO [address] [place] [address] 04/03/2026 9:30 AM EDT Office Visit [facility] [place] [address] [place] [phone] Vishal Bernabe, DO [address] [place] [address] documented as of this encounter Procedures Procedure Name Priority Date/Time Associated Diagnosis Comments BI MAMMOGRAM SCREENING TOMOSYNTHESIS LEFT 07/15/2024 11:34 AM EDT documented in this encounter Results * Left screening mammogram with tomosynthesis (07/15/2024 11:34 AM EDT) Anatomical Region Laterality Modality Breast Left Mammography 07/15/2024 11:3 4 AM EDT Impressions 07/15/2024 11:38 AM EDT NO MAMMOGRAPHIC EVIDENCE OF MALIGNANCY. ROUTINE FOLLOW-UP [...] next mammogram. Impression dictated by: Delores Hi M.D.07/15/2024 11:36 AM Dictation Location: [facility] Transcribed By: [facility] 07/15/24 1136 Dictated By: Delores Hi MD 07/15/24 1134 Signed By: <Electronically signed by MD Delores Hi in OV> 07/15/24 1136 Narrative 07/15/2024 11:[address] [facility] Main [address] [address] Mammography Report Signed Patient: Maricel Easton MR#: [id number] : 1965 Acct:[id number] Age/Sex: 59 / F ADM Date: 07/15/24 Loc: XT Room: Type: [facility] RCR Attending Dr: Nica Nelson MD Copies to: MD Zhane Holman APRN Paul J Bruner, DO William D Bruner, DO Ordering Provider: Zhane Thrasher APRN Date of Service: 07/15/24 MM/MM screening mammo LT w/CAD: History of breast cancer CLINICAL DATA: Screening for malignancy. Prior right mastectomy for carcinoma. LEFT SCREENING MAMMOGRAMS - FULL FIELD DIGITAL WITH TOMOSYNTHESIS AND CAD Tomosynthesis craniocaudal and mediolateral oblique views of the left breast were obtained using low-dose digital technique. Comparison is made to prior studies from July 04, 2020 through July 10, 2023. This examination was reviewed with the aid of CAD. The breast parenchyma is heterogeneously dense. There are no developing masses, typically malignant calcifications or architectural distortion. There has been no significant interval change. MM/MM screening mammo LT w/CAD Procedure Note Radiology, Radiologist, MD - 07/15/2024 [facility] Main [place] [address] [place] [address] Mammography Report Signed Patient: Maricel Easton LMR#: [id number] : 1965Acct:[id number] Age/Sex: 59 / FADM Date: 07/15/24 Loc: XT Room:Type: [facility] RCR Attending Dr: Nica Nelson MD Copies to: MD Zhane Holman APRN Paul J Bruner, DO William D Bruner, DO Ordering Provider: Zhane Thrasher APRN Date of Service: 07/15/24 MM/MM screening mammo LT w/CAD: History ofbreast cancer CLINICAL DATA: Screening for malignancy. Prior right mastectomy forcarcinoma. LEFT SCREENING MAMMOGRAMS - FULL FIELD DIGITAL WITH TOMOSYNTHESIS AND CAD Tomosynthesis craniocaudal and mediolateral oblique views of the leftbreast were obtained using low-dose digital technique. Comparison is made to prior studies fromJuly 04, 2020 through July 10, 2023. This examination was reviewed with the aid of CAD. The breast parenchyma is heterogeneously dense. There are no developingmasses, typically malignant calcifications or architectural distortion. There has been no significantinterval change. MM/MM screening mammo LT w/CAD IMPRESSION: [...] system with a target due date for thenext mammogram. Impression dictated by: Delores Hi M.D.07/15/2024 11:36 AM Dictation Location: [facility] Transcribed By: [facility] 07/15/24 1136 Dictated By: Delores Hi MD 07/15/24 1134 Signed By: <Electronically signed by MD Delores Hi in OV> 07/15/24 1136 Zhane Thrasher [facility] IMG BI PROCEDURES Final Resul t documented in this encounter Visit Diagnoses Not on filedocumented in this encounter Care Teams Hospitality Director Relationship Specialty Start Date End Date Vishal Mazariegos DO [address] [facility] [address] [place] [address] PCP - [facility] 01/25/23 Vishal Mazariegos DO [address] [place] [address] PCP - General Family Medicine 01/05/24 Nica Nelson MD [address] [place] [address] Oncology 04/01/25 Vishal Bernabe DO [address] [place] [address] Otolaryngology 04/01/25 documented as of this encounter
--- OUTSIDE RECORDS SUMMARY | 2025-04-02 07:19 | XMS_ITS | Encounter Summary ---
Author Organization [facility] Address [address] [place] [address] Care Team Providers Care Agricultural Research Technologist Name Role Phone Vishal Mazariegos DO Unavailable [phone] Vishal Mazariegos DO Primary Care Provider [phone] Nica Nelson MD Unavailable Vishal Bernabe DO Unavailable [phone] Reason for Visit * Reason Comments Med Refill Encounter Details Date Type Department Care Team (Late st Contact Info) Description 10/21/2024 Refill [facility] [address] [facility] [address] [place] [address] Vishal Mazariegos, [address] [facility] [address] [place] [address] Hyperparathyroidism ([facility]) Social History Tobacco Use Types Packs/Day Years [...] [address] [place] [address] Jr. Krishna Martin, DO [address] [place] [address] 04/08/2025 2:00 PM EDT Office Visit [facility] [address] [place] [address] Vishal Mazariegos, DO [address] [place] [address] 07/22/2025 9:15 AM EDT Office Visit [facility] [address] [place] [address] Chente Mazariegos, DO [address] [place] [address] 04/03/2026 9:30 AM EDT Office Visit [facility] [place] [address] [place] [address] Vishal Bernabe DO [address] [place] [address] documented as of this encounter Visit Diagnoses Diagnosis Hyperparathyroidism (CMS/HCC) Hyperparathyroidism, unspecified documented in this encounter Care Teams Agricultural Research Technologist Relationship Specialty Start Date End Date Vishal Mazariegos DO [address] [place] [address] PCP - [facility] 01/25/23 Vishal Mazariegos DO [address] [place] [address] PCP - General Family Medicine 01/05/24 Nica Nelson MD [address] [place] [address] Oncology 04/01/25 Vishal Bernabe DO [address] [place] [address] Otolaryngology 04/01/25 documented as of this encounter
--- OUTSIDE RECORDS SUMMARY | 2025-04-02 07:19 | XMS_ITS | Encounter Summary ---
Author Organization [facility] Address [address] [place] [address] Care Team Providers Care Shrub Planter Name Role Phone Vishal Mazariegos DO Primary Care Provider [phone] Vishal Mazariegos DO Unavailable [phone] Justin England DO Primary Care Provider [phone] Vishal Mazariegos DO Primary Care Provider [phone] Nica Nelson MD Unavailable Vishal Bernabe DO Unavailable [phone] Encounter Details Date Type Department Care Team (Late st Contact Info) Description 05/09/2023 Orders Only [facility] [address] [facility] [address] [place] [phone] Provider, MD Tamiko [address] [place], [place] [address] Social History Tobacco Use Types Packs/Day Years Used Date Smoking Tobacco: Never Alcohol Use Standard Drinks/Week Comments Never 0 (1 standard drink = 0.6 oz pur e alcohol) Caffeine intake: none PHQ-2 Answer Date Recorded Patient Health Questionnaire-2 Score 0 05/13/2023 Comments Unknown Sex and Gender Information Value [...] [address] [place] [address] Jr. Krishna Martin, DO [address] [place] [address] 04/08/2025 2:00 PM EDT Office Visit [facility] [address] [place] [address] Vishal Mazariegos, DO [address] [place] [address] 07/22/2025 9:15 AM EDT Office Visit [facility] [address] [place] [address] Chente Mazariegos, DO [address] [place], [place] [phone] 04/03/2026 9:30 AM EDT Office Visit [facility] [place] [address] [place] [phone] Vishal Bernabe, DO [address] [place] [address] documented as of this encounter Procedures Procedure Name Priority Date/Time Associated Diagnosis Comments CTA : CHEST Routine 05/08/2023 12:17 PM EDT XR CHEST 1 VIEW Routine 05/08/2023 9:33 AM EDT documented in this encounter Results * CTA : CHEST (05/08/2023 12:17 PM EDT) Anatomical Region Laterality Modality Radiographic May ging us Historical Provider IMG XR PROCEDURES Final R esult * XR chest 1 view (05/08/2023 9:33 AM EDT) Anatomical Region Laterality Modality Chest Radiographic May ging us Historical Provider IMG XR PROCEDURES Final R esult documented in this encounter Visit Diagnoses Not on filedocumented in this encounter Care Teams Shrub Planter Relationship Specialty Start Date End Date Vishal Mazariegos, DO PCP - General [facility] 03/27/23 11/12/23 Vishal Mazariegos, DO [address] [place] [address] PCP - [facility] 01/25/23 Justin England, DO [address] [place] [address] PCP - [facility] 11/13/23 01/04/24 Vishal Mazariegos, DO [address] [place] [address] PCP - [facility] 01/05/24 Nica Nelson MD [address] [place] [address] Oncology 04/01/25 Vishal Bernabe, DO [address] [place] [address] Otolaryngology 04/01/25 documented as of this encounter
--- OUTSIDE RECORDS SUMMARY | 2025-04-02 07:19 | XMS_ITS | CCD ---
Author Organization [facility] CliniSyia Care Team Providers Care Animal Stunner Name Role Phone Nica Nelson Unavailable Unavailable Michelle Perry Unavailable Rosalia Soler Unavailable [phone] MD Nica Nelson Attending Provider DO Chente Barcenas Referring Provider DO Vishal Barcenas Primary Care Provider MD Rosalia Soler Attending Provider [phone] DO Vishal Barcenas Primary Care Provider DO Vishal Barcenas Attending Provider [phone] ETHEL Perry Attending Provider VISHAL BARCENAS Primary Care Physician Darci Ambrose Attending Unavailable MD Nica Nelson Attending Provider DO Chente Barcenas Referring Provider DO Vishal Barcenas Primary Care Provider DO Vishal Carreon Attending Provider [phone] NO FAMILY, PHYSICIAN Primary Care Provider Unava ilable Vishal Barcenas DO Unavailable Missy England DO Primary Care Provider [phone] MD Nica Nelson Attending Provider DO Chente Barcenas Referring Provider [phone] DO Vishal Barcenas Primary Care Provider Vishal Carreon Attending Unavailable NO FAMILY, PHYSICIAN Primary Care Unavailable Vishal Carreon Admitting Unavailable Vishal Barcenas Primary Care Unavailable Chente Barcenas Referring Unavailable Nica Nelson Admitting Unavailable Nica Nelson Attending Unavailable Vishal Barcenas DO Primary Care Provider JR. HÉCTOR, YURIY Arteaga Attending Unavaila ble BLACKSTON, JONATHAN Attending Unavailable CUTLER, MISSY L [...] Attending Unavailable CUTLER, MISSY L Referring Unavailable DELILAHVISHAL TABOR Attending Unavailable ROSALIA CAMACHO Attending Unavailable ROSALIA CAMACHO Referring Unavailable VISHAL BARCENAS Attending Unavailable VISHAL CARREON Attending Unavailable JR. HÉCTOR, YURIY Arteaga Attending Unavaila mari MARTIN JR., YURIY Arteaga Attending Unavaila CHENTE Plascencia Attending Unavailable JR. HÉCTOR, YURIY Arteaga Attending Unavaila ble BREANNA, MISSY Garcia Attending Unavailable VISHAL BARCENAS Attending Unavailable JR. HÉCTOR, YURIY Arteaga Attending Unavaila ble Allergies Allergy Classification Reported Allergen(s) Allergy Type Date of Onset Reaction(s) Facility (17 sources) HYDROmorphone; Translations: [hydromorphone] Drug Allergy 2 [facility] (1 source) Adhesive Bandage 1 Drug allergy [facility] Comment on above: durabond (1 source) Adhesive bandage; Translations: [Adhesive Bandage] Propensity to adverse reactions (disorder) [facility] (20 sources) traMADol Drug Allergy 3 [facility] (20 sources) Other Allergy to substance 2 [facility] (20 sources) Wound Dressing Adhesive Drug Allergy 3 [facility] (1 source) durobon Allergy to substance 4 [facility] Medications Current Medications Medication Drug Class(es) Dates Sig (Normalized) Sig (Original) ascorbic acid 60 mg / beta carotene 5000 unt / copper sulfate 40 mg / dl-alpha tocopheryl acetate 30 unt / sodium selenite 0.04 mg / zinc oxide 40 mg oral tablet (20 sources) Vitamin C Multiple Vitamin (Multivitamin Adult) tablet Orally Active calcium carbonate 1500 mg oral tablet (20 sources) Start: 10-25-2024 take 1 tablet by mouth once daily at mealtime calcium carbonate 1500 (600 Ca) MG tablet Indications: Hyperparathyroidism (CMS/HCC) TAKE 1 TABLET BY MOUTH DAILY WITH A MEAL 30 tablet 5 10/25/2024 Active Start: 04-19-2024 End: 10-18-2024 take 1 tablet by mouth once daily at mealtime calcium carbonate 1500 (600 Ca) MG tablet Indications: Hyperparathyroidism (CMS/HCC) TAKE ONE TABLET BY MOUTH DAILY WITH A MEAL 30 tablet 5 04/19/2024 10/18/2024 Discontinued (Reorder) Start: 10-23-2023 take 1 tablet by mari th once daily at mealtime calcium carbonate 1500 (600 Ca) MG tablet Indications: Hyperparathyroidism (CMS/HCC) TAKE ONE TABLET BY MOUTH DAILY WITH A MEAL 30 tablet 5 10/23/2023 Active calcium carbonate 1500 mg / cholecalciferol 800 unt chewable tablet (7 sources) Vitamin D Start: 06-26-2017 Calcium Carbon ate-Vitamin D3 (Caltrate 600 + D) 600 mg (1,500 mg)-800 unit Tablet,Chewable Active 1 TAB PO Twice daily June 26, 2017 12:00am take 1 tablet by mouth twice gabby ly Calcium Carbonate-Vitamin D 600-400 MG-UNIT TAKE 1 TABLET BY MOUTH TWICE DAILY Oral for 30 Active Calcium Carbonate-Vitamin D 600-400 MG-UNIT (11 sources) take 1 tablet by mouth twice daily Calcium Carbonate-Vitamin D 600-400 MG-UNIT TAKE 1 TABLET BY MOUTH TWICE DAILY Oral for 30 Active celecoxib 200 mg oral capsule (7 sources) Nonsteroidal Anti-inflammatory Drug Start: 2023 End: 2023 take 1 capsule by mouth once daily at mealtime celecoxib (CeleBREX) 200 MG capsule Indications: Lateral epicondylitis of right elbow Take 1 capsule (200 mg) by mouth Daily Take with food 30 capsule 07/30/2024 08/26/2024 Discontinued cholecalciferol 0.05 mg oral tablet (20 sources) Vitamin D Start: 2023 take 1 tablet by mouth once daily cholecalciferol (Vitamin D-3) 50 MCG (1999 UT) tablet Indications: Vitamin D deficiency TAKE 1 TABLET BY MOUTH DAILY 30 tablet 5 04/26/2024 Active Start: 10-23-2023 take 1 tablet by mari th once daily cholecalciferol (Vitamin D-3) 50 MCG (2000 UT) tablet Indications: Vitamin D deficiency TAKE 1 TABLET BY MOUTH DAILY 30 tablet 5 10/23/2023 Active Compression stockings, 20-30mmHg, thigh 20-30mmHg (8 sources) Start: 04-19-2022 Compression stockings, 20-30mmHg, thigh 20-30mmHg externally daily as directed for 3 months Mar, Active cyclobenzaprine hydrochloride 10 mg oral tablet (11 sources) Muscle Relaxant Start: 08-26-2024 take 1 tablet by mouth three times daily as needed for muscle spasms cyclobenzaprine (Flexeril) 10 MG tablet Indications: Lumbar facet arthropathy Take 1 tablet (10 mg) by mouth 3 (three) times a day as needed for muscle spasms 30 tablet 2 08/26/2024 Active ferrous sulfate 325 mg delayed release oral tablet (20 sources) Start: 12-13-2024 End: 12-13-2025 take 1 tablet by mouth at mealtime ferrous sulfate 325 (65 Fe) MG EC tablet Indications: Anemia, unspecified type Take 1 tablet (325 mg) by mouth in the morning. Take with meals. Do not crush, chew, or split.. 90 tablet 3 12/13/2024 12/13/2025 Active Start: 07-11-2024 ferrous sulfat e 325 (65 Fe) MG EC tablet 07/11/2024 Active Start: 01-24-2020 End: 02-11-2024 take 325 mg by mouth once daily Ferrous Sulfate Active 325 MG PO Daily February 11, 2024 10:11am Start: 01-20-2020 End: 07-16-2024 take 325 mg by mouth once daily Ferrous Sulfate Discon tinued 325 MG PO Daily January 20, 2020 1:16pm January 24, 2020 9:58am Start: 06-26-2017 End: 01-20-2020 take 325 mg by mouth once daily Ferrous Sulfate Discon tinued 325 MG PO Daily January 18, 2020 8:32am January 20, 2020 1:15pm Start: 05-25-2015 take 1 tablet by mari th three times daily ferrous sulfate 325 mg Tab 325 mg = 1 tab(s), Oral, TID, Refills(s) 0, Prophylaxis Start Date: 05/25/15 Status: Ordered take 1 tablet by mari th once daily Ferrous Sulfate 325 (65 Fe) MG 1 tablet Orally Once a day Active lidocaine 0.05 mg/mg medicated patch (1 source) Antiarrhythmic, Amide Local Anesthetic Start: 05-08-2023 Lidoderm 5% Patch 1 patch(es), Topical, Daily, 7 EA, Refill(s) 0, apply 12 hours on and 12 hours off daily, [facility] [id number], 163, cm, 05/08/23 19:14:00 EDT, Height/Length Dosing, 47.8, kg, 05/08/23 19:14:00 EDT, Weight Dosing Start Date: 05/08/23 Status: Ordered lisinopril 10 mg oral tablet (20 sources) Angiotensin Converting Enzyme Inhibitor Start: 09-20-2024 take 1 tablet by mouth once daily lisinopril 10 MG tablet Indications: Primary hypertension (CMS/HCC) Take 1 tablet (10 mg) by mouth Daily 90 tablet 3 09/20/2024 Active Start: 06-26-2017 End: 08-25-2024 take 1 tablet by mouth once daily lisinopril 10 MG tablet Indications: Primary hypertension (CMS/HCC) TAKE 1 TABLET BY MOUTH DAILY AT THE SAME TIME EACH DAY 90 tablet 3 06/29/2024 Active methocarbamol 500 mg oral tablet (1 source) Muscle Relaxant Start: 05-08-2023 End: 05-11-2023 take 1 tablet by mouth three times daily Robaxin 500 mg Tab 500 mg = 1 tab(s), Oral, TID, X 3 day(s), # 9 tab(s), Refills(s) 0, Pharmacy: [facility] [id number], 163, cm, 05/08/23 19:14:00 EDT, Height/Length Dosing, 47.8, kg, 05/08/23 19:14:00 EDT, Weight Dosing Start Date: 05/08/23 Stop Date: 05/11/23 Status: Ordered Multi Complete - (13 sources) Multi Complete - as directed Orally Active Multivitamin preparation (5 sources) Start: 06-26-2017 take 1 capsule by mouth once daily Multivitamin Active 1 CAP PO Daily June 25, 2017 11:00pm Start: 06-26-2017 take 1 capsule by mo [facility] once daily Multivitamin Active 1 CAP PO Daily June 26, 2017 12:00am naproxen 500 mg oral tablet (20 sources) Nonsteroidal Anti-inflammatory Drug Start: 04-01-2024 End: 08-26-2024 take 1 tablet by mouth twice daily at mealtime as needed for pain naproxen (Naprosyn) 500 MG tablet Indications: Lumbar facet arthropathy 1 po bid with food prn pain 60 tablet 1 08/26/2024 Active Start: 05-08-2023 take 1 tablet by mari twice daily as needed for pain Naprosyn 500 mg Tab 500 mg = 1 tab(s), Oral, BID, PRN for pain, # 20 tab(s), Refills(s) 0, Pharmacy: [facility] [id number], 163, cm, 05/08/23 19:14:00 EDT, Height/Length Dosing, [...] / HYDROcodone bitartrate 5 mg oral tablet (5 sources) Opioid Agonist Start: 12-25-2017 End: 01-06-2018 take 1 tablet by mouth every four to six hours Hydrocodone-Acetam inophen ([place]) 5-325 mg tablet Discontinued 1 TAB PO EVERY 4-6 HOURS December 25, 2017 January 06, 2018 3:32pm ascorbic acid 500 mg oral tablet (5 sources) Vitamin C Start: 12-17-2017 End: 07-02-2018 take 1 tablet by mouth once daily Ascorbic Acid (Vitamin C) (Vitamin C) 500 mg Tablet Discontinued 500 MG PO Daily December 17, 2017 1:00am July 02, 2018 3:37pm ibuprofen 600 mg oral tablet (5 sources) Nonsteroidal Anti-inflammatory Drug Start: 12-25-2017 End: 01-06-2018 take 600 mg by mouth every six hours Ibuprofen Discontinued 600 MG PO Q6H 28 7 December 25, 2017 1:00am January 06, 2018 3:32pm tamoxifen 20 mg oral tablet (20 sources) Estrogen Agonist/Antagonist Start: 06-26-2017 End: 12-02-2023 take 20 mg by mouth once Tamoxifen Discontinued 20 MG PO Once September 23, 2019 1:00am February 16, 2020 8:29am Start: 05-25-2015 take 10 mg by mouth twice cinthia y tamoxifen 10 mg, Oral, BID, Refills(s) 0, Prophylaxis Start Date: 05/25/15 Status: Ordered Problems Active Problems Problem Classification Problem Date Documented Da te Episodic/Chronic Administrative/social admission (5 sources) Repeated prescription; Translations: [Encounter for issue of repeat prescription] 09-23-2019 Episodic Cancer of breast (20 sources) Malignant neoplasm of central part of female breast; Translations: [Malignant neoplasm of central portion of right female breast] Onset: 02-26-2023 07-14-2019 Chronic Coagulation and hemorrhagic disorders (4 sources) Easy bruising; Translations: [Spontaneous ecchymoses] 08-26-2024 Episodic Essential hypertension (20 sources) Hypertensive disorder; Translations: [Essential hypertension] Onset: 02-26-2023 05-08-2023 Chronic Immunity disorders (2 sources) Secondary immune deficiency disorder; Translations: [Immunodeficiency due to conditions classified elsewhere (CMS/[facility])] 10-07-2024 Chronic Menopausal disorders (20 sources) Atrophic vaginitis; Translations: [Postmenopausal atrophic vaginitis] Onset: 02-26-2023 02-26-2023 Chronic Menstrual disorders (6 sources) Menorrhagia; Translations: [Excessive and frequent menstruation with regular cycle] Onset: 11-26-2017 02-26-2023 Chronic Nonmalignant breast conditions (20 sources) Fibrocystic disease of breast; Translations: [Diffuse cystic mastopathy of unspecified breast] Onset: 02-26-2023 02-26-2023 Chronic Nutritional deficiencies (2 sources) Deficiency of macronutrients; Translations: [Unspecified protein-calorie malnutrition] 10-07-2024 Chronic Other acquired deformities (20 sources) Scoliosis deformity of spine; Translations: [Scoliosis, unspecified] Onset: 12-25-2023 12-25-2023 Chronic Other acquired deformities (2 sources) Acquired scoliosis; Translations: [Other secondary scoliosis, thoracolumbar region] 10-07-2024 Chronic Other aftercare (3 sources) Patient encounter status; Translations: [Encounter for therapeutic drug level monitoring] 07-10-2022 Episodic Other aftercare (4 sources) Encounter for therapeutic drug level monitoring; Translations: [Encounter for therapeutic drug monitoring] 07-10-2022 Episodic Other aftercare (1 source) Long-term current use of tamoxifen; Translations: [Encounter for therapeutic drug level monitoring] 07-10-2022 Episodic Other and ill-defined heart disease (5 sources) Cardiomegaly; Translations: [Cardiomegaly] 07-02-2019 Chronic Other and ill-defined heart disease (4 sources) Cardiomegaly; Translations: [Cardiomegaly] 07-10-2022 Chronic Other bone disease and musculoskeletal deformities (5 sources) Idiopathic scoliosis of thoracic and lumbar spine; Translations: [Other idiopathic scoliosis, thoracolumbar region] 07-14-2019 Chronic Other bone disease and musculoskeletal deformities (5 sources) Other idiopathic scoliosis, thoracolumbar region; Translations: [Scoliosis [and kyphoscoliosis], idiopathic] 07-10-2022 Chronic Other bone disease and musculoskeletal deformities (20 sources) Juvenile idiopathic scoliosis, thoracic region; Translations: [Scoliosis [and kyphoscoliosis], idiopathic] Onset: 02-26-2023 02-26-2023 Chronic Other bone disease and musculoskeletal deformities (20 sources) Idiopathic kyphoscoliosis; Translations: [Other idiopathic scoliosis, site unspecified] Onset: 08-31-2012 05-13-2023 Chronic Other connective tissue disease (20 sources) Lateral epicondylitis of right humerus; Translations: [Lateral epicondylitis, right elbow] Onset: 01-01-2024 01-01-2024 Episodic Other diseases of veins and lymphatics (13 sources) Peripheral venous insufficiency; Translations: [Venous insufficiency (chronic) (peripheral)] Episodic Other diseases of veins and lymphatics (5 sources) Venous insufficiency (chronic) (peripheral) Onset: 04-19-2022 Resolved: 04-19-2022 Episodic Other diseases of veins and lymphatics (4 sources) Venous insufficiency of leg; Translations: [Venous insufficiency (chronic) (peripheral)] Episodic Other endocrine disorders (20 sources) Hyperparathyroidism; Translations: [Hyperparathyroidism , unspecified] Onset: 02-26-2023 02-26-2023 Chronic Other female genital disorders (3 sources) Abnormal uterine bleeding; Translations: [Abnormal uterine and vaginal bleeding, unspecified] Onset: 02-26-2023 02-26-2023 Chronic Other hematologic conditions (5 sources) H/O: anemia - iron deficient; Translations: [Personal history of diseases of the blood and blood-forming organs and certain disorders involving the immune mechanism] 07-02-2019 Episodic Other hematologic conditions (4 sources) Personal history of diseases of the [...] pain; Translations: [Pleurodynia] Onset: 05-08-2023 Episodic Other non-traumatic joint disorders (20 sources) Pain in elbow; Translations: [Pain in unspecified elbow] Onset: 01-01-2024 01-01-2024 Episodic Other nutritional; endocrine; and metabolic disorders (20 sources) Hypercalcemia; Translations: [Hypercalcemia] Onset: 02-26-2023 02-26-2023 Chronic Pulmonary heart disease (10 sources) Pulmonary hypertension, unspecified; Translations: [Mild pulmonary hypertension] 07-12-2020 Chronic Residual codes; unclassified (5 sources) History of total hysterectomy with bilateral salpingo-oophorectom y; Translations: [Acquired absence of both cervix and uterus] 01-06-2018 Episodic Residual codes; unclassified (4 sources) Acquired absence of both cervix and uterus; Translations: [Acquired absence of both cervix and uterus] 07-10-2022 Episodic Spondylosis; intervertebral disc disorders; other back problems (20 sources) Inflammation of sacroiliac joint; Translations: [Sacroiliitis, not elsewhere classified] Onset: 08-31-2012 05-13-2023 Chronic Spondylosis; intervertebral disc disorders; other back problems (13 sources) Low back pain; Translations: [Low back pain] Episodic Thyroid disorders (20 sources) Thyroid nodule; Translations: [Nontoxic single thyroid nodule] Onset: 02-26-2023 10-23-2020 Chronic Transient cerebral ischemia (20 sources) Amaurosis fugax; Translations: [Amaurosis fugax] Onset: 02-26-2023 02-26-2023 Chronic Past or Other Problems Problem Classification Problem Date Documented Da te Episodic/Chronic Cancer of breast (20 sources) History of malignant neoplasm of breast; Translations: [Personal history of malignant neoplasm of breast] Onset: 08-14-2017 07-08-2023 Episodic Deficiency and other anemia (20 sources) Iron deficiency anemia; Translations: [Iron deficiency anemia, unspecified] Onset: 12-25-2023 12-25-2023 Episodic Other screening for suspected conditions (not mental disorders or infectious disease) (20 sources) Imaging of liver abnormal; Translations: [Abnormal findings on diagnostic imaging of liver and biliary tract] Onset: 02-26-2023 07-12-2020 Episodic Phlebitis; thrombophlebitis and thromboembolism (1 source) Embolism and thrombosis of superficial veins of left lower extremity Onset: 04-25-2022 Resolved: 04-25-2022 Episodic Varicose veins of lower extremity (20 sources) Varicose veins of lower extremity; Translations: [Varicose veins of bilateral lower extremities with other complications] Onset: 09-11-2021 Resolved: 01-24-2022 Episodic Results Test Name Value Interpretation Reference Range Facility ALL CBC WITH AUTO DIFFon BASOPHILS ABSOLUTE AUTO 0.1 N [facility] Basophils/100 WBC (Bld) 1.2 % 0.2 - 2.0 % [facility] Eosinophils/100 WBC (Bld) 4.2 % 0.9 - 7.0 % [facility] Erythrocyte distribution width (RBC) [Ratio] 13.1 % 11.0 - 15.0 % [facility] Hematocrit (Bld) [Volume fraction] 43.4 % 36.0 - 48.0 % [facility] Hemoglobin (Bld) [Mass/Vol] 14 g/dL 12.0 - 16.0 g/dL [facility] IMMATURE GRANULOCYTES ABS AUTO 0.01 [facility] Immature granulocytes/100 WBC (Bld) 0.2 % 0.0 - 0.5 % [facility] LYMPHOCYTES ABSOLUTE AUTO 1.6 [facility] Lymphocytes/100 WBC (Bld) 30.1 % 20.5 - 60.0 % [facility] MCH (RBC) [Entitic mass] 28.4 pg 26.7 - 34.0 pg [facility] MCHC (RBC) [Mass/Vol] 32.3 g/dL 29.9 - 35.2 g/dL [facility] MCV (RBC) [Entitic vol] 88 fL 81.0 - 99.0 fL [facility] MONOCYTES ABSOLUTE AUTO 0.5 N [facility] Monocytes/100 WBC (Bld) 8.7 % 1.7 - 12.0 % [facility] NEUTROPHILS ABSOLUTE AUTO 2.9 [facility] Neutrophils/100 WBC (Bld) 55.6 % 43.0 - 75.0 % [facility] Platelet mean volume (Bld) [Entitic vol] 10.4 fL 9.5 - 13.5 fL [facility] TBH EO # 0.2 [facility] PLT 203 [facility] TB RBC 4.93 [facility] WBC 5.2 [facility] MM screening mammo LT w/CADo n 07-15-2024 MM screening mammo LT w/CAD [facility] [place] [address] Mammography Report Signed Patient: Maricel Easton MR#: [id number] : 1965 Acct:[id number] Age/Sex: 59 / F ADM Date: 07/15/24 Loc: Room: Type: [facility] RCR Attending Dr: Nica Nelson MD Copies to: MD Zhane Holman, DO Chente Do DO Ordering Provider: Zhane Thrasher APRN Date [...] Delores Hi M.D.07/15/2024 11:36 AM Dictation Location: [facility] Transcribed By: [facility] 07/15/24 1136 Dictated By: Delores Hi MD 07/15/24 1134 Signed By: 07/15/24 1136 Normal [facility] 09-12-2023 L - -------- Specimen: [id number] Received: 09/15/23-1256 Status: TIMOTHY Garibay Num: [id number] Spec Type: Cytology Subm Dr: Vishal Carreon,DO Tissues: A FNA SLIDES NOPATH (LT THYROID NOD) Procedures: Cyto Int and Re, PAPSTN/11 -------- Age/ Patient Sex Location Account Attending Physician -------- RustamJoannaMaricel L 58/F [place] [id number] Vishal Carreon,DO -------- SPEC NUM: [id number] RECD: 09/15/23 STATUS: TIMOTHY GARIBAY NUM: [id number] ALETA: 09/12/23-[address] [facility] [address]: Vishal Carreon DO ENTERED: 09/15/[address]: NOE TYPE: Cytology DEPT: LAUREN ENTERED BY: [id number] RECV BY: [id number] ORDERED: Cyto Int and Re, PAPSTN/11 ORDERED: Cyto Int and Re, PAPSTN/11 Pathological Diagnosis Thyroid nodule, left lobe, FNA: - Follicular lesion of undetermined significance (FLUS) - [place] system diagnostic category: III Clinical Information Left thyroid nodule; fine needle aspiration left thyroid Gross Description Received is 15 ml of bright, red, hazy fixed fluid for cytology said to have been obtained as fine needle aspiration left thyroid. ThinPrep preparation is prepared for microscopic examination. Also received are ten smeared slides for microscopic examination. (SS/emmett) CPT Codes 00680 -------- -------- Specimen: [id number] Received: 09/15/23 Status: TIMOTHY Garibay Num: [id number] Spec Type: Cytology Subm Dr: Vishal Carreon,DO Tissues: A FNA SLIDES NOPATH (LT THYROID NOD) Procedures: Cyto Int and Re, PAPSTN -------- Patient: RustamMaricel Garcia [id number] (Continued) -------- Signed (signature on file) Clay Chavira MD 09/17/23 1428 Normal [facility] CTA Cheston 05-09-2023 CTA Chest Exam Date/Time: [...] 370 Contrast amount in ml's: 65 Normal [facility] Discharge Instructionson Discharge Instructions [id number]# 1.00CD:127 Normal [facility] ED Clinical Summaryon 2022 ED Clinical Summary [place] [address] ED Clinical Summary Person Information Name: MARICEL EASTON [place] Age: 58 Years : 1965 Sex: Female Language: Spanish PCP: VISHAL BARCENAS DO Marital Status: MRN: [id number] Visit Id: Visit Reason: Shortness of breath; [...] 05/08/2023 22:53:27 05/08/2023 22:53:27 05/08/2023 22:53:27 ADDRESS: [address] [place] [id number] PHYS DOC NOTES: MEDICAL INFORMATION: Prescriptions Given: New Medications [facility] [id number], [address], [place] [id number], [phone] lidocaine topical (Lidoderm 5% Patch) 1 Patches [...] a day. PATIENT EDUCATION INFORMATION: Instructions: Costochondritis, Zyoc-vs-Sleo Follow up: With: Address: When: VISHAL BARCENAS [address] [place] [address], [address] [place] [address] Business (1) In 3 days 05/11/2023 Comments: You can take the medications as prescribed as needed for pain. Please follow-up with your primary care doctor in the next 2 to 3 days for further evaluation management. Please return to the ED for any new or worsening symptoms. DIAGNOSIS: Rib pain on right side Normal [facility] ED Note-Physicianon 05-09-20 ED Note-Physician Basic Information Time Seen: Darci Ambrose DO 05/08/2023 19:19 Chief Complaint SOB started tonight [...] and Complexity of Problems Differential Diagnosis: [] [facility] Data External documents reviewed: [] My EKG [...] hours on and 12 hours off daily, [facility] [id number], 163, cm, 05/08/23 19:14:00 EDT, Height/Length Dosing, 47.8, kg, 05/08/23 19:14:00 EDT, Weight Dosing methocarbamol, 500 mg = 1 tab(s), Oral, TID, X 3 day(s), # 9 tab(s), Refills(s) 0, Pharmacy: [facility] [id number], 163, cm, 05/08/23 19:14:00 EDT, Height/Length Dosing, 47.8, kg, 05/08/23 19:14:00 EDT, Weight Dosing morphine, 4 mg = 2 mL, Injection, IV Push, Once, Stop date 05/08/23 19:37:00 EDT, STAT, Start date 05/08/23 19:37:00 EDT, 05/08/23 19:37:00 EDT naproxen, 500 mg = 1 tab(s), Oral, BID, PRN for pain, # 20 tab(s), Refills(s) 0, Pharmacy: [facility] [id number], 163, cm, 05/08/23 19:14:00 EDT, Height/Length Dosing, [...] In 3 days 05/11/2023 EDT [address], [address] [place] [address]- [phone] (more content not included)... Normal [facility] Comment on above: Result Comment: Elec deepthially Signed By: Darci Ambrose DO.gianni\Date and Time Signed: 05/08/23 23:31 EDT ED [...] safe for you. General instructions ? Take sdnl-yle-ajavmek and prescription medicines only as told by [...] Reviewed: 08/25/2020 Elsevier Patient Education ? 2022 [employer]. [facility] ED Patient Summaryon 07-14-2 023 ED Patient Summary [address] [address] Patient Discharge Instructions Person Information Name: MARICEL EASTON Age: 58 Years Arrival Date: 05/08/2023 19:01:46 Discharge Diagnosis: Rib pain on right side Primary Care Physician: VISHAL BARCENAS DO Provider Information Primary Provider: Darci Ambrose DO Advanced Etiquette Teacher:None The exam and treatment you received in the Emergency Department were for an urgent problem and are not intended as complete care. It is important that you follow up with a doctor, nurse practitioner, or physician?s unit assistant for ongoing care. If your [...] Follow-up Instructions: With: Address: When: VISHAL BARCENAS [address] [place] [address], [facility] [address] [id number] Business (1) In 3 days 05/11/2023 Comments: [...] nearby participating provider. Patient Education Materials: Costochondritis, Levl-xt-Trub A MESSAGE TO ALL PATIENTS REGARDING OPIOIDS PRESCRIPTION OPIOIDS: WHAT YOU NEED TO KNOW Prescription opioids can be used to help relieve qatiusep-nw-fygugb pain and are often prescribed following a [...] to l (more content not included)... Normal [facility] RAD - Preliminary Cat Scan R eporton 05-09-2023 RAD - Preliminary Cat Scan Report [id number]# 1.00CD:127 Normal [facility] XR Chest Single Viewon 05-09 XR Chest [...] mGy = na DAP = na Normal [facility] Auto Diffon 05-08-2023 Basophils/100 WBC (Bld) 0.9 % Normal 0.0-2.0 [facility] Comment on above: Order Comment: Order Added by Discern Expert. Performed By: #### 2 061357, 8231456, 0400098, 5808092, 47218400, 89982538, 8843147, 14269311 #### [facility] [address] [place] [address] Basophils/Leukocytes Auto (Bld) [Pure # fraction] 0.1 E9/L Normal 0.0-0.2 [facility] Comment on above: Order Comment: Order Added by Discern Expert. Performed By: #### 2 600171, 0032346, 1694118, 6223024, 73164711, 41811981, 8887683, 97833507 #### [facility] [address] [place] [address] Eosinophils/100 WBC (Bld) 1.2 % Normal 0.0-8.0 [facility] Comment on above: Order Comment: Order Added by Discern Expert. Performed By: #### 2 441701, 5387473, 6895718, 6185684, 12254571, 25259907, 6076789, 64824491 #### [facility] [address] [place] [address] Eosinophils/Leukocytes Auto (Bld) [Pure # fraction] 0.1 E9/L Normal 0.0-0.5 [facility] Comment on above: Order Comment: Order Added by Discern Expert. Performed By: #### 2 423762, 9396623, 5150793, 6018001, 11403031, 78850213, 7489344, 44358985 #### [facility] [address] [place] [address] Lymphocytes/100 WBC (Bld) 11.9 % Low 14.0-50.0 [facility] Comment on above: Order Comment: Order Added by Discern Expert. Performed By: #### 2 725745, 4126130, 5960967, 1705946, 86824340, 33846694, 2290191, 51699525 #### [facility] [address] [place] [address] Lymphocytes/Leukocytes Auto (Bld) [Pure # fraction] 0.8 E9/L Low 1.0-4.0 [facility] Comment on above: Order Comment: Order Added by Discern Expert. Performed By: #### 2 460708, 3118101, 2195251, 8938842, 04571256, 68058682, 5618047, 07192222 #### [facility] [address] [place] [address] Monocytes/100 WBC (Bld) 5.9 % Normal 4.0-14.0 [facility] Comment on above: Order Comment: Order Added by Discern Expert. Performed By: #### 2 598029, 6464051, 6956515, 1633483, 38198446, 66605516, 9945056, 05959050 #### [facility] [address] [place] [address] Monocytes/Leukocytes Auto (Bld) [Pure # fraction] 0.4 E9/L Normal 0.2-1.0 [facility] Comment on above: Order Comment: Order Added by Discern Expert. Performed By: #### 2 743231, 9083836, 0181728, 6375153, 46997332, 64152252, 6997228, 82296210 #### [facility] [address] [place] [address] Neutrophils/100 WBC (Bld) 80.1 % High 36.0-75.0 [facility] Comment on above: Order Comment: Order Added by Discern Expert. Performed By: #### 2 224992, 1544106, 4692974, 6177873, 72501948, 03542225, 5053409, 01374860 #### [facility] [address] [place] [address] Neutrophils/Leukocytes Auto (Bld) [Pure # fraction] 5.4 E9/L Normal 2.0-7.5 [facility] Comment on above: Order Comment: Order Added by Discern Expert. Performed By: #### 2 230131, 0749851, 9401118, 9616011, 00522641, 56914573, 2574027, 75693768 #### [facility] [address] [place] [address] BMPon 05-08-2023 Urea nitrogen/Creatinine [Mass ratio] 32 No Units High 10-20 [facility] Comment on above: Performed By: #### 2 598675, 0837452, 0926391, 9543769, 28568590, 57431305, 1272873, 01050981 #### [facility] [address] [place] [address] Creatinine [Mass/Vol] 1.0 mg/dL Normal 0.5-1.[address] [facility] Comment on above: Performed By: #### 2 586376, 4277813, 4324173, 3909922, 61704094, 63755906, 0406160, 10105941 #### [facility] [address] [place] [address] Urea nitrogen [Mass/Vol] 32 mg/dL High 5-21 [facility] Comment on above: Performed By: #### 2 634394, 1062071, 5101796, 4271633, 11544561, 60866127, 8491873, 76879468 #### [facility] [address] [place] [address] Anion gap [Moles/Vol] 12 mmol/L Normal 6-[address] [facility] Comment on above: Performed By: #### 2 717962, 1665210, 1675279, 2281979, 28229638, 64124673, 9185984, 47361537 #### [facility] [address] [place] [address] Calcium [Mass/Vol] 9.3 mg/dL Normal 8.9-11.1 [facility] Comment on above: Performed By: #### 2 232775, 6338615, 6436708, 0489281, 20069402, 78501938, 5999094, 43299536 #### [facility] [address] [place] [address] Chloride [Moles/Vol] 103 mmol/L Normal 101-111 [facility] Comment on above: Performed By: #### 2 683673, 0938653, 3408718, 8231783, 10781446, 85647626, 7941615, 90368566 #### [facility] [address] [place] [address] CO2 [Moles/Vol] 27 mmol/L Normal 21-31 [facility] Comment on above: Performed By: #### 2 368851, 4645650, 5637006, 4628550, 86990625, 68169875, 6811497, 52526270 #### [facility] [address] [place] [address] Glucose [Mass/Vol] 103 mg/dL Normal 55-199 [facility] Comment on above: Result Comment: If t his glucose result represents a fasting glucose, interpretation should refer to the following reference range: 55-99 mg/dL Performed By: #### 2 210805, 3294364, 8427365, 9753997, 39733606, 43775002, 4367337, 74846976 #### [facility] [address] [place] [address] Potassium [Moles/Vol] 4.1 mmol/L Normal 3.5-5.[address] [facility] Comment on above: Performed By: #### 2 864816, 4442542, 0745911, 2017949, 95115309, 02990261, 0769237, 07580319 #### [facility] [address] [place] [address] Sodium [Moles/Vol] 138 mmol/L Normal 135-145 [facility] Comment on above: Performed By: #### 2 761893, 6338952, 6494651, 3238838, 79911725, 60196678, 1896301, 68568516 #### [facility] [address] [address] CBC w/ Auto Diffon 3 Erythrocyte distribution width (RBC) [Ratio] 13.4 % Normal 10.9-14.2 [facility] Comment on above: Performed By: #### 2 690373, 8776848, 8025583, 5015688, 31557592, 82277907, 5289389, 75823134 #### [facility] [address] [place] [address] Hematocrit (Bld) [Volume fraction] 41.8 % Normal 34.0-46.0 [facility] Comment on above: Performed By: #### 2 462001, 3967018, 0162034, 4540759, 71226789, 04782717, 0583639, 94871992 #### [facility] [address] [place] [address] Hemoglobin (Bld) [Mass/Vol] 13.8 g/dL Normal 12.0-16.0 [facility] Comment on above: Performed By: #### 2 539873, 2137091, 9917735, 4562269, 75732098, 82100117, 8725452, 10075468 #### [facility] [address] [place] [address] MCH (RBC) [Entitic mass] 28.6 pg Normal 27.0-34.0 [facility] Comment on above: Performed By: #### 2 952306, 6970622, 7755330, 8306619, 44723409, 58364268, 5081615, 79253824 #### [facility] [address] [address] MCHC (RBC) [Mass/Vol] 33.0 g/dL Normal 31.4-36.[address] [facility] Comment on above: Performed By: #### 2 699755, 0437901, 2595770, 8037260, 16922246, 13250275, 3582626, 60551052 #### [facility] [address] [place] [address] MCV (RBC) [Entitic vol] 86.7 fL Normal 80.0-100.0 [facility] Comment on above: Performed By: #### 2 828291, 2650933, 3598960, 2691703, 42628609, 87556029, 0165261, 70577848 #### [facility] [address] [place] [address] Platelet mean volume (Bld) [Entitic vol] 8.7 fL Normal 6.4-10.8 [facility] Comment on above: Performed By: #### 2 390536, 3186153, 4581850, 1743708, 27016688, 17259617, 2614789, 64747246 #### [facility] [address] [place] [address] Platelets (Bld) [#/Vol] 179.0 E9/L Normal 150.0-500.0 [facility] Comment on above: Performed By: #### 2 668871, 7138359, 9216001, 9639121, 65671937, 40970752, 0437925, 32542650 #### [facility] [address] [place] [address] RBC (Bld) [#/Vol] 4.8 E12/L Normal 4.3-5.9 [facility] Comment on above: Performed By: #### 2 387862, 9134993, 6822243, 0060680, 51856544, 58419082, 3425256, 69560800 #### [facility] [address] [place] [address] WBC corrected for nucl RBC Auto (Bld) [#/Vol] 6.7 E9/L Normal 4.0-11.0 [facility] Comment on above: Performed By: #### 2 085448, 4096825, 1308838, 5049843, 63186234, 42761107, 6990604, 56247431 #### [facility] [address] [place] [address] CHEMISTRYOrdered By: SYSTEM SYSTEM on 05-08-2023 Albumin [Mass/Vol] 4.1 g/dL Normal 3.3 - 5.0 gm/dL FT Remisol Albumin/Globulin [Mass ratio] 1.6 {ratio} Normal [...] 65 mL/min/1.73 m2 Normal >=59mL/min/1 .73 m2 FT Chem S Globulin (S) [Mass/Vol] 2.6 g/dL [...] Interpretation Code 215 - 500 ng/mL FEU [facility] Auto Coag Comment on above: Result Comment: Resu lts Called To medina sarabia By ts And Read Back For Confirmation On 05/08/2023 20:47:16 EDT Results Verified By Repeat Analysis INR Coag (PPP) [Relative time] 1.0 {INR} Invalid Interpretation Code [facility] Auto Coag PT Coag (PPP) [Time] 10.9 s Normal 9.4 - 1 2.5 second(s) [facility] Auto Coag Consent for Treatmenton 04-26 Consent for Treatment [id number] .[id number]:127 Normal [facility] D-Dimeron 05-08-2023 Fibrin D-dimer FEU (PPP) [Mass/Vol] 574 [id number] Abnormal 215-500 [facility] Comment on above: Result Comment: Resu lts [...] infections Liver cirrhosis Performed By: #### 2 221111, 7613048, 8688180, 1189044, 31612769, 07749925, 9029927, 13842985 #### [facility] [address] [place] [address] HEMATOLOGYOrdered By: SYSTEM SYSTEM on 05-08-2023 Basophils/100 WBC (Bld) 0.9 % Normal 0.0 - 2.0 % [facility] HemeAutoSS Basophils/Leukocytes Auto (Bld) [Pure # fraction] 0.1 E9/L Normal 0.0 - 0.2 E9/L [facility] HemeAutoSS Eosinophils/100 WBC (Bld) 1.2 % Normal 0.0 - 8.0 % [facility] HemeAutoSS Eosinophils/Leukocytes Auto (Bld) [Pure # fraction] [...] E9/L Normal 150. 0 - 500.0 E9/L [facility] HemeAutoSS RBC (Bld) [#/Vol] 4.8 E12/L Normal 4.3 - 5.9 E12/L [facility] HemeAutoSS WBC corrected for nucl RBC Auto (Bld) [#/Vol] 6.7 E9/L Normal 4.0 - 11.0 E9/L [facility] HemeAutoSS Hep Func Panelon 05-08-2023 Bilirubin.indirect [Mass or moles/Vol] UT Abnormal 0.1-0.9 [facility] Comment on above: Result Comment: Resu lt verified by Discern Rule. Performed result UT (Unable to Calculate) was sent as an Alpha code due the inability to calculate a valid numeric value. Performed By: #### 2 289380, 9641164, 9181457, 7615915, 04888902, 53897452, 0539153, 07061037 #### [facility] [address] [place] [address] Albumin/Globulin (S) [Mass conc ratio] 1.6 Normal 1.1-2.2 [facility] Comment on above: Performed By: #### 2 296892, 4477303, 9029809, 5855527, 85399503, 85578849, 1463212, 47425866 #### [facility] [address] [place] [address] Globulin (S) [Mass/Vol] 2.6 g/dL Normal 1.4-4.0 [facility] Comment on above: Performed By: #### 2 126602, 1149860, 5402183, 1558528, 85288167, 52329972, 0590378, 12610654 #### [facility] [address] [place] [address] Albumin [Mass/Vol] 4.1 g/dL Normal 3.3-5.0 [facility] Comment on above: Performed By: #### 2 837455, 9681149, 5763701, 9906528, 25621997, 22971838, 7932083, 39996179 #### [facility] [address] [place] [address] ALP [Catalytic activity/Vol] 34 Int._Unit/L Normal 21-98 [facility] Comment on above: Performed By: #### 2 469558, 6162056, 5228043, 5942742, 76785361, 64761062, 1470524, 60475162 #### [facility] [address] [place] [address] ALT No additional P-5'-P [Catalytic activity/Vol] 30 Int._Unit/L Normal 6-46 [facility] Comment on above: Performed By: #### 2 530230, 8040969, 8753654, 2852329, 46250602, 61525242, 6228555, 63054580 #### [facility] [address] [place] [address] AST [Catalytic activity/Vol] 38 Int._Unit/L Normal 5-43 [facility] Comment on above: Performed By: #### 2 212024, 9404686, 1667852, 5519301, 08942000, 23953021, 9537301, 59055972 #### [facility] [address] [place] [address] Bilirubin [Mass/Vol] 0.2 mg/dL Normal 0.0-1.1 [facility] Comment on above: Performed By: #### 2 031593, 1915612, 2072267, 7594134, 83297118, 07397865, 8019299, 92231520 #### [facility] [address] [place] [address] Protein [Mass/Vol] 6.7 g/dL Normal 6.0-7.8 [facility] Comment on above: Performed By: #### 2 105775, 0441216, 2897594, 2281504, 96616656, 64375064, 9906948, 42818401 #### [facility] [address] [place] [address] Bilirubin.direct [Mass/Vol] mg/dL Normal 0.1-0.4 [facility] Comment on above: Performed By: #### 2 797949, 7174498, 0114851, 5974246, 56748085, 88704048, 3844213, 28623950 #### [facility] [address] [place] [address] PT & PTTon 05-08-2023 aPTT Coag (PPP) [Time] 28.2 second(s) Normal 25.1-36.5 [facility] Comment on above: Result Comment: Para meter [...] the same coagulation reagent and instrumentation as [facility]. Currently there are no coagulation studies available worldwide for children to 14 days, and no normal ranges. Heparin therapeutic range (represented by Anti-Factor Xa activity of 0.2 - 0.4 U/mL) corresponds to PTT of 56.6 - 109.0 sec. Performed By: #### 2 622811, 0562014, 6942950, 8927409, 68485854, 47713973, 0793088, 24027960 #### [facility] [address] [place] [address] INR Coag (PPP) [Relative time] 1.0 {INR} Invalid Interpretation Code [facility] Comment on above: Result Comment: INR results are specifically intended to assess patients stabilized on long-term Anticoagulation therapy suggested INR?s ?Less Intensive Anticoagulation? 2.0 ? 3.0 Conventional Range 3.0 ? 4.5 Performed By: #### 2 453173, 0802997, 6945996, 0678319, 42874275, 13566585, 4898211, 08691408 #### [facility] [address] [place] [address] PT Coag (PPP) [Time] 10.9 second(s) Normal 9.4-12.5 [facility] Comment on above: Result Comment: 15 d [...] the same coagulation reagent and instrumentation as [facility]. Currently there are no coagulation studies available worldwide for children to 14 days, and no normal ranges. Performed By: #### 2 407150, 6070840, 9437162, 3095796, 10257830, 68176533, 9355823, 34546844 #### [facility] [address] [place] [address] Troponin 0 Hr.on 05-08-2023 Troponin I.cardiac [Mass/Vol] 10.00 pg/mL Low 10.10-27.10 [facility] Comment on above: Result Comment: The 95% CI (Confidence Interval) PPV (Positive Predictive Value) for myocardial infarction in females is 38 pg/mL, in males 51 pg/mL. The results should be used in conjunction with clinical conditions of myocardial infarction. (Access High Sensitivity Troponin I Instructions For Use, Magen Janna, May 2018) Performed By: #### 2 196686, 8097143, 3093961, 7802573, 75890608, 76937815, 6796313, 83755294 #### [facility] [address] [place] [address] eGFRon 05-08-2023 GFR/1.73 sq M.predicted among non-blacks MDRD (S/P/Bld) [Vol rate/Area] 65 mL/min/1.73 m2 Normal >=59 [facility] Comment on above: Order Comment: Order added by Discern Expert. Result Comment: Graduate Teacher [employer] [place] kidney disease could be indicated at eGFR's of less than 60 mL/min/1.73m2. Kidney failure is indicated at less than 15 mL/min/1.73m2. Performed By: #### 2 183081, 9129133, 4401682, 8263449, 99162449, 37974474, 6747725, 11330269 #### [facility] [address] [place] [address] Alanine aminotransferase [En zymatic activity/volume] in Serum or PlasmaOrdered By: Vishal Barcenas on 03-03-2023 ALT [Catalytic activity/Vol] 25 U/L 7-52 [facility] Basophils Auto (Bld) [#/Vol] Ordered By: Vishal Barcenas on 03-03-2023 Basophils (Bld) [#/Vol] 0.0 10*3/uL 0.0-0.2 [facility] Basophils/100 WBC Auto (Bld) Ordered By: Vishal Barcenas on 03-03-2023 Basophils/100 WBC (Bld) 0.9 % . [facility] Calcium [Mass/volume] in Ser um or PlasmaOrdered By: Vishal Barcenas on 03-03-2023 Calcium [Mass/Vol] 8.5 mg/dL 8.6-10.3 [facility] Carbon dioxide, total [Moles /volume] in Serum or PlasmaOrdered By: Vishal Barcenas on 03-03-2023 CO2 [Moles/Vol] 30.3 mmol/L 21.0-31.0 [facility] Chloride [Moles/volume] in S alissa or PlasmaOrdered By: Vishal Barcenas on 03-03-2023 Chloride [Moles/Vol] 105 mmol/L 98-107 [facility] Cholesterol [Mass/volume] in Serum or PlasmaOrdered By: Vishal Barcenas on 03-03-2023 Cholesterol [Mass/Vol] 158 mg/dL 140-200 [facility] Comment on above: Chol less than 200 m g/dl low riskChol 201-239 mg/dl borderline riskChol 240 mg/dl and greater high risk Cholesterol in LDL Calc [Mas s/Vol]Ordered By: Vishal Barcenas on 03-03-2023 Cholesterol in LDL [Mass/Vol] 80 mg/dL 0-100 [facility] Comment on above: LDL ATP III CLASSIFI CATIONLDL less than 100 mg/dL OptimalLDL 100-129 mg/dL Near or above optimalLDL 130-159 mg/dL Borderline highLDL 160-189 mg/dL HighLDL greater than 189 mg/dL Very high Cholesterol in VLDL Calc [Ma ss/Vol]Ordered By: Vishal Barcenas on 03-03-2023 Cholesterol in VLDL [Mass/Vol] 8 mg/dL [facility] Creatinine [Mass/volume] in Serum or PlasmaOrdered By: Vishal Barcenas on 03-03-2023 Creatinine [Mass/Vol] 0.83 mg/dL 0.60-1.20 [facility] Creatinine [Mass/volume] in UrineOrdered By: Vishal Barcenas on 03-03-2023 Creatinine (U) [Mass/Vol] 203.0 mg/dL 11.0-20.0 [facility] Eosinophils Auto (Bld) [#/Vo l]Ordered By: Vishal Barcenas on 03-03-2023 Eosinophils (Bld) [#/Vol] 0.2 10*3/uL 0.0-0.45 [facility] Eosinophils/100 WBC Auto (Bl d)Ordered By: Vishal Barcenas on 03-03-2023 Eosinophils/100 WBC (Bld) 3.9 % . [facility] Erythrocyte distribution wid th Auto (RBC) [Ratio]Ordered By: Vishal Barcenas on 03-03-2023 Erythrocyte distribution width (RBC) [Ratio] 13.6 % 11.9-15.3 [facility] Glucose [Mass/volume] in Ser um or PlasmaOrdered By: Vishal Barcenas on 03-03-2023 Glucose [Mass/Vol] 83 mg/dL 70-100 [facility] Comment on above: ADA recommended refe rence rangeRandom Glucose Reference Range is dependent on time and content of last meal. Glucose of more than 200 mg/dL in a nonstressed, ambulatory subject supports the diagnosis of Diabetes Mellitus. Hematocrit Auto (Bld) [Volum e fraction]Ordered By: Vishal Barcenas on 03-03-2023 Hematocrit (Bld) [Volume fraction] 41.6 % 34.0-46.4 [facility] Hemoglobin [Mass/volume] in BloodOrdered By: Vishal Barcenas on 03-03-2023 Hemoglobin (Bld) [Mass/Vol] 13.6 g/dL 11.8-15.4 [facility] Leukocytes [#/volume] correc jimbo for nucleated erythrocytes in Blood by Automated counOrdered By: Vishal Barcenas on 03-03-2023 WBC corrected for nucl RBC Auto (Bld) [#/Vol] 5.2 10*3/uL 3.8-11.6 [facility] Lymphocytes Auto (Bld) [#/Vo l]Ordered By: Vishal Barcenas on 03-03-2023 Lymphocytes (Bld) [#/Vol] 1.4 10*3/uL 1.00-4.8 [facility] Lymphocytes/100 WBC Auto (Bl d)Ordered By: Vishal Barcenas on 03-03-2023 Lymphocytes/100 WBC (Bld) 27.4 % . [facility] MCH Auto (RBC) [Entitic mass ]Ordered By: Vishal Barcenas on 03-03-2023 MCH (RBC) [Entitic mass] 28.3 pg 24.7-34.3 [facility] MCHC Auto (RBC) [Mass/Vol]Or dered By: Vishal Barcenas on 03-03-2023 MCHC (RBC) [Mass/Vol] 32.7 g/dL 32.0-35.0 [facility] MCV Auto (RBC) [Entitic vol] Ordered By: Vishal Barcenas on 03-03-2023 MCV (RBC) [Entitic vol] 86.7 fL 80-100 [facility] Microalbumin [Mass/volume] i n UrineOrdered By: Vishal Barcenas on 03-03-2023 Albumin DL <= 20 mg/L (U) [Mass/Vol] 29.3 mg/dL 0.0-1.8 [facility] Monocytes Auto (Bld) [#/Vol] Ordered By: Vishal Barcenas on 03-03-2023 Monocytes (Bld) [#/Vol] 0.4 10*3/uL 0.0-0.8 [facility] Monocytes/100 WBC Auto (Bld) Ordered By: Vishal Barcenas on 03-03-2023 Monocytes/100 WBC (Bld) 8.6 % . [facility] Neutrophils Auto (Bld) [#/Vo l]Ordered By: Vishal Barcenas on 03-03-2023 Neutrophils (Bld) [#/Vol] 3.1 10*3/uL 1.8-7.7 [facility] Neutrophils/100 WBC Auto (Bl d)Ordered By: Vishal Barcenas on 03-03-2023 Neutrophils/100 WBC (Bld) 59.2 % . [facility] No Panel InformationOrdered By: Vishal Barcenas on 03-03-2023 Estimated GFR (CKD-EPI) > 60.0 mL/Min [facility] Creatinine Clearance (Chem N/A [facility] Nucleated erythrocytes [Pres ence] in Blood by Automated countOrdered By: iVshal Barcenas on 03-03-2023 Nucleated RBC Auto Ql (Bld) 0.1 /100{WBC} 0-0.5 [facility] Platelet mean volume Auto (B ld) [Entitic vol]Ordered By: Vishal Barcenas on 03-03-2023 Platelet mean volume (Bld) [Entitic vol] 9.1 fL 6.3-10.7 [facility] Platelets Auto (Bld) [#/Vol] Ordered By: Vishal Barcenas on 03-03-2023 Platelets (Bld) [#/Vol] 175 10*3/uL 150-450 [facility] Potassium [Moles/volume] in Serum or PlasmaOrdered By: Vishal Barcenas on 03-03-2023 Potassium [Moles/Vol] 4.0 mmol/L 3.5-5.1 [facility] RBC Auto (Bld) [#/Vol]Ordere d By: Vishal Barcenas on 03-03-2023 RBC (Bld) [#/Vol] 4.80 10*6/uL 3.60-5.00 [facility] Serum or plasma anion gap de terminationOrdered By: Vishal Barcenas on 03-03-2023 Anion gap [Moles/Vol] 8.7 mmol/L 6.0-15.0 [facility] Serum or plasma high density lipoprotein (HDL) cholesterol measurementOrdered By: Vishal Barcenas on 03-03-2023 Cholesterol in HDL [Mass/Vol] 70 mg/dL 35-85 [facility] Comment on above: HDL CHOL ATP-III CLA SSIFICATION Cardiovascular RiskHDL > or equal to 60 mg/dL LOWHDL < 40 mg/dL HIGH Serum or plasma total choles terol/high density lipoprotein (HDL) cholesterol mass ratOrdered By: Vishal Barcenas on 03-03-2023 Cholesterol.total/Eva sterol in HDL [Mass ratio] 2.3 {ratio} <5.0 [facility] Sodium [Moles/volume] in Ser um or PlasmaOrdered By: Vishal Barcenas on 03-03-2023 Sodium [Moles/Vol] 140 mmol/L 136-145 [facility] Thyrotropin [Units/volume] i n Serum or PlasmaOrdered By: Vishal Barcenas on 03-03-2023 TSH Qn 1.40 m[IU]/L 0.45-5.33 [facility] Thyroxine (T4) free [Mass/vo lume] in Serum or PlasmaOrdered By: Vishal Barcenas on 03-03-2023 Free T4 [Mass/Vol] 0.92 ng/dL 0.61-1.12 [facility] Triglyceride [Mass/volume] i n Serum or PlasmaOrdered By: Vishal Barcenas on 03-03-2023 Triglyceride [Mass/Vol] 41 mg/dL 0-149 [facility] Comment on above: TRIG ATP III CLASSIF ICATIONTRIG less than 150 mg/dL NormalTRIG 150-199 mg/dL Borderline highTRIG 200-500 mg/dL High TRIG greater than 500 mg/dL Very highStandard traceable to the Center for Disease Conrtrol and Prevention (CDC) test method. Urea nitrogen [Mass/volume] in Serum or PlasmaOrdered By: Vishal Barcenas on 03-03-2023 Urea nitrogen [Mass/Vol] 17 mg/dL 7-25 [facility] Urine microalbumin/creatinin e mass ratioOrdered By: Vishal Barcenas on 03-03-2023 Albumin/Creatinine DL <= 20 mg/L (U) [Mass ratio] 144.0 mg/g 0.0-30.0 [facility] Comment on above: 30-300 mg/g indicate s an increased risk for diabetic nephropathy. Greater than 300 mg/g is consistent with clinical nephropathy. (Am. J. Kidney Disease 1995, 25:107) WBC Auto (Bld) [#/Vol]Ordere d By: Vishal Barcenas on 03-03-2023 WBC (Bld) [#/Vol] 5.2 10*3/uL 3.8-11.6 [facility] Complete Blood Count with Au to Diffon 03-04-2022 Basophils (Bld) [#/Vol] 0.06 10*3/uL Normal 0.00-0.20 [facility] Comment on above: Performed By: #### C MP, LIPD, CBCAD #### [facility] [address], [place] [id number] Basophils/100 WBC (Bld) 1.4 % Normal N [facility] Comment on above: Performed By: #### C MAXIMUS, LIPD, CBCAD #### [facility] [address], [place] [id number] Eosinophils (Bld) [#/Vol] 0.17 10*3/uL Normal 0.02-0.50 [facility] Comment on above: Performed By: #### C MP, LIPD, CBCAD #### [facility] [address], [place] [id number] Eosinophils/100 WBC (Bld) 4.0 % Normal [facility] Comment on above: Performed By: #### C MP, LIPD, CBCAD #### [facility] [address], [place] [id number] Erythrocyte distribution width (RBC) [Ratio] 13.0 % Normal 11.0-15.0 [facility] Comment on above: Performed By: #### C MP, LIPD, CBCAD #### [facility] [address], [place] [id number] Hematocrit (Bld) [Volume fraction] 42.7 % Normal 35.0-47.0 [facility] Comment on above: Performed By: #### C MP, LIPD, CBCAD #### [facility] [address], [place] [id number] Hemoglobin (Bld) [Mass/Vol] 13.8 g/dL Normal 11.6-15.5 [facility] Comment on above: Performed By: #### C MP, LIPD, CBCAD #### [facility] [address] [facility] [place] [id number] Lymphocytes (Bld) [#/Vol] 1.5 10*3/uL Normal 0.9-3.9 [facility] Comment on above: Performed By: #### C MP, LIPD, CBCAD #### [facility] [address], [place] [id number] Lymphocytes/100 WBC (Bld) 35.5 % Normal [facility] Comment on above: Performed By: #### C MP, LIPD, CBCAD #### [facility] [address], [place] [id number] MCH (RBC) [Entitic mass] 28.1 pg Normal 27.0-33.0 [facility] Comment on above: Performed By: #### C MP, LIPD, CBCAD #### [facility] [address] [facility] [place] [id number] MCHC (RBC) [Mass/Vol] 32.3 g/dL Normal 32.0-36.0 [facility] Comment on above: Performed By: #### C MP, LIPD, CBCAD #### [facility] [address], [place] [id number] MCV (RBC) [Entitic vol] 87 fL Normal 80-100 N [facility] Comment on above: Performed By: #### C MP, LIPD, CBCAD #### [facility] [address] [facility] [place] [id number] Monocytes (Bld) [#/Vol] 0.4 10*3/uL Normal 0.2-0.9 [facility] Comment on above: Performed By: #### C MP, LIPD, CBCAD #### [facility] [address] [facility] [place] [id number] Monocytes/100 WBC (Bld) 9.2 % Normal N [facility] Comment on above: Performed By: #### C MP, LIPD, CBCAD #### [facility] [address], [place] [id number] Neutrophils (Bld) [#/Vol] 2.1 10*3/uL Normal 1.5-7.8 [facility] Comment on above: Performed By: #### C MP, LIPD, CBCAD #### [facility] [address], [place] [id number] Neutrophils/100 WBC (Bld) 49.7 % Normal [facility] Comment on above: Performed By: #### C MP, LIPD, CBCAD #### [facility] [address], [place] [id number] Platelet mean volume (Bld) [Entitic vol] 11.40 fL Normal 7.50-12.50 [facility] Comment on above: Performed By: #### C MP, LIPD, CBCAD #### [facility] [address], [place] [id number] Platelets (Bld) [#/Vol] 198 10*3/uL Normal 140-400 [facility] Special[facility] Comment on above: Performed By: #### C MP, LIPD, CBCAD #### [facility] [address], [place] [id number] RBC (Bld) [#/Vol] 4.91 10*6/uL Normal 3.90-5.20 [facility] Comment on above: Performed By: #### C MP, LIPD, CBCAD #### [facility] [address], [place] [id number] RDW-SD 41.5 fL Normal 37.0-50.0 [facility] Comment on above: Performed By: #### C MP, LIPD, CBCAD #### [facility] [address], [place] [id number] WBC (Bld) [#/Vol] 4.2 10*3/uL Normal 3.8-11.0 [facility] Comment on above: Performed By: #### C MP, LIPD, CBCAD #### [facility] [address], [place] [id number] Comprehensive Metabolic Pane cortney 03-04-2022 Albumin [Mass/Vol] 4.6 g/dL Normal 3.6-5.1 [facility] Comment on above: Performed By: #### C MP, LIPD, CBCAD #### [facility] [address], [place] [id number] Albumin/Globulin [Mass ratio] 2.6 {ratio} High 1.0-2.5 [facility] Comment on above: Performed By: #### C MP, LIPD, CBCAD #### [facility] [address], [place] [id number] ALP [Catalytic activity/Vol] 40 U/L Normal 35-119 [facility] Comment on above: Performed By: #### C MP, LIPD, CBCAD #### [facility] [address], [place] [id number] ALT [Catalytic activity/Vol] 25 U/L Normal 6-33 [facility] Comment on above: Result Comment: 09/26 Female reference range changed. Performed By: #### C MP, LIPD, CBCAD #### [facility] [address], [place] [id number] Anion gap [Moles/Vol] 15 mmol/L Normal 12-20 [facility] Comment on above: Result Comment: Effe ctive 11/01/2019 reference range changed. Performed By: #### C MP, LIPD, CBCAD #### [facility] [address], [place] [id number] AST [Catalytic activity/Vol] 33 U/L Normal 9-34 [facility] Comment on above: Performed By: #### C MP, LIPD, CBCAD #### [facility] [address], [place] [id number] Bilirubin [Mass/Vol] 0.32 mg/dL Normal 0.30-1.20 [facility] Comment on above: Performed By: #### C MP, LIPD, CBCAD #### [facility] [address], [place] [id number] BUN/CREA 24 Ratio High 6-22 [facility] Comment on above: Performed By: #### C MP, LIPD, CBCAD #### [facility] [address] [place] [id number] Calcium [Mass/Vol] 9.0 mg/dL Normal 8.6-10.2 [facility] Specialist Comment on above: Performed By: #### C MP, LIPD, CBCAD #### [facility] [address] [place] [id number] Chloride [Moles/Vol] 102 mmol/L Normal 98-107 [facility] Comment on above: Performed By: #### C MP, LIPD, CBCAD #### [facility] [address] [place] [id number] CO2 [Moles/Vol] 26 mmol/L Normal 20-31 [facility] Comment on above: Performed By: #### C MP, LIPD, CBCAD #### [facility] [address] [facility] [place] [id number] Creatinine [Mass/Vol] 0.7 mg/dL Normal 0.6-1.4 [facility] Comment on above: Performed By: #### C MP, LIPD, CBCAD #### [facility] [address] [facility] [place] [id number] eGFRAA 102 mL/min/1.73m2 Normal >60 [facility] Specialist Comment on above: Performed By: #### C MP, LIPD, CBCAD #### [facility] [address] [facility] [place] [id number] eGFRNAA 84 mL/min/1.73m2 Normal >60 [facility] Specialist Comment on above: Performed By: #### C MP, LIPD, CBCAD #### [facility] [address] [facility] [place] [id number] Globulin (S) [Mass/Vol] 1.8 g/dL Low 1.9-3.7 [facility] Specialist Comment on above: Performed By: #### C MP, LIPD, CBCAD #### [facility] [address] [place], [place] [id number] Glucose [Mass/Vol] 89 mg/dL Normal 65-99 [place] [place] [facility] Comment on above: Result Comment: For FASTING Glucose --- ADA reference ranges: Normal 65-99 mg/dl Prediabetes 100-125 Diabetes >/= 126 Performed By: #### C MP, LIPD, CBCAD #### [facility] [address], [place] [id number] Potassium [Moles/Vol] 4.3 mmol/L Normal 3.5-5.5 [facility] Specialist Comment on above: Performed By: #### C MP, LIPD, CBCAD #### [facility] [address], [place] [id number] Protein [Mass/Vol] 6.4 g/dL Normal 6.1-8.1 [facility] [place] [facility] Comment on above: Performed By: #### C MP, LIPD, CBCAD #### [facility] [address], [place] [id number] Sodium [Moles/Vol] 139 mmol/L Normal 135-146 [facility] [place] [facility] Comment on above: Performed By: #### C MP, LIPD, CBCAD #### [facility] [address], [place] [id number] Urea nitrogen [Mass/Vol] 18 mg/dL Normal 7-25 [facility] Comment on above: Performed By: #### C MP, LIPD, CBCAD #### [facility] [address], [place] [id number] Lipid Panelon 03-04-2022 Cholesterol [Mass/Vol] 165 mg/dL Normal 125-200 [facility] Comment on above: Result Comment: Low risk < 200mg/dL Borderline risk 201-239 mg/dl High risk > or equal to 240 Performed By: #### C MP, LIPD, CBCAD #### [facility] [address], [place] [id number] Cholesterol in HDL [Mass/Vol] 74 mg/dL Normal >40 [facility] Comment on above: Result Comment: High Cardiovascular Risk HDL <40 mg/dL Low Cardiovascular Risk HDL > or equal to 60 mg/dl Performed By: #### C MP, LIPD, CBCAD #### [facility] [address], [place] [id number] Cholesterol in LDL [Mass/Vol] 82 mg/dL Normal [facility] Comment on above: Result Comment: LDL ATP III CLASSIFICATION LDL less than 100 mg/dl Optimal LDL 100-129 mg/dl Near or above optimal LDL 130-159 Borderline high LDL 160-189 High LDL greater than 189 mg/dl Very High Performed By: #### C MP, LIPD, CBCAD #### [facility] [address], [place] [id number] Cholesterol in VLDL [Mass/Vol] 9 mg/dL Normal [facility] Comment on above: Performed By: #### C MP, LIPD, CBCAD #### [facility] [address], [place] [id number] Cholesterol.total/Eva sterol in HDL [Mass ratio] 2 {ratio} Normal [facility] Comment on above: Performed By: #### C MP, LIPD, CBCAD #### [facility] [address], [place] [id number] Triglyceride [Mass/Vol] 45 mg/dL Normal 30-150 [facility] Comment on above: Result Comment: TRIG ATPIII CLASSIFICATIONS TRIG less than 150 mg/dl Normal TRIG 150-199 mg/dl Borderline High TRIG 200-500 mg/dl High TRIG greather than 500 mg/dl Very High Performed By: #### C MP, LIPD, CBCAD #### [facility] [address], [place] [id number] Microalbumin (with Creat)on 03-04-2022 mALB 18.8 mg/dL Normal [facility] Comment on above: Result Comment: mALB reference range not established. Performed By: #### m ALBC #### [facility] [address], [place] [id number] mALB/Creat Ratio 80.0 MCG/MG Normal [facility] Comment on above: Result Comment: The ADA (Diabetes Care 26:S94-S98, 2003) defines abnormalities in Albumin excretion as follows: Category Result (MCG/MG Creatinine) Normal <30 Microalbuminuria 30-299 Clinical Albuminuria > or = 300 Performed By: #### m ALBC #### [facility] [address], [place] [id number] UCREA 235 mg/dL High 28-217 [facility] Comment on above: Performed By: #### m [facility] #### [facility] [address], [place] [id number] US Venous, Unilat, Lower Ext Lefton 11-20-2021 [...] by JAKE MCCOY on 11/20/2021 1206 Normal [facility] Albumin [Mass/volume] in Ser um or Plasmaon 07-19-2020 Albumin [Mass/Vol] 4.1 g/dL 3.2-5.5 [facility] Basophils Auto (Bld) [#/Vol] on 07-19-2020 Basophils (Bld) [#/Vol] 0.1 10*3/uL 0.0-0.2 [facility] Basophils/100 WBC Auto (Bld) on 07-19-2020 Basophils/100 WBC (Bld) 1.2 % . [facility] Blood hemoglobin measurement (mass/volume)on 07-19-2020 Hemoglobin (Bld) [Mass/Vol] 14.4 g/dL 11.8-15.4 [facility] Blood leukocytes automated c ount (number/volume)on 07-19-2020 WBC (Bld) [#/Vol] 5.0 10*3/uL 4.5-11.0 [facility] Creatinine and Glomerular fi ltration rate.predicted panel (S/P/Bld)on 07-19-2020 Creatinine [Mass/Vol] 0.83 mg/dL 0.44-1.03 [facility] Eosinophils Auto (Bld) [#/Vo l]on 07-19-2020 Eosinophils (Bld) [#/Vol] 0.2 10*3/uL 0.0-0.45 [facility] Eosinophils/100 WBC Auto (Bl d)on 07-19-2020 Eosinophils/100 WBC (Bld) 4.4 % . [facility] Erythrocyte distribution wid th Auto (RBC) [Ratio]on 07-19-2020 Erythrocyte distribution width (RBC) [Ratio] 13.4 % 11.9-15.3 [facility] Estimated glomerular filtrat ion rate (GFR) non- Americanon 07-19-2020 GFR/1.73 sq M.predicted among non-blacks MDRD (S/P/Bld) [Vol rate/Area] mL/min/{1.73_m2} [facility] Globulin Calc (S) [Mass/Vol] on 07-19-2020 Globulin (S) [Mass/Vol] 2.7 g/dL [facility] Hematocrit Auto (Bld) [Volum e fraction]on 07-19-2020 Hematocrit (Bld) [Volume fraction] 43.7 % 34.0-46.4 [facility] Laboratory - Chemistry and C hemistry - challengeon 07-19-2020 GFR/1.73 sq M.predicted MDRD (S/P/Bld) [Vol rate/Area] mL/min/{1.73_m2} [facility] Comment on above: GFR estimated refere nce range: According to KDOQI guidelines, <60 ml/min/1.73m2 is sufficient to diagnose a patient with chronic kidney disease. Laboratory - Hematology and Cell countson 07-19-2020 Nucleated RBC/100 WBC (Bld) [Ratio] 0.2 % 0-0.5 [facility] Lymphocytes Auto (Bld) [#/Vo l]on 07-19-2020 Lymphocytes (Bld) [#/Vol] 1.5 10*3/uL 1.00-4.8 [facility] Lymphocytes/100 WBC Auto (Bl d)on 07-19-2020 Lymphocytes/100 WBC (Bld) 29.5 % . [facility] MCH Auto (RBC) [Entitic mass ]on 07-19-2020 MCH (RBC) [Entitic mass] 28.6 pg 24.7-34.3 [facility] MCHC Auto (RBC) [Mass/Vol]on 07-19-2020 MCHC (RBC) [Mass/Vol] 33.0 g/dL 32.0-35.0 [facility] MCV Auto (RBC) [Entitic vol] on 07-19-2020 MCV (RBC) [Entitic vol] 86.5 fL 80-100 [facility] Monocytes Auto (Bld) [#/Vol] on 07-19-2020 Monocytes (Bld) [#/Vol] 0.5 10*3/uL 0.0-0.8 [facility] Monocytes/100 WBC Auto (Bld) on 07-19-2020 Monocytes/100 WBC (Bld) 9.7 % . [facility] Neutrophils Auto (Bld) [#/Vo l]on 07-19-2020 Neutrophils (Bld) [#/Vol] 2.7 10*3/uL 1.8-7.7 [facility] Neutrophils/100 WBC Auto (Bl d)on 07-19-2020 Neutrophils/100 WBC (Bld) 55.2 % . [facility] No Panel Informationon 07-19 Pharmacy Creatinine Clearance (Chem 65.81 [facility] Platelet mean volume Auto (B ld) [Entitic vol]on 07-19-2020 Platelet mean volume (Bld) [Entitic vol] 8.6 fL 6.3-10.7 [facility] Platelets Auto (Bld) [#/Vol] on 07-19-2020 Platelets (Bld) [#/Vol] 183 10*3/uL 150-450 [facility] Protein [Mass/volume] in Ser um or Plasmaon 07-19-2020 Protein [Mass/Vol] 6.8 g/dL 6.1-7.9 [facility] RBC Auto (Bld) [#/Vol]on RBC (Bld) [#/Vol] 5.05 10*6/uL High 3.60-5.00 [facility] Serum or plasma alanine tao otransferase measurement without P-5'-P (enzymatic activion 07-19-2020 ALT No additional P-5'-P [Catalytic activity/Vol] 25 U/L 10-60 [facility] Serum or plasma albumin/glob ulin mass ratioon 07-19-2020 Albumin/Globulin [Mass ratio] 1.5 {ratio} [facility] Serum or plasma alkaline syeda sphatase measurement (enzymatic activity/volume)on 07-19-2020 ALP [Catalytic activity/Vol] 36 U/L 32-92 [facility] Serum or plasma aspartate am inotransferase measurement (enzymatic activity/volume)on 07-19-2020 AST [Catalytic activity/Vol] 31 U/L 10-42 [facility] Serum or plasma calcium anatoliy urement (mass/volume)on 07-19-2020 Calcium [Mass/Vol] 8.9 mg/dL 8.2-10.2 [facility] Serum or plasma chloride bob surement (moles/volume)on 07-19-2020 Chloride [Moles/Vol] 104 mmol/L 95-114 [facility] Serum or plasma glucose anatoliy urement (mass/volume)on 07-19-2020 Glucose [Mass/Vol] 98 mg/dL 70-100 [facility] Comment on above: ADA recommended refe rence [...] (moles/volume)on 07-19-2020 Potassium [Moles/Vol] 3.7 mmol/L 3.5-5.1 [facility] Serum or plasma sodium measu rement (moles/volume)on 07-19-2020 Sodium [Moles/Vol] 139 mmol/L 136-146 [facility] Serum or plasma total biliru bin measurement (mass/volume)on 07-19-2020 Bilirubin [Mass/Vol] 0.6 mg/dL 0.3-1.2 [facility] Serum or plasma total carbon dioxide measurement (moles/volume)on 07-19-2020 CO2 [Moles/Vol] 27.0 mmol/L 22.0-30.0 [facility] Serum or plasma urea nitroge n measurement (mass/volume)on 07-19-2020 Urea nitrogen [Mass/Vol] 17 mg/dL 07-19 [facility] Ferritin [Mass/volume] in Se rum or Plasmaon 07-02-2019 Ferritin [Mass/Vol] 225.0 ng/mL 11-306.8 [facility] Iron [Mass/volume] in Serum or Plasmaon 07-02-2019 Iron [Mass/Vol] 77 ug/dL 40-150 [facility] Iron binding capacity [Mass/ volume] in Serum or Plasmaon 07-02-2019 Iron binding capacity [Mass/Vol] 356 ug/dL 255-450 [facility] Iron saturation [Mass Fracti on] in Serum or Plasmaon 07-02-2019 Iron saturation [Mass fraction] 21.0 % 20-50 [facility] Serum or plasma transferrin measurement (mass/volume)on 07-02-2019 Transferrin [Mass/Vol] 254 mg/dL 180-380 [facility] TSH DL <= 0.005 mIU/L Qnon 0 07-02-2019 TSH Qn 0.90 m[IU]/L 0.45-5.33 [facility] Thyroxine (T4) free [Mass/vo lume] in Serum or Plasmaon 07-02-2019 Free T4 [Mass/Vol] 0.81 ng/dL 0.61-1.12 [facility] Vital Signs Date Time Vital Sign Value Performing Clinician Facility 10-07-2024 15:18-0500 Body height 165.1 cm Vishal Barcenas DO Work Phone: [facility] 10-07-2024 15:18-0500 Body mass index (BMI) [Ratio] 17.31 kg/m2 Vishal Barcenas DO Work Phone: [facility] 10-07-2024 15:18-0500 Body temperature 97.9 [degF] Vishal Delilah DO Work Phone: [facility] 10-07-2024 15:18-0500 Body weight 47.17 kg Vishal Meadowser DO Work Phone: [facility] 10-07-2024 15:18-0500 Diastolic blood pressure 78 mm[Hg] Vishal Meadowser DO Work Phone: [facility] 10-07-2024 15:18-0500 Heart rate 80 /min Vishal Meadowser DO Work Phone: [facility] 10-07-2024 15:18-0500 Systolic blood pressure 110 mm[Hg] Vishal Delilah DO Work Phone: [facility] 08-26-2024 08:58-0400 Body height 165.1 cm Missy Verdigre DO Work Phone: [facility] 08-26-2024 08:58-0400 Body mass index (BMI) [Ratio] 17.97 kg/m2 Missy Verdigre DO Work Phone: [facility] 08-26-2024 08:58-0400 Body temperature 97.2 [degF] Missy Verdigre DO Work Phone: [facility] 08-26-2024 08:58-0400 Body weight 48.99 kg Missy Verdigre DO Work Phone: [facility] 08-26-2024 08:58-0400 Diastolic blood pressure 72 mm[Hg] Missy Verdigre DO Work Phone: [facility] 08-26-2024 08:58-0400 Heart rate 66 /min Missy Verdigre DO Work Phone: [facility] 08-26-2024 08:58-0400 SaO2% (BldA) [Mass fraction] 100 % Missy Verdigre DO Work Phone: [facility] 08-26-2024 08:58-0400 Systolic blood pressure 124 mm[Hg] Missy Verdigre DO Work Phone: [facility] 07-22-2024 15:19-0400 Body temperature 97.9 [degF] DO Chente Delilah Work Phone: [facility] 07-22-2024 15:19-0400 Body weight 48.08 kg DO Chente Barcenas Work Phone: [facility] 07-22-2024 15:19-0400 Diastolic blood pressure 81 mm[Hg] DO Chente Barcenas Work Phone: [facility] 07-22-2024 15:19-0400 Heart rate 68 /min DO Chente Barcenas Work Phone: [facility] 07-22-2024 15:19-0400 Respiratory rate 16 /min DO Chente Barcenas Work Phone: [facility] 07-22-2024 15:19-0400 SaO2% (BldA) [Mass fraction] 99 % DO Chente Barcenas Work Phone: [facility] 07-22-2024 15:19-0400 Systolic blood pressure 122 mm[Hg] DO Chente Barcenas Work Phone: [facility] 07-16-2024 08:53-0400 Body height 165.1 cm Chente Barcenas DO Work Phone: [facility] 07-16-2024 08:53-0400 Body mass index (BMI) [Ratio] 17.64 kg/m2 Chente Barcenas DO Work Phone: [facility] 07-16-2024 08:53-0400 Body weight 48.08 kg Chente Barcenas DO Work Phone: [facility] 07-16-2024 08:53-0400 Diastolic blood pressure 74 mm[Hg] Chente Barcenas DO Work Phone: [facility] 07-16-2024 08:53-0400 Systolic blood pressure 112 mm[Hg] Chente Barcenas DO Work Phone: [facility] 07-11-2023 08:56-0400 Body height 164.49 cm DO Chente Barcenas Work Phone: [facility] 07-11-2023 08:56-0400 Body temperature 97.8 [degF] DO Chente Barcenas Work Phone: [facility] 07-11-2023 08:56-0400 Body weight 48.67 kg DO Chente Barcenas Work Phone: [facility] 07-11-2023 08:56-0400 Diastolic blood pressure 78 mm[Hg] DO Chente Barcenas Work Phone: [facility] 07-11-2023 08:56-0400 Heart rate 60 /min DO Chente Barcenas Work Phone: [facility] 07-11-2023 08:56-0400 Respiratory rate 20 /min DO Chente Barcenas Work Phone: [facility] 07-11-2023 08:56-0400 SaO2% (BldA) [Mass fraction] 97 % DO Chente Barcenas Work Phone: [facility] 07-11-2023 08:56-0400 Systolic blood pressure 117 mm[Hg] DO Chente Barcenas Work Phone: [facility] 05-08-2023 22:52-0400 Diastolic blood pressure 89 mm[Hg] Darci Ambrose [facility] 05-08-2023 22:52-0400 Heart rate 76 /min Darci Ambrose [facility] 05-08-2023 22:52-0400 Mean blood pressure 105 mm[Hg] Darci Ambrose [facility] 05-08-2023 22:52-0400 Nursing Progress Note Reason Other: discharge instructons given. pt verbalized understanding. family at bedside Darci Ambrose [facility] 05-08-2023 22:52-0400 SaO2% (BldA) [Mass fraction] 99 % Darci Ambrose [facility] 05-08-2023 22:52-0400 Systolic blood pressure 138 mm[Hg] Kaylinn Dokken [facility] 05-08-2023 22:45-0400 Diastolic blood pressure 69 mm[Hg] Kaylinn Dokken [facility] 05-08-2023 22:45-0400 Systolic blood pressure 138 mm[Hg] Kaylinn Dokken [facility] 05-08-2023 21:47-0400 Diastolic blood pressure 78 mm[Hg] Kaylinn Dokken [facility] 05-08-2023 21:47-0400 Heart rate 66 /min Kaylinn Dokken [facility] 05-08-2023 21:47-0400 Mean blood pressure 98 mm[Hg] Kaylinn Dokken [facility] 05-08-2023 21:47-0400 Nursing Progress Note Reason Other: resting in bed. states pain slightly better family at bedside Kaylinn Dokken [facility] 05-08-2023 21:47-0400 SaO2% (BldA) [Mass fraction] 100 % Kaylinn Dokken [facility] 05-08-2023 21:47-0400 Systolic blood pressure 139 mm[Hg] Kaylinn Dokken [facility] 05-08-2023 21:46-0400 Heart rate 64 /min Kaylinn Dokken [facility] 05-08-2023 21:46-0400 Respiratory rate 16 /min Farooqylinn Dokken [facility] 05-08-2023 21:46-0400 SaO2% (BldA) [Mass fraction] 99 % Farooqylinn Dokken [facility] 05-08-2023 20:15-0400 Heart rate 61 /min Kaylinn Dokken [facility] 05-08-2023 20:15-0400 Respiratory rate 16 /min Farooqylinn Dokken [facility] 05-08-2023 19:05-0400 Body temperature 98.42 [degF] Farooqylinn Dokken [facility] 05-08-2023 19:05-0400 Heart rate 84 /min Farooqylinn Dokken [facility] 05-08-2023 19:05-0400 Respiratory rate 18 /min Nehan Dokken [facility] 03-10-2023 10:30-0400 Body height 165.1 cm Michelle Perry Other [facility] [employer] Other 03-10-2023 10:30-0400 Body temperature Michelle Vicky Other [facility] [employer] Other 03-10-2023 10:30-0400 Diastolic blood pressure 78 mm[Hg] Michelle Perry Other [employer] Other 03-10-2023 10:30-0400 SaO2% (BldA) [Mass fraction] 97 % Michelle Perry Other [employer] Other 03-10-2023 10:30-0400 Systolic blood pressure 122 mm[Hg] Michelle Perry Other [employer] Other 02-27-2023 10:00-0400 Body height 165.1 cm Michelle Perry Other [employer] Other 02-27-2023 10:00-0400 Body mass index (BMI) [Ratio] 17.64 kg/m2 Michelle Perry Other [employer] Other 02-27-2023 10:00-0400 Body temperature 97.3 [degF] Michelle Perry Other [employer] Other 02-27-2023 10:00-0400 Body weight 48.08 kg Michelle Perry Other [employer] Other 02-27-2023 10:00-0400 Diastolic blood pressure 72 mm[Hg] Michelle Perry Other [employer] Other 02-27-2023 10:00-0400 SaO2% (BldA) [Mass fraction] 99 % Michelle Perry Other [employer] Other 02-27-2023 10:00-0400 Systolic blood pressure 116 mm[Hg] Michelle Perry Other [employer] Other 10-30-2022 10:30-0500 Body height 165.1 cm Rosalia Soler Other [employer] Other 10-30-2022 10:30-0500 Body mass index (BMI) [Ratio] 17.64 kg/m2 Rosalia Soler Other [employer] Other 10-30-2022 10:30-0500 Body temperature 96.2 [degF] Rosalia Soler Other [employer] Other 10-30-2022 10:30-0500 Body weight 48.08 kg Rosalia Soler Other [employer] Other 10-30-2022 10:30-0500 Diastolic blood pressure 60 mm[Hg] Rosalia Chentaylor Other [employer] Other 10-30-2022 10:30-0500 SaO2% (BldA) [Mass fraction] 96 % Rosalia Chentaylor Other [employer] Other 10-30-2022 10:30-0500 Systolic blood pressure 102 mm[Hg] Rosalia Chentyalor Other [employer] Other 10-10-2022 09:30-0500 Body height 165.1 cm Michelle Perry Other [employer] Other 10-10-2022 09:30-0500 Body mass index (BMI) [Ratio] 17.64 kg/m2 Michelle Perry Other [employer] Other 10-10-2022 09:30-0500 Body temperature 97.8 [degF] Michelle Perry Other [employer] Other 10-10-2022 09:30-0500 Body weight 48.08 kg Michelle Perry Other [employer] Other 10-10-2022 09:30-0500 Diastolic blood pressure 82 mm[Hg] Michelle Perry Other [employer] Other 10-10-2022 09:30-0500 SaO2% (BldA) [Mass fraction] 98 % Michelle Perry Other [employer] [facility] [employer] Other 10-10-2022 09:30-0500 Systolic blood pressure 22 mm[Hg] Michelle Perry Other [employer] Other 07-10-2022 09:03-0400 Body temperature 97.8 [degF] MD Nica Nelson Work Phone: [facility] 07-10-2022 09:03-0400 Body weight 48.98 kg MD Nica Nelson Work Phone: [facility] 07-10-2022 09:03-0400 Diastolic blood pressure 84 mm[Hg] MD Nica Nelson Work Phone: [facility] 07-10-2022 09:03-0400 Heart rate 66 /min MD Nica Nelson Work Phone: [facility] 07-10-2022 09:03-0400 Respiratory rate 16 /min MD Nica Nelson Work Phone: [facility] 07-10-2022 09:03-0400 SaO2% (BldA) [Mass fraction] 99 % MD Nica Nelson Work Phone: [facility] 07-10-2022 09:03-0400 Systolic blood pressure 128 mm[Hg] MD Nica Nelson Work Phone: [facility] 04-25-2022 09:45-0400 Body height 165.1 cm Rosalia Soler Other [employer] Other 04-25-2022 09:45-0400 Body mass index (BMI) [Ratio] 19.97 kg/m2 Rosalia Soler Other [employer] Other 04-25-2022 09:45-0400 Body temperature 96.6 [degF] Rosalia Soler Other [employer] Other 04-25-2022 09:45-0400 Body weight 54.43 kg Rosalia Chentaylor Other [employer] Other 04-25-2022 09:45-0400 Diastolic blood pressure 82 mm[Hg] Rosalia Ryder Other [employer] Other 04-25-2022 09:45-0400 SaO2% (BldA) [Mass fraction] 99 % Rosalia Chentaylor Other [employer] Other 04-25-2022 09:45-0400 Systolic blood pressure 120 mm[Hg] Rosalia Chentaylor Other [employer] Other 01-24-2022 10:30-0400 Body height 165.1 cm Michelle Kingammon Other [employer] Other 01-24-2022 10:30-0400 Body mass index (BMI) [Ratio] 19.97 kg/m2 Michelle Kingammon Other [employer] Other 01-24-2022 10:30-0400 Body temperature 97.4 [degF] Michelle Vicky Other [employer] Other 01-24-2022 10:30-0400 Body weight 54.43 kg Michelle Kingammon Other [employer] Other 01-24-2022 10:30-0400 Diastolic blood pressure 64 mm[Hg] Michelle Vicky Other [employer] Other 01-24-2022 10:30-0400 SaO2% (BldA) [Mass fraction] 97 % Michelle Teeo Other [employer] Other 01-24-2022 10:30-0400 Systolic blood pressure 100 mm[Hg] Michelle Teeo Other [employer] Other 12-11-2021 10:15-0500 Body height 165.1 cm Michelle Perry Other [employer] Other 12-11-2021 10:15-0500 Body mass index (BMI) [Ratio] 19.97 kg/m2 Michelle Perry Other [employer] Other 12-11-2021 10:15-0500 Body temperature 99 [degF] Michelle Perry Other [employer] Other 12-11-2021 10:15-0500 Body weight 54.43 kg Michelle Perry Other [employer] Other 12-11-2021 10:15-0500 Diastolic blood pressure 68 mm[Hg] Michelle Teeo Other [employer] Other 12-11-2021 10:15-0500 SaO2% (BldA) [Mass fraction] 89 % Michelle Perry Other [employer] Other 12-11-2021 10:15-0500 Systolic blood pressure 102 mm[Hg] Michelle Teeo Other [employer] Other 04-18-2021 09:09-0400 Body height 164.49 cm MD Nica Nelson Work Phone: [facility] Encounters Encounter Date Encounter Type Care Provider Facility Start: 01-05-2025 End: 01-05-2025 Office outpatient visit 15 minutes Jr. Yuriy Martin DO Work Phone: [facility] Comment on above: Lateral epicondyliti s of right elbow (Primary Dx); Right elbow pain Start: 01-05-2025 End: 01-05-2025 ambulatory YURIY DIAZ Not Available Start: 11-10-2024 End: 11-10-2024 Office outpatient visit 15 minutes Jr. Yuriy Martin DO Work Phone: [facility] Comment on above: Lateral epicondyliti s of right elbow (Primary Dx); Right elbow pain Start: 11-10-2024 End: 11-10-2024 ambulatory YURIY DIAZ Not Available Start: 11-10-2024 End: 11-10-2024 Bamboo flowsheet Jr. Yuriy Arteaga Stepbacilio DO Work Phone: [facility] Start: 11-10-2024 End: 11-10-2024 Bamboo flowsheet Jr. Yuriy Martin DO Work Phone: [facility] Start: 10-07-2024 End: 10-07-2024 Office outpatient visit 25 minutes Vishal Barcenas DO Work Phone: [facility] Comment on above: Easy bruising (Prima ry Dx); Unspecified protein-calorie malnutrition (CMS/HCC); Immunodeficiency due to conditions classified elsewhere (CMS/HCC); Multinodular goiter (CMS/HCC); Other secondary scoliosis, thoracolumbar region Start: 10-07-2024 End: 10-07-2024 ambulatory VISHAL BARCENAS Not Available Start: 10-07-2024 End: 10-07-2024 Bamboo flowsheet Vishal Barcenas DO Work Phone: [facility] Start: 10-07-2024 End: 10-07-2024 Bamboo flowsheet Vishal Barcenas DO Work Phone: [facility] Start: 10-02-2024 End: 10-02-2024 Clinisync Result Encounter Vishal Barcenas DO Work Phone: [facility] Unsolicited Start: 10-02-2024 End: 10-02-2024 Clinisync Result Encounter Vishal Barcenas DO Work Phone: [facility] Unsolicited Start: 08-26-2024 End: 08-26-2024 Bamboo flowsheet Missy L Verdigre DO Work Phone: [facility] Start: 08-26-2024 End: 08-26-2024 Bamboo flowsheet Missy L Verdigre DO Work Phone: [facility] Start: 08-26-2024 End: 08-26-2024 Office outpatient visit 25 minutes Missy L Verdigre DO Work Phone: [facility] Comment on above: Easy bruising (Prima ry Dx); Lumbar facet arthropathy; Lateral epicondylitis of right elbow Start: 08-26-2024 End: 08-26-2024 ambulatory MISSY L CUTLER Not Available Start: 08-02-2024 End: 08-02-2024 Telephone encounter Jr. Yuriy Martin DO Work Phone: [facility] Comment on above: medication Start: 07-30-2024 End: 07-30-2024 Bamboo flowsheet Jr. Yuriy Arteaga Stepanic DO Work Phone: [facility] Start: 07-30-2024 End: 07-30-2024 Bamboo flowsheet Jr. Yuriy Arteaga Stepanic DO Work Phone: [facility] Start: 07-30-2024 End: 07-30-2024 Office outpatient visit 25 minutes Jr. Yuriy Arteaga Stepanic DO Work Phone: [facility] Comment on above: Lateral epicondyliti s of right elbow (Primary Dx) Start: 07-30-2024 End: 07-30-2024 ambulatory YURIY DIAZ Not Available Start: 07-22-2024 End: 07-22-2024 Patient encounter procedure DO [facility]: Start: 07-22-2024 Registered Recurring DO [facility] Work [facility]: Start: 07-22-2024 End: 07-22-2024 ambulatory DO Chente Barcenas Work Phone: [facility] Work Phone: Start: 07-16-2024 End: 07-16-2024 Patient encounter status Chente Barcenas DO Work Phone: [facility] Start: 07-16-2024 End: 07-16-2024 Periodic preventive med est patient 40-64yrs Chente Barcenas DO Work Phone: [facility] Comment on above: Encounter for gyneco logical examination without abnormal finding; Encounter for Papanicolaou smear of vagina; Personal history of malignant neoplasm of breast Start: 07-16-2024 End: 07-16-2024 ambulatory CHENTE BARCENAS Not Available Start: 06-11-2024 End: 06-11-2024 Office outpatient visit 25 minutes Jr. Yuriy Martin DO Work Phone: [facility] Comment on above: Right elbow pain (Pr imary Dx); Lateral epicondylitis of right elbow Start: 06-11-2024 End: 06-11-2024 ambulatory YURIY DIAZ Not Available Start: 04-21-2024 End: 04-21-2024 ambulatory YURIY DIAZ Not Available Start: 04-02-2024 End: 04-02-2024 ambulatory VISHAL CARREON Not Available Start: 04-01-2024 End: 04-01-2024 ambulatory VISHAL BARCENAS Not Available Start: 04-01-2024 End: 04-01-2024 ambulatory ROSALIA CAMACHO Not Available Start: 03-04-2024 End: 03-04-2024 ambulatory VISHAL BARCENAS Not Available Start: 02-23-2024 End: 02-23-2024 ambulatory JONATHAN SALAZAR Not Available Start: 02-19-2024 End: 02-19-2024 ambulatory [...] 01-12-2024 ambulatory JONATHAN SALAZAR Not Available Start: 12-11-2023 Chart abstracting Vishal shin DO Work Phone: [facility] Start: 09-12-2023 End: 09-12-2023 ambulatory DO Chente Barcenas Work Phone: [facility] Work Phone: Start: 09-12-2023 End: 09-12-2023 Departed Referred DO Chente Barcenas Work Phone: [facility] [place] Work Phone: Start: 07-11-2023 Registered Recurring DO Angeline Barcenas Work Phone: [facility] Work Phone: Start: 05-08-2023 End: 05-09-2023 Emergency department patient visit Darci Ambrose Facility:[facility] Start: 05-08-2023 End: 05-08-2023 Emergency department patient visit Darci Ambrose [facility] Start: 03-10-2023 End: 03-10-2023 Patient encounter procedure Michelle Perry [facility] Start: 03-10-2023 End: 03-10-2023 ambulatory DO Vishal Barcenas Work Phone: [employer] Other Start: 03-03-2023 End: 03-03-2023 Patient encounter procedure DO Vishal Barcenas Work Phone: [facility] [place] Work Phone: Start: 02-27-2023 End: 02-27-2023 ambulatory Michelle Perry Other [employer] Other Start: 02-27-2023 Patient encounter procedure Michelle Perry [facility] Start: 10-30-2022 End: 10-30-2022 ambulatory Rosalia Langtaylor Other [employer] Other Start: 10-30-2022 Postop follow up vis it related to original px Rosalia Soler [facility] Start: 10-10-2022 End: 10-10-2022 ambulatory Michelle Perry Other [employer] Other Start: 10-10-2022 Patient encounter procedure Michelle Perry [facility] Start: 07-11-2022 End: 07-11-2022 Patient encounter procedure MD Nica Nelson Work Phone: [facility] Start: 07-10-2022 End: 07-10-2022 Registered Recurring MD Nica Nelson Work Phone: [facility] Start: 07-03-2022 (EVLT) EVLT saphenou s vein ablation Rosalia Soler [facility] Start: 07-03-2022 End: 07-03-2022 ambulatory Rosalia Soler Other [employer] Other Start: 04-25-2022 End: 04-25-2022 ambulatory Rosalia Soler Other [employer] Other Start: 04-25-2022 Office outpatient vi sit 25 minutes Rosalia Soler [facility] Start: 04-19-2022 End: 04-19-2022 ambulatory Michelle Perry Other [employer] Other Start: 04-19-2022 Telephone encounter Michelle Cordero [facility] Start: 04-04-2022 End: 04-04-2022 ambulatory Michelle Perry Other [employer] Other Start: 04-04-2022 Telephone encounter Michelle Cordero [facility] Start: 03-15-2022 (Sclerother) Sclerotherapy Rosalia Chentaylor [facility] Start: 03-15-2022 End: 03-15-2022 ambulatory Rosalia Langtaylor Other [employer] Other Start: 01-24-2022 End: 01-24-2022 ambulatory Michelle Perry Other [employer] Other Start: 01-24-2022 Follow-up encounter Michelle Cordero [facility] Start: 12-17-2021 End: 12-17-2021 ambulatory Michelle Perry Other [employer] Other Start: 12-17-2021 Telephone encounter Michelle Cordero [facility] Start: 12-11-2021 End: 12-11-2021 ambulatory Michelle Perry Other [employer] Other Start: 12-11-2021 Office outpatient vi sit 15 minutes Michelle Kingbarbrabruce [facility] Start: 07-02-2018 Patient encounter Nica Savanna Omar Ralf cility:[id number] Procedures Date Procedure Procedure Detail Performing Clinician Start: 10-02-2024 ALL CBC WITH AUTO DIFF Vishal Barcenas DO Work Phone: Start: 07-15-2024 Screening mammograph y of left breast DO Chente Barcenas Work Phone: Start: 07-10-2023 Screening mammograph y of left [...] MD Nica Nelson Work Phone: Start: 01-24-2021 Colonoscopy Vishal shin DO Work Phone: Start: 10-05-2020 Ultrasound [...] LT w/CAD MD Nica Nelson Work Phone: Plan of Treatment Date Care Activity Detail Author Start: 01-24-2031 Screening for malign ant neoplasm of colon [facility] Start: 07-22-2025 End: 07-22-2025 Patient encounter procedure 07/22/2025 9:15 AM EDT Office Visit [facility] [address] [place] [phone] Chente Barcenas, DO [address] [place] [address] [facility] Start: 04-08-2025 End: 04-08-2025 Patient encounter procedure 04/08/2025 2:00 PM EDT Office Visit [facility] [address] [place] [address] Vishal Barcenas, DO [address] [place], [place] [id number] [facility] Start: 04-06-2025 End: 04-06-2025 Patient encounter procedure 04/06/2025 11:00 AM EDT Office Visit [facility] [address] [place] [phone] Jr. Yuriy Martin, DO [address] [place] [address] [facility] Start: 04-01-2025 End: 04-01-2025 Patient encounter procedure [facility] [place] Start: 03-28-2025 End: 10-07-2025 CBC W Auto Differential panel - Blood CBC and differential Lab Routine Easy bruising Expected: 03/28/2025, Expires: 10/07/2025 [facility] Work Phone: Comment on above: Expected: 03/28/2025 , Expires: 10/07/2025 Start: 03-28-2025 End: 10-07-2025 Comprehensive metabolic 2000 panel - Serum or Plasma Comprehensive metabolic panel Lab Routine Unspecified protein-calorie malnutrition (CMS/HCC) Expected: 03/28/2025, Expires: 10/07/2025 [facility] Comment on above: Expected: 03/28/2025 , Expires: 10/07/2025 Start: 03-28-2025 End: 10-07-2025 Lipid 1996 panel - Serum or Plasma Lipid panel Lab Routine Unspecified protein-calorie malnutrition ([facility]/HCC) Expected: 03/28/2025, Expires: 10/07/2025 [facility] Comment on above: Expected: 03/28/2025 , Expires: 10/07/2025 Start: 03-28-2025 End: 10-07-2025 Thyrotropin [Units/volume] in Serum or Plasma TSH Lab Routine Multinodular goiter ([facility]/HCC) Expected: 03/28/2025, Expires: 10/07/2025 [facility] Comment on above: Expected: 03/28/2025 , Expires: 10/07/2025 Start: 03-28-2025 End: 10-07-2025 Thyroxine (T4) free [Mass/volume] in Serum or Plasma T4, free Lab Routine Multinodular goiter ([facility]/HCC) Expected: 03/28/2025, Expires: 10/07/2025 [facility] Comment on above: Expected: 03/28/2025 , Expires: 10/07/2025 Start: 01-05-2025 End: 01-05-2025 Patient encounter procedure 01/05/2025 11:00 AM EDT Office Visit [facility] [address] [place] [address] Jr. Yuriy Martin, DO [address] [facility] [address] [place] [address] [facility] Start: 11-10-2024 End: 11-10-2024 Patient encounter procedure [facility] Comment on above: Lateral epicondyliti s of right elbow (Primary Dx); Right elbow pain Start: 11-05-2024 End: 11-05-2024 Patient encounter procedure 11/05/2024 3:00 PM EST Office Visit [facility] [address] [place] [address] Jr. Yuriy Martin, DO [address] [facility] [address] [place] [address] [facility] Start: 10-07-2024 End: 10-07-2024 Patient encounter procedure [facility] Comment on above: Arrived Start: 08-26-2024 End: 08-26-2024 Patient encounter procedure 08/26/2024 9:20 AM EDT Office Visit [facility] [address] [place] [phone] Missy England, DO [address] [place] [address] Arrived [facility] Comment on above: Arrived Start: 07-30-2024 End: 07-30-2024 Patient encounter procedure [facility] Comment on above: Arrived Start: 07-16-2024 End: 07-16-2024 Patient encounter procedure 07/16/2024 9:15 AM EDT Office Visit [facility] [address] [place] [address] Chente Barcenas, DO [address] [place] [address] [facility] Start: 06-27-2024 Influenza vaccination Influenza Vacc ine (#1) [facility] Start: 04-02-2024 End: 04-02-2024 Patient encounter procedure 04/02/2024 9:45 AM EDT Office Visit [facility] [place] [address] [place] [address] Vishal Carreon, DO [address] [place] [address] [facility] [place] Start: 04-01-2024 End: 04-01-2024 Patient encounter procedure 04/01/2024 3:40 PM EDT Office Visit [facility] [address] [place] [phone] Vishal Barcenas, DO [address] [place] [address] [facility] Start: 12-11-2023 End: 12-11-2023 Patient encounter procedure 12/11/2023 3:20 PM EST Office Visit [facility] [address] [facility] [address] [place] [phone] Vishal Barcenas DO [address] [place] [address] [facility] Start: 06-27-2023 Influenza vaccination Influenza Vacc ine (#1) [facility] Start: 1965 Screening for malign ant neoplasm of colon [facility] MG Breast - left Screening [facility] Work Phone: MG Breast - left Screening [facility] SENDOUT TEST MISCELLANEOUS [facility] SENDOUT TEST MISCELLANEOUS [facility] Lab Routine Encounter for Papanicolaou smear of vagina Ordered: 07/16/2024 [facility] Work Phone: Comment on above: Ordered: 07/16/2024 [facility] Payers Date Payer Category Payer Self-pay [id number] 2016 Medicaid [employer] [place] [id number] 2016-Present [address] [place] [address] [id number] 2016 Private Health Insurance [facility] MEDICAID [id number] 2016 Unknown [id number] [id number] 1965 Unknown [id number] 2.840.1.548625.3.579.2. 727 1965 Unknown [id number] 2.16.840.1.655326.3.579.2. 1259 1965 Unknown [id number] 2.840.1.891758.3.579.2. 1259 1965 Unknown [id number] 2.840.1.111094.3.579.2. 125 1965 Unknown [id number] 2.840.1.892689.3.579.2. 1258 1965 Unknown [id number] 2.840.1.610368.3.579.2. 1259 1965 Unknown [id number] 2.840.1.523819.3.579.2. 1259 1965 Unknown [id number] 2.840.1.181368.3.579.2. 1259 1965 Unknown [id number] 2.840.1.371737.3.579.2. 1259 1965 Unknown [id number] 2.16840.1.548342.3.579.2. 1259 1965 Unknown [id number] 2.840.1.465035.3.579.2. 1259 1965 Unknown [id number] 2.840.1.469159.3.579.2. 1259 1965 Unknown [id number] 2.16840.1.034962.3.579.2. 1259 1965 Unknown [id number] 2.16840.1.907594.3.579.2. 1259 1965 Unknown [id number] 2.16840.1.009797.3.579.2. 1259 1965 Unknown [id number] 2.16.840.1.200751.3.579.2. 1258 1965 Unknown [id number] 2.16.840.1.731289.3.579.2. 1258 1965 Unknown [id number] 2.16.840.1.865179.3.579.2. 1258 1965 Unknown [id number] 2.16.840.1.303502.3.579.2. 1258 1965 Unknown [id number] 2.16.840.1.747959.3.579.2. 1258 1965 Unknown [id number] 2.16.840.1.806321.3.579.2. 1258 1965 Unknown [id number] 2.16.840.1.975185.3.579.2. 1258 1965 Unknown [id number] 2.16.840.1.579101.3.579.2. 1258 1965 Unknown [id number] 2.16.840.1.547129.3.579.2. 1258 1965 Unknown [id number] 2.16.840.1.809145.3.579.2. 1259 Unknown [id number] Unknown [id number] 2.16.840.1.998019.3.579.2. 531 Unknown [id number] 2.16.840.1.042644.3.579.2. 531 Social History Date Type Detail Facility Start: 07-08-2023 End: 07-16-2024 Sex Assigned At [facility] Start: 07-10-2022 End: 09-26-2023 Tobacco smoking status NHIS Never smoked tobacco (finding) [facility] Start: 1965 Sex Assigned At Female F [facility] Tobacco smoking status No Smoking Status Entered [facility] Start: 09-26-2023 Tobacco use and exposure Smokeless tobacco non-user [facility] Start: 12-11-2023 End: 01-05-2025 Alcohol intake Lifetime non-drinker (finding) [facility] Start: 07-08-2023 End: 07-16-2024 History of Social function [facility] How often to you hav e a drink containing alcohol? Never [facility] How many standard drinks containing alcohol do you have on a typical day? Patient does not drink [facility] Start: 02-28-2023 Alcohol Comment Caffeine intak e: none [facility] Start: 1965 Sex Assigned At Not on file N [facility] NEGATED: Highlighted rowStart: NINF History of tobacco use Passive smoker [facility] Functional Status Date Assessment Result Facility 05-08-2023 Functional Status N/A [facility] Clinical Notes 07-08-2017 to 01-05-2025 . Yuriy Martin, DO - 01/05/2025 11:00 AM EDTJr. Yuriy Martin, DO - 11/10/2024 2:45 PM Carrie Barcenas, DO - 10/07/2024 3:20 PM Narda England, DO - 08/26/2024 9:20 AM EDT Note Date & Type Note Facility 01-05-2025 History of Present illness Narrative Images from the original note were not included. HISTORY OF PRESENT ILLNESS: EST PT Maricel Easton is an 59 y.o. @ female. (EST PT) - RECHECK (R) ELBOW - S/P HEP XRAYS, 04/01/24 IN [facility] NO MRI S/P PREDNISONE 12/11/23 - DR ENGLAND S/P LAT EPICONDYLE CORTISONE INJ 04/01/24, 12/26/23 S/P PHYSICAL THERAPY (12 VISITS) @ [facility] [place] ; DECEMBER - JANUARY 2024 NO PAIN MGMT DOING BETTER. PRESENTS IN WRIST BRACE - WEARING AT ALL TIMES. CONTINUES HEP - WITH RELIEF. NOTES SYMPTOMS ARE IMPROVING DAILY. NO LONGER WORKING. DISCOMFORT DIFFUSE. MOST DISCOMFORT HS WHEN SLEEPING. BRACE HELPING WITH SYMPTOMS. RADIATION INTO MID FOREARM. DENIES N/T. ADMITS DIFFICULTY WITH OPENING JARS - WEAKNESS. NO WEAKNESS WITH CROSS CUT SAWYER. DENIES SWELLING. GOOD ROM. NO PAIN MEDS. NO ICING / HEATING. H/O INJURY : SYMPTOMS FOR BEGAN IN SEPTEMBER 2023 (~1 YR, 3 MONTHS) ; NOTICED A SHARP PAIN WHEN FLIPPING A NOWAK BASKET AT WORK (NOT [facility]) ALLERGIES: Allergies Allergen Reactions Other Other Reaction(s): Unknown Tramadol Other Reaction(s): Unknown Wound Dressing Adhesive Other Reaction(s): Unknown Hydromorphone Other Reaction(s): Flushing HOME MEDICATIONS: Current Outpatient Medications Medication Instructions calcium carbonate 1500 (600 Ca) MG tablet TAKE 1 TABLET BY MOUTH DAILY WITH A MEAL cholecalciferol (VITAMIN D-3) 50 mcg, Oral, Daily cyclobenzaprine (FLEXERIL) 10 mg, Oral, 3 times daily PRN ferrous sulfate 325 mg, Oral, Daily with breakfast, Do not crush, chew, or split. lisinopril 10 mg, Oral, Daily Multiple Vitamin (Multivitamin Adult) tablet Orally naproxen (Naprosyn) 500 MG tablet 1 po bid with food prn pain tamoxifen (NOLVADEX) 20 mg, Daily PHYSICAL EXAM: Elbow Musculoskeletal Exam Inspection Right Right elbow inspection is normal. Ecchymosis: none Swelling: lateral Deformity: none Palpation Right Crepitus (radiocapitellar): none Tenderness: present (pain has decreased from prior examination) Medial/flexor origin: none Lateral/extensor origin: mild Lateral/extensor origin comment: But improved from last visit. Posterior-olecranon: none Range of Motion Right Right elbow range of motion is normal. Active Extension: 0 Passive Extension: 0 Active Flexion: 140 Passive Flexion: 150 Active Pronation: 90 Passive Pronation: 90 Active Supination: 90 Passive Supination: 90 Strength Right Right elbow strength is normal. Extension: 5/5. Extension is not affected by pain. Flexion: 5/5. Pronation: 5/5. Supination: 5/5. Supination is affected by pain. Finger abduction: 5/5. Brick Sorter strength: 5/5. Neurovascular Right Right elbow nerve sensation is normal. Radial pulse: normal Capillary refill: <3 sec Ulnar nerve sensory distribution: normal Median nerve sensory distribution: normal Special Tests Right Neurological Signs Pain with resisted pronation: negative Pain with resisted supination: negative Pain with resisted long finger: positive Epicondylitis Signs Pain with resisted wrist flexion: negative Pain with resisted wrist extension: negative Special Signs Pain with terminal extension: negative Vitals: There is no height or weight on file to calculate BMI. Tobacco Use: Low Risk (01/05/2025) Patient History Smoking Tobacco Use: Never Smokeless Tobacco Use: Never Passive Exposure: Never Alcohol Use: Not At Risk (07/16/2024) AUDIT-C Frequency of Alcohol Consumption: Never Average Number of Drinks: Patient does not drink Frequency of Binge Drinking: Never IMAGING: Procedures No orders of the defined types were placed in this encounter. ASSESSMENT: ICD-10-CM 1. Lateral epicondylitis of right elbow M77.11 2. Right elbow pain M25.521 PLAN: We have discussed her symptoms, physical exam, at length today. She continues to improve. We will gradually try to wean her out of her wrist splint during periods of rest during the day and eventually at all times even with heavy activity if tolerated. We'll see her back in 3 months to reassess. If her symptoms persist or worsen we may recommend lateral epicondylectomy. Questions answered in laymen terms at the bedside. The diagnosis, home exercise plan and any ongoing restrictions/ recommendations reviewed. If unable to be reached in office, I recommend evaluation at nearest Emergency Room if any symptoms worsened or new symptoms develop for requiring urgent evaluation. documented in this encounter [facility] 11-10-2024 History of Present illness Narrative Images from the original note were not included. HISTORY OF PRESENT ILLNESS: EST PT Maricel Easton is an 59 y.o. @ female. (EST PT) RECHECK (R) ELBOW - S/P CELEBREX AND ICE AFTER ACTIVITY XRAYS, 04/01/24 IN [facility] NO MRI S/P PREDNISONE 12/11/23 - DR ENGLAND S/P LAT EPICONDYLE CORTISONE INJ 04/01/24, 12/26/23 S/P PHYSICAL THERAPY (12 VISITS) @ [facility] ; DECEMBER - JANUARY 2024 NO PAIN MGMT STATES SHE WOULD EXPECT SOME TYPE OF IMPROVEMENT BY NOW. SHE IS CURRENTLY OFF WORK. PAIN IS LATERAL ; SOME FOREARM PAIN WITH RADIATION INTO HER HAND. DENIES ANY WEAKNESS WHEN GRIPPING / GRASPING / SQUEEZING. DENIES ANY SWELLING. WEARS VELCRO STRAP/BRACE WHEN PAINFUL. LIMITED ROM. NO PAIN MEDS AT THIS TIME. H/O INJURY : SYMPTOMS FOR BEGAN IN SEPTEMBER 2023 (~6 MONTHS) ; NOTICED A SHARP PAIN WHEN FLIPPING A NOWAK BASKET AT WORK (NOT [facility]) ALLERGIES: Allergies Allergen Reactions Other Other Reaction(s): Unknown Tramadol Other Reaction(s): Unknown Wound Dressing Adhesive Other Reaction(s): Unknown Hydromorphone Other Reaction(s): Flushing HOME MEDICATIONS: Current Outpatient Medications Medication Instructions calcium carbonate 1500 (600 Ca) MG tablet TAKE 1 TABLET BY MOUTH DAILY WITH A MEAL cholecalciferol (VITAMIN D-3) 50 mcg, Oral, Daily cyclobenzaprine (FLEXERIL) 10 mg, Oral, 3 times daily PRN ferrous sulfate 325 (65 Fe) MG EC tablet lisinopril 10 mg, Oral, Daily Multiple Vitamin (Multivitamin Adult) tablet Orally naproxen (Naprosyn) 500 MG tablet 1 po bid with food prn pain tamoxifen (NOLVADEX) 20 mg, Daily PHYSICAL EXAM: Elbow Musculoskeletal Exam Inspection Right Right elbow inspection is normal. Ecchymosis: none Swelling: lateral Deformity: none Palpation Right Crepitus (radiocapitellar): none Tenderness: present (pain has decreased from prior examination) Medial/flexor origin: none Lateral/extensor origin: mild Lateral/extensor origin comment: But improved from last visit. Posterior-olecranon: none Range of Motion Right Right elbow range of motion is normal. Active Extension: 0 Passive Extension: 0 Active Flexion: 140 Passive Flexion: 150 Active Pronation: 90 Passive Pronation: 90 Active Supination: 90 Passive Supination: 90 Strength Right Right elbow strength is normal. Extension: 5/5. Extension is affected by pain. Flexion: 5/5. Pronation: 5/5. Supination: 5/5. Supination is affected by pain. Finger abduction: 5/5. Brick Sorter strength: 5/5. Neurovascular Right Right elbow nerve sensation is normal. Radial pulse: normal Capillary refill: <3 sec Ulnar nerve sensory distribution: normal Median nerve sensory distribution: normal Special Tests Right Neurological Signs Pain with resisted pronation: negative Pain with resisted supination: positive Pain with resisted long finger: positive Epicondylitis Signs Pain with resisted wrist flexion: negative Pain with resisted wrist extension: positive Special Signs Pain with terminal extension: positive Vitals: There is no height or weight on file to calculate BMI. Tobacco Use: Low Risk (11/10/2024) Patient History Smoking Tobacco Use: Never Smokeless Tobacco Use: Never Passive Exposure: Never Alcohol Use: Not At Risk (07/16/2024) AUDIT-C Frequency of Alcohol Consumption: Never Average Number of Drinks: Patient does not drink Frequency of Binge Drinking: Never IMAGING: Procedures No orders of the defined types were placed in this encounter. ASSESSMENT: ICD-10-CM 1. Lateral epicondylitis of right elbow M77.11 2. Right elbow pain M25.521 PLAN: Patient is significantly better than she was prior to being off work. She is pleased with her progress as am I. We'll continue her on her home exercise stretching program and see her back in 8 weeks. If her symptoms persist or worsen, we may recommend a lateral epicondylectomy, right elbow. Questions answered in laymen terms at the bedside. The diagnosis, home exercise plan and any ongoing restrictions/ recommendations reviewed. If unable to be reached in office, I recommend evaluation at nearest Emergency Room if any symptoms worsened or new symptoms develop for requiring urgent evaluation. documented in this encounter [facility] 10-07-2024 History of Present illness Narrative Images from the original note were not included. Maricel Easton is a 59 y.o. female presents with chief complaint of No chief complaint on file. HPI: HPI Relates her disability went through. Tomorrow is last day of work. Discuss lab History of Present Illness The patient is a 59-year-old female who presents for scoliosis, bruising on finger, blood pressure management, and medication management. She has been diagnosed with severe scoliosis, a condition she has been managing since the age of 12. She has been working full-time until 2017 when her symptoms began to worsen. Despite this, she continued to work part-time for an additional 7 years. She is currently in the process of applying for disability benefits due to her severe scoliosis, which was diagnosed at the age of 12. She has been informed that there is a 2-year waiting period before she can qualify for Medicare, with her eligibility starting in 03/2026. She is seeking a disability placard to assist with mobility. She reports persistent bruising on her finger, which she attributes to her work environment. She notes that the bruising subsides when she is not working, as evidenced by the absence of bruising from Friday to Friday. However, upon returning to work, she experienced pain and bruising in her finger while opening a door. She also recalls an incident where her finger began to hurt and bruise while carrying a paper plate. She is uncertain about the cause of these symptoms but speculates that they may be related to her work activities. She discontinued tamoxifen in 10/2023 and has observed an increase in her blood pressure since starting the medication. She is seeking advice on potential indicators that she may no longer require antihypertensive medication. She recalls having low blood pressure prior to initiating tamoxifen therapy. She has a home blood pressure monitor and reports that her systolic blood pressure is typically around 120/80. She has completed a 10-year follow-up with her oncologist, who had previously prescribed iron tablets. She is requesting a refill of this prescription. She anticipates a slight weight gain now that she is home and able to consume three meals a day. She reports feeling satiated after meals and does not feel the need to eat again at 9:00 PM. She has been maintaining a qtu-ubuw-a-day diet for the past 7 years. FAMILY HISTORY Her mother has high blood pressure. Both of her sisters are heavyset. Her brother is tall and not overweight but not trim. Her grandfather was always a tall man. MEDICATIONS Current: iron tablets Discontinued: tamoxifen SUBJECTIVE: MEDICATIONS: ALLERGIES Current Outpatient Medications Medication Instructions calcium carbonate 1500 (600 Ca) MG tablet TAKE 1 TABLET BY MOUTH DAILY WITH A MEAL cholecalciferol (VITAMIN D-3) 50 mcg, Oral, Daily cyclobenzaprine (FLEXERIL) 10 mg, Oral, 3 times daily PRN ferrous sulfate 325 (65 Fe) MG EC tablet lisinopril 10 mg, Oral, Daily Multiple Vitamin (Multivitamin Adult) tablet Orally naproxen (Naprosyn) 500 MG tablet 1 po bid with food prn pain tamoxifen (NOLVADEX) 20 mg, Daily Allergies Allergen Reactions Other Other Reaction(s): Unknown Tramadol Other Reaction(s): Unknown Wound Dressing Adhesive Other Reaction(s): Unknown Hydromorphone Other Reaction(s): Flushing Depression: Not at risk (07/16/2024) PHQ-2 PHQ-2 Score: 0 REVIEW OF SYMPTOMS: Review of Systems OBJECTIVE: BP 110/78 Pulse 80 Temp 97.9 F Ht 5' 5 Wt 104 lb BMI 17.31 kg/m Recent Results (from the past 6 weeks) ALL CBC WITH AUTO DIFF Collection Time: 10/02/24 7:17 AM Result Value Ref Range [facility] WBC 5.2 4.0 - 11.0 10 3/uL [facility] RBC 4.93 4.20 - 5.40 10 6/uL [facility] HGB 14.0 12.0 - 16.0 g/dL TB[facility] HCT 43.4 36.0 - 48.0 % [facility] MCV 88.0 81.0 - 99.0 fL [facility] MCH 28.4 26.7 - 34.0 pg [facility] MCHC 32.3 29.9 - 35.2 g/dL [facility] RDW 13.1 11.0 - 15.0 % [facility] PLT 203 150 - 450 10 3/uL [facility] MPV 10.4 9.5 - 13.5 fL NEUTROPHILS PERCENT AUTO 55.6 43.0 - 75.0 % LYMPHOCYTES PERCENT AUTO 30.1 20.5 - 60.0 % MONOCYTES PERCENT AUTO 8.7 1.7 - 12.0 % TBH EO % 4.2 0.9 - 7.0 % BASOPHILS PERCENT AUTO 1.2 0.2 - 2.0 % IMMATURE GRANULOCYTES PCT AUTO 0.2 0.0 - 0.5 % NEUTROPHILS ABSOLUTE AUTO 2.9 1.4 - 6.5 10 3/uL LYMPHOCYTES ABSOLUTE AUTO 1.6 1.2 - 3.8 10 3/uL MONOCYTES ABSOLUTE AUTO 0.5 0.3 - 0.8 10 3/uL TBH EO # 0.2 0.0 - 0.7 10 3/uL BASOPHILS ABSOLUTE AUTO 0.1 0.0 - 0.1 10 3/uL IMMATURE GRANULOCYTES ABS AUTO 0.01 0.00 - 0.03 10 3/uL [facility] CMP (CMP) (FOR REMOTE [facility] USE) Collection Time: 10/02/24 7:17 AM Result Value Ref Range SODIUM 144 136 - 145 mmol/L POTASSIUM 4.3 3.5 - 5.1 mmol/L CHLORIDE 105 98 - 107 mmol/L CARBON DIOXIDE 33.1 (H) 21.0 - 32.0 mmol/L ANION GAP 10.2 GLUCOSE 93 74 - 106 mg/dL BLOOD UREA NITROGEN 22.0 (H) 7.0 - 18.0 mg/dL CREATININE 0.90 0.55 - 1.02 mg/dL TBH EGFR-AF FILIPINO >60 >=60 mL/min/1.73m 2 TBH EGFR-NON AF FILIPINO >60 >=60 mL/min/1.73m 2 BUN CREATININE RATIO 24.4 CALCIUM 8.9 8.5 - 10.1 mg/dL BILIRUBIN TOTAL 0.5 0.2 - 1.0 mg/dL ASPARTATE AMINO TRANSFERASE 35 15 - 37 U/L ALANINE AMINOTRANSFERASE 36 14 - 59 U/L ALKALINE PHOSPHATASE 37 (L) 46 - 116 U/L TOTAL PROTEIN 6.6 6.4 - 8.2 g/dL ALBUMIN LEVEL 3.6 3.4 - 5.0 g/dL GLOBULIN 3.0 g/dL ALBUMIN GLOBULIN RATIO 1.2 ALL LIPID PROFILE (FASTING) Collection Time: 10/02/24 7:17 AM Result Value Ref Range TRIGLYCERIDES 39 <=150 mg/dL CHOLESTEROL 173 <=200 mg/dL HDL CHOLESTEROL 80 (H) 40 - 60 mg/dL LDL CHOLESTEROL CALCULATED 86.0 mg/dL VLDL CHOLESTEROL 7.8 mg/dL CHOL HDL RATIO 2.2 Results Laboratory Studies HDL cholesterol is high. Bicarbonate is slightly high. Blood urea nitrogen is high. Blood sugar was 93. GFR is greater than 60. Calcium, bilirubin, AST, ALT are normal. Alkaline phosphatase is low. Total protein is normal. White blood cell count is normal. GENERAL EXAM: Physical Exam Physical Exam Lungs were auscultated. Vital Signs BMI is 17.3. ASSESSMENT AND PLAN: Assessment/Plan Diagnoses and all orders for this visit: Easy bruising - CBC and differential; Future Unspecified protein-calorie malnutrition ([facility]/HCC) - Comprehensive metabolic panel; Future - Lipid panel; Future Immunodeficiency due to conditions classified elsewhere (CMS/HCC) Multinodular goiter (CMS/HCC) - T4, free; Future - TSH; Future Other secondary scoliosis, thoracolumbar region - Handicap Placard 5 Years Assessment & Plan 1. Scoliosis. She has been approved for disability due to severe scoliosis. A handicap placard will be issued to assist with mobility. 2. Bruising on finger. The bruising could potentially be attributed to repetitive motion associated with her work. 3. Blood pressure management. She has been advised to monitor her blood pressure at home, with a target systolic reading of 110 or above. If she experiences lightheadedness, it may indicate that her blood pressure is too low, and medication adjustments will be considered. She has been instructed to report any symptoms such as headaches, visual disturbances, or palpitations. 4. Medication management. A prescription for iron tablets 325 mg will be provided. She has been advised to continue her current dietary habits, which include adequate protein intake. Follow-up The patient is scheduled for a follow-up visit on 04/04/2025. No follow-ups on file. I have reviewed and reconciled the history and medication list with the patient today. documented in this encounter [facility] 08-26-2024 History of Present illness Narrative Images from the original note were not included. [facility] GOLDEN Andres SUBJECTIVE: HPI: Maricel Easton is a 59 y.o. female who presents with chief complaint of No chief complaint on file. Pt presents for right thumb and middle finger pain. Pt notes that she has been getting bruising on these fingers. Pt notes that she did start a new medication at the beginning of the month which is when this all started as well. I have reviewed and reconciled the history and medication list with the patient today. Depression: Not at risk (07/16/2024) PHQ-2 PHQ-2 Score: 0 reports that she has never smoked. She has never been exposed to tobacco smoke. She has never used smokeless tobacco. She reports that she does not drink alcohol and does not use drugs. OBJECTIVE: 12/26/2023 9:35 AM 03/04/2024 4:33 PM 04/01/2024 8:05 AM 04/01/2024 4:04 PM 04/02/2024 9:34 AM 07/16/2024 8:53 AM 08/26/2024 8:58 AM Vitals BMI 17.97 kg/m2 17.81 kg/m2 17.81 kg/m2 17.47 kg/m2 17.97 kg/m2 17.64 kg/m2 17.97 kg/m2 BSA (m2) 1.5 m2 1.49 m2 1.49 m2 1.48 m2 1.5 m2 1.49 m2 1.5 m2 Systolic 122 118 120 112 124 Diastolic 76 72 72 74 72 Heart Rate 62 80 76 66 SpO2 97 % 100 % Temp 97.7 F 97.2 F 98.2 F 97.2 F Height (in) 5' 5 5' 5 5' 5 5' 5 5' 5 5' 5 Weight (lb) 108 107 107 105 108 106 108 Visit Report Report Report Report Report Report Report Report Report Report Physical Exam Constitutional: General: She is not in acute distress. Appearance: She is not ill-appearing or toxic-appearing. HENT: Head: Normocephalic. Eyes: Conjunctiva/sclera: Conjunctivae normal. Pulmonary: Effort: Pulmonary effort is normal. No respiratory distress. Breath sounds: No stridor. Abdominal: General: Abdomen is flat. Tenderness: There is no abdominal tenderness. Musculoskeletal: General: Tenderness (1/3 fingers on R hand) present. No swelling or signs of injury. Normal range of motion. Cervical back: Normal range of motion. Skin: General: Skin is warm and dry. Findings: No bruising. Neurological: General: No focal deficit present. Mental Status: She is alert. Mental status is at baseline. Psychiatric: Mood and Affect: Mood normal. Behavior: Behavior normal. Thought Content: Thought content normal. Judgment: Judgment normal. No results found for this or any previous visit (from the past 4 weeks). ASSESSMENT AND PLAN: Assessment/Plan Diagnoses and all orders for this visit: Easy bruising Lumbar facet arthropathy - naproxen (Naprosyn) 500 MG tablet; 1 po bid with food prn pain - cyclobenzaprine (Flexeril) 10 MG tablet; Take 1 tablet (10 mg) by mouth 3 (three) times a day as needed for muscle spasms Lateral epicondylitis of right elbow Since taking celebrex daily, she has noticed increased bruising in her fingers, will stop that med and go back to her prn use of naproxen, she took this pretty infrequently and did not have the bruising. Change was made for better control of lateral epicondylitis, which has not improved in the last few weeks since starting celebrex anyway. 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 Lumbar facet arthropathy Pain due to varicose veins of both lower extremities Personal history of malignant neoplasm of breast Iron deficiency anemia Scoliosis Lateral epicondylitis of right elbow Elbow pain Past Medical History: Diagnosis Date Breast disease 2014 right Breast lump Burn Cardiomegaly Chicken pox Costochondritis 04/2023 Dextroscoliosis of thoracic spine Significant thoracic dextroscoliosis Family history of cancer Heart disease Heart murmur History of right breast cancer Hypertension (CMS/HCC) Liver lesion small Scoliosis Thyroid nodule (CMS/HCC) small Vaginal infection documented in this encounter [facility] 08-02-2024 Telephone encounter Note Pt recently prescribed Celebrex for tennis elbow. That doctor told her she could not continue to take her Naproxen while taking the celebrex. She is wondering if Dr. Barcenas could prescribe something for her back pain that she could take while taking the celebrex. Pt is going to [place] for disability evaluation.They will send Dr. Barcenas a copy of this evaluation. [facility] 08-02-2024 Miscellaneous Notes Pt recently prescribed Celebrex for tennis elbow. That doctor told her she could not continue to take her Naproxen while taking the celebrex. She is wondering if Dr. Barcenas could prescribe something for her back pain that she could take while taking the celebrex. Pt is going to [place] for disability evaluation.They will send Dr. Barcenas a copy of this evaluation. documented in this encounter [facility] 08-02-2024 Telephone encounter Note Called and left vm letting patient know. [facility] 08-02-2024 Miscellaneous Notes Called and left vm letting patient know. Case has been discussed with Dr. Martin ; ok to proceed with Celebrex. Patient called regarding medication prescribed to her at her appt on Friday. Patient states that she has a family history of heart disease and high blood pressure. Patient has not started taking new medication yet. She wants to know if it is ok to still take the medication prescribed on Friday07/30/24? Please advise [phone]. documented in this encounter [facility] 08-02-2024 Telephone encounter Note Case has been discussed with Dr. Martin ; ok to proceed with Celebrex. [facility] 08-02-2024 Telephone encounter Note Patient called regarding medication prescribed to her at her appt on Friday. Patient states that she has a family history of heart disease and high blood pressure. Patient has not started taking new medication yet. She wants to know if it is ok to still take the medication prescribed on Friday07/30/24? Please advise [phone]. [facility] 07-30-2024 History of Present illness Narrative Images from the original note were not included. HISTORY OF PRESENT ILLNESS: EST PT Maricel Easton is an 59 y.o. @ female. (EST PT) RECHECK (R) ELBOW ; S/P HEP XRAYS, 04/01/24 [facility] NO MRI S/P PREDNISONE 12/11/23 - DR ENGLAND S/P LAT EPICONDYLE CORTISONE INJ 04/01/24, 12/26/23 S/P PHYSICAL THERAPY (12 VISITS) @ [facility] ; DECEMBER - JANUARY 2024 NO PAIN MGMT STATES SHE FELT GREAT WHILE OFF WORK FOR 2 WEEKS ; NOTES INCREASED PAIN / THROBBING SINCE RTW - CONTINUES TO AVOID NOWAK STATION. PAIN IS LATERAL ; SOME FOREARM PAIN WITH RADIATION INTO HER HAND. NOTES GOOD ROM ; DENIES ANY WEAKNESS WHEN GRIPPING / GRASPING / SQUEEZING. DENIES ANY SWELLING. CONTINUES TO WEAR VELCRO WRIST SPLINT WHILE WORKING. TAKES NAPROXEN PRN (SCOLIOSIS PAIN). CONTINUES WORK RESTRICTIONS - NO LIFTING OVER 5LBS H/O INJURY : SYMPTOMS FOR BEGAN IN SEPTEMBER 2023 (~6 MONTHS) ; NOTICED A SHARP PAIN WHEN FLIPPING A NOWAK BASKET AT WORK (NOT [facility]) ALLERGIES: Allergies Allergen Reactions Other Other Reaction(s): Unknown Tramadol Other Reaction(s): Unknown Wound Dressing Adhesive Other Reaction(s): Unknown HOME MEDICATIONS: Current Outpatient Medications Medication Instructions calcium carbonate 1500 (600 Ca) MG tablet TAKE ONE TABLET BY MOUTH DAILY WITH A MEAL celecoxib (CELEBREX) 200 mg, Oral, Daily, Take with food cholecalciferol (VITAMIN D-3) 50 mcg, Oral, Daily ferrous sulfate 325 (65 Fe) MG EC tablet lisinopril 10 MG tablet TAKE 1 TABLET BY MOUTH DAILY AT THE SAME TIME EACH DAY Multiple Vitamin (Multivitamin Adult) tablet Orally naproxen (Naprosyn) 500 MG tablet 1 po bid with food prn pain tamoxifen (NOLVADEX) 20 mg, Oral, Daily PHYSICAL EXAM: Elbow Musculoskeletal Exam Inspection Right Right elbow inspection is normal. Ecchymosis: none Swelling: lateral Deformity: none Palpation Right Crepitus (radiocapitellar): none Tenderness: present (pain has decreased from prior examination) Medial/flexor origin: none Lateral/extensor origin: mild Posterior-olecranon: none Range of Motion Right Right elbow range of motion is normal. Active Extension: 0 Passive Extension: 0 Active Flexion: 140 Passive Flexion: 140 Active Pronation: 90 Passive Pronation: 90 Active Supination: 90 Passive Supination: 90 Strength Right Right elbow strength is normal. Extension: 5/5. Extension is affected by pain. Flexion: 5/5. Pronation: 5/5. Supination: 5/5. Supination is affected by pain. Finger abduction: 5/5. Brick Sorter strength: 5/5. Neurovascular Right Right elbow nerve sensation is normal. Radial pulse: normal Capillary refill: <3 sec Ulnar nerve sensory distribution: normal Median nerve sensory distribution: normal Special Tests Right Neurological Signs Pain with resisted pronation: negative Pain with resisted supination: positive Pain with resisted long finger: positive Epicondylitis Signs Pain with resisted wrist flexion: negative Pain with resisted wrist extension: positive Special Signs Pain with terminal extension: positive Vitals: There is no height or weight on file to calculate BMI. Tobacco Use: Low Risk (07/30/2024) Patient History Smoking Tobacco Use: Never Smokeless Tobacco Use: Never Passive Exposure: Never Alcohol Use: Not At Risk (07/16/2024) AUDIT-C Frequency of Alcohol Consumption: Never Average Number of Drinks: Patient does not drink Frequency of Binge Drinking: Never IMAGING: Procedures No orders of the defined types were placed in this encounter. ASSESSMENT: ICD-10-CM 1. Lateral epicondylitis of right elbow M77.11 celecoxib (CeleBREX) 200 MG capsule PLAN: We have answered all the patients questions and explained the patients condition, decision making and plan including the risks and benefits associated with said plan in layman''s terms in a language the patient could understand easily. If patient''s symptoms significantly worsen and they cannot get a hold of us or their family physician, we have recommended that the patient proceed to the nearest emergency department (room). Dr. Martin obtained history and examined the patient, I am acting as scribe for Dr. Martin/[facility], PLAN: We have reviewed prior (R) elbow xrays. After examination of her right elbow today we have discussed both surgical and nonsrugical intervention, with the risks and benefits of both. Patient is refusing the thought of surgical intervention. We are recommending that she discontinue Naproxen and start Celebrex with verbal understanding she is unable to take additional NSAIDs. We are recommending that she continue to ice after increased activity. We are recommending she continue with currently work restrictions pending follow up. We have discussed her HEP and restrictions and will see her back in 3 months to reassess her right elbow, if exam warrants we may recommend lateral epicondylectomy. Yuriy Martin D.O. documented in this encounter [facility] 07-16-2024 History of Present illness Narrative Images from the original note were not included. hCente Barcenas, Obstetrics and Gynecology Maricel Easton 1965 07/16/24 [id number] Yearly Wellness Exam Chief Complaint Patient presents with Gynecologic Exam LMP: KIMO BSO 2018 HRT: none Last pap 07-08-23 neg. Follow oncology for mammograms. Appt next week- hopes to be cleared after 10 years. Denies breast, urinary, or bowel concerns. Visit Vitals BP 112/74 Ht 5' 5 Wt 106 lb BMI 17.64 kg/m OB Status Hysterectomy Smoking Status Never BSA 1.49 m OB History Para Term AB Living 2 2 2 SAB IAB Ectopic Multiple Live Births 2 # Outcome Date GA Lbr Fernando/2nd Weight Sex Type Anes PTL Lv 2 Para 7 lb 2 oz Vag-Spont AMRIT 1 Para 6 lb 12 oz Vag-Spont AMRIT Current Outpatient Medications Medication Sig Dispense Refill ferrous sulfate 325 (65 Fe) MG EC tablet calcium carbonate 1500 (600 Ca) MG tablet TAKE ONE TABLET BY MOUTH DAILY WITH A MEAL 30 tablet 5 cholecalciferol (Vitamin D-3) 50 MCG (2000 UT) tablet TAKE 1 TABLET BY MOUTH DAILY 30 tablet 5 lisinopril 10 MG tablet TAKE 1 TABLET BY MOUTH DAILY AT THE SAME TIME EACH DAY 90 tablet 3 Multiple Vitamin (Multivitamin Adult) tablet Orally naproxen (Naprosyn) 500 MG tablet 1 po bid with food prn pain 60 tablet 1 tamoxifen (Nolvadex) 20 MG chemo tablet Take 20 mg by mouth Daily. No current facility-administered medications for this visit. Allergies Allergen Reactions Other Other Reaction(s): Unknown Tramadol Other Reaction(s): Unknown Wound Dressing Adhesive Other Reaction(s): Unknown Past Surgical History: Procedure Laterality Date COLONOSCOPY 2016 normal COLONOSCOPY 01/24/2021 LUMBAR EPIDURAL INJECTION 06/26/2017 MASTECTOMY Right 10/06/2014 PELVIC LAPAROSCOPY Diag Lap pelvic pain 30 years ago TOTAL ABDOMINAL HYSTERECTOMY W/ BILATERAL SALPINGOOPHORECTOMY 12/24/2017 VARICOSE VEIN SURGERY Left 12/2021 Past Medical History: Diagnosis Date Breast disease 2014 right Breast lump Burn Cardiomegaly Chicken pox Costochondritis 04/2023 Dextroscoliosis of thoracic spine Significant thoracic dextroscoliosis Family history of cancer Heart disease Heart murmur History of right breast cancer Hypertension (CMS/HCC) Liver lesion small Scoliosis Thyroid nodule (CMS/HCC) small Vaginal infection ROS Const: Denies appetite change, fever, chills. Allergy: Denies medication reaction. Ocular: Denies visual acuity change. ENT: Denies hearing change. Endoc: Denies weight loss. Resp: Denies dyspnoea, wheezing. Cardiac: Denies angina, palpitations. GI: Denies nausea, vomiting. Haem: Denies bleeding. : Denies incontinence. MSK: Denies arthralgias, joint oedema. Derm: Denies rash, hair loss. Neuro: Denies ataxia, tremor. Also see HPI for elements of ROS documented therein and for details of positive findings, which shall supersede the foregoing. EXAM GENERAL EXAMINATION alert oriented well developed, well nourished. HEAD: normocephalic atraumatic. EYES: sclera anicteric. EARS: no obvious hearing deficit. NECK/THYROID: neck supple no cervical lymphadenopathy no thyromegaly. LYMPH NODES: no axillary, supraclavicular or inguinal adenopathy. SKIN: warm and dry. HEART: regular rate and rhythm. LUNGS: clear to auscultation bilaterally. CHEST:axillary nodes grossly normal. BREASTS:no masses palpable bilaterally, Left normal nipple - everted - L breast fatty replaced - dense - well supported- axilla negative. H/o of R mastectomy. ABDOMEN: soft, nontender, nondistended, no masses palpable. BACK: no costovertebral angle tenderness, no obvious scoliosis/kyphosis. 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 EXTREMITIES no edema. NEUROLOGIC: alert and oriented. PSYCH: cooperative with exam. ICD-10-CM 1. Encounter for gynecological examination without abnormal finding Z01.419 Pelvic and breast exam completed. Findings of today's exam discussed with the patient. Continue MSBE. Ca/Vit D recommendations reviewed with the patient. The patient is to contact the office with any changes to her gynecological condition or any changes with breast or bleeding. The patient is to return in 1 year or as needed 2. Encounter for Papanicolaou smear of vagina Z12.72 SENDOUT TEST MISCELLANEOUS [facility] Thinprep collected. Will notify patient if results are abnormal. 3. Personal history of malignant neoplasm of breast Z85.3 Discussed she is hopeful to be off Tamoxifen soon. She voiced she moved in with her parents in [place] due to her rental being sold. Now she is working at [employer] in [place] a few days a week, and [employer] in [place] 2 days. Discussed weight, she is now is exercising. Has also been very petite. Entered by Susi Hicks MA acting as scribe for Dr. hCente Barcenas. Signature Susi Hicks MA Date 07/16/24 . Time 9:24 AM . The documentation recorded by the scribe accurately reflects the service(s) I personally performed and the decisions I made. Signature Romel Barcenas D.O. Date 07/16/24 Time 5:00PM. documented in this encounter [facility] 06-11-2024 History of Present illness Narrative Images from the original note were not included. HISTORY OF PRESENT ILLNESS: EST PT Maricel Easton is an 59 y.o. @ female. (EST PT) RECHECK (R) ELBOW ; S/P HEP (INCREASED STRETCHING) XRAYS, 04/01/24 IN EP[facility] NO MRI S/P PREDNISONE 12/11/23 - DR ENGLAND S/P LAT EPICONDYLE CORTISONE INJ 04/01/24, 12/26/23 S/P PHYSICAL THERAPY (12 VISITS) @ [facility] ; DECEMBER - JANUARY 2024 NO PAIN MGMT DOING WELL ; NOTES SOME IMPROVEMENT - STATES SHE HAS BEEN HAVING GOOD & BAD DAYS. CONTINUES TO HAVE INTERMITTENT DISCOMFORT - STATES PAIN SEEMS TO BE IN HER MID FOREARM NOW ; LESS ELBOW PAIN. NOTES GOOD ROM ; DENIES ANY WEAKNESS WHEN GRIPPING / GRASPING / SQUEEZING. DENIES ANY SWELLING. NO LONGER WEARING ELBOW STRAP / VELCRO WRIST SPLINT. TAKES NAPROXEN PRN (SCOLIOSIS PAIN). CONTINUES WORK RESTRICTIONS - NO LIFTING OVER 5LBS / NO NOWAK STATION H/O INJURY : SYMPTOMS FOR BEGAN IN SEPTEMBER 2023 (~6 MONTHS) ; NOTICED A SHARP PAIN WHEN FLIPPING A NOWAK BASKET AT WORK (NOT [facility]) ALLERGIES: Allergies Allergen Reactions Other Other Reaction(s): Unknown Tramadol Other Reaction(s): Unknown Wound Dressing Adhesive Other Reaction(s): Unknown HOME MEDICATIONS: Current Outpatient Medications Medication Instructions calcium carbonate 1500 (600 Ca) MG tablet TAKE ONE TABLET BY MOUTH DAILY WITH A MEAL cholecalciferol (VITAMIN D-3) 50 mcg, Oral, Daily ferrous sulfate 325 mg, Oral, Every 24 hours lisinopril 10 mg, Oral, Every 24 hours, Take 10 mg by mouth 1 (one) time each day at the same time. Multiple Vitamin (Multivitamin Adult) tablet Orally naproxen (Naprosyn) 500 MG tablet 1 po bid with food prn pain tamoxifen (NOLVADEX) 20 mg, Oral, Daily PHYSICAL EXAM: Elbow Musculoskeletal Exam Inspection Right Right elbow inspection is normal. Ecchymosis: none Swelling: lateral Deformity: none Palpation Right Crepitus (radiocapitellar): none Tenderness: present (pain has decreased from prior examination) Medial/flexor origin: none Lateral/extensor origin: mild Posterior-olecranon: none Range of Motion Right Right elbow range of motion is normal. Active Extension: 0 Passive Extension: 0 Active Flexion: 140 Passive Flexion: 140 Active Pronation: 90 Passive Pronation: 90 Active Supination: 90 Passive Supination: 90 Strength Right Right elbow strength is normal. Extension: 5/5. Extension is affected by pain. Flexion: 5/5. Pronation: 5/5. Supination: 5/5. Supination is affected by pain. Finger abduction: 5/5. Brick Sorter strength: 5/5. Neurovascular Right Right elbow nerve sensation is normal. Radial pulse: normal Capillary refill: <3 sec Ulnar nerve sensory distribution: normal Median nerve sensory distribution: normal Special Tests Right Neurological Signs Pain with resisted pronation: negative Pain with resisted supination: positive Pain with resisted long finger: positive Epicondylitis Signs Pain with resisted wrist flexion: negative Pain with resisted wrist extension: positive Special Signs Pain with terminal extension: positive Vitals: There is no height or weight on file to calculate BMI. Tobacco Use: Low Risk (06/11/2024) Patient History Smoking Tobacco Use: Never Smokeless Tobacco Use: Never Passive Exposure: Never Alcohol Use: Not At Risk (07/08/2023) AUDIT-C Frequency of Alcohol Consumption: Never Average Number of Drinks: Patient does not drink Frequency of Binge Drinking: Never IMAGING: Procedures No orders of the defined types were placed in this encounter. ASSESSMENT: ICD-10-CM 1. Right elbow pain M25.521 2. Lateral epicondylitis of right elbow M77.11 PLAN: We have answered all the patients questions and explained the patients condition, decision making and plan including the risks and benefits associated with said plan in layman''s terms in a language the patient could understand easily. If patient''s symptoms significantly worsen and they cannot get a hold of us or their family physician, we have recommended that the patient proceed to the nearest emergency department (room). Dr. Martin obtained history and examined the patient, I am acting as scribe for Dr. Martin/danica, PLAN: We have reviewed prior (R) elbow xrays. Patient feels that her symptoms are gradually improving. We are recommending that she continue with exercises at home. She notes increased pain to her left elbow ; we are recommending that she also start exercises on her left elbow as well. She has a cockup wrist splint that she purchased OTC that we are recommending that she wear at work with understanding to discontinue if muscle atrophy is noted. We are recommending her off of work for 2 weeks (starting tomorrow), and then return with no lifting greater than 5lbs pending follow up. We have discussed her HEP and restrictions and will see her back in 6 weeks to reassess her right elbow, if exam warrants we may recommend lateral epicondylectomy. Yuriy Martin D.O. documented in this encounter [facility] 05-09-2023 Hospital Discharge instructions Patient Education 05/08/2023 22:53:28 Costochondritis, Jcdx-bq-Pskl Costochondritis Costochondritis is irritation and swelling (inflammation) [...] are safe for you. General instructions Take pcuj-bgk-[id number] and prescription medicines only as told by [...] provider. Document Revised: 08/25/2020 Document Reviewed: 08/25/2020 [place] Patient Education 2022 [employer]. Follow Up Care 05/08/2023 19:03:42 With:VISHAL BARCENAS Address: [address] [place] [address], [address] [address]- Business (1) When:05/11/2023 Comments:You can take the medications as prescribed as needed for pain. Please follow-up with your primary care doctor in the next 2 to 3 days for further evaluation management. Please return to the ED for any new or worsening symptoms. [facility] 05-08-2023 Evaluation + Plan note Extrac jimbo [...] hours on and 12 hours off daily, [facility] [id number], 163, cm, 05/08/23 19:14:00 EDT, Height/Length Dosing, 47.8, kg, 05/08/23 19:14:00 EDT, Weight Dosing methocarbamol, 500 mg = 1 tab(s), Oral, TID, X 3 day(s), # 9 tab(s), Refills(s) 0, Pharmacy: [facility] [id number], 163, cm, 05/08/23 19:14:00 EDT, Height/Length Dosing, 47.8, kg, 05/08/23 19:14:00 EDT, Weight Dosing morphine, 4 mg = 2 mL, Injection, IV Push, Once, Stop date 05/08/23 19:37:00 EDT, STAT, Start date 05/08/23 19:37:00 EDT, 05/08/23 19:37:00 EDT naproxen, 500 mg = 1 tab(s), Oral, BID, PRN for pain, # 20 tab(s), Refills(s) 0, Pharmacy: [facility] [id number], 163, cm, 05/08/23 19:14:00 EDT, Height/Length Dosing, 47.8, kg, 05/08/23 19:14:00 EDT, Weight Dosing Automated Diff Basic Metabolic Panel CBC w/ Auto Diff CTA Chest D-Dimer ED Cardiac Monitoring eGFR Hepatic Function Panel Oxygen Saturation Oxygen Therapy PT & PTT Saline Lock Insert Troponin 0 Hr. XR Chest Single View [facility]05-15-2023 Evaluation note* Encounter Date Diagnosis Assessment Notes [...] chronic and progressive nature of venous disease. [facility] 05-04-2023 Evaluation note* Encounter Date Diagnosis [...] of both lower extremities (ICD-10 - I83.893) [facility] 01-04-2023 Evaluation note* Encounter Date Diagnosis [...] were addressed. She understands agrees the plan. [facility] 12-15-2022 Evaluation note* Encounter Date Diagnosis [...] agrees with this plan, denies any questions. [facility] 06-30-2022 Evaluation note* Encounter Date Diagnosis [...] plan all of her questions were addressed. [facility] 06-24-2022 Evaluation note* Encounter Date Diagnosis Assessment Notes Treatment Notes Treatment Clinical Notes Mar, Venous insufficiency (ICD-10 - I87.2) [facility] 03-31-2022 Evaluation note* Encounter Date Diagnosis [...] this scheduled for her in the future. [facility] 03-31-2022 Evaluation note* Encounter Date Diagnosis [...] this scheduled for her in the future. [facility] 02-17-2022 Progress note Author Rachel [facility] December 13, 2021 10:37am Note Date/Time December 13, 2021 10:26am [facility] [place] [address] Hem/Onc Follow Up Note - OP Signed Patient: Maricel Easton MR#: [id number] : 1965 Acct:[id number] Age/Sex: 56 / F Type: REG RCR Copies to: DO Chente Barrett,DO~ Subjective Date/Time of Service: Date of Service: 12/13/2021 Time of Service: 10:24 Chief Complaint: Patient is here today for 8 month follow up visit and last mamogram was 07/05/2021 HPI: Patient is a 56-year-old female with history of early stage right breast cancer,pT1b pN0 M0, ER/MA positive, HER-2 negative, status post right breast [...] very rarely. She has continued work at [employer]. She had negative mammogram in June 2021 [...] EGD and colonoscopy with Dr. Mcdaniel at [facility]. She was found to have moderate antral [...] injection therapy. She previously was seen by [facility] spine service many years ago and was [...] of frequent infections or delayed wound healing. [facility] - Medical History Medical History: Medical History [...] periods over several months. She referred to [facility] with negative endometrial biopsy for malignancy and pelvic ultrasound revealing only a large fibroid. Since she was taking tamoxifen, [facility]ER ultimately decided to perform hysterectomy and this was negative for malignancy. Patient recovered well. She continues annual follow up with Dr. Chente Barcenas - marlon saw June 2021. - Chemo Plan Chemo Plan (Dose, Rate, Freq): Tamoxifen 20mg daily for 10 year course (end of therapy in 10/2024) Goal of Treatment: Curative - Time with Patient Time Spent with Patient (Follow Up Visit): 25 minutes Coordination of Care & Counseling Time: Greater than 50% of time spent with patient was for coordination of care (as documented) and inpa-vk-[id number] counseling of patient and/or family. Dictated By: Rachel Hastings APRN DD/ [id number] Signed By: <Electronically signed by FERNANDO Hastings> 12/13/21 1037 [facility] Work Phone: 1(881) 805-710102-15-2022 Evaluation note* Encounter Date Diagnosis Assessment Notes [...] with this plan, denies any additional questions. [facility] 06-23-2021 Progress note Author Donnell Jane [facility] April 18, 2021 1:38pm Note Date/Time April 18, 2021 11:[address] [place] [address] [place] [address] Hem/Onc Follow Up Note - OP Signed Patient: Maricel Easton MR#: [id number] : 1965 Acct:[id number] Age/Sex: 55 / F Type: REG RCR [...] renal vein breast cancer, pT1b pN0 M0, ER/MA positive, HER-2 negative, status post mastectomy. She [...] very rarely. She has continued work at [employer]. She has not had Covid- 19 vaccination [...] EGD and colonoscopy with Dr. Mcdaniel at [facility]. She was found to have moderate antral [...] wrist cuff [facility] 181/115[facility] [...] injection therapy. She previously was seen by [facility] spine service many years ago and was [...] periods over several months. She referred to [facility] with negative endometrial biopsy for malignancy and pelvic ultrasound revealing only a large fibroid. Since she was taking tamoxifen, [facility]ER ultimately decided to perform hysterectomy and this was negative for malignancy. Patient recovered well. - Chemo Plan Goal of Treatment: Curative - Time with Patient Time Spent with Patient (Follow Up Visit): 35 minutes Coordination of Care & Counseling Time: Greater than 50% of time spent with patient was for coordination of care (as documented) and iile-by-txvn counseling of patient and/or family. Dictated By: Donnell Jane MD DD/ [id number] Signed By: <Electronically signed by Donnell Jane MD> 04/18/21 4528 [facility] Work Phone: 1(244) 639-775612-28-2020 Progress note Author Nica Nelson [facility] October 23, 2020 7:19pm Note Date/Time October 23, 2020 10:06[facility] [place] [address] Hem/Onc Follow Up Note - OP Signed Patient: Maricel Easton MR#: [id number] : 1965 Acct:[id number] Age/Sex: 55 / F Type: REG RCR Copies to: MD Vishal Ponce DO William D Bruner, DO~ Subjective Date/Time of Service: Date of Service: [...] EGD and colonoscopy with Dr. Mcdaniel at [facility]. She was found to have moderate antral [...] injection therapy. She previously was seen by [facility] spine service many years ago and was [...] IMPRESSION: LEFT AXILLARY LYMPH NODES WITH FATTY IVANNA. CLINICAL MANAGEMENT IS SUGGESTED. Impression dictated by: [...] periods over several months. She referred to [facility] with negative endometrial biopsy for malignancy and pelvic ultrasound revealing only a large fibroid. Since she was taking tamoxifen, [facility] OFF[facility]ER ultimately decided to perform hysterectomy and this [...] for coordination of care (as documented) and byvb-ee-gyem counseling of patient and/or family. Dictated By: Nica Nelson MD DD/ [id number] Signed By: <Electronically signed by MD Nica Nelson> 10/23/20 462 [facility] Work Phone: 1(199) 860-622909-17-2020 Progress note Author Nica Nelson [facility] July 12, 2020 11:21pm Note Date/Time July 12, 2020 10:11am [facility] [place] [address] Hem/Onc Follow Up Note - OP Signed Patient: Maricel Easton MR#: [id number] : 1965 Acct:[id number] Age/Sex: 55 / F Type: REG RCR [...] EGD and colonoscopy with Dr. Mcdaniel at [facility]. She was found to have moderate antral [...] injection therapy. She previously was seen by [facility] spine service many years ago and was [...] periods over several months. She referred to [facility] with negative endometrial biopsy for malignancy and pelvic ultrasound revealing only a large fibroid. Since she was taking tamoxifen, [facility] OFFICER ultimately decided to perform hysterectomy and this was negative for malignancy. Patient recovered well. - Chemo Plan Goal of Treatment: Curative - Time with Patient Total Time Spent with Patient: 30 min Coordination of Care & Counseling Time: Greater than 50% of time spent with patient was for coordination of care (as documented) and hjov-nt-kupo counseling of patient and/or family. Dictated By: Nica Nelson MD DD/ [id number] Signed By: <Electronically signed by MD Nica Nelson> 07/12/20 9713 [facility] Work Phone: 1(452) 121-368109-18-2019 Progress note Author Nica Nelson [facility] July 14, 2019 8:34am Note Date/Time July 14, 2019 8:08am [facility] [place] [address] Hem/Onc Follow Up Note - OP Signed Patient: Maricel Easton MR#: [id number] : 1965 Acct:[id number] Age/Sex: 54 / F Type: REG RCR [...] EGD and colonoscopy with Dr. Mcdaniel at [facility]. She was found to have moderate antral [...] wrist cuff of 181/115, [facility] [...] injection therapy. She previously was seen by [facility] spine service many years ago and was [...] hypertension and should be reviewed with the locator the time of consultation. (5) Abnormal finding [...] periods over several months. She referred to [facility] with negative endometrial biopsy for malignancy and pelvic ultrasound revealing only a large fibroid. Since she was taking tamoxifen, [facility] OFF[facility]ER ultimately decided to perform hysterectomy and this was negative for malignancy. Patient recovered well. - Chemo Plan Goal of Treatment: Curative - Time with Patient Coordination of Care & Counseling Time: Greater than 50% of time spent with patient was for coordination of care (as documented) and jeeg-cr-evpr counseling of patient and/or family. Dictated By: Nica Nelson MD DD/ [id number] Signed By: <Electronically signed by MD Nica Nelson> 07/14/19 0834 [facility] Work Phone: 1(951) 578-596909-06-2019 Progress note Author Nica Nelson [facility] July 02, 2019 2:00pm Note Date/Time July 01, 2019 9:14[facility] [place] [address] Hem/Onc Follow Up Note - OP Signed Patient: Maricel Easton MR#: [id number] : 1965 Acct:[id number] Age/Sex: 54 / F Type: REG RCR [...] EGD and colonoscopy with Dr. Mcdaniel at [facility]. She was found to have moderate antral [...] wrist cuff of 181/115, and when presented tothe ER in late September 2015 blood pressure [...] injection therapy. She previously was seen by [facility] spine service many years ago and was [...] chest wall pain;Malignant Copies to: MD Connor Babcock Albert ~ CT chest 06/17/2019. CLINICAL DATA: Right [...] periods over several months. She referred to ACCOUNT OFFICER with negative endometrial biopsy for malignancy and pelvic ultrasound revealing only a large fibroid. Since she was taking tamoxifen, ACCOUNT OFFICER ultimately decided to perform hysterectomy and this was negative for malignancy. Patient recovered well. - Chemo Plan Goal of Treatment: Curative - Time with Patient Coordination of Care & Counseling Time: Greater than 50% of time spent with patient was for coordination of care (as documented) and [id number] counseling of patient and/or family. Dictated By: Nica Nelson MD DD/ 2 Signed By: <Electronically signed by MD Nica Nelson> 07/02/19 [address] [facility] Work Phone: [phone]) 182-535709-06-2018 Progress note Author Nica Nelson [facility] July 02, 2018 6:02pm Note Date/Time July 02, 2018 3:48pm [facility] [place] [address] Hem/Onc Follow Up Note - OP Signed Patient: Maricel Easton MR#: [id number] : 1965 Acct:[id number] Age/Sex: 53 / F Type: REG RCR [...] EGD and colonoscopy with Dr. Mcdaniel at [facility]. She was found to have moderate antral [...] injection therapy. She previously was seen by [facility] spine service over 5 years ago and [...] medications. No further surgical interventions offered by specialist physician she saw in 2016. She was seen [...] Reaction Status Date / Time hydromorphone [From Norbertid] AdvReac Mild Flushing Verified 12/24/17 14:20 Home [...] screening mammo LT w/CAD: SCREENING Copies to: Zackery Mejia MD~ Left Screening Full Field digital [...] 0849 Dictated By: Jamal Solorzano DO 06/30/18 0873 Assessment and Plan (1) Cancer of central [...] periods over several months. She referred to ACCOUNT OFFICER with negative endometrial biopsy for malignancy and pelvic ultrasound revealing only a large fibroid. Since she was taking tamoxifen, ACCOUNT OFFICER ultimately decided to perform hysterectomy and this was negative for malignancy. Patient recovered well. - Chemo Plan Goal of Treatment: Curative - Time Spent with Patient Greater than 50% of time spent with patient was for coordination of care (as documented) and [id number] counseling of patient and/or family. less than 15 minutes Dictated By: Nica Nelson MD DD/ 1547 Signed By: <Electronically signed by Nica Nelson MD> 07/02/18 1801 [facility] Work Phone: [phone]) 415-550003-13-2018 Progress note Author Nica Nelson [facility] January 06, 2018 9:44pm Note Date/Time January 06, 2018 3:5 3pm [facility] [place] [address] Hem/Onc Follow Up Note - OP Signed Patient: Maricel Easton MR#: [id number] : 1965 Acct:[id number] Age/Sex: 52 / F Type: REG RCR [...] EGD and colonoscopy with Dr. Mcdaniel at [facility]. She was found to have moderate antral [...] injection therapy. She previously was seen by [facility] spine service over 5 years ago and [...] medications. No further surgical interventions offered by specialist physician she saw over the last 6 months. [...] periods over several months. She referred to ACCOUNT OFFICER with negative endometrial biopsy for malignancy and pelvic ultrasound revealing only a large fibroid. Since she was taking tamoxifen, ACCOUNT OFFICER ultimately decided to perform hysterectomy and this was negative for malignancy. Patient is recovering well. - Chemo Plan Goal of Treatment: Curative - Time Spent with Patient Greater than 50% of time spent with patient was for coordination of care (as documented) and [id number] counseling of patient and/or family. 25 - 35 minutes Dictated By: Nica Nelson MD DD/ 1552 Signed By: <Electronically signed by MD Nica Nelson> 01/06/18 0840 [facility] Work Phone: [phone]) 412-409709-12-2017 Progress note Author Nica Nelson [facility] July 08, 2017 6:57pm Note Date/Time July 08, 2017 4:12pm [facility] [place] [address] Hem/Onc Follow Up Note - OP Signed Patient: Maricel Easton MR#: [id number] : 1965 Acct:[id number] Age/Sex: 52 / F Type: REG RCR [...] EGD and colonoscopy with Dr. Mcdaniel at [facility]. She was found to have moderate antral [...] wrist cuff [facility] 181/115[facility] [...] No hot flashes on tamoxifen. Her last ACCOUNT OFFICER exam with Pap smear in April 2016 [...] injection therapy. She previously was seen by [facility] spine service over 5 years ago and [...] She would be interested in seeing a specialist physician for further medical or surgical options. Change in menstrual period frequency as noted above. Last menstrual period in 2Feb2016, now scant intermittent flow since negative endometrial biopsy by ACCOUNT OFFICER. Pelvic US in late March 2017 did [...] take any pain medication other than occasional [id number] Tylenol. - Summary of Therapies Summary of [...] lateral recessor neural foraminal narrowing. Dictation Location: [facility] <Electronically signed by MARIS [facility] JR, MD in OV> 04/15/17 193 Assessment and Plan (1) Cancer of central [...] 2 months. She was r referred to ACCOUNT OFFICER with negative endometrial biopsy for malignancy and [...] of pain clinic. We have initiated a [facility] spine clinic consultation has she was told that [facility] which[facility] her in the past does not take her insurance plan. 6. We will continue annual mammograms for surveillance of potential recurrence with clinical exam every 6 months. Her next unilateral mammogram is ordered 2017. This is a moderate complexity visit for management of multiple symptomatic complaints. (2) Idiopathic scoliosis of thoracolumbar region Status: Acute Referral to [facility] spine clinic. I am deferring medication [...] for coordination of care (as documented) and [id number] counseling of patient and/or family. Dictated By: Nica Nelson MD DD/ 1600 Signed By: <Electronically signed by MD Nica Nelson> 07/08/17 1388 [facility] [employer] Work Phone: Evaluation noteNo [employer] Other Evaluation note* Diagnosis Onset Date Resolution Status Cardiomegaly acute Abnormal echocardiogram findings without diagnosis chronic Abnormal finding on imaging of liver chronic Cancer of central portion of right female breast chronic History of iron deficiency anemia chronic Idiopathic scoliosis of thoracolumbar region chronic Mild pulmonary hypertension chronic S/P total hysterectomy and b ilateral salpingo-oophorectomy chronic Thyroid nodule chronic [facility] Work Phone: Evaluation note* Diagnosis Onset Date Resolution Status [...] b ilateral salpingo-oophorectomy chronic Thyroid nodule chronic [facility] Work Phone: evaluation noteNo assessment information available [facility] Work Phone: Evaluation note* Diagnosis Onset Date Resolution Status [...] b ilateral salpingo-oophorectomy chronic Thyroid nodule chronic Cancer of central portion of right female breast chronic Encounter for monitoring tamoxifen therapy chronic Idiopathic scoliosis of thoracolumbar region chronic Mild pulmonary hypertension chronic [facility] Work Phone: Evaluation note* Diagnosis Lateral epicondylitis of right elbow- Primary [facility] Diagnosis Easy bruising- Primary Other symptoms involving skin and integumentary tissues Lumbar facet arthropathy Spondylosis of unspecified site without mention of myelopathy Lateral epicondylitis of right elbow [facility] Diagnosis Right elbow pain- Primary Pain in joint, upper arm Lateral epicondylitis of right elbow [facility] Diagnosis Encounter for gynecological examination without abnormal finding Encounter for Papanicolaou smear of vagina Personal history of malignant neoplasm of breast [facility] Diagnosis Easy bruising- Primary Other symptoms involving skin and integumentary tissues Unspecified protein-calorie malnutrition (CMS/HCC) Unspecified protein-calorie malnutrition Immunodeficiency due to conditions classified elsewhere (CMS/HCC) Multinodular goiter (CMS/HCC) Nontoxic multinodular goiter Other secondary scoliosis, thoracolumbar region [facility] Diagnosis Lateral epicondylitis of right elbow- Primary Right elbow pain Pain in joint, upper arm [facility] Diagnosis Lateral epicondylitis of right elbow- Primary Right elbow pain Pain in joint, upper arm [facility] Narrative - Reported* Type Description Date Medical History scoliosis Medical History breast cancer Medical History HTN Medical History VV mari. legs Surgical History wisdom teeth extract Surgical History lump on left breast removed Surgical History mastectomy right 2014 Surgical History Hyster 11/2017 Hospitalization History see above [employer] Other History general Narrative - Reported* Type Description Date Medical History scoliosis Medical History breast cancer Medical History HTN Medical History VV mari. legs Surgical History wisdom teeth extract Surgical History lump on left breast removed Surgical History mastectomy right 2014 Surgical History Hyster 11/2017 Surgical History Bilateral greater saphenous vei n ablation Hospitalization History see above [employer] Other Hospital course Narrative No data available for this section [facility] No data available for this section [facility] Summary Purpose Family History No Family History Records Found Relationship Condition Age at Onset Recorded Date/T alex father Malignant neoplasm of prostate Unknown Diabetes mellitus Unknown Not Specified Presence of cardiac pacemaker Unknown brother Malignant neoplasm of lung Unknown Relationship Condition Age at Onset Recorded Date/T alex father Malignant neoplasm of prostate Unknown Diabetes mellitus Unknown mother Presence of cardiac pacemaker Unknown brother Malignant neoplasm of lung Unknown brother Malignant neoplasm Unknown Family history of lung cancer Unknown father Hypertension Unknown Malignant neoplasm Unknown History of malignant neoplasm of prostate Unknown mother Hypertension Unknown Heart disease Unknown Advance Directives No Advanced Directives Records [...] salpingo-oophorectomy Thyroid nodule Chief Complaint Breast Cancer 1 year follow up visit breast cancer Reason for Visit Cardiomegaly Abnormal echocardiogram findings without diagnosis Abnormal finding on imaging of liver Cancer of central portion of right female breast Encounter for monitoring tamoxifen therapy History of iron deficiency anemia Idiopathic scoliosis of thoracolumbar region Mild pulmonary hypertension S/P total hysterectomy and bilateral salpingo-oophorectomy Thyroid nodule Cancer of central portion of right female breast Encounter for monitoring tamoxifen therapy Idiopathic scoliosis of thoracolumbar region Mild pulmonary hypertension Additional Source Comments INFORMATION SOURCE (unrecogn ized section and content) DATE CREATED AUTHOR 08/05/2018 [facility] ical Center DATE CREATED AUTHOR AUTHOR'S ORGANIZ ATION 03/04/2022 [facility] dical Specialist DATE CREATED AUTHOR AUTHOR'S ORGANIZ ATION 05/09/2023 [facility] ica Center DATE CREATED AUTHOR AUTHOR'S ORGANIZ ATION 07/24/2024 [facility] ysician Group DATE CREATED AUTHOR AUTHOR'S ORGANIZ ATION 01/08/2025 [facility] dical Specialists EPIC REASON FOR VISIT (unrecogniz ed section and content) Reason Onset Date Comments medication 08/02/2024 Reason Comments Pain Reason Comments Gynecologic Exam LMP: KIMO BSO 2018HRT : noneLast pap 07-08-23 neg. Follow oncology for mammograms. Appt next week- hopes to be cleared after 10 years. Denies breast, urinary, or bowel concerns. Care Teams (unrecognized sec tion and content) Team Status: Active Member Role Status Dates PHYSICIAN NO FAMILY Primary Care Provider Active Team Status: Active Member Role Status Dates Nica Nelson MD Attending Provider Active Chente Barcenas , DO Referring Provider Active Vishal Barcenas DO Primary Care Provider Active Team Status: Inactive Member Role Status Dates Vishal Carreno , Attending Provider Active PHYSICIAN NO FAMILY Primary Care Provider Active Team Status: Active Member Role Status Dates Vishal Barcenas DO Primary Care Provider Active Team Status: Inactive Member Role Status Dates Vishal Barcenas DO Primary Care Provider Active Rosalia Soler MD Attending Provider Active Team Status: Inactive Member Role Status Dates Vishal Barcenas DO Primary Care Provider, Attending Prov ider Active Team Status: Inactive Member Role Status Dates Vishal Barcenas DO Primary Care Provider Active Michelle Perry , [employer]AR LABORATORY ASSISTANT-C Attending Provider Active Animal Stunner Relationship Specialty Start Date End Date Vishal Barcenas DO [address] [place] [address] [facility] 01/25/23 Missy England DO [address] [place] [address] PCP - General Family Medicine 11/13/23 Team Status: Active Member Role Status Dates Nica Nelson MD Attending Provider Active Start: July 22, 2024 Chente Barcenas DO Referring Provider Active Start: July 22, 2024 Vishal Barcenas DO Primary Care Provider Active St art: July 22, 2024 Team Status: Inactive Member Role Status Dates PHYSICIAN NO FAMILY Primary Care Provider Active Start: July 22, 2024 End: July 22, 2024 Nica Nelson MD Attending Provider Active Start: July 22, 2024 End: July 22, 2024 Animal Stunner Relationship Specialty Start Date End Date Vishal Barcenas DO [address] [place] [address] [facility] 01/25/23 Vishal Barcenas DO [address] [place] [address] PCP - [facility] 01/05/24 Animal Stunner Relationship Specialty Start Date End Date Vishal Barcenas DO [address] [place] [address] PCP - [facility] 01/25/23 Vishal Barcenas, DO [address] [place] [address] PCP - [facility] 01/05/24 Animal Stunner Relationship Specialty Start Date End Date Vishal Barcenas, [address] [place] [address] PCP - [facility] 01/25/23 Vishal Barcenas, DO [address] [place] [address] PCP - [facility] 01/05/24 Animal Stunner Relationship Specialty Start Date End Date Vishal Barcenas, [address] [place] [address] PCP - [facility] 01/25/23 Vishal Barcenas, DO [address] [place] [address] PCP - [facility] 01/05/24 Animal Stunner Relationship Specialty Start Date End Date Vishal Barcenas, DO [address] [place] [address] PCP - [facility] 01/25/23 Vishal Barcenas, DO [address] [place] [address] PCP - [facility] 01/05/24 Animal Stunner Relationship Specialty Start Date End Date Vishal Barcenas, [address] [place] [address] PCP - [facility] 01/25/23 Vishal Barcenas, DO [address] [place] [address] PCP - [facility] 01/05/24 Animal Stunner Relationship Specialty Start Date End Date Vishal Barcenas, [address] [place] [address] PCP - [facility] 01/25/23 Vishal Barcenas, DO [address] [place] [address] PCP - [facility] 01/05/24 Animal Stunner Relationship Specialty Start Date End Date Vishal Barcenas, [address] [place] [address] PCP - [facility] 01/25/23 Vishal Barcenas, DO [address] [place] [address] PCP - [facility] 01/05/24 Animal Stunner Relationship Specialty Start Date End Date Vishal Barcenas, DO [address] [place] [address] PCP - [facility] 01/25/23 Vishal Barcenas, DO [address] [place] [address] PCP - [facility] 01/05/24 Animal Stunner Relationship Specialty Start Date End Date Vishal Barcenas, [address] [place] [address] PCP - [facility] 01/25/23 Vishal Barcenas, DO [address] [place] [address] PCP - General Family [facility] 01/05/24 Animal Stunner Relationship Specialty Start Date End Date Vishal Barcenas DO [address] [place] [address] PCP - [facility] 01/25/23 Vishal Barcenas, DO [address] [place] [address] PCP - General [facility] 01/05/24 Goals (unrecognized section and content) Goals may [...] BE BASED ON THE PRIMARY CLINICAL RECORDS. [facility] [employer] [facility]. provides no warranty or guarantee of the accuracy or completeness of information in this document.
--- OUTSIDE RECORDS SUMMARY | 2025-04-02 07:19 | XMS_ITS | Encounter Summary ---
Author Organization [facility] Address [address] [place] [address] Care Team Providers Care Senior Sourcing Manager Name Role Phone Vishal Mazariegos DO Primary Care Provider [phone] Vishal Mazariegos DO Unavailable [phone] Justin England DO Primary Care Provider + Vishal Mazariegos DO Primary Care Provider + Nica Nelson MD Unavailable Vishal Bernabe DO Unavailable [phone] Encounter Details Date Type Department Care Team (Late st Contact Info) Description 07/10/2023 External Result Encounter [facility] Department Unsolicited Nica Nelson MD [address] [place] [address] Social History Tobacco Use Types Packs/Day Years [...] 04/06/2025 11:00 AM EDT Office Visit [facility] [address] [place] [address] Jr. Krishna Martin, DO [address] [place] [address] 04/08/2025 2:00 PM EDT Office Visit [facility] [address] [place] [phone] Vishal Mazariegos, DO [address] [place] [address] 07/22/2025 9:15 AM EDT Office Visit [facility] [address] [place] [address] Chente Mazariegos, DO [address] [place] [address] 04/03/2026 9:30 AM EDT Office Visit [facility] [address] [place] [phone] Vishal Bernabe, DO [address] [place] [address] documented as of this encounter Procedures Procedure Name Priority Date/Time Associated Diagnosis Comments BI MAMMOGRAM SCREENING TOMOSYNTHESIS LEFT 07/10/2023 1:43 PM EDT documented in this encounter Results * Left screening mammogram with tomosynthesis (07/10/2023 1:43 PM EDT) Anatomical Region Laterality Modality Breast Left Mammography 07/10/2023 1:43 PM EDT Impressions 07/14/2023 12:33 PM EDT NO MAMMOGRAPHIC EVIDENCE OF MALIGNANCY. ROUTINE [...] Delores Hi M.D.07/10/2023 1:45 PM Dictation Location: [facility] Transcribed By: CHA 07/10/23 1345 Dictated By: Delores Hi MD 07/10/23 134 Signed By: <Electronically signed by MD Delores Hi in OV> 07/10/23 1345 Narrative 07/14/2023 12:33 PM EDT [facility] [place] [address] Mammography Report Signed Patient: Maricel Easton MR#: [id number] : 1965 Acct:[id number] Age/Sex: 58 / F ADM Date: 07/10/23 Loc: Room: Type: [facility] RCR Attending Dr: Nica Nelson MD [...] mammo LT w/CAD Procedure Note Radiology, Radiologist, - 07/14/2023 [facility] [address] [place] [address] [place] [address] Mammography Report Signed Patient: Maricel Easton LMR#: [id number] : 1965Acct:[id number] Age/Sex: 58 / FADM Date: 07/10/23 Loc: Room:Type: [facility] Attending Dr: Nica Nelson MD Copies to: MD Vishal Holman DO William D Bruner, DO Ordering Provider: Niac Nelson MD Date of Service: 07/10/23 MM/MM screening mammo LT w/CAD: history ofbreast cancer CLINICAL DATA: Screening for malignancy. Prior right mastectomy forcarcinoma LEFT SCREENING MAMMOGRAMS - FULL FIELD DIGITAL WITH TOMOSYNTHESIS AND CAD Tomosynthesis craniocaudal and mediolateral oblique views of the leftbreast were obtained using low-dose digital technique. Comparison is made to prior studies fromJune 29, 2019 through July 08, 2022. This examination was reviewed with the aid of CAD. The breast parenchyma remains dense, lowering the sensitivity ofmammography. There are no developing masses, typically malignant calcifications or architecturaldistortion. There has been no significant interval change. [...] thenext mammogram. Impression dictated by: Delores Hi M.D.07/10/2023 1:45 PM Dictation Location: [facility] Transcribed By: [facility] 07/10/23 1345 Dictated By: Delores Hi MD 07/10/23 134 Signed By: <Electronically signed by MD Delores Hi in OV> 07/10/23 1345 us Nica Nelson MD IMG BI PROCEDURES Final Result documented in this encounter Visit Diagnoses Not on filedocumented in this encounter Care Teams Senior Sourcing Manager Relationship Specialty Start Date End Date Vishal Mazariegos, DO PCP - General [facility] 03/27/23 11/12/23 Vishal Mazariegos, [address] [place] [address] PCP - [facility] 01/25/23 Justin England, [address] [place] [address] PCP - General [facility] 11/13/23 01/04/24 Vishal Mazariegos, [address] [place] [address] PCP - General [facility] 01/05/24 Nica Nelson MD [address] [place] [address] Oncology 04/01/25 Vishal Bernabe, DO [address] [facility] [place] [address] Otolaryngology 04/01/25 documented as of this encounter
[2025-04-02 07:33] LABS: Basophils Absolute Auto 0.1 10^3/uL (0.0-0.1); Basophils Percent Auto 1.3 % (0.2-2.0); Eosinophils Absolute Auto 0.2 10^3/uL (0.0-0.7); Eosinophils Percent Auto 5.1 % (0.9-7.0); Hematocrit 42.2 % (36.0-48.0); Hemoglobin 14.2 g/dL (12.0-16.0); Immature Granulocytes Abs Auto 0.01 10^3/uL (0.00-0.03); Immature Granulocytes Pct Auto 0.2 % (0.0-0.5); Lymphocytes Absolute Auto 1.4 10^3/uL (1.2-3.8); Lymphocytes Percent Auto 31.2 % (20.5-60.0); Mean Corpuscular HGB Conc 33.6 g/dL (29.9-35.2); Mean Corpuscular Hemoglobin 28.9 pg (26.7-34.0); Mean Corpuscular Volume 85.9 fL (81.0-99.0); Monocytes Absolute Auto 0.4 10^3/uL (0.3-0.8); Monocytes Percent Auto 8.2 % (1.7-12.0); Neutrophils Absolute Auto 2.4 10^3/uL (1.4-6.5); Platelet Count 206 10^3/uL (150-450); Red Blood Count 4.91 10^6/uL (4.20-5.40); Red Cell Distribution Width 12.7 % (11.0-15.0); White Blood Count 4.5 10^3/uL (4.0-11.0)
[2025-04-02 08:29] LABS: Free T4 0.96 ng/dL (0.76-1.46)
[2025-04-02 08:34] LABS: Alanine Aminotransferase 38 U/L (14-59); Albumin Globulin Ratio 1.1; Albumin Level 3.6 g/dL (3.4-5.0); Alkaline Phosphatase 59 U/L (46-116); Anion Gap 10.1; Aspartate Amino Transferase 36 U/L (15-37); BUN Creatinine Ratio 28.6; Bilirubin Total 0.6 mg/dL (0.2-1.0); Carbon Dioxide 33.9 mmol/L (21.0-32.0); Chloride 103 mmol/L (98-107); Estimated GFR (African America >60 (>=60 mL/min/1.73m^2); Estimated GFR (Non-African Ame >60 (>=60 mL/min/1.73m^2); Globulin 3.4 g/dL; Glucose 92 mg/dL (74-106); Sodium 143 mmol/L (136-145)
[2025-04-02 09:26] LABS: Chol HDL Ratio 2.5; Cholesterol 195 mg/dL (<=200); HDL Cholesterol 78 mg/dL (40-60); Triglycerides 65 mg/dL (<=150)
== END 2025-04-02 07:16 | disposition home or self-care (01) ==
LOC: LAB 07:17
PROVIDERS: PCP Family Medicine; Visit Provider Family Medicine
DX: R23.3 Spontaneous ecchymoses (principal); E04.2 Nontoxic multinodular goiter; E46 Unspecified protein-calorie malnutrition
CPT/HCPCS: 36415; 80053; 80061; 84439; 84443; 85025

== ENCOUNTER 2025-10-01 08:25 | Outpatient (OUT) | payer OTHER, SELFPAY ==
--- OUTSIDE RECORDS SUMMARY | 2025-03-28 03:04 | XMS_ITS | Continuity of Care Document ---
Author Organization [facility] Address [address] [place] [address] Phone Care Team Providers Care Biscuit Maker Name Role Phone Roma NILTONSurya Unavailable Unavailable Allergies, Adverse Reactions, Alerts Substance Reaction Status Criticality No Known Allergies Active No Inform ation Medications Medication Instructions Dosage Effective Dates (start - stop) Status Comments naproxen 500 mg tablet,delayed release take 1 tablet by oral route 2 times every day with food 500 MG - Active Vitamin D3 50 mcg (2,000 unit) capsule - Active iron 15 mg iron (75 mg)/mL oral drops - Active Calcium 500 500 mg calcium (1,250 mg) tablet - Active multivitamin tablet - Active lisinopril 5 mg tablet take 1 tablet by oral route every day 5 MG - Active TAMOXIFEN CITRATE (unknown strength) take 1 tablet by oral route 2 times every day in the morning and evening Not Available - Active Procedures Procedure Date Bitewings Four Films Moderate Risk Periodic Oral Eval Estab Patient 2024 Prophylaxis Adult Nutrit Couns For Control Of Love Dis Mar Oral Hygiene Instruction Moderate Risk Prophylaxis Adult Nutrit Couns For Control Of Love Dis Aug Oral Hygiene Instruction Bitewings Four Films Periodic Oral Eval Estab Patient 2023 Prophylaxis Adult Moderate Risk Nutrit Couns For Control Of Love Dis February Oral Hygiene Instruction Prophylaxis Adult Nutrit Couns For Control Of Love Dis Aug Oral Hygiene Instruction Bitewings Four Films Prophylaxis Adult Moderate Risk Nutrit Couns For Control Of Love Dis February Oral Hygiene Instruction Periodic Oral Eval Estab Patient 2022 Prophylaxis Adult Oral Hygiene Instruction Bitewings Four Films Periodic Oral Eval Estab Patient 2021 Prophylaxis Adult Oral Hygiene Instruction Prophylaxis Adult Oral Hygiene Instruction Nutrit Couns For Control Of Love Dis Nov Intraoral-periapical 1st Film Periodic Oral Eval Estab Patient 2020 Prophylaxis Adult PPE Prophylaxis Adult Oral Hygiene Instruction Prophylaxis Adult Oral Hygiene Instruction Bitewings Four Films Prophylaxis Adult Periodic Oral Eval Estab Patient 2018 Nutrit Couns For Control Of Love Dis Dec Oral Hygiene Instruction Prophylaxis Adult Oral Hygiene Instruction Intraoral-periapical 1st Film 8 Oral Hygiene Instruction Resin Composite 2s; Posterior 8 Oral Hygiene Instruction Bitewings Four Films Resin Composite 1s; Posterior 8 Periodic Oral Eval Estab Patient 2017 Prophylaxis Adult BIOPSY OF UTERUS LINING Prophylaxis Adult Oral Hygiene Instruction Treatment Completed PREV VISIT, EST, AGE 40-64 Intraoral-periapical 1st Film 7 Bitewig-single Film Limited Oral Eval Periodic Oral Eval Estab Patient 2016 Prophylaxis Adult Oral Hygiene Instruction Prophylaxis Adult Oral Hygiene Instruction PREV VISIT, EST, AGE 40-64 Annual gynecological examina Bitewings Four Films Periodic Oral Eval Estab Patient 2014 Prophylaxis Adult Oral Hygiene Instruction BIOPSY OF CERVIX PREV VISIT, EST, AGE 40-64 EST FP MEDICAID Prophylaxis Adult Oral Hygiene Instruction Prophylaxis Adult Oral Hygiene Instruction Periodic Oral Eval Estab Patient 2013 Annual gynecological examina Resin Composite 1s; Posterior 4 Prophylaxis Adult Oral Hygiene Instruction Intraoral-complete Series (bw) 13 Comp Oral Eval New/estab Patient 2012 Oral Hygiene Instruction PREV VISIT, EST, AGE 12-17 EST FP MEDICAID EST FP MEDICAID EST FP MEDICAID EST FP MEDICAID EST FP MEDICAID URINALYSIS, NONAUTO W/SCOPE URINE TEST Advance Directives Directive Yes / No Effective Date File Name No Information Encounters Encounter Description Practice Location Reason(s) For Visit Diagnoses Date Provider Providers Copied on Encounter [facility], [address] [place] [address], [id number] , tel: [phone] Dental Clinic Well child HPI (chief complaint)pa (chief complaint) Body mass index [BMI] 20.0-20.9, adultEncounter for screening for dental disorders 5 Roma London. [address] [place] [address], [id number], [place]. tel:[phone] [facility], [address] [place] [address], [id number] , tel:[phone] Dental Clinic pa (chief complaint) Encounter for screening for dental disorders 4 Roma London. [address], [place], [id number], [place]. tel:[phone] [facility], [address], [place], [id number] , [place] tel:[phone] Dental Clinic PA (chief complaint) Body mass index [BMI] 20.0-20.9, adultEncounter for screening for dental disorders 4 Kimodarnell CALLAWAY Surya. [address], [place], [id number], [place]. tel:[phone] [facility], [address], [place], [id number] , [place] tel:[phone] [facility] PA (chief complaint) Encounter for screening for dental disorders 3 Roma GARAY Betty. . tel:[phone] [facility], [address], [place], [id number] , [place] tel:[phone] [facility] PA (chief complaint) Encounter for screening for dental disorders 3 Roma CALLAWAY Surya. [address], [place], [id number], [place]. tel:[phone] [facility], [address], [place], [id number] , [place] tel:[phone] Dental Clinic prophy (chief complaint) Encounter for screening for dental disorders 2 Toshia Aguilar. [address] [place], [address], [place]. tel:[phone] [facility], [address], [place], [id number] , [place] tel:[phone] [facility] Prophy (chief complaint) Encounter for screening for dental disorders 2 Vinod Morales. [address], [place], [id number], [place]. tel:[phone] [facility], [address], [place], [id number] , [place] tel:[phone] Dental Clinic prophy (chief complaint) Encounter for screening for dental disorders 1 Me[facility] Cali. [address] [place], [address], [place]. tel:[phone] [facility], [address], [place], [id number] , [place] tel: [phone] Dental Clinic PA (chief complaint) Encounter for screening for dental disorders 1 Vinod Morales. [address], [place], [id number], [place]. tel:[phone] [facility], [address], [place], [id number] , [place] tel: [phone] Dental Clinic Encounter for screening for dental disorders 0 [facility]. [address] [place] [address], [id number], [place]. tel:[phone] [facility], [address] [place] [address], [id number] , [place] tel: [phone] Dental Clinic Encounter for screening for dental disorders 9 [facility] [address], [place], [id number], [place]. tel:[phone] [facility], [address] [place] [address], [id number] , [place] tel: [phone] Dental Clinic Prophy (chief complaint) Encounter for screening for dental disorders 9 [facility]. [address] [place] [address], [id number], [place]. tel:[phone] [facility], [address] [place] [address], [id number] , [place] tel: [phone] Dental Clinic prophy (chief complaint) Encounter for screening for dental disorders 8 Colleen islas. [address] [place], [address], [place]. tel:[phone] [facility], [address], [place], [id number] , [place] tel: [phone] Dental Clinic filling (chief complaint) Encounter for screening for dental disorders 8 Colleen guzman DMD Deepasulochan a. [address] [place], [address], [place]. tel:[phone] [facility], [address], [place], [id number] , [place] tel: [phone] Dental Clinic filling (chief complaint) Encounter for screening for dental disorders 8 Colleen guzman DMD Deepasulochan a. [address] [place], [address], [place]. tel:[phone] [facility], [address] [place] [address], [id number] , [place] tel: [phone] Dental Clinic prophy (chief complaint) Encounter for screening for dental disorders 8 Chance eddy DMD Ashleyn. [address] [place], [address], [place]. tel:[phone] [facility], [address] [place] [address], [id number] , [place] tel: [phone] [facility] Endometrial biopsy (chief complaint) Other specified irregular menstruation 7 Tomas Bui. [address], [place], [id number], [place]. tel:[phone] [facility], [address] [place] [address], [id number] , [place] tel:[phone] Dental Clinic Adult Prophy (chief complaint) Encounter for screening for dental disorders 7 Abebe Del Angel. [address], [place], [id number], [place]. tel:[phone] PREV VISIT, EST, AGE 40-64 [facility], [address] [place] [address], [id number] , [place] tel:[phone] [facility] annual exam (chief complaint) Encntr for door opener exam (general) (routine) w/o abn findingsIrregul ar periodsEncounte r for STD screeningOther problem related to lifestyle Mar-2 0- 7 [facility] Tegan. [address], [place], [id number], [place]. tel:[phone] [facility], [address], [place], [id number] , [place] tel:[phone] Dental Clinic Encounter for screening for dental disorders 4-201 7 Dominic Ahnbo. [address] [place], [address], [place]. tel:[phone] [facility], [address], [place], [id number] , [place] tel:[phone] Dental Clinic Encounter for screening for dental disorders - 7 Dominic Sims. [address] [place], [address], [place]. tel:[phone] [facility], [address] [place] [address], [id number] , [place] tel:[phone] Dental Clinic prophy (chief complaint) Encounter for screening for dental disorders 6 [facility] January. [address], [place], [id number], [place]. tel:[phone] PREV VISIT, EST, AGE 40-64 [facility], [address] [place] [address], [id number] , [place] tel:[phone] [facility] Update (chief complaint)an nual exam (chief complaint) Encounter for general door opener exam without abnormal findingEncounte r for STD screeningOther problem related to lifestyle 3-201 6 [facility] Tegan. [address], [place], [id number], [place]. tel:[phone] [facility], [address], [place], [id number] , [place] tel:[phone] Dental Clinic prophy (chief complaint) Encounter for screening for dental disorders 2 5 [facility] January. [address], [place], [id number], [place]. tel:[phone] [facility], [address], [place], [id number] , [place] tel: [phone] [facility] Polyp Removal (chief complaint) Cervical polyp 5 [facility] Tegan. [address], [place], [id number], [place]. tel:[phone] PREV VISIT, EST, AGE 40-64 [facility], [address], [place], [id number] , [place] tel: [phone] [facility] annual exam (chief complaint) ROUTINE HEALTHCARE MANAGEMENT CONSULTANT EXAMINATIONColo n cancer screeningMammog addie, Screening 5 [facility] Tegan. [address], [place], [id number], [place]. tel:[phone] [facility], [address] [place] [address], [id number] , [place] tel: [phone] Dental Clinic Dental examination 5 January. [address], [place], [id number], [place]. tel:[phone] [facility], [address] [place] [address], [id number] , [place] tel: [phone] [facility] referral (chief complaint) Unspecified abnormal mammogram 4 [facility] Tegan. [address], [place], [id number], [place]. tel:[phone] [facility], [address] [place] [address], [id number] , [place] tel: [phone] [facility] Mammogram report (chief complaint) Unspecified abnormal mammogram 4 [facility] Tegan. [address], [place], [id number], [place]. tel:[phone] [facility], [address] [place] [address], [id number] , [place] tel: [phone] Dental Clinic Dental examination 4 Lockridge DMD January. [address], [place], [id number], [place]. tel:[phone] [facility], [address] [facility] [place], [place], [id number] , [place] tel: [phone] [facility] annual visit (chief complaint) Mammogram, ScreeningGyneco logical Examination 4 [facility] Tegan. [address], [place], [id number], [place]. tel:[phone] [facility], [address], [place], [id number] , [place] tel: [phone] Dental Clinic Dental examination 4 Merritt DMD January. [address], [place], [address], [place]. tel:[phone] [facility], [address], [place], [id number] , [place] tel: [phone] Dental Clinic Dental examination 4 Lockridge DMD January. [address], [place], [address], [place]. tel:[phone] [facility], [address], [place], [address] , [place] tel: [phone] Dental Clinic Dental examination 3 [place] DMD January. [address], [place], [id number], [place]. tel:[phone] PREV VISIT, EST, AGE 12-17 [facility], [address], [place], [id number] , [place] tel: [phone] [facility] annual visit (chief complaint) Gynecological Examination 3 Lamp Sweta. [address], [place], [address], [place]. tel:[phone] [facility], [address] [place] [address], [id number] , [place] tel: [phone] [facility] No Information Dec-2 9-201 2 Burton Sol. [address], [place], [id number], [place]. tel:[phone] [facility], [address], [place], [address] , [place] tel: [phone] [facility] No Information Dec-2 2-201 1 Lamp Sweta. [address], [place], [id number], [place]. tel:[phone] [facility], [address], [place], [id number] , [place] tel: [phone] [facility] No Information 8-201 0 Tomas Bui. [address], [place], [id number], [place]. tel:[phone] [facility], [address] [place] [address], [id number] , [place] tel: [phone] [facility] No Information Dec-0 4-200 9 Salvatore Mondragon. [address] [place] [address], [id number]. tel:[phone] Family History Family Member Type Diagnosis Age At Onset Father Problem (finding) hypertension Father Problem (finding) prostate cancer Sister Problem (finding) Alive and well Paternal aunt Problem (finding) malignant neoplasm of lung Sister Problem (finding) Mental illness Mother Problem (finding) hypertension Father Problem (finding) diabetes melli tus in first degree relative Paternal aunt Problem (finding) breast cancer Mother Problem (finding) Alive and well Brother Problem (finding) Alive and well Father Problem (finding) Alive and well Paternal uncle Problem (finding) malignant neoplasm of kidney Payers Payer name Insurance type Covered democrat ID Authorcristobala tieric(s) D [employer] [facility] [id number] D Medicaid [facility] [id number] Social History Type Description Quantity Date Captured Comments Alcohol Use Details No Caffeine Use Details No Tobacco Use Status Never smoked tobacco 2024 Smoking Status Never smoker Non-Smoking Tobacco Use Details : No Details Available : No Details Available [id number] SexFemaleSexual OrientationStraight or heterosexualGender [id number] Vital Signs Date / Time: Height Weight BMI Pulse Rate Blood Pressure Temperature Respiratory Rate Body Surface Area Head Circumference Head Circ. Percentile Wt./Fernando. Percentile BMI percentile Pulse Ox Inhaled Ox 8:09 AM 61.00 in 49.895 kg (110.00 lbs) 20.7 8 kg/m eter (2) 70 /min 116/72 mm[Hg] 98.10 F 1.47 meter(2) Chief Complaint And Reason For Visit From encounter dated '03/28/2025 08:04'. Well child HPI (chief complaint). Description: pa pa (chief complaint). Description: pa Reason For Referral Reason For Referral No Information Plan Of Treatment Date Type Action Status Goal HPV. Due on due Goal Tdap Vaccine. Due on 2024 due Goal Mammogram. Due on 7 due Goal Unhealthy drug use screening . Due on due Goal PRAPARE ASSESSMENT. Due on due Goal FOBT. Due on due Goal Tdap. Due on due Goal FIT. Due on due Goal FIT-DNA. Due on due Goal Influenza vaccine. Due on due Goal Hepatitis C screening. Due o n due Goal Lipid panel. Due on [address]-Colonography. Due on due Goal Depression screening. Due on due Goal Zoster vaccine (1st). Due on due Goal Dietary management education , guidance, and counseling completed Goal FIT. Due on due Goal Tdap Vaccine. Due on 2023 due Goal Depression screening. Due on due Goal Mammogram. Due on 7 due Goal HPV. Due on due Goal Unhealthy drug use screening . Due on due Goal Tdap. Due on due Goal PRAPARE ASSESSMENT. Due on N due Goal Influenza vaccine. Due on No due Goal CT-Colonography. Due on due Goal Lipid panel. Due on due Goal FOBT. Due on due Goal FIT-DNA. Due on due Goal Hepatitis C screening. Due o n due Goal Zoster vaccine (). Due on due Goal Hep A. Due on du e Goal HPV. Due on due Goal Depression screening. Due on due Goal PRAPARE ASSESSMENT. Due on M due Goal Lipid panel. Due on due Goal FIT-DNA. Due on due Goal Tdap Vaccine. Due on 2023 due Goal Unhealthy drug use screening . Due on due Goal FOBT. Due on due Goal Mammogram. Due on 7 due Goal Tdap. Due on due Goal Hepatitis C screening. Due o n due Goal Zoster vaccine (1st). Due on due Goal Influenza vaccine. Due on due Goal FIT. Due on due Goal CT-Colonography. Due on due Goal Dietary management education , guidance, and counseling completed Goal FOBT. Due on due Goal Depression screening. Due on due Goal PRAPARE ASSESSMENT. Due on N due Goal CT-Colonography. Due on due Goal Mammogram. Due on 7 due Goal Tdap Vaccine. Due on 2022 due Goal Influenza vaccine. Due on due Goal FIT. Due on due Goal HPV. Due on due Goal Tdap. Due on due Goal Unhealthy drug use screening . Due on due Goal Zoster vaccine (1st). Due on due Goal FIT-DNA. Due on due Goal Lipid panel. Due on 023 due Goal Hepatitis C screening. Due o n due Goal PRAPARE ASSESSMENT. Due on M due Goal Tdap. Due on due Goal Mammogram. Due on 7 due Goal Influenza vaccine. Due on Ma due Goal Depression screening. Due on due Goal Lipid panel. Due on 023 due Goal Zoster vaccine (1st). Due on due Goal FOBT. Due on due Goal Hep A. Due on du e Goal Hep A. Due on du e Goal Tdap Vaccine. Due on 2022 due Goal Lipid panel. Due on 022 due Goal Mammogram. Due on due Goal Tdap. Due on due Goal Depression screening. Due on due Goal Zoster vaccine (1st). Due on due Goal FOBT. Due on due Goal Influenza vaccine. Due on Oc t due Goal PRAPARE ASSESSMENT. Due on O due Goal Tdap. Due on due Goal Mammogram. Due on 7 due Goal FOBT. Due on due Goal Influenza vaccine. Due on Ma r due Goal Zoster vaccine (1st). Due on due Goal Depression screening. Due on due Goal FOBT. Due on due Goal Depression screening. Due on due Goal Tdap. Due on due Goal Zoster vaccine (1st). Due on due Goal Influenza vaccine. Due on due Goal Mammogram. Due on due Goal Zoster vaccine (1st). Due on due Goal Influenza vaccine. Due on due Goal Tdap. Due on due Goal Depression screening. Due on due Goal FOBT. Due on due Goal Mammogram. Due on due Goal Mammogram. Due on due Goal FOBT. Due on due Goal Influenza vaccine. Due on due Goal Tdap. Due on due Goal Depression screening. Due on due Goal Zoster vaccine (1st). Due on due Goal Depression screening. Due on due Goal Influenza vaccine. Due on due Goal Tdap. Due on due Goal HEALTHCARE MANAGEMENT CONSULTANT exam. Due on due Goal Mammogram. Due on due Goal FOBT. Due on due Goal Depression screening. Due on due Goal Influenza vaccine. Due on due Goal Tdap. Due on due Goal HEALTHCARE MANAGEMENT CONSULTANT exam. Due on due Goal Mammogram. Due on due Goal FOBT. Due on due Goal HEALTHCARE MANAGEMENT CONSULTANT exam. Due on due Goal Tdap. Due on due Goal Influenza vaccine. Due on due Goal Depression screening. Due on due Goal FOBT. Due on due Goal Mammogram. Due on due Goal FOBT. Due on due Goal Mammogram. Due on due Goal HEALTHCARE MANAGEMENT CONSULTANT exam. Due on due Goal Tdap. Due on due Goal Influenza vaccine. Due on due Goal H&P. Due on due Goal HEALTHCARE MANAGEMENT CONSULTANT exam. Due on due Goal Tdap. Due on due Goal Influenza vaccine. Due on due Goal FOBT. Due on due Goal Mammogram. Due on due Goal H&P. Due on due Goal Tdap. Due on due Goal Influenza vaccine. Due on due Goal FOBT. Due on due Goal HEALTHCARE MANAGEMENT CONSULTANT exam. Due on due Goal H&P. Due on due Goal Mammogram. Due on due Goal FOBT. Due on due Goal Tdap. Due on due Goal HEALTHCARE MANAGEMENT CONSULTANT exam. Due on due Goal Influenza vaccine. Due on due Goal H&P. Due on due Goal HEALTHCARE MANAGEMENT CONSULTANT exam. Due on due Goal FOBT. Due on due Goal Influenza vaccine. Due on due Goal Tdap. Due on due Goal H&P. Due on due Goal HEALTHCARE MANAGEMENT CONSULTANT exam. Due on due Goal FOBT. Due on due Goal Influenza vaccine. Due on due Goal H&P. Due on due Goal Tdap. Due on due Goal Lipid panel. Due on 017 due Goal HEALTHCARE MANAGEMENT CONSULTANT exam. Due on due Goal Sigmoidoscopy. Due on due Goal Influenza vaccine. Due on due Goal FOBT. Due on due Goal H&P. Due on due Goal Tdap. Due on due Goal Td vaccine. Due on due Goal Tdap. Due on due Goal HEALTHCARE MANAGEMENT CONSULTANT exam. Due on due Goal Sigmoidoscopy. Due on due Goal Td vaccine. Due on 17 due Goal H&P. Due on due Goal FOBT. Due on due Goal Influenza vaccine. Due on due Goal Lipid panel. Due on 017 due Goal H&P. Due on due Goal HEALTHCARE MANAGEMENT CONSULTANT exam. Due on due Goal FOBT. Due on due Goal Sigmoidoscopy. Due on due Goal Influenza vaccine. Due on due Goal Td vaccine. Due on 16 due Goal Tdap. Due on due Goal Tdap. Due on due Goal Td vaccine. Due on 16 due Goal FOBT. Due on due Goal HEALTHCARE MANAGEMENT CONSULTANT exam. Due on due Goal Influenza vaccine. Due on due Goal Sigmoidoscopy. Due on due Goal H&P. Due on due Goal FOBT. Due on due Goal Sigmoidoscopy. Due on due Goal Depression screening. Due on due Goal Tdap. Due on due Goal Influenza vaccine. Due on due Goal H&P. Due on due Goal HEALTHCARE MANAGEMENT CONSULTANT exam. Due on due Goal Td vaccine. Due on 15 due Goal Tdap. Due on due Goal Td vaccine. Due on 15 due Goal HEALTHCARE MANAGEMENT CONSULTANT exam. Due on due Goal H&P. Due on due Goal Depression screening. Due on due Goal Pap/HPV testing. Due on due Goal H&P. Due on due Goal Tdap. Due on due Goal Depression screening. Due on due Goal Td vaccine. Due on 15 due Goal HEALTHCARE MANAGEMENT CONSULTANT exam. Due on due Goal HEALTHCARE MANAGEMENT CONSULTANT exam. Due on due Goal H&P. Due on due Goal Depression screening. Due on due Goal Pap/HPV testing. Due on due Goal Td vaccine. Due on 15 due Goal Tdap. Due on due Goal HEALTHCARE MANAGEMENT CONSULTANT exam. Due on due Goal Mammogram. Due on 4 due Goal H&P. Due on due Goal PAP. Due on due Referral Ordered: Screening Colonoscopy [id number] Ordered: MAMMOGRAM, SCREENING Appointment date/timeframe: 06/21/2015 [id number] Ordered: Genrl Surg. [id number], CindyBOOKED History Of Present Illness Encounter Date Complaint History Of Prese nt Illness Well child HPI pa pa pa pa pa PA PA PA PA PA JESSE prophy prophy Prophy prophy prophy PA PA Prophy Prophy prophy filling filling continue with treatment filling filling prophy Endometrial biopsy Patient here for Endometrial Biopsy. Patient is not on a form of BC. Annual 04/15/17 ASCUS. Enlarged uterus. -Quinn SEARS Adult Prophy Adult Prophy annual exam Currently pregna nt: no. : 2. Parity: Term: 2. Livin. The patient states she uses abstinence for control. Last LMP was 04/13/2017. Her menses is irregular with heavy flow with decreased frequency. Tobacco cessation has been discussed. She does not drink alcohol. Additional information: Here for annual exam. States for over the past year she has very irregular menses. States she is abstinent and does not desires BC. . prophy annual exam (comments) Patient s tates the bloating only occurs after she takes her medication and never has any discomfort associated with the bloating. States her daughter is getting and she is trying on dresses and has noticed her tummy appears to be enlarged. Desires to monitor at this time and if increased concern will contact the office. Patient states she is the only one in her family with breast cancer. States she did have genetic testing and was negative for Brac 1 & 2. States she had a colonoscopy last year and the result was normal. Has mammogram scheduled in Jun 2016 Update Client presents today for an update. Abstinence used for BC, no menses since 12/04/15. C/O about bloating after taking morning medications. Denies any further problems/concerns at this time. Mammogram schedule for mid June per client. Colonoscopy completed 04/[address] Pathak. Pap/culture obtained. ORION Whitney. annual exam Currently pregna nt: no. Parity: Term: 2. Livin. The patient states she uses abstinence for control. Last LMP was 12/04/2015. Her menses is absent with a frequency of irregular. Negative for: breast discharge, breast lump(s) and breast pain. Positive for: breast self exam. She does not drink alcohol. Additional information: Report no menses since 11/2015. light cramping/bloating when it's my time of the month but that about it .ORION RIVERA. prophy Polyp Removal Client presents today for polyp removal. Client reports that Tegan found polyp while doing Pap, she had bleeding after her visit on 03/28/15. Questioning if polyp fell off. Denies any further problems/concerns at this time. Polyp's removed. Client tolerated without incidence. Instructed to call facility if she has any further needs. ORION Whitney annual exam Currently pregna nt: no. : 2. Parity: Term: 2. Livin. The patient states she uses abstinence for control. Last LMP was 03/17/2015. Pertinent negatives include anxiety and depression. The patient does not use tobacco. She does not drink alcohol. Additional information: Patient here today for annual exam. Patient had a right mastectomy due to breast cancer 09/2014. Mammogram scheduled for 06/21/15 @ 3:40PM. Patient to return 04/18/15 @ 5:00PM for cervical polyp removal. ORION JIM. Functional Status Date Functional Assessmen t No Information Instructions Date Instruction Additional Infor mation Dietary management e ducation, guidance, and counseling Related to Body mass index [BMI] 20.0-20.9, adult Giving encouragement to exercise Related to Body mass index [BMI] 20.0-20.9, adult Dietary management e ducation, guidance, and counseling Related to Body mass index [BMI] 20.0-20.9, adult Giving encouragement to exercise Related to Body mass index [BMI] 20.0-20.9, adult Discussed irregular mense in detail Encouraged to keep sonogram to eveluate endometrial stripe. Ordered TSH, Free T$, Prolactin and FSH level. ENcouraged to keep sonogram appt to evaluate endometrial lining. Encouraged to keep follow up appt with Dr. Marin for possible EMBX. Patient's cervix is located right behind pelvic bone and is difficult to get to may be difficult EMBX Related to Irregular periods Cervical cultures se nt to lab. Patient to call in 1 week for results Related to Encounter for STD screening Encouraged monthly B SE. Recommend calcium 1000mg QD. Encouraged good dietary intake and exercise. Laboratory specimens sent to lab. Patient to call in 2 weeks if desires results. 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 Patient to call in 1 week for results Related to Encounter for STD screening Encouraged monthly B SE. Recommend calcium 1000mg QD. Encouraged good dietary intake and exercise. Laboratory specimens sent to lab. Patient to call in 2 weeks if desires results. Discussed bloating and encouraged patient to follow up with PCP. Patient desires to monitor at this time. If increased s/s will contact the office and will consider pelvic sonogram at that time. No menses since 12/12 patient notified to RTC if any bleeding present in the future. Patient thinks she is menopausal Related to Encounter for general door opener exam without abnormal finding Cervical polyp remov ed with ring forceps. Patient tolerated the procedure well. Polyp sent to pathology. Patient to call in 1 week for results Related to Cervical polyp Task sent to nurse t o schedule colonoscopy Related to Colon cancer screening Encouraged monthly B SE. Encouraged to keep mammogram appointmentRecommend calcium 1000mg QD. Encouraged good dietary intake and exercise. Pap and cervical cultures sent to lab. Patient to call in 2 weeks if desires results. RTC for cervical polyp removal Related to ROUTINE HEALTHCARE MANAGEMENT CONSULTANT EXAMINATION Assessments Type Assessment Date assessment Body mass index [BMI] 20.0-20.9, adult Patient Care Teams Name Effective Dates (start - stop) Status Members No Information
--- OUTSIDE RECORDS SUMMARY | 2025-10-01 08:29 | XMS_ITS | Encounter Summary ---
Author Organization [facility] Address [address] [place] [address] Care Team Providers Care Solar Sales Ambassador Name Role Phone Vishal Mazariegos DO Unavailable [phone] Vishal Mazariegos DO Primary Care Provider [phone] Nica Nelson MD Unavailable Vishal Bernabe DO Unavailable [phone] Reason for Visit * ReasonOnset LdnlNjwmtqoqKrawjvs71/04/2025 Encounter Details DateTypeDepartmentCare Team (Latest Contact Info)Jwyizdmkjdw49/04/2025Results Follow-Up [facility] [address] [place] [address] Close, ORION Cao Left screening mammogram with tomosynthesis Social History Tobacco UseTypesPacks/DayYears UsedDateSmoking Tobacco: NeverPassive Smoke Exposure: NeverSmokeless Tobacco: NeverAlcohol UseStandard Drinks/WeekComments Never0 (1 standard drink = 0.6 oz pure alcohol)Caffeine intake: [id number] Health LiteracyAnswerDate RecordedHow often do you need to have someone help you when you read instructions, pamphlets, or other written material from your doctor or pharmacy?Never04/01/2025Social Connection and Isolation PanelAnswerDate Recorded In a typical week, how many times do you talk on the phone with family, friends, or neighbors?More than three times a week04/01/2025How often do you get together with friends or relatives?Once a week04/01/2025How often do you attend orthodoxy or tenriism services?More than 4 times per year04/01/2025Do you belong to any clubs or organizations such as orthodoxy groups, unions, fraternal or athletic nato ups, or school groups?Yes04/01/2025How often do you attend meetings of the clubs or organizations you belong to?More than 4 times per year04/01/2025re you , , , , never , or living with a partner? Ggcjtmtg37/06/2025UDIT-CAnswerDate RecordedQ1: How often do you have a drink containing alcohol?Never07/22/2025Q2: How many drinks containing alcohol do you have on a typical day when you are drinking?Patient does not drink07/22/2025Q3: How often do you have six or more drinks on one occasion?Never07/22/2025Overall Financial Resource Strain (CARDIA)AnswerDate RecordedHow hard is it for you to pay for the very basics like food, housing, medical care, and heating?Not hard at all04/01/2025PHQ-2AnswerDate RecordedPatient Health Questionnaire-2 Score0 07/22/2025[facility] [place] [facility] - Occupational Stress QuestionnaireAnswerDate RecordedDo you feel stress - tense, restless, nervous, or anxious, or unable to sleep at night because yourmind is troubled all the time - these days?Very much04/01/2025Exercise Vital SignAnswerDate RecordedOn average, how many days per week do you engage in moderate to strenuous exercise (like a brisk walk)?7 days04/01/2025Minutes of Exercise per SessionNot on file 04/01/2025Hunger Vital SignAnswerDate RecordedWithin the past 12 months, you worried that your food would run out before you got the money to buymore.Never true04/01/2025Within the past 12 months, the food you bought just didn't last and you didn't have money to get more.Never true04/01/2025PRAPARE - TransportationAnswerDate RecordedIn the past 12 months, has lack of transportation kept you from medical appointments or from getting medications?No 04/01/2025In the past 12 months, has lack of transportation kept you from meetings, work, or from getting things needed for daily living?No04/01/2025 Housing Stability Vital SignAnswerDate RecordedIn the last 12 months, was there a time when you were not able to pay the mortgage or rent on time?No04/01/2025 Number of Times Moved in the Last YearNot on file04/01/2025t any time in the past 12 months, were you homeless or living in a fci (including now)?No 04/01/2025CommentsNoSex and Gender InformationValueDate RecordedSex Assigned at BirthNot on fileLegal CoyEdlttv37/15/2023 8:01 PM EDTGender Identity Not on fileSexual OrientationNot on fileOccupationIndustryJob Start DateJob End DateWendy'sNot on fileNot on fileNot on filedocumented as of this encounter Miscellaneous Notes * Telephone Encounter - Kiley Beaulieu LPN - 09/29/2025 12:54 PM EST IMPRESSION: NO MAMMOGRAPHIC EVIDENCE OF MALIGNANCY. ROUTINE FOLLOW-UP IS RECOMMENDED IN ONE YEAR Lvm notifying of above results and direction. Advised to call the office with any questions. documented in this encounter Plan of Treatment DateTypeDepartmentCare Team (Latest Contact Info)Huoglqzvkmm06/15/2025 4:00 PM ESTOffice Visit [facility] [address] [place] [phone] Vishal Mazariegos, [address] [place] [address] 04/03/2026 9:30 AM EDTOffice Visit [facility] [address] [place] [phone] Vishal Bernabe, [address] [place] [address] 07/24/2026 1:30 PM EDTOffice Visit [facility] [place] [facility] [address] [place] [phone] Chente Mazariegos DO [address] [place] [address] documented as of this encounter Visit Diagnoses Not on filedocumented in this encounter Care Teams Team MemberRelationshipSpecialtyStart DateEnd Date Vishal aMzariegos DO [address] [place] [address] PCP - [facility]01/25/23 Vishal Mazariegos DO [address] [place] [address] PCP - [facility]01/05/24 Nica Nelson MD [address] [facility] [place] [address] Oncology04/01/25 Vishal Bernabe DO [address] [place] [address] Otolaryngology04/01/25documented as of this encounter
--- OUTSIDE RECORDS SUMMARY | 2025-10-01 08:30 | XMS_ITS | Clinical Summary ---
Author Organization [facility] Address [address] [place] [address] Care Team Providers Care Mechanical Facilities Technician Name Role Phone Vishal Mazariegos DO Unavailable [phone] Vishal Mazariegos DO Primary Care Provider [phone] Nica Nelson MD Unavailable Vishal Bernabe DO Unavailable [phone] Allergies Active AllergyReactionsCriticalityNoted KnwiFwiwcfvqPiwghhqtjwxkwTaf80/26/2024 Other Reaction(s): Flushing Other02/11/2022 Other Reaction(s): Unknown Swtayehj90/03/2023 Other Reaction(s): Unknown Wound Dressing Gzwkbont02/03/2023 Other Reaction(s): Unknown Medications MedicationSigDispense QuantityRefillsLast FilledStart DateEnd DateStatus Multiple Vitamin (Multivitamin Adult) tablet Active ferrous sulfate 325 (65 Fe) MG EC tablet Indications:Anemia, unspecified typeTake 1 tablet (325 mg) by mouth in the morning. Take with meals. Do not crush, chew, or split.. 90 tablet 506Active cholecalciferol (Vitamin D-3) 50 MCG (2000 UT) tablet Indications:Vitamin D deficiencyTake 1 tablet (50 mcg) by mouth Daily 30 tablet 5Active calcium carbonate 1500 (600 Ca) MG tablet Indications:Hyperparathyroidism (HCC)Take 1 tablet (1,500 mg) by mouth Daily 90 tablet 5Active lisinopril 10 MG tablet Indications:Primary hypertensionTake 1 tablet (10 mg) by mouth in the morning. 90 tablet tive lisinopril 10 MG tablet Indications:Primary hypertensionTake 1 tablet (10 mg) by mouth Daily 90 tablet Discontinued lisinopril 10 MG tablet Indications:Primary hypertensionTAKE 1 TABLET BY MOUTH DAILY 90 tablet Discontinued(Reorder) Active Problems ProblemNoted DateDiagnosed DateLateral epicondylitis of right elbow01/01/2024 Iron deficiency uoguhc3112/25/20238777Rmoctewxn26/29/2024maurosis fugax02/26/2023 Elevated cancer antigen 125 (CA-125)02/26/2023Fibrocystic breast changes 02/26/20231550Hzfcqcpjjoqjf33/03/1516Vvijoxdxdhncewpywkg50/03/2023Juvenile idiopathic scoliosis of thoracic xhepzk7502/26/2023Malignant neoplasm of central part of female fizsnq4802/26/2023Multinodular ewxxgy6802/26/2023Nontoxic single thyroid ttxclx6902/26/2023ostmenopausal atrophic yaubhchbv57/03/2023rimary tetscobvugiw82/03/2023TIA (transient ischemic attack)02/26/2023ain due to varicose veins of both lower hghankofdci01/16/2021History of right mastectomy 04/18/2015Idiopathic scoliosis and jrckrcsmrpjubu71/05/2012Lumbar facet emaukilibgd16/05/2012 Resolved Problems ProblemNoted DateDiagnosed DateResolved DateElbow pain12/31/ Thyroid bppkes84Varicose veins of bilateral lower extremities with painPersonal history of malignant neoplasm of breast Encounters DateTypeDepartmentCare LvhrJbannbbfeft96/04/2025Results Follow-Up [facility] [address] [place] [address] Kiley Beaulieu LPN Left screening mammogram with myvkqawvosunh15/18/2025Telephone [facility] [address] [place] [address] Alejandra Rico RN Med Agdsrx5509/13/2025Refill [facility] [place] [facility] [address] [place] [phone] Vishal Mazariegos, DO Primary ilmxtxmpgjwf53/01/2025External Result Encounter [facility] External Department Unsolicited Vishal Mazariegos, 07/22/2025 9:15 AM EDTOffice Visit [facility] [address] [place] [address] Chente Mazariegos, Encounter for gynecological examination without abnormal finding (Primary Dx); Encounter for Papanicolaou smear of vagina; History of breast cancer; Vaginal iicgqhk3507/22/20251785Qvpmco87/08/2025Telephone [facility] [place] [facility] [address] [place] [phone] Vishal Mazariegos, DO Referralfrom Last 3 Months Family History Medical HistoryRelationNameCommentsCancerBrotherJerry jr.Prostate cancerFather Femi sr.79 yrsColon cancerMaternal GrandfatherHypertensionMotherMaryBreast cancerOtherPat cousin Breast CancerNo Known ProblemsSister 1No Known Problems Sister 2Ovarian cancerNeg HxRelationNameStatusCommentsBrotherJerry jr.Alive FatherJerry sr.AliveMaternal GrandfatherMotherMaryAliveOtherSister 1AliveSister 2Alive Social History Tobacco UseTypesPacks/DayYears UsedDateSmoking Tobacco: NeverPassive Smoke Exposure: NeverSmokeless Tobacco: Never Tobacco Cessation:Counseling Given: Not Answered Alcohol UseStandard Drinks/WeekCommentsNever0 (1 standard drink = 0.6 oz pure alcohol)Caffeine intake: [id number] Health LiteracyAnswerDate RecordedHow often do you need to have someone help you when you read instructions, pamphlets, or other written material from your doctor or pharmacy?Never04/01/2025Social Connection and Isolation PanelAnswerDate RecordedIn a typical week, how many times do you talk on the phone with family, friends, or neighbors?More than three times a week04/01/2025How often do you get together with friends or relatives?Once a week04/01/2025How often do you attend yazidism or yazdanism services?More than 4 times per year04/01/2025Do you belong to any clubs or organizations such as yazidism groups, unions, fraternal or athletic groups, or school groups?Yes04/01/2025How often do you attend meetings of the clubs or organizations you belong to?More than 4 times per year04/01/2025re you , , , , never , or living with a partner? 04/01/2025UDIT-CAnswerDate RecordedQ1: How often do you have a [...] housing, medical care, and heating?Not hard at all 04/01/2025PHQ-2AnswerDate RecordedPatient Health Questionnaire-2 Score0 07/22/2025[facility] [place] [facility] Occup[facility] Health - Occupational Stress QuestionnaireAnswerDate [...] were you homeless or living in a custodial (including now)?No 04/01/2025CommentsNoSex and Gender InformationValueDate RecordedSex Assigned at BirthNot on fileLegal BdqIqfihy39/15/2023 8:01 PM EDTGender Identity Not on fileSexual OrientationNot on fileOccupationIndustryJob Start DateJob End DateWendy'sNot on fileNot on fileNot on file Last Filed Vital Signs Vital SignReadingTime TakenCommentsBlood Qphaderg521/68007/22/2025 9:17 AM EDT Odnei308704/08/2025 1:50 PM FYLPybpzejqxmu91.8 ??C (96.4 ??F)04/08/2025 1:50 PM EDTRespiratory Rate--Oxygen Ycdnpgslsp78%04/08/2025 1:50 PM EDTInhaled Oxygen Concentration--Nzqpqf70.3 kg (111 lb)07/22/2025 9:17 AM ZXRGinczk041.1 cm (5' 5 )07/22/2025 9:17 AM EDTBody Mass Index18.4709 9:17 AM EDT Plan of Treatment DateTypeDepartmentCare Team (Latest Contact Info)Brqathnowet66/15/2025 4:00 PM ESTOffice Visit [facility] [address] [place] [phone] Vishal Mazariegos, [address] [place] [address] 04/03/2026 9:30 AM EDTOffice Visit [facility] [address] [place] [phone] Vishal Bernabe, DO [address] [place] [address] 07/24/2026 1:30 PM EDTOffice Visit [facility] [address] [place] [phone] Chente Mazariegos, DO [address] [place] [address] Health MaintenanceDue DateLast DoneCommentsCT Kvsevozrafpc1965FIT-DNA 1965FIT1965FOBT1965 5618Hanzsgbkqjwcy1965COVID-19 Vaccine (#1)1970Pneumococcal Vaccine: Pediatrics (0 to 5 Years) and At-Risk Patients (6 to 64 Years) (1 of 2 - PCV)1984Influenza Vaccine (#1) 0969Dcmwocgqepw97/31/203103/1Colorectal Cancer Ccorhpoyy61/31/2031 Pap RqnriNldgwmnwblmd90/12/2023Cervical Cancer ScreeningDiscontinuedHPV/Cotest Yjmqlkhkblpj47/26/2025 Procedures Procedure NamePriorityDate/TimeAssociated DiagnosisCommentsBI MAMMOGRAM SCREENING TOMOSYNTHESIS LEFT07/27/2025 4:34 PM EDT IGP,RFXAPTIMA HPV ALL,16/18,10Qtjvcmk50/26/2025 12:00 AM EDT Encounter for Papanicolaou smear of vagina THINPREP TIS GEWOpttjgm07/12/2023 10:33 AM EDT Encounter for gynecological examination without abnormal finding Encounter for Papanicolaou smear of vagina ADFJLMABPCPGuxtjbd11/31/2021 12:00 PM EDT from Last 3 Months or Most Recently Relevant to Health Maintenance Results * Left screening mammogram with tomosynthesis (07/27/2025 4:34 PM EDT)Anatomical RegionLateralityModalityBreastLeftMammographySpecimen (Source)Anatomical Location / LateralityCollection Method / VolumeCollection TimeReceived Time 07/27/2025 4:34 PM EDT Impressions 07/27/2025 4:38 PM EDT NO MAMMOGRAPHIC EVIDENCE OF MALIGNANCY. ? ROUTINE FOLLOW-UP IS RECOMMENDED IN ONE YEAR. ? RESULT CODE: 1 ? Negative ? DENSITY CODE: 3 (approximately 51-75% glandular) The breasts are heterogeneously dense, which may obscure small masses. ? FOLLOW UP: 1YR ? The false-negative rate of mammography is approximately 10-percent. ? Management of a palpable abnormality must be based on clinical grounds. ? Patient was entered into a reminder system with a target due date for the next mammogram. ? Impression dictated by: Darci Zapien Jr., D.O. ??07/27/2025 4:35 PM ? Dictation Location: S01 ? Dictated By: ?Darci Zapien Jr, DO ? 07/27/25 1634 ? Signed By: <Electronically signed by Darci Zapien Jr, DO in OV> ?07/27/25 163 Narrative 07/27/2025 4:38 PM EDT [facility] ?[address] ?[place] [address] ?? [phone] ? Mammography Report ? Signed ? Patient: Haycook,Maricel L ?MR#: [id number] ?? [id number] ? : 1965 ?Acct:[id number] ? Age/Sex: 60 / F ?Adm Date: 07/27/25 ? Loc: [place] ?Room: ?Type: REG CLI ?? Attending Dr: Vishal Mazariegos DO ? Ordering Provider: Vishal Mazariegos,DO ? Date of Service: 07/27/25 ? Procedure(s): MM screening mammo LT w/CAD ?? Accession Number(s): ([id number]) MM/MM screening mammo LT w/CAD: screening for breast cancer ? Copies to: Vishal Mazariegos DO ? CLINICAL DATA: ??Screening for malignancy. ? SCREENING MAMMOGRAM - FULL FIELD DIGITAL WITH TOMOSYNTHESIS AND CAD ? COMPARISON:Mammograms dating back to 2020 ? Tomosynthesis craniocaudal and mediolateral oblique views of both breasts were obtained using low- dose digital technique. ?? This examination was reviewed with the aid of CAD. ? FINDINGS: ? The breast parenchyma is heterogeneously dense. ??There are no dominant masses, typically malignant calcifications or architectural distortion. ??There has been no significant interval change. ? MM/MM screening mammo LT w/CAD ?? Procedure Note Darci Zapien Jr., - 07/28/2025 [place] [address] Mammography Report Signed Patient: Maricel Easton LMR#: [id number] : 1965Acct:[id number] Age/Sex: 60 / FAdm Date: 07/27/25 Loc: [place] Room:Type: [facility] Attending Dr: Vishal Mazariegos DO Ordering Provider: Vishal Mazariegos DO Date of Service: 07/27/25 Procedure(s): MM screening mammo LT w/CAD Accession Number(s): ([id number]) MM/MM screening mammo LT w/CAD:screening for breast cancer Copies to: Vishal Mazariegos DO CLINICAL DATA: Screening for malignancy. SCREENING MAMMOGRAM - FULL FIELD DIGITAL WITH TOMOSYNTHESIS AND CAD COMPARISON:Mammograms dating back to 2020 Tomosynthesis craniocaudal and mediolateral oblique views of both breastswere obtained using low- dose digital technique. This examination was reviewed with the aid ofCAD. FINDINGS: The breast parenchyma is heterogeneously dense. There are no dominantmasses, typically malignant calcifications or architectural distortion. There has been no significant interval change. MM/MM screening mammo LT w/CAD IMPRESSION: NO MAMMOGRAPHIC EVIDENCE OF MALIGNANCY. ROUTINE FOLLOW-UP IS RECOMMENDED IN ONE YEAR. RESULT CODE: 1 Negative DENSITY CODE: 3 (approximately 51-75% glandular) The breasts areheterogeneously dense, which may obscure small masses. FOLLOW UP: 1YR The false-negative rate of mammography is approximately 10-percent. Management of a palpable abnormality must be based on clinical grounds. Patient was entered into a reminder system with a target due date for thenext mammogram. Impression dictated by: Darci Zapien Jr., D.OSamuel 07/27/2025 4:35 PM Dictation Location: [facility] Dictated By: Darci Zapien Jr, DO 07/27/25 1634 Signed By: <Electronically signed by Darci Zapien Jr, DO inOV> 07/27/25 1635 Authorizing ProviderResult TypeResult StatusPaul Gladys Mazariegos DOIMG BI PROCEDURES Final Result * IGP,rfxAptima HPV all,16/18,45 (07/22/2025 12:00 AM EDT)ComponentValueRef RangeTest MethodAnalysis TimePerformed AtPathologist SignatureDiagnosis: CommentLABCORPComment:NEGATIVE FOR INTRAEPITHELIAL LESION OR MALIGNANCY. Specimen Adequacy:CommentLABCORPComment: Satisfactory for evaluation. ??Endocervical and/or squamous metaplastic cells (endocervical component) are present. Clinician Provided ICD10:CommentLABCORPComment:Z12.72Performed By:CommentLABCORP Comment:Tara Liriano, Plastic Surgery Specialist ([facility])Cyto Comments.LABCORPNote: CommentLABCORPComment: The Pap smear is a screening test designed to aid in the detection of premalignant and malignant conditions of the uterine cervix. ??It is not a diagnostic procedure and should not be used as the sole means of detecting cervical cancer. ??Both false-positive and false-negative reports do occur. Test Methodology:CommentLABCORPComment: This liquid based ThinPrep(R) pap test was screened with the use of an image guided system. .CommentLABCORPComment: The HPV DNA reflex criteria were not met with this specimen result therefore, no HPV testing was performed. Specimen (Source)Anatomical Location / LateralityCollection Method / Volume Collection TimeReceived TimeSwabVaginal structure / Urmwwpe59/ Comment:Vagina Print requisit Narrative [facility] - 07/28/2025 5:07 PM EDT Performed at: 01 - [facility] [address] [place], [place] ??[id number] Collection Support Specialist: Monse Yen MD, Phone: ??[phone] Specimen Comment: [id number] Specimen Comment: No. of containers..01 ThinPrep Vial Authorizing ProviderResult TypeResult StatusWilliam Donna Mazariegos [facility] CYTOLOGY ORDERABLESFinal ResultPerforming OrganizationAddressCity/State/ZIP CodePhone Number [facility] * THINPREP TIS PAP (07/08/2023 10:33 AM EDT)ComponentValueRef RangeTest Method Analysis TimePerformed AtPathologist SignatureCLINICAL INFORMATIONQUEST Comment:None givenLMPQUESTComment:KIMO BSO 2018PREV. PAPQUESTComment:NEGPREV. BXQUESTComment:NONE GIVENSOURCEQUESTComment:None givenSTATEMENT OF ADEQUACY QUESTComment:SATISFACTORY FOR EVALUATIONINTERPRETATION/RESULTQUESTComment: Cytology Results: Negative for intraepithelial lesion or malignancy. Atrophic pattern; predominantly parabasal cells COMMENTQUESTComment: This Pap test has been evaluated with computer assisted technology. CYTOTECHNOLOGISTQUESTComment: LEYDI EDMONDSON(ASCP) CT screening location: [place] [address]. (ALWAYS MESSAGE)QUESTComment: EXPLANATORY NOTE: The Pap is a screening test for cervical cancer. It is not a diagnostic test and is subject to false negative and false positive results. It is most reliable when a satisfactory sample, regularly obtained, is submitted with relevant clinical findings and history, and when the Pap result is evaluated along with historic and current clinical information. Specimen (Source)Anatomical Location / LateralityCollection Method / Volume Collection TimeReceived JrvlTblq90/12/2023 10:33 AM EDT07/09/2023 3:50 AM EDT Narrative Resulting Agency Comment Performing Organization Information ?Site ID: [id number] ?Name: [facility] ?Address: [address] [place], [place] [address] ?Director: Fab Murphy MD Authorizing ProviderResult TypeResult StatusWijeannette WALLACE BLOOD ORDERABLESFinal ResultPerforming OrganizationAddressCity/State/ZIP CodePhone Number QUEST * Colonoscopy (01/24/2021 12:00 PM EDT)Anatomical RegionLateralityModality EndoscopySpecimen (Source)Anatomical Location / LateralityCollection Method / VolumeCollection TimeReceived Time01/24/2021 12:00 PM EDT Narrative 01/24/2021 12:00 PM EDT PERFORMED AT [facility] LOCATION:[id number] [facility] Procedure Note CONVERSION, GENERIC - 03/12/2023 PERFORMED AT [facility] LOCATION:[id number] [facility] Authorizing ProviderResult TypeResult StatusVishal Mazariegos DOENDOSCOPY PROCEDURE ORDERABLESFinal Result from Last 3 Months or Most Recently Relevant to Health Maintenance Insurance Care Teams Team MemberRelationshipSpecialtyStart DateEnd Date Vishal Mazariegos DO [address] [place] [address] PCP - [facility]01/25/23 Vishal Mazariegos DO [address] [place] [address] [facility] Nica Nelson MD [address] [place] [address] Oncology04/01/25 Vishal Bernabe DO [address] [place] [address] Otolaryngology04/01/25
--- OUTSIDE RECORDS SUMMARY | 2025-10-01 08:30 | XMS_ITS | CCD ---
Author Organization [facility] CliniSyid Care Team Providers Care Auto Design Detailer Name Role Phone Nica Nelson Unavailable Unavailable Michelle Perry Unavailable Fidel Soler Unavailable MD Nica Nelson Attending Provider DO Chente Mazariegos Referring Provider DO Vishal Mazariegos Primary Care Provider MD Fidel Soler Attending Provider [phone] DO Vishal Mazariegos Primary Care Provider [phone] DO Vishal Mazariegos Attending Provider [phone] ETHEL Perry Attending Provider VISHAL MAZARIEGOS Primary Care Physician [phone] Darci Ambrose Attending Unavailable MD Nica Nelson Attending Provider [phone] DO Chente Mazariegos Referring Provider DO Vishal Mazariegos Primary Care Provider DO Vishal Bernabe Attending Provider NO FAMILY, PHYSICIAN Primary Care Provider Unava ilable Vishal Mazariegos DO Unavailable Missy England DO Primary Care Provider MD Nica Nelson Attending Provider [phone] DO Chente Mazariegos Referring Provider DO Vishal Mazariegos Primary Care Provider Vishal Mazariegos DO Primary Care Provider Nica Nelson MD Unavailable Vishal Bernabe DO Unavailable JR. MARTIN GEORGE C Attending UnavailVISHAL Gan Attending Unavailable NICA NELSON Referring Unavailable JR. HÉCTOR, YURIY Arteaga Attending Jesika MARTIN JR., YURIY Arteaga Attending UnavailVISHAL Pappas Attending Unavailable CHENTE MAZARIEGOS Attending Unavailable MISSY ENGLAND Attending VISHAL Alfredo Attending Enid MARTIN JR., YURIY Arteaga Attending Vishal Campos DO Primary Care Provider [phone] Vishal Mazariegos DO Attending Provider [phone] Vishal Mazariegos Attending Vishal Alfredo Primary Care Unavailable Vishal Mazariegos Admitting Unavailable Allergies Allergy ClassificationReported Allergen(s)Allergy TypeDate of OnsetReaction(s) Facility (20 sources)HYDROmorphoneDrug Zskpqxz94-28-3122ExyrfqnfQbliooirrC[facility] (1 source)Adhesive Bandage 1Drug allergyOhio Valley Surgical HospitalComment on above:durabond (1 source)Adhesive bandage; Translations: [Adhesive Bandage]Propensity to adverse reactions (disorder)[facility] (20 sources)traMADolDrug Cfiscyq37-80-4583[facility] (20 sources)OtherAllergy to bwfomupdn23-87-6603RQID [facility] (20 sources)Wound Dressing AdhesiveDrug Lurtxtq72-13-2544SDYA [facility] (2 sources)durobonAllergy to ttidgdlqv57-69-3990BivhUpdzkliybRiverview Health Institute Medications Current Medications MedicationDrug Class(es)DatesSig (Normalized)Sig (Original)ascorbic acid 60 mg / beta carotene 5000 unt / copper sulfate 40 mg / dl-alpha tocopheryl acetate 30 unt / sodium selenite 0.04 mg / zinc oxide 40 mg oral tablet (20 sources)Vitamin CMultiple Vitamin (Multivitamin Adult) tablet Activecalcium carbonate 1500 mg oral tablet (20 sources)Start: 10-25-2024 End: 40-09-6538vmvf 1 tablet by mouth once dailycalcium carbonate 1500 (600 Ca) MG tablet Indications: Hyperparathyroidism (HCC) Take 1 tablet (1,500 mg) by mouth Daily 90 tablet 3 05/02/2025 ActiveStart: 04-19-2024 End: 54-91-6250blyh 1 tablet by mouth once daily at mealtimecalcium carbonate 1500 (600 Ca) MG tablet Indications: Hyperparathyroidism (CMS/HCC) TAKE ONE TABLET BY MOUTH DAILY WITH A MEAL 30 tablet 5 04/19/2024 10/18/2024 Discontinued (Reorder)Start: 76-39-5400hzeo 1 tablet by mouth once daily at mealtimecalcium carbonate 1500 (600 Ca) MG tablet Indications: Hyperparathyroidism (CMS/HCC) TAKE ONE TABLET BY MOUTH DAILY WITH A MEAL 30 tablet 5 10/23/2023 Activecalcium carbonate 1500 mg / cholecalciferol 800 unt chewable tablet (8 sources)Vitamin DStart: 78-48-5437dgtr 1 tablet by mouth twice dailyCalcium Carbonate-Vitamin D 600-400 MG-UNIT TAKE 1 TABLET BY MOUTH TWICE DAILY Oral for 30 ActiveCalcium Carbonate-Vitamin D 600-400 MG-UNIT (11 sources)take 1 tablet by mouth twice dailyCalcium Carbonate-Vitamin D 600- 400 MG-UNIT TAKE 1 TABLET BY MOUTH TWICE DAILY Oral for 30 Activecelecoxib 200 mg oral capsule (7 sources)Nonsteroidal Anti-inflammatory DrugStart: 07-30-2024 End: 92-38-2184fayv 1 capsule by mouth once daily at mealtimecelecoxib (CeleBREX) 200 MG capsule Indications: Lateral epicondylitis of right elbow Take 1 capsule (200 mg) by mouth Daily Take with food 30 capsule 07/30/2024 08/26/2024 Discontinuedcholecalciferol 0.05 mg oral tablet (20 sources)Vitamin DStart: 04-26-2024 End: 65-20-6601tzxk 1 tablet by mouth once dailycholecalciferol (Vitamin D-3) 50 MCG (2000 UT) tablet Indications: Vitamin D deficiency Take 1 tablet (50 mcg) by mouth Daily 30 tablet 5 04/25/2025 ActiveStart: 39-94-3429zapj 1 tablet by mouth once dailycholecalciferol (Vitamin D-3) 50 MCG (2000 UT) tablet Indications: Vitamin D deficiency TAKE 1 TABLET BY MOUTH DAILY 30 tablet 5 10/23/2023 Active Compression stockings, 20-30mmHg, thigh 20-30mmHg (8 sources)Start: 05-31-0299Pyeukkeqmar stockings, 20-30mmHg, thigh 20-30mmHg externally daily as directed for 3 months Activeferrous sulfate 325 mg delayed release oral tablet (20 sources)Start: 12-13-2024 End: 19-70-6291psuf 1 tablet by mouth at mealtimeferrous sulfate 325 (65 Fe) MG EC tablet Indications: Anemia, unspecified type Take 1 tablet (325 mg) by mouth in the morning. Take with meals. Do not crush, chew, or split.. 90 tablet 3 12/13/2024 12/13/2025 ActiveStart: 07-11-2024 End: 22-17-0017wbov 1 tablet by mouth once dailyStart: 01-24-2020 End: 80-82-5639wndr 1 tablet by mouth once dailyFerrous Sulfate 325 mg (65 mg iron) Tablet,Delayed Release (Dr/Ec) Discontinued 325 MG PO Daily July 17, 2023 8:09am February 11, 2024 10:11amStart: 01-20-2020 End: 12-68-5096ixpp 1 tablet by mouth once dailyFerrous Sulfate 325 mg (65 mg iron) Tablet Discontinued 325 MG PO Daily January 20, 2020 1:16pm January 24, 2020 9:58amStart: 06-26-2017 End: 52-56-2456jzxt 1 tablet by mouth once dailyFerrous Sulfate 325 mg (65 mg iron) tablet,delayed release (DR/EC) Discontinued 325 MG PO Daily January 18, 2020 8:32am January 20, 2020 1:15pmStart: 31-28-7984zwwc 1 tablet by mouth three times dailyferrous sulfate 325 mg Tab 325 mg = 1 tab(s), Oral, TID, Refills(s) 0, Prophylaxis Start Date: 05/25/15 Status: Orderedtake 1 tablet by mouth once dailyFerrous Sulfate 325 (65 Fe) MG 1 tablet Orally Once a day Activelidocaine 0.05 mg/mg medicated patch (1 source)Antiarrhythmic, Amide Local AnestheticStart: 65-73-8171Qsnhagou 5% Patch 1 patch(es), Topical, Daily, 7 EA, Refill(s) 0, apply 12 hours on and 12 hours off daily, [facility] [id number], 163, cm, 05/08/23 19:14:00 EDT, Height/Length Dosing, 47.8, kg, 05/08/23 19:14:00 EDT, Weight Dosing Start Date: 05/08/23 Status: Orderedlisinopril 10 mg oral tablet (20 sources)Angiotensin Converting Enzyme InhibitorStart: 06-26-2017 End: 59-01-2925ksek 1 tablet by mouth once dailylisinopril 10 MG tablet Indications: Primary hypertension Take 1 tablet (10 mg) by mouth Daily 90 tablet 3 09/20/2024 Activemethocarbamol 500 mg oral tablet (1 source)Muscle RelaxantStart: 05-08-2023 End: 43-61-4712ztsx 1 tablet by mouth three times dailyRobaxin 500 mg Tab 500 mg = 1 tab(s), Oral, TID, X 3 day(s), # 9 tab(s), Refills(s) 0, Pharmacy: [facility] [id number], 163, cm, 05/08/23 19:14:00 EDT, Height/Length Dosing, 47.8, kg, 05/08/23 19:14:00 EDT, Weight Dosing Start Date: 05/08/23 Stop Date: 05/11/23 Status: OrderedMulti Complete - (13 sources)Multi Complete - as directed Orally ActiveMultivitamin Capsule (1 source)Start: 12-45-5618mpkr 1 capsule by mouth once dailyMultivitamin preparation (5 sources)Start: 43-41-4914ekvg 1 capsule by mouth once dailyMultivitamin Active 1 CAP PO Daily June 25, 2017 11:00pmStart: 05-65-6770tdmz 1 capsule by mouth once dailyMultivitamin Active 1 CAP PO Daily June 26, 2017 12:00am omeprazole 40 mg delayed release oral capsule (1 source)Proton Pump InhibitorStart: 90-00-0031eajx 1 capsule by mouth once dailyomeprazole 40 mg Cap-EC 40 mg = 1 cap(s), Oral, Daily, # 30 cap(s), Refills(s) 3 Start Date: 05/26/15 Status: Ordered Completed/Discontinued Medications MedicationDrug Class(es)DatesSig (Normalized)Sig (Original)acetaminophen 325 mg / HYDROcodone bitartrate 5 mg oral tablet (6 sources)Opioid AgonistStart: 12-25-2017 End: 59-84-3849qhpt 1 tablet by mouth every four to six hours as needed for pain Hydrocodone-Acetaminophen ([place]) 5-325 mg tablet Discontinued 1 TAB PO EVERY 4- 6 HOURS as needed for pain December 25, 2017 January 06, 2018 3:32pmascorbic acid 500 mg oral tablet (6 sources)Vitamin CStart: 12-17-2017 End: 68-03-3442wnmv 1 tablet by mouth once dailyAscorbic Acid (Vitamin C) (Vitamin C) 500 mg Tablet Discontinued 500 MG PO Daily December 17, 2017 1:00am July 02, 2018 3:37pmcyclobenzaprine hydrochloride 10 mg oral tablet (13 sources)Muscle RelaxantStart: 08-26-2024 End: 63-20-5319rymy 1 tablet by mouth three times daily as needed for muscle spasmscyclobenzaprine (Flexeril) 10 MG tablet Indications: Lumbar facet arthropathy Take 1 tablet (10 mg)by mouth 3 (three) times a day as needed for muscle spasms 30 tablet 2 08/26/2024 03/31/2025 Discontinuedibuprofen 600 mg oral tablet (6 sources)Nonsteroidal Anti-inflammatory DrugStart: 12-25-2017 End: 44-92-7835ekfb 1 tablet by mouth every six hoursIbuprofen 600 mg Tablet Discontinued 600 MG PO Q6H 28 December 25, 2017 1:00am January 06, 2018 3:32pm naproxen 500 mg oral tablet (20 sources)Nonsteroidal Anti-inflammatory DrugStart: 04-01-2024 End: 39-29-2332hafb 1 tablet by mouth twice daily at mealtime as needed for pain naproxen (Naprosyn) 500 MG tablet Indications: Lumbar facet arthropathy 1 po bid with food prn pain60 tablet 1 08/26/2024 03/31/2025 DiscontinuedStart: 43-23-7362rldh 1 tablet by mouth twice daily as needed for painNaprosyn 500 mg Tab 500 mg = 1 tab(s), Oral, BID, PRN for pain, # 20 tab(s), Refills(s) 0, Pharmacy: [facility] [id number], 163, cm, 05/08/23 19:14:00 EDT, Height/Length Dosing, 47.8, kg, 05/08/2319:14:00 EDT, Weight Dosing Start Date: 05/08/23 Status: Orderedtamoxifen 20 mg oral tablet (20 sources)Estrogen Agonist/AntagonistStart: 06-26-2017 End: 14-59-4091lysm 1 tablet by mouth onceTamoxifen 20 mg tablet Discontinued 20 MG PO Once 1 September 23, 2019 1:00am February 16, 2020 8:29amStart: 05-25-2015 take 10 mg by mouth twice dailytamoxifen 10 mg, Oral, BID, Refills(s) 0, Prophylaxis Start Date: 05/25/15 Status: Ordered Problems Active Problems Problem ClassificationProblemDateDocumented DateEpisodic/Chronic Administrative/social admission (6 sources)Repeated prescription; Translations: [Encounter for issue of repeat prescription]52-38-8220FbvxnjvvGbcrco of breast (20 sources)Malignant neoplasm of central part of female breast; Translations: [Malignant neoplasm of central portion of right female breast]Onset: 02-26-2023 47-02-1954EbaalbqAbkjrh of breast (20 sources)History of malignant neoplasm of breast; Translations: [Personal history of malignant neoplasm of breast]Onset: 08-14-2017 Resolved: 017640-59-5549CvvncriuEukbhyrwjik and hemorrhagic disorders (4 sources)Easy bruising; Translations: [Spontaneous ecchymoses]08-26-2024 EpisodicEssential hypertension (20 sources)Hypertensive disorder; Translations: [Essential hypertension]Onset: 981113-72-8189OskyxeeUmorxzke disorders (2 sources)Secondary immune deficiency disorder; Translations: [Immunodeficiency due to conditions classified elsewhere (CMS/FORMERLY [facility])]66-30-5816YssqicpQfxrxtpkbg disorders (20 sources)Atrophic vaginitis; Translations: [Postmenopausal atrophic vaginitis]Onset: 324947-86-6920BlrxjshYzdwcwfik disorders (6 sources)Menorrhagia; Translations: [Excessive and frequent menstruation with regular cycle]Onset: 453005-27-6586NzewflpColugbkdrhsn breast conditions (20 sources)Fibrocystic disease of breast; Translations: [Diffuse cystic mastopathy of unspecified breast]Onset: 798766-29-8205UylqyykMxsdobeqefc deficiencies (2 sources)Deficiency of macronutrients; Translations: [Unspecified protein- calorie malnutrition]20-92-2645TywyifeWkfcn acquired deformities (20 sources)Scoliosis deformity of spine; Translations: [Scoliosis, unspecified] Onset: 420239-36-1865ZdbwmzeXiwap acquired deformities (2 sources)Acquired scoliosis; Translations: [Other secondary scoliosis, thoracolumbar region]69-97-2371AkfbjuhTbgux aftercare (3 sources)Patient encounter status; Translations: [Encounter for therapeutic drug level monitoring]87-61-7646OdijcgdcLxjbk aftercare (4 sources)Encounter for therapeutic drug level monitoring; Translations: [Encounter for therapeutic drug monitoring]72-22-9746TpjjojmuEerwi aftercare (2 sources)Long-term current use of tamoxifen; Translations: [Encounter for therapeutic drug level monitoring]48-05-2859JhklgpgfBxwvw and ill-defined heart disease (6 sources)Cardiomegaly; Translations: [Cardiomegaly]28-45-7441OuljoeeXybyd and ill-defined heart disease (4 sources)Cardiomegaly; Translations: [Cardiomegaly]96-34-7125BleuxfyTlard bone disease and musculoskeletal deformities (6 sources)Idiopathic scoliosis of thoracic and lumbar spine; Translations: [Other idiopathic scoliosis, thoracolumbar region]70-38-8914CcllzjaTehza bone disease and musculoskeletal deformities (5 sources)Other idiopathic scoliosis, thoracolumbar region; Translations: [Scoliosis [and kyphoscoliosis], idiopathic]54-00-8702KhdvpiyJgycb bone disease and musculoskeletal deformities (20 sources)Juvenile idiopathic scoliosis, thoracic region; Translations: [Scoliosis [and kyphoscoliosis], idiopathic]Onset: 053582-03-1329Swgcywb Other bone disease and musculoskeletal deformities (20 sources)Idiopathic kyphoscoliosis; Translations: [Other idiopathic scoliosis, site unspecified]Onset: 262026-39-4683GivfyhgSbfpf diseases of veins and lymphatics (13 sources)Peripheral venous insufficiency; Translations: [Venous insufficiency (chronic) (peripheral)]EpisodicOther diseases of veins and lymphatics (5 sources)Venous insufficiency (chronic) (peripheral)Onset: 04-19-2022 Resolved: 57-48-3323IoxusiwvVxthh diseases of veins and lymphatics (4 sources)Venous insufficiency of leg; Translations: [Venous insufficiency (chronic) (peripheral)]EpisodicOther endocrine disorders (20 sources)Hyperparathyroidism; Translations: [Hyperparathyroidism, unspecified]Onset: 504428-22-0810UqzhjkoFeetf female genital disorders (3 sources)Abnormal uterine bleeding; Translations: [Abnormal uterine and vaginal bleeding, unspecified]Onset: 462606-41-3202YggpqorCtolv hematologic conditions (6 sources)H/O: anemia - iron deficient; Translations: [Personal history of diseases of the blood and blood-forming organs and certain disorders involving the immune mechanism]13-26-1792PvopqrpyKtiuc hematologic conditions (4 sources)Personal history of diseases of the blood and blood-forming organs and certain disorders involving the immune mechanism; Translations: [Personal history of diseases of blood and blood-forming organs]56-22-3298KzukyqycQcbwh lower respiratory disease (13 sources)Dyspnea on exertion; Translations: [Other forms of dyspnea]Episodic Other lower respiratory disease (13 sources)Restrictive lung disease; Translations: [Other disorders of lung] EpisodicOther lower respiratory disease (1 source)Pleuritic pain; Translations: [Pleurodynia]Onset: 84-77-8225Fdqgrpoq Other nutritional; endocrine; and metabolic disorders (20 sources)Hypercalcemia; Translations: [Hypercalcemia]Onset: 02-26-2023 14-92-9325ZfhrwqxAniut screening for suspected conditions (not mental disorders or infectious disease) (20 sources)Imaging of liver abnormal; Translations: [Abnormal findings on diagnostic imaging of liver and biliary tract]Onset: EpisodicPulmonary heart disease (11 sources)Pulmonary hypertension, unspecified; Translations: [Mild pulmonary hypertension]62-51-0715LpoeqjyOzumclwg codes; unclassified (6 sources)History of total hysterectomy with bilateral salpingo-oophorectomy; Translations: [Acquired absenceof both cervix and uterus]28-17-4816Xspuynhk Residual codes; unclassified (4 sources)Acquired absence of both cervix and uterus; Translations: [Acquired absence of both cervix and uterus]05-41-4685HnwbqnkbLwhavojltyi; intervertebral disc disorders; other back problems (20 sources)Inflammation of sacroiliac joint; Translations: [Sacroiliitis, not elsewhere classified]Onset: 943001-09-6633RebgukqZftptwowqkq; intervertebral disc disorders; other back problems (13 sources)Low back pain; Translations: [Low back pain]EpisodicThyroid disorders (20 sources)Thyroid nodule; Translations: [Nontoxic single thyroid nodule]Onset: 02-26-2023 Resolved: 379446-68-1950ExiuxaqPjxyjtmav cerebral ischemia (20 sources)Amaurosis fugax; Translations: [Amaurosis fugax]Onset: 02-26-2023 55-85-8466Avmyyxl Past or Other Problems Problem ClassificationProblemDateDocumented DateEpisodic/ChronicDeficiency and other anemia (20 sources)Iron deficiency anemia; Translations: [Iron deficiency anemia, unspecified]Onset: 343650-47-8237CmdbssukLjmnr connective tissue disease (20 sources)Lateral epicondylitis of right humerus; Translations: [Lateral epicondylitis, right elbow]Onset: 328501-18-3716LhtbkdxoIumde non- traumatic joint disorders (20 sources)Pain in elbow; Translations: [Pain in unspecified elbow]Onset: 01-01-2024 Resolved: 136463-73-3239RrsxnpyaZjhjfqqqb; thrombophlebitis and thromboembolism (1 source)Embolism and thrombosis of superficial veins of left lower extremity Onset: 04-25-2022 Resolved: 67-07-2810DwmvcgboBfaadjqd codes; unclassified (12 sources)History of right mastectomy; Translations: [Acquired absence of right breast and nipple]Onset: 011466-58-9964KgzfsonwXktvbuob veins of lower extremity (20 sources)Varicose veins of lower extremity; Translations: [Varicose veins of bilateral lower extremities with other complications]Onset: 09-11-2021 Resolved: 67-06-4814Bbowmwpe Results Test NameValueInterpretationReference RangeFacilityMM screening mammo LT w/CADon 25-56-3719OE screening mammo LT w/[facility] [address] [place] [address] Mammography Report Signed Patient: Maricel Easton MR#: [id number] : 1965 Acct:[id number] Age/Sex: 60 / F Adm Date: 07/27/25 Loc: [place] Room: Type: [facility] Attending Dr: Vishal Mazariegos DO Ordering Provider: Vishal Mazariegos DO Date of Service: 07/27/25 Procedure(s): MM screening mammo LT w/CAD Accession Number(s): ([id number]) MM/MM screening mammo LT w/CAD: screening for breast cancer Copies to: Vishal Mazariegos DO CLINICAL DATA: Screening for malignancy. SCREENING MAMMOGRAM - FULL FIELD DIGITAL WITH TOMOSYNTHESIS AND CAD COMPARISON:Mammograms dating back to 2020 Tomosynthesis craniocaudal and mediolateral oblique views of both breasts were obtained using low- dose digital technique. This examination was reviewed with the aid of CAD. FINDINGS: The breast parenchyma is heterogeneously dense. There are no dominant masses, typically malignant calcifications or architectural distortion. There has been no significant interval change. MM/MM screening mammo LT w/CAD IMPRESSION: NO MAMMOGRAPHIC EVIDENCE OF MALIGNANCY. ROUTINE FOLLOW-UP IS RECOMMENDED IN ONE YEAR. RESULT CODE: 1 Negative DENSITY CODE: 3 (approximately 51-75% glandular) The breasts are heterogeneously dense, which may obscure small masses. FOLLOW UP: 1YR The false-negative rate of mammography is approximately 10-percent. Management of a palpable abnormality must be based on clinical grounds. Patient was entered into a reminder system with a target due date for the next mammogram. Impression dictated by: Darci Zapien Jr., D.OSamuel 07/27/2025 4:35 PM Dictation Location: [facility] Dictated By: Darci Zapien Jr, DO 07/27/25 1634 Signed By: 07/27/[address] [place] [address] Physician GroupMammography reportOrdered By: Darci Zapien on 50-43-7673Dqjgqhbqka imaging [facility] [address] [place], [place] [id number] Mammography Report Signed Patient: Maricel Easton MR#: [id number] : 1965 Acct:[id number] Age/Sex: 60 / F Adm Date: 5 Loc: [place] Room: Type: [facility] Attending Dr: Vishal Mazariegos DO Ordering Provider: Vishal Mazariegos DO Date of Service: 07/27/25 Procedure(s): MM screening mammo LT w/CAD Accession Number(s): ([id number]) MM/MM screening mammo LT w/CAD: screening forbreast cancer Copies to: Vishal Mazariegos DO~ CLINICAL DATA: Screening for malignancy. SCREENING MAMMOGRAM - FULL FIELD DIGITAL WITH TOMOSYNTHESIS AND CAD COMPARISON:Mammograms dating back to 2020 Tomosynthesis craniocaudal and mediolateral oblique views of both breasts were obtained using low-dose digital technique. This examination was reviewed with the aid of CAD. FINDINGS: The breast parenchyma is heterogeneously dense. There are no dominant masses, typically malignant calcifications or architectural distortion. There has been no significant interval change. MM/MM screening mammo LT w/CAD IMPRESSION: NO MAMMOGRAPHIC EVIDENCE OF MALIGNANCY. ROUTINE FOLLOW-UP IS RECOMMENDED IN ONE YEAR. RESULT CODE: 1 Negative DENSITY CODE: 3 (approximately 51-75% glandular) The breasts are heterogeneouslydense, which may obscure small masses. FOLLOW UP: 1YR The false-negative rate of mammography is approximately 10-percent. Management of a palpable abnormality must be based on clinical grounds. Patient was entered into a reminder system with a target due date for the next mammogram. Impression dictated by: Darci Zapien Jr., D.O. 07/27/2025 4:35 PM Dictation Location: [facility] Dictated By: Darci Zapien Jr, DO 07/27/25 163 Signed By: 07/27/[address] [place], [place] [address]ALL CBC WITH AUTO DIFFon 37-40-6560OGYDJEHNN ABSOLUTE AUTO0.1NOMS HealthcareBasophils/100 WBC (Bld)1.3 %0.2 - 2.0 %NOMS HealthcareEosinophils/100 WBC (Bld)5.1 %0.9 - 7.0 %NOMS HealthcareErythrocyte distribution width (RBC) [Ratio]12.7 %11.0 - 15.0 %NOMS HealthcareHematocrit (Bld) [Volume fraction]42.2 %36.0 - 48.0 %NOMS HealthcareHemoglobin (Bld) [Mass/Vol]14.2 g/dL12.0 - 16.0 g/dLNOWV HealthcareIMMATURE GRANULOCYTES ABS AUTO 0.01NOMS HealthcareImmature granulocytes/100 WBC (Bld)0.2 %0.0 - 0.5 %NOMMoberly Regional Medical CenterLYMPHOCYTES ABSOLUTE AUTO1.4NOMS HealthcareLymphocytes/100 WBC (Bld) 31.2 %20.5 - 60.0 %[facility] HealthcareH (RBC) [Entitic mass]28.9 pg26.7 - 34.0 pg NOMMoberly Regional Medical CenterMCHC (RBC) [Mass/Vol]33.6 g/dL29.9 - 35.2 g/dLOzarks Medical CenterMCV (RBC) [Entitic vol]85.9 fL81.0 - 99.0 fLOzarks Medical CenterMONOCYTES ABSOLUTE AUTO 0.4NOMS HealthcareMonocytes/100 WBC (Bld)8.2 %1.7 - 12.0 %[facility] NEUTROPHILS ABSOLUTE AUTO2.4NOMissouri Baptist Hospital-SullivanNeutrophils/100 WBC (Bld)54 %43.0 - 75.0 %[facility] Medical CenterPlatelet mean volume (Bld) [Entitic vol]10 fL9.5 - 13.5 fL [facility] CenterTB EO #0.2NOMS [facility] CenterTB [id number] [facility] RBC4.91 [facility] CenterTB WBC4.5NOWV HealthcareCLINISYNCNOMS HealthcareALL CBC WITH AUTO DIFFon 10-85-7811EURLYEEMX ABSOLUTE AUTO0.1NOMS HealthcareBasophils/100 WBC (Bld)1.2 %0.2 - 2.0 %NOMMoberly Regional Medical CenterEosinophils/100 WBC (Bld)4.2 %0.9 - 7.0 % [facility] Medical CenterErythrocyte distribution width (RBC) [Ratio]13.1 %11.0 - 15.0 % [facility] CenterHematocrit (Bld) [Volume fraction]43.4 %36.0 - 48.0 %[facility] CenterHemoglobin (Bld) [Mass/Vol]14 g/dL12.0 - 16.0 g/dLOzarks Medical Center IMMATURE GRANULOCYTES ABS AUTO0.01NOMissouri Baptist Hospital-SullivanImmature granulocytes/100 WBC (Bld)0.2 %0.0 - 0.5 %[facility] CenterLYMPHOCYTES ABSOLUTE AUTO1.6NOMissouri [facility] Lymphocytes/100 WBC (Bld)30.1 %20.5 - 60.0 %[facility] HealthcareH (RBC) [Entitic mass]28.4 pg26.7 - 34.0 pgThree Rivers HealthcareHC (RBC) [Mass/Vol]32.3 g/dL29.9 - 35.2 g/dLThree Rivers HealthcareV (RBC) [Entitic vol]88 fL81.0 - 99.0 fLOzarks Medical CenterMONOCYTES ABSOLUTE AUTO0.5NOMissouri Baptist Hospital-SullivanMonocytes/100 WBC (Bld)8.7 % 1.7 - 12.0 %[facility] Medical CenterNEUTROPHILS ABSOLUTE AUTO2.9NOMS [facility] Neutrophils/100 WBC (Bld)55.6 %43.0 - 75.0 %[facility]arks Medical CenterPlatelet mean volume (Bld) [Entitic vol]10.4 fL9.5 - 13.5 fLOzarks Medical CenterTB EO #0.2NOMS [facility] TB UCC434GSTC [facility] RBC4.93NOMissouri Rehabilitation Center WBC5.2NLee's Summit Hospital CLINISYNCSALT [facility]KE REG[facility] HealthcareCTA Cheston [id number] ChestExam Date/Time: 05/08/2023 21:31 EDT Reason for Exam: Pulmonary embolism (PE) suspected, low to intermediate prob, positive D- dimer;Other (please specify) Report IMPRESSION: NO EVIDENCE OF [...] Contrast: Isovue 370 Contrast amount in ml's: 65[facility] MemorialDischarge Instructionson [id number] Instructions [id number]#1.00CD:127NoSelect Medical Specialty [facility], Inc Clinical Summaryon [id number] Clinical Summary [place] [address] ED Clinical Summary Person Information Name: MARICEL EASTON Lucia/[facility] Age: 58 Years : 1965 Sex: Female Language: Latvian PCP: VISHAL MAZARIEGOS DO Marital Status: Visit Id: Visit Reason: [...] 05/08/2023 22:53:27 05/08/2023 22:53:27 05/08/2023 22:53:27 ADDRESS: [address] [place] [id number] PHYS DOC NOTES: MEDICAL INFORMATION: Prescriptions Given: New Medications [facility] [id number], [address], [place] [id number], [phone] lidocaine topical (Lidoderm 5% Patch) 1 Patches [...] a day. PATIENT EDUCATION INFORMATION: Instructions: Costochondritis, Cdzc-yw-Nqqx Follow up: With: Address: When: VISHAL MAZARIEGOS [address] [place] [address], [address] [phone] [facility] (5) In 3 days 05/11/2023 Comments: You can take the medications as prescribed as needed for pain. Please follow-up with your primary care doctor in the next 2 to 3 days for further evaluation management. Please return to the ED for any new or worsening symptoms. DIAGNOSIS: Rib pain on right sideNormalFisher Antrim Medical CenterED Note-Physicianon [id number] Note-PhysicianBasic Information Time Seen: Darci Ambrose DO 05/08/2023 [...] and Complexity of Problems Differential Diagnosis: [] [facility] Data External documents reviewed: [] My EKG interpretation: [] My CT interpretation: [] My X-ray interpretation: [] My Ultrasound interpretation: [] Decision rules/scores evaluated: [] Discussed with: [] Treatment and Disposition ED Course: Patient is a 58-year-old female presenting to the ED for evaluation of right chest wall pain. Patient is nontoxic and on arrival, no acute distress. Does have reproducible right chest wallpain noted on examination. Laboratory evaluation is obtained patient is given morphine, Toradol, lidocaine patch. Patient's laboratory evaluations unremarkable exception of a D-dimer elevated at 574.Chest x-ray with no focal infiltrates. CTA of the chest is obtained which shows no evidence of pulmonary embolism. On reevaluation patient is feeling improved. I believe this is likely muscular pain.She is discharged home with short course of pain medication, Muscle relaxers and Lidoderm patch. She is to follow-up with her primary care doctor in the next 2 to 3 days. She is to return to the ED for any new or worsening symptoms. Shared decision making: [] Code status: [] Assessment/Plan Rib pain on right side (R07.81: Pleurodynia) Orders: acetaminophen-hydrocodone, 1 EA, Tab, Oral, Once, Stop date 05/08/23 22:30:00 EDT, STAT, Start date05/08/23 22:30:00 EDT ketorolac, 30 mg = 1 mL, Injection, IV Push, Once, Stop date 05/08/23 19:37:00 EDT, STAT, Start date 05/08/23 19:37:00 EDT, 05/08/23 19:37:00 EDT lidocaine topical, 1 patch(es), Patch, TransDermal, Once, Stop date 05/08/23 19:37:00 EDT, STAT, Start date 05/08/23 19:37:00 EDT lidocaine topical, 1 patch(es), Topical, Daily, 7 EA, Refill(s) 0, apply 12 hours on and 12 hours off daily, [facility] [id number], 163, cm, 05/08/23 19:14:00 EDT, Height/Length Dosing, 47.8, kg, 05/08/23 19:14:00 EDT, Weight Dosing methocarbamol, 500 mg = 1 tab(s), Oral, TID, X 3 day(s), # 9 tab(s), Refills(s) 0, [id number], 163, cm, 05/08/23 19:14:00 EDT, Height/Length Dosing, 47.8, kg, 05/08/23 19:14:00 EDT, Weight Dosing morphine, 4 mg = 2 mL, Injection, IV Push, Once, Stop date 05/08/23 19:37:00 EDT, STAT, Start date 05/08/23 19:37:00 EDT, 05/08/23 19:37:00 EDT naproxen, 500 mg = 1 tab(s), Oral, BID, PRN for pain, # 20 tab(s), Refills(s) 0, Pharmacy: [facility] [id number], 163, cm, 05/08/23 19:14:00 EDT, Height/Length Dosing, [...] Inj, 2 mg, IV Push TO GO acetaminophen-hydrocodone 325 mg - 5 mg, 1 EA, Oral Disposition Plan Discharge Prescription List Prescriptions Lidoderm 5% Patch, 1 patch(es), Topical, Daily Naprosyn 500 mg Tab, 500 mg= 1 tab(s), Oral, BID, PRN Robaxin 500 mg Tab, 500 mg= 1 tab(s), Oral, TID Follow-up With When Contact Information VISHAL MAZARIEGOS In 3 days 05/11/2023 EDT [address], [address] [place] [address]- [phone] (more content not included)...[facility] MemorialComment on above:Result Comment: Electronically Signed By: Darci Ambrose DO\oh\Date and Time Signed: 05/08/23 23:31 EDTED Patient Education Note on [id number] Patient Education NoteOrthopedics Costochondritis Costochondritis is irritation and swelling (inflammation) [...] This includes any activities that use chest, belly(abdomen), and side muscles. ? Do not lift anything that is heavier than 10 lb (4.5 kg), or the limit that you are told, until your doctor says that it is safe. ? Return to your normal activities as told by your doctor. Ask your doctor what activities are safefor you. General instructions ? Take mnef-pjs-wkftmad and prescription medicines only as told by [...] of the tissue that connects the ribs tothe breastbone (sternum). ? This condition causes pain in the front of the chest. ? Treatment may include medicines, rest, heat or ice, and exercises. This information is not intended to replace advice given to you by your health care provider. Make sure you discuss any questions you have with your health care provider. Document Revised: 08/25/2020 Document Reviewed: 08/25/2020 [employer] Patient Education ? 2022 [employer].[facility] ED Patient Summaryon [id number] Patient Summary [place] [address] Patient Discharge Instructions Person Information Name: MARICEL EASTON Age: 58 Years Arrival Date: 05/08/2023 19:01:46 Discharge Diagnosis: Rib pain on right side Primary Care Physician: VISHAL MAZARIEGOS DO Provider Information Primary Provider: Darci Ambrose DO Advanced Program Management Manager:None The exam and treatment you received in the Emergency Department were for an urgent problem and are not intended as complete care. It is important that you follow up with a doctor, nurse practitioner,or physician?s energy assistant for ongoing care. If your symptoms become worse or you do not improve as expected and you are unable to reach your usual health care provider, you should return to the Emergency Department. We are available 24 hours a day. CHRISTINE MARICEL Jose has been given the following list of patient education materials, prescriptions and follow-up instructions: Follow-up Instructions: With: Address: When: VISHAL MAZARIEGOS [address] [place] [address], [address] [address] [employer] (1[employer]Day In 3 days 05/11/2023 Comments: You can [...] nearby participating provider. Patient Education Materials: Costochondritis, Rhcg-px-Vjuj A MESSAGE TO ALL PATIENTS REGARDING OPIOIDS PRESCRIPTION OPIOIDS: WHAT YOU NEED TO KNOW Prescription opioids can be used to help relieve klpupahc-io-zhgbhk pain and are often prescribed following a [...] and have fewer risks and side effects. Optionsmay include: ? Pain relievers such as acetaminophen, [...] unused prescription opioids: Find your community drug take- back program or [facility] medical centerTapcentive, Inc.[employer] mail-back program, or flush them down the toilet, following guidance from the Food and Drug Administration (www.fda.gov/Drugs/ResourcesForYou). ? Visit www.cdc.gov/drugoverdose to l (more content not included)...[facility] MemorialRAD - Preliminary Cat Scan Reporton [id number] - Preliminary Cat Scan [id number]#1.00CD:127 [facility] MemorialXR Chest Single Viewon [id number] Chest Single ViewExam Date/Time: 05/08/2023 20:52 EDT Reason for Exam: [...] ÓSCAR Technologist: BENITO Technical Comments Radiation Dose: kip Trivedi in mGy = na DAP = naNormalSt. Charles HospitalAuto Diffon 05-02-0245Fjiuvabyw/100 WBC (Bld)0.9 %Normal0.0-2.0St. Charles HospitalComment on above:Order Comment: Order Added by Discern Expert.Performed By: #### 4202117, 4558319, 1810165, 4727728, 29760798, 21405332, 2370172, 50927615 #### [facility] [address], [place] [address]Upcufjvqa/Leukocytes Auto (Bld) [Pure # fraction]0.1 E9/LNormal 0.0-0.2FSt. Rita's HospitalComment on above:Order Comment: Order Added by Discern Expert.Performed By: #### 2788513, 4343110, 1287907, 5978040, 58966016, 57728029, 4490304, 76118396 #### [facility] [address], [place] [address]Xvnbbbdbghp/100 WBC (Bld)1.2 %Normal0.0-8.0St. Charles HospitalComment on above:Order Comment: Order Added by Discern Expert.Performed By: #### 1356709, 0465197, 5780111, 9753718, 64174796, 85276024, 9435104, 53579842 #### [facility] [address], [place] [address]Pvdmnshcfhu/Leukocytes Auto (Bld) [Pure # fraction]0.1 E9/L Normal0.0-0.5FSt. Rita's HospitalComment on above:Order Comment: Order Added by Discern Expert.Performed By: #### 5159754, 2123760, 8156083, 2229958, 47333910, 00284866, 4175598, 56806913 #### Diaz [facility] [address] [place] [address]Kqykxyasdlz/100 WBC (Bld)11.9 %Low14.0-50.0St. Charles HospitalComment on above:Order Comment: Order Added by Discern Expert.Performed By: #### 4461876, 2884577, 6944707, 8586883, 63077802, 94361459, 1025906, 62027271 #### Perales [facility] [address] [place] [address]Aublvyfenia/Leukocytes Auto (Bld) [Pure # fraction]0.8 E9/LLow 1.0-4.0St. [facility] HospitalComment on above:Order Comment: Order Added by Discern Expert.Performed By: #### 6636390, 6330704, 8797532, 4933570, 12433601, 34374014, 7101469, 13403078 #### [facility] [address] [place] [address]Jvowgdmlk/100 WBC (Bld)5.9 %Normal4.0-14.0St. Charles HospitalComment on above:Order Comment: Order Added by Discern Expert.Performed By: #### 3997366, 7449189, 1074280, 3988960, 63731524, 81117824, 7915580, 05524065 #### [facility] [address] [place] [address]Ihyomhhsz/Leukocytes Auto (Bld) [Pure # fraction]0.4 E9/LNormal 0.2-1.0St. Charles HospitalComment on above:Order Comment: Order Added by Discern Expert.Performed By: #### 5928818, 8536353, 0124621, 8828779, 61133927, 25610360, 2529408, 41483095 #### [facility] [address], [place] [address]Bpofszvebdj/100 WBC (Bld)80.1 %High36.0-75.0St. Charles HospitalComment on above:Order Comment: Order Added by Discern Expert. Performed By: #### 7417398, 1114162, 5377750, 8064075, 53291245, 71426386, 6443416, 28990748 #### [facility] [address], [place] [address]Qlqzxnwlovs/Leukocytes Auto (Bld) [Pure # fraction]5.4 E9/L Normal2.0-7.5FSt. Rita's HospitalComment on above:Order Comment: Order Added by Discern Expert.Performed By: #### 3582605, 3459972, 0925045, 3190700, 41190903, 26096927, 2659864, 23785326 #### [facility] [address] [place] [address]CEHde 71-07-8361Awrx nitrogen/Creatinine [Mass ratio]32 No FfhidFkzk15-49NgeeljSt. Charles HospitalComment on above:Performed By: #### 4883066, 1781761, 8446904, 5253339, 38928478, 72524524, 9589604, 70251623 #### [facility] [address] [place] [address]Eorigfpfxw [Mass/Vol]1.0 mg/dLNormal0.5-1.3FSt. Rita's HospitalComment on above:Performed By: #### 9230115, 2129238, 0499878, 8319578, 59039177, 91838204, 3579494, 97665079 #### [facility] [address], [place] [address]Wuad nitrogen [Mass/Vol]32 mg/dLHigh5-21St. Charles HospitalComment on above:Performed By: #### 2672109, 8057902, 8866220, 3885595, 60805267, 71245395, 7792707, 52447285 #### Perales [facility] [address], [place] [address]Vejqx gap [Moles/Vol]12 mmol/LNormal6-16St. Charles HospitalComment on above:Performed By: #### 0589157, 8446583, 6105413, 0636834, 11885664, 78593756, 0605566, 03447397 #### [place]es [facility] [address], [place] [address]Kcquiyb [Mass/Vol]9.3 mg/dLNormal8.9-11.1FSt. Rita's HospitalComment on above:Performed By: #### 0617700, 9519363, 9873974, 5887745, 79574975, 79244930, 5143408, 60972767 #### [facility] [address], [place] [address]Jzwekoca [Moles/Vol]103 mmol/IWxzkls944-186KqvvabSt. Charles HospitalComment on above:Performed By: #### 9655409, 5570909, 3197836, 0422242, 88254878, 00008011, 9665239, 88630425 #### [facility] [address] [place] [address]ZJ3 [Moles/Vol]27 mmol/FMgwhkq77-28MwrgafSt. Charles Hospital Comment on above:Performed By: #### 1358248, 8129999, 4069607, 6975562, 39669316, 07705529, 4345971, 94009020 #### [facility] [address], [place] [address]Kcopokw [Mass/Vol]103 mg/cHTeeyvv65-559SdgfpySt. Charles HospitalComment on above:Result Comment: If this glucose result represents a fasting glucose, interpretation should refer tothe following reference range: 55-99 mg/dLPerformed By: #### 2288925, 3376537, 4031791, 9314136, 99192329, 01822353, 0664546, 81872749 #### [facility] [address], [place] [address]Gepbweotn [Moles/Vol]4.1 mmol/LNormal3.5-5.3FSt. Rita's HospitalComment on above:Performed By: #### 7592624, 5703880, 2897668, 0590521, 06969643, 88888206, 6314230, 19868172 #### [facility] [address], [place] [address]Flbuzg [Moles/Vol]138 mmol/DEnqolx233-900PodhrySt. Charles HospitalComment on above:Performed By: #### 6540248, 6517883, 7467289, 2397146, 10784606, 92657453, 6645250, 04780897 #### [facility] [address], [place] [address]IMC w/ Auto Diffon 37-34-4134Vhdniaixiqq distribution width (RBC) [Ratio]13.4 %Hqbogt57.9-14.2FSt. Rita's HospitalComment on above: Performed By: #### 4064959, 0953617, 0829950, 8250586, 51440736, 86428155, 8614273, 12584026 #### [facility] [address] [place] [address]Qiyjlphaeq (Bld) [Volume fraction]41.8 %Nhnvgf79.0-46.0St. Charles HospitalComment on above:Performed By: #### 0554373, 5975814, 0374770, 8385088, 52870921, 83751535, 4865391, 63436091 #### [facility] [address], [place] [address]Nhkavmuggt (Bld) [Mass/Vol]13.8 g/gENwjctr82.0-16.0St. [facility] HospitalComment on above:Performed By: #### 2796255, 0584630, 2245842, 0274734, 77265638, 70208575, 9338152, 66900490 #### [facility] [address], [place] [address]BQP (RBC) [Entitic mass]28.6 xxGztanh30.0-34.0St. Charles HospitalComment on above:Performed By: #### 6401913, 7641805, 3780935, 1161304, 24010372, 25220937, 9417571, 70516695 #### [facility] [address] [place] [address]CBAK (RBC) [Mass/Vol]33.0 g/oFRzcqcl01.4-36.0St. Charles HospitalComment on above:Performed By: #### 6591486, 1651075, 8633324, 8483317, 14964020, 78759300, 3032085, 18708226 #### [facility] [address] [place] [address]ZAX (RBC) [Entitic vol]86.7 jNIurmsu71.0-100.0St. [facility] HospitalComment on above:Performed By: #### 4627997, 1653552, 6342626, 1454129, 76525394, 21089669, 3815911, 85906909 #### [facility] [address] [place] [address]Owqvqiql mean volume (Bld) [Entitic vol]8.7 fLNormal6.4-10.8 [facility] HospitalComment on above:Performed By: #### 1242168, 0477786, 6892534, 2259231, 09154431, 14126823, 2848716, 87871866 #### [facility] [address], [place] [address]Hcttxknoe (Bld) [#/Vol]179.0 E9/DFdcbcg744.0-500.0St. [facility] HospitalComment on above:Performed By: #### 6841931, 3874643, 5220832, 8315509, 21374212, 55986985, 2440047, 50579448 #### [facility] [address], [place] [address]EFF (Bld) [#/Vol]4.8 E12/LNormal4.3-5.9St. Charles HospitalComment on above:Performed By: #### 1755652, 9246757, 2457184, 9743969, 45569368, 43503750, 8180120, 02793787 #### [facility] [address], [place] [address]ZYN corrected for nucl RBC Auto (Bld) [#/Vol]6.7 E9/LNormal 4.0-11.0St. Charles HospitalComment on above:Performed By: #### 8116105, 2767217, 1026824, 0474251, 20641613, 06989489, 9084098, 23010359 #### [facility] [address], [place] [address]VYKTFNTUSPomikqd By: SYSTEM SYSTEM on 46-83-5631Otisiak [Mass/Vol]4.1 g/dLNormal3.3 - 5.0 gm/dLFTMC RemisolAlbumin/Globulin [Mass ratio] 1.6 {ratio}Normal1.1 - 2.2FT[facility] RemisolALP [Catalytic activity/Vol]34 [iU]/d Somteo14 - 98 Int._Unit/LFTMC RemisolALT No additional P-5'-P [Catalytic activity/Vol]30 [iU]/dNormal6 - 46 Int._Unit/LFTMC RemisolAnion gap [Moles/Vol] 12 mmol/LNormal6 - 16 mEq/LFTMC RemisolAST [Catalytic activity/Vol]38 [iU]/d Normal5 - 43 Int._Unit/LFTMC RemisolBilirubin [Mass/Vol]0.2 mg/dLNormal0.0 - 1.1 mg/dLFTMC RemisolBilirubin.direct [Mass/Vol]mg/dLNormal0.1 - 0.4 mg/dLFTMC RemisolBilirubin.indirect [Mass or moles/Vol]Unable to Calculate mg/dLInvalid Interpretation Code0.1 - 0.9 mg/dLFTMC RemisolCalcium [Mass/Vol]9.3 mg/dLNormal 8.9 - 11.1 mg/dLFTMC RemisolChloride [Moles/Vol]103 mmol/BNpgzgg373 - 111 mmol/L [facility] RemisolCO2 [Moles/Vol]27 mmol/WVgehky89 - 31 mmol/LFTMC RemisolCreatinine [Mass/Vol]1.0 mg/dLNormal0.5 - 1.3 mg/dLFTMC RemisolGFR/1.73 sq M.predicted among non-blacks MDRD (S/P/Bld) [Vol rate/Area]65 mL/min/1.73 z0Atiyrj >=59mL/min/1.73 m2FTMC Chem SGlobulin (S) [Mass/Vol]2.6 g/dLNormal1.4 - 4.0 gm/dLFTMC RemisolGlucose [Mass/Vol]103 mg/pHHuuwkq96 - 199 mg/dLFTMC Remisol Potassium [Moles/Vol]4.1 mmol/LNormal3.5 - 5.3 mmol/LFTMC RemisolProtein [Mass/Vol]6.7 g/dLNormal6.0 - 7.8 gm/dLFTMC RemisolSodium [Moles/Vol]138 mmol/L Hoejxc936 - 145 mmol/LFTMC RemisolTroponin I.cardiac [Mass/Vol]10.00 pg/mLLow 10.10 - 27.10 pg/mLFTMC RemisolUrea nitrogen [Mass/Vol]32 mg/dLHigh5 - 21 mg/dL [facility] RemisolUrea nitrogen/Creatinine [Mass ratio]32 mg/riZxvs46 - 20FTMC Remisol COAGULATIONOrdered By: Virginia June on 93-43-3259eUXW Coag (PPP) [Time]28.2 s Exivlc02.1 - 36.5 second(s)[facility] Auto CoagFibrin D-dimer FEU (PPP) [Mass/Vol]574 ng/mL FEUInvalid Interpretation Wbix800 - 500 ng/mL FEUFTMC Auto CoagComment on above:Result Comment: Results Called To medina sarabia By ts And Read Back For Confirmation On 05/08/2023 20:47:16 EDT Results Verified By Repeat AnalysisINR Coag (PPP) [Relative time]1.0 {INR} Invalid Interpretation CodeINTEGRIS [facility] [place] Auto CoagPT Coag (PPP) [Time]10.9 sNormal9.4 - 12.5 second(s)[facility] Auto CoagConsent for Treatmenton 55-16-4453Yurimwe for [id number]#1.00CD:127NormalSt. Charles HospitalD-Dimeron 33-13-4770Nxegci D-dimer FEU (PPP) [Mass/Vol]574 CD:[id number] [facility] Medical CenterComment on above:Result Comment: Results Called To medina sarabia By ts And [...] infections, pneumonia, severe skin infections Liver cirrhosis PregnancyPerformed By: #### 0988797, 7581345, 2885121, 1459413, 84703373, 23785870, 6087661, 54891146 #### P[place]es [facility] [address] [place] [address]QEWTXYVJTSOlvpjzz By: SYSTEM SYSTEM on 67-08-9515Ljolrapso/100 WBC (Bld)0.9 %Normal0.0 - 2.0 %[facility] HemeAutoSSBasophils/Leukocytes Auto (Bld) [Pure # fraction]0.1 E9/LNormal0.0 - 0.2 E9/LFTMC HemeAutoSSEosinophils/100 WBC (Bld)1.2 %Normal0.0 - 8.0 %[facility] HemeAutoSSEosinophils/Leukocytes Auto (Bld) [Pure # fraction]0.1 E9/LNormal0.0 - 0.5 E9/LFTMC HemeAutoSSLymphocytes/100 WBC (Bld)11.9 %Low14.0 - 50.0 %[facility] HemeAutoSSLymphocytes/Leukocytes Auto (Bld) [Pure # fraction]0.8 E9/LLow1.0 - 4.0 E9/LFTMC HemeAutoSSMonocytes/100 WBC (Bld) 5.9 %Normal4.0 - 14.0 %[facility] HemeAutoSSMonocytes/Leukocytes Auto (Bld) [Pure # fraction]0.4 E9/LNormal0.2 - 1.0 E9/LFTMC HemeAutoSSNeutrophils/100 WBC (Bld) 80.1 %High36.0 - 75.0 %[facility] HemeAutoSSNeutrophils/Leukocytes Auto (Bld) [Pure # fraction]5.4 E9/LNormal2.0 - 7.5 E9/LFTMC HemeAutoSSHEMATOLOGYOrdered By: Stephania Hoskins on 93-77-4190Ncrldkzopgk distribution width (RBC) [Ratio]13.4 % Gninsi51.9 - 14.2 %[facility] HemeAutoSSHematocrit (Bld) [Volume fraction]41.8 %Normal 34.0 - 46.0 %[facility] HemeAutoSSHemoglobin (Bld) [Mass/Vol]13.8 g/wQWruiuw07.0 - 16.0 gm/dLFTMC HemeAutoSSMCH (RBC) [Entitic mass]28.6 pdEnfppo30.0 - 34.0 pgFTMC HemeAutoSSMCHC (RBC) [Mass/Vol]33.0 g/iCHdtdqp23.4 - 36.0 gm/dLFTMC HemeAutoSS MCV (RBC) [Entitic vol]86.7 tRNvcqoy23.0 - 100.0 fLFTMC HemeAutoSSPlatelet mean volume (Bld) [Entitic vol]8.7 fLNormal6.4 - 10.8 fLFTMC HemeAutoSSPlatelets (Bld) [#/Vol]179.0 E9/EOuprwm585.0 - 500.0 E9/[facility] HemeAutoSSRBC (Bld) [#/Vol] 4.8 E12/LNormal4.3 - 5.9 E12/[facility] HemeAutoSSWBC corrected for nucl RBC Auto (Bld) [#/Vol]6.7 E9/LNormal4.0 - 11.[address] HemeAutoSSHep Func Panelon 65-31-1700Qjupnfbet.indirect [Mass or moles/Vol]UTCAbnormal0.1-0.9St. Charles HospitalComment on above:Result Comment: Result verified by Discern Rule. Performed result UTC (Unable to Calculate) was sent as an Alpha code due the inability to calculate a valid numeric value.Performed By: #### 9537154, 5900196, 5667265, 2843925, 95267510, 96460655, 7362374, 91806287 #### [facility] [address], [place] [address]Qshjvyx/Globulin (S) [Mass conc ratio]1.6Xrayfw5.1-2.2FSt. Rita's HospitalComment on above:Performed By: #### 4477214, 0592727, 3831757, 7983810, 41316673, 85743468, 8966272, 59809945 #### [facility] [address], [place] [address]Muhheoyc (S) [Mass/Vol]2.6 g/dLNormal1.4-4.0St. Charles HospitalComment on above:Performed By: #### 6270175, 6952684, 5033412, 3840930, 16330183, 70942006, 7322273, 94267396 #### [facility] [address], [place] [address]Yalusfb [Mass/Vol]4.1 g/dLNormal3.3-5.0St. Charles HospitalComment on above:Performed By: #### 5584475, 8351708, 6506105, 3207616, 16032981, 46015729, 8634680, 68417059 #### [facility] [address] [place] [address]HEG [Catalytic activity/Vol]34 Int._Unit/MUoqzaa15-06KkyyepSt. Charles HospitalComment on above:Performed By: #### 3552759, 5650424, 9294330, 6200064, 82539267, 05378764, 5921176, 83428524 #### [facility] [address] [place] [address]MZO No additional P-5'-P [Catalytic activity/Vol]30 Int._Unit/L Normal6-46St. Charles HospitalComment on above:Performed By: #### 1865920, 1695682, 2731461, 5592223, 37472360, 58333879, 7376789, 37843322 #### [facility] [address] [place] [address]ZTT [Catalytic activity/Vol]38 Int._Unit/LNormal5-43St. [facility] HospitalComment on above:Performed By: #### 3507215, 3025768, 7562465, 9686476, 31023004, 59716444, 8996503, 71723202 #### [facility] [address] [place] [address]Quffzbrkb [Mass/Vol]0.2 mg/dLNormal0.0-1.1FSt. Rita's HospitalComment on above:Performed By: #### 2773682, 1985857, 3367481, 4559269, 53263745, 55929333, 4611051, 13745562 #### [facility] [address] [place] [address] [id number] [Mass/Vol]6.7 g/dLNormal6.0-7.8St. Charles HospitalComment on above:Performed By: #### [id number], [id number], 2876532, 9332015, [id number], 26079635, 5705153, [id number] #### [facility] [address], [place] [address]Yyjummqkm.direct [Mass/Vol]mg/dLNormal0.1-0.4FSt. Rita's HospitalComment on above:Performed By: #### [id number], 0804231, 0738583, 6387029, [id number], 43757537, 5981483, [id number] #### [facility] [address], [place] [address]CP & PTTon 25-69-2057nHYM Coag (PPP) [Time]28.2 second(s)Normal 25.1-36.5FSt. Rita's HospitalComment on above:Result Comment: Parameter 15 days - 4 weeks 1 - [...] the same coagulation reagent and instrumentation as [facility] Currently there are no coagulation studies available worldwide for children to 14 days, andno normal ranges. Heparin therapeutic range (represented by Anti-Factor Xa activity of 0.2 - 0.4 U/mL) corresponds to PTT of 56.6 - 109.0 sec.Performed By: #### [id number], 5459541, 7842640, 6114966, 78678440, 21278173, 7912291, [id number] #### [facility] [address], [place] [address]FOZ Coag (PPP) [Relative time]1.0 {INR}Invalid Interpretation CodeAdamR Adams Cowley Shock Trauma CenterComment on above:Result Comment: INR results are specifically intended to assess patients stabilized on long-term Anticoagulation therapy suggested INR?s ?Less Intensive Anticoagulation? 2.0 ? 3.0 Conventional Range 3.0 ? 4.5Performed By: #### [id number], 4881916, 5583675, 1260000, 46778809, 21806968, 3952930, 89503226 #### [facility] [address], [place] [address]EY Coag (PPP) [Time]10.9 second(s)Normal9.4-12.5[facility]c Western MarylandComment on above:Result Comment: 15 days - 4 weeks 1 - [...] the same coagulation reagent and instrumentation as [facility]. Currently there are no coagulation studies available worldwide for children to 14 days, andno normal ranges.Performed By: #### [id number], 0806554, 5768093, 0230576, 68929162, 89725858, 5760660, 30696860 #### [facility] [address], [place] [address]Uvoxgygn 0 Hr.on 11-33-5470Tuxxrfeu I.cardiac [Mass/Vol]10.00 pg/mLLow10.10-27.10[facility]pmc Western MarylandComment on above:Result Comment: The 95% CI (Confidence Interval) PPV (Positive Predictive Value) for myocardial infarction in females is 38 pg/mL, in males 51 pg/mL. The results should be used in conjunction with clinical conditions of myocardial infarction. (Access High Sensitivity Troponin I Instructions For Use, Magen Janna, May 2018)Performed By: #### [id number], 3330559, 2000781, 7761625, 53632291, 62803460, 0789322, 10974361 #### [facility] [address], [place] [address]qNXXfz 21-58-4496LGX/1.73 sq M.predicted among non-blacks MDRD (S/P/Bld) [Vol rate/Area]65 mL/min/1.73 l7Adxdat>=59[facility] Comment on above:Order Comment: Order added by Discern Expert.Result Comment: Chronic kidney disease could be indicated at eGFR's of less than 60 mL/min/1.73m2. Kidney failure is indicated at less than 15 mL/min/1.73m2. Performed By: #### [id number], 6460129, 7558996, 1433362, 99658766, 53354689, 5270474, 43964163 #### [facility] [address], [place] [address]Qpxwkae aminotransferase [Enzymatic activity/volume] in Serum or PlasmaOrdered By: Vishal Mazariegos on 39-95-8729NGT [Catalytic activity/Vol]25 U/L 7-52[facility] HospitalBasophils Auto (Bld) [#/Vol]Ordered By: Vishal Mazariegos on 68-30-7413Vhyqsgwjc (Bld) [#/Vol]0.0 10*3/uL0.0-0.2FKettering Health Main CampusBasophils/100 WBC Auto (Bld)Ordered By: Vishal Mazariegos on 55-56-4558Iwbbvgzme/100 WBC (Bld)0.9 %.[facility] HospitalCalcium [Mass/volume] in Serum or PlasmaOrdered By: Vishal Mazariegos on 64-66-8047Ccruxrf [Mass/Vol]8.5 mg/dL8.6-10.3FKettering Health Main CampusCarbon dioxide, total [Moles/volume] in Serum or PlasmaOrdered By: Vishal Mazariegos on 92-05-9015FH4 [Moles/Vol]30.3 mmol/L21.0-31.0[facility] HospitalChloride [Moles/volume] in Serum or PlasmaOrdered By: Vishal Mazariegos on 84-97-9760Wolejcha [Moles/Vol]105 mmol/R77-212AlcsulbfxMercy Health St. Elizabeth Boardman HospitalCholesterol [Mass/volume] in Serum or PlasmaOrdered By: Vishal Mazariegos on 61-93-7102Gskriklsemc [Mass/Vol]158 mg/nB756-950IxhusjngpMercy Health St. Elizabeth Boardman HospitalComment on above: Chol less than 200 mg/dl low riskChol 201-239 mg/dl borderline riskChol 240 mg/dl and greater high riskCholesterol in LDL Calc [Mass/Vol]Ordered By: Vishal Mazariegos on 17-51-1448Muthbhvtoms in LDL [Mass/Vol]80 mg/dL0-100[facility] Board[facility] HospitalComment on above:LDL ATP III CLASSIFICATIONLDL less than 100 mg/dL OptimalLDL 100-129 mg/dL Near or above lhzejmuEJL562-784 mg/dL Borderline highLDL 160-189 mg/dL HighLDL greater than 189 mg/dL Very highCholesterol in VLDL Calc [Mass/Vol]Ordered By: Vishal Mazariegos on 06-22-6672Qpfcxfcifcs in VLDL [Mass/Vol]8 mg/dLMercy Health St. Elizabeth Boardman HospitalCreatinine [Mass/volume] in Serum or PlasmaOrdered By: Vishal Mazariegos on 69-11-3821Ulqlqduljx [Mass/Vol]0.83 mg/dL0.60-1.20[facility] HospitalCreatinine [Mass/volume] in Urine Ordered By: Vishal Mazariegos on 61-22-6222Afhzjxhxcx (U) [Mass/Vol]203.0 mg/dL 11.0-20.0[facility] HospitalEosinophils Auto (Bld) [#/Vol]Ordered By: Vishal Mazariegos on 49-88-0370Ydesftcdatn (Bld) [#/Vol]0.2 10*3/uL0.0-0.[address] [facility] HospitalEosinophils/100 WBC Auto (Bld)Ordered By: Vishal Mazariegos on 35-74-3295Ylokzejhkvo/100 WBC (Bld)3.9 %.[facility] [facility] HospitalErythrocyte distribution width Auto (RBC) [Ratio]Ordered By: Vishal Mazariegos on 73-06-0402Pividutsmbc distribution width (RBC) [Ratio]13.6 %11.9-15.[address] [facility] HospitalGlucose [Mass/volume] in Serum or PlasmaOrdered By: Vishal Mazariegos on 51-99-9814Xmhxmkd [Mass/Vol]83 mg/wV55-754PcmxzmfnmMercy Health St. Elizabeth Boardman HospitalComment on above:ADA recommended reference rangeRandom Glucose Reference Range is dependent on time and content of last meal. Glucose of more than 200 mg/dL in a nonstressed, ambulatory subject supports the diagnosisof Diabetes Mellitus.Hematocrit Auto (Bld) [Volume fraction]Ordered By: Vishal Mazariegos on 63-89-5501Jjyebxvoap (Bld) [Volume fraction]41.6 %34.0-46.4FKettering Health Main CampusHemoglobin [Mass/volume] in BloodOrdered By: Vishal Mazariegos on 31-86-6767Gbpfqtgdzn (Bld) [Mass/Vol]13.6 g/dL11.8-15.4FKettering Health Main CampusLeukocytes [#/volume] corrected for nucleated erythrocytes in Blood by Automated counOrdered By: Vishal Mazariegos on 23-16-4786ZXT corrected for nucl RBC Auto (Bld) [#/Vol]5.2 10*3/uL3.8-11.6FK[facility] Campus Lymphocytes Auto (Bld) [#/Vol]Ordered By: Vishal Mazariegos on 48-49-8741Ysexjxlbora (Bld) [#/Vol]1.4 10*3/uL1.00-4.8[facility] HospitalLymphocytes/100 WBC Auto (Bld)Ordered By: Vishal Mazariegos on 77-93-6829Edxtssfldym/100 WBC (Bld) 27.4 %.[facility] HospitalH Auto (RBC) [Entitic mass]Ordered By: Vishal Mazariegos on 38-85-6966BLZ (RBC) [Entitic mass]28.3 pg24.7-34.3FKettering Health Main CampusMCHC Auto (RBC) [Mass/Vol]Ordered By: Vishal Mazariegos on 26-37-7619XYRT (RBC) [Mass/Vol]32.7 g/dL32.0-35.0[facility] HospitalMCV Auto (RBC) [Entitic vol]Ordered By: Vishal Mazariegos on 38-01-7816HMN (RBC) [Entitic vol]86.7 hP81-682FuermnggxMercy Health St. Elizabeth Boardman HospitalMicroalbumin [Mass/volume] in UrineOrdered By: Vishal Mazariegos on 51-10-6653Xzlqpfk DL <= 20 mg/L (U) [Mass/Vol]29.3 mg/dL0.0-1.8[facility] HospitalMonocytes Auto (Bld) [#/Vol]Ordered By: Vishal Mazariegos on 43-97-9362Akavinvbt (Bld) [#/Vol]0.4 10*3/uL0.0-0.8[facility] HospitalMonocytes/100 WBC Auto (Bld) Ordered By: Vishal Mazariegos on 88-92-7362Gunllqtex/100 WBC (Bld)8.6 %.[facility] HospitalNeutrophils Auto (Bld) [#/Vol]Ordered By: Vishal Mazariegos on 26-22-0719Utsidrkktcu (Bld) [#/Vol]3.1 10*3/uL1.8-7.7FKettering Health Main CampusNeutrophils/100 WBC Auto (Bld)Ordered By: Vishal Mazariegos on 03-03-2023 Neutrophils/100 WBC (Bld)59.2 %.[facility] [facility] HospitalNo Panel InformationOrdered By: Vishal Mazariegos on 21-81-5858Dfjgpbxqd GFR (CKD-EPI)> 60.0 mL/MinMercy Health St. Elizabeth Boardman HospitalPharmacy Creatinine Clearance (ChemN/A [facility] HospitalNucleated erythrocytes [Presence] in Blood by Automated countOrdered By: Vishal Mazariegos on 94-61-8690Vwwadqcjb RBC Auto Ql (Bld) 0.1 /100{WBC}0-0.5FKettering Health Main CampusPlatelet mean volume Auto (Bld) [Entitic vol]Ordered By: Vishal Mazariegos on 98-43-9912Dfrokuyu mean volume (Bld) [Entitic vol]9.1 fL6.3-10.7FKettering Health Main CampusPlatelets Auto (Bld) [#/Vol]Ordered By: Vishal Mazariegos on 29-21-6982Jdrfvbjzp (Bld) [#/Vol]175 10*3/vK812-580QfyfzpwwqMercy Health St. Elizabeth Boardman HospitalPotassium [Moles/volume] in Serum or PlasmaOrdered By: Vishal Mazariegos on 09-79-0685Svioeelti [Moles/Vol]4.0 mmol/L 3.5-5.1FKettering Health Main CampusRBC Auto (Bld) [#/Vol]Ordered By: Vishal Mazariegos on 29-95-4370PVK (Bld) [#/Vol]4.80 10*6/uL3.60-5.00[facility] Hospitalerum or plasma anion gap determinationOrdered By: Vishal Mazariegos on 19-59-6898Zetqx gap [Moles/Vol]8.7 mmol/L6.0-15.0W[facility] Hospitalerum or plasma high density lipoprotein (HDL) cholesterol measurement Ordered By: Vishal Mazariegos on 17-37-0353Obiudhmyrde in HDL [Mass/Vol]70 mg/dL35-[address] [facility] HospitalComment on above:HDL CHOL ATP-III CLASSIFICATION Cardiovascular RiskHDL > or equal to 60 mg/dL LOWHDL < 40 mg/dL HIGHSerum or plasma total cholesterol/high density lipoprotein (HDL) cholesterol mass ratOrdered By: Vishal Mazariegos on 86-98-2135Wrtbndrzeiu.total/Cholesterol in HDL [Mass ratio]2.3 {ratio}<5.0[facility] Hospitalodium [Moles/volume] in Serum or PlasmaOrdered By: Vishal Mazariegos on 41-21-2416Slwlsk [Moles/Vol]140 mmol/S084-091YrhtcopcdMercy Health St. Elizabeth Boardman HospitalThyrotropin [Units/volume] in Serum or PlasmaOrdered By: Vishal Mazariegos on 55-26-1464EJC Qn1.40 m[IU]/L0.45-5.33[facility] HospitalThyroxine (T4) free [Mass/volume] in Serum or PlasmaOrdered By: Vishal Mazariegos on 04-21-2828Lgcg T4 [Mass/Vol]0.92 ng/dL0.61-1.12[facility] HospitalTriglyceride [Mass/volume] in Serum or PlasmaOrdered By: Vishal Mazariegos on 03-03-2023 Triglyceride [Mass/Vol]41 mg/dL0-149[facility] HospitalComment on above:TRIG ATP III CLASSIFICATIONTRIG less than 150 mg/dL NormalTRIG 150-199 mg/dL Borderline highTRIG 200-500 mg/dL High TRIG greater than 500 mg/dL Very highStandard traceable to the Center for Disease Conrtrol and Prevention (CDC) test method.Urea nitrogen [Mass/volume] in Serum or PlasmaOrdered By: Vishal Mazariegos on 75-40-1864Sdxp nitrogen [Mass/Vol]17 mg/dL7-[facility] HospitalUrine microalbumin/creatinine mass ratioOrdered By: Vishal Mazariegos on 30-63-1375Ftnrlhg/Creatinine DL <= 20 mg/L (U) [Mass ratio]144.0 mg/g0.0-30.[address] [facility] HospitalComment on above:30-300 mg/g indicates an increased risk for diabetic nephropathy. Greater than 300 mg/g is consistent with clinical nephropathy. (Am. J. Kidney Disease 1995, 25:107)WBC Auto (Bld) [#/Vol]Ordered By: Vishal Mazariegos on 46-31-2347PPH (Bld) [#/Vol]5.2 10*3/uL3.8-11.[address] [facility] HospitalComplete Blood Count with Auto Diffon 21-64-2163Yceiystmi (Bld) [#/Vol]0.06 10*3/uLNormal0.00-0.20[facility] HospitalComment on above:Performed By: #### CMP, LIPD, CBCAD #### [facility] [address], [place] [id number]/100 WBC (Bld)1.4 %NormalNorttucson va medical centern Day Kimball HospitalComment on above:Performed By: #### CMP, LIPD, CBCAD #### [facility] [address], [place] [id number] (Bld) [#/Vol]0.17 10*3/uLNormal0.02-0.50Norttucson va medical centern Day Kimball HospitalComment on above:Performed By: #### CMP, LIPD, CBCAD #### [facility] [address] [facility] [place] [id number]/100 WBC (Bld)4.0 %NormalNorttucson va medical centern [place] Medical SpecialistComment on above:Performed By: #### CMP, LIPD, CBCAD #### [facility] [address], [place] [id number] distribution width (RBC) [Ratio]13.0 %Normal 11.0-15.0[facility] SpecialistComment on above:Performed By: #### CMP, LIPD, CBCAD #### [facility] [address], [place] [id number] (Bld) [Volume fraction]42.7 %Jgzxoo41.0-47.0 [facility] SpecialistComment on above:Performed By: #### CMP, LIPD, CBCAD #### [facility] [address], [place] [id number] (Bld) [Mass/Vol]13.8 g/rMDtfovl82.6-15.5[facility] SpecialistComment on above:Performed By: #### CMP, LIPD, CBCAD #### [facility] [address], [place] [id number] (Bld) [#/Vol]1.5 10*3/uLNormal0.9-3.9[facility] SpecialistComment on above:Performed By: #### CMP, LIPD, CBCAD #### [facility] [address], [place] [id number]/100 WBC (Bld)35.5 %NormalGreen Cross Hospital SpecialistComment on above:Performed By: #### CMP, LIPD, CBCAD #### [facility] [address], [place] [id number] (RBC) [Entitic mass]28.1 qiChrbmt98.0-33.0NoNationwide Children's Hospital SpecialistComment on above:Performed By: #### CMP, LIPD, CBCAD #### [facility] [address], [place] [id number] (RBC) [Mass/Vol]32.3 g/eVCrzgbl35.0-36.0[facility] SpecialistComment on above:Performed By: #### CMP, LIPD, CBCAD #### [facility] [address], [place] [id number] (RBC) [Entitic vol]87 fTLtfzsj93-504Jazobfdj [place] [facility] SpecialistComment on above:Performed By: #### CMP, LIPD, CBCAD #### [facility] [address], [place] [id number] (Bld) [#/Vol]0.4 10*3/uLNormal0.2-0.9NoNationwide Children's Hospital SpecialistComment on above:Performed By: #### CMP, LIPD, CBCAD #### [facility] [address], [place] [id number]/100 WBC (Bld)9.2 %NormalNoNationwide Children's Hospital SpecialistComment on above:Performed By: #### CMP, LIPD, CBCAD #### [facility] [address], [place] [id number] (Bld) [#/Vol]2.1 10*3/uLNormal1.5-7.8NortMercy Health Lor[facility] Hospital SpecialistComment on above:Performed By: #### CMP, LIPD, CBCAD #### [facility] [address], [place] [id number]/100 WBC (Bld)49.7 %NormalNoNationwide Children's Hospital SpecialistComment on above:Performed By: #### CMP, LIPD, CBCAD #### [facility] [address], [place] [id number] mean volume (Bld) [Entitic vol]11.40 fLNormal 7.50-12.50NortMercy Health Lorain Hospital SpecialistComment on above:Performed By: #### CMP, LIPD, CBCAD #### [facility] [address], [place] [id number] (Bld) [#/Vol]198 10*3/sTNujxmc934-172Fnaybxpr [place] [facility] SpecialistComment on above:Performed By: #### CMP, LIPD, CBCAD #### [facility] [address], [place] [id number] (Bld) [#/Vol]4.91 10*6/uLNormal3.90-5.20NoNationwide Children's Hospital SpecialistComment on above:Performed By: #### CMP, LIPD, CBCAD #### [facility] [address], [place] [id number]-HY98.5 sYZdbiaa61.0-50.0NoNationwide Children's Hospital Specialist Comment on above:Performed By: #### CMP, LIPD, CBCAD #### [facility] [address], [place] [id number] (Bld) [#/Vol]4.2 10*3/uLNormal3.8-11.0NoNationwide Children's Hospital SpecialistComment on above:Performed By: #### CARLITO LIPD, CBCAD #### [facility] [address], [place] [id number] Metabolic Panelon 31-76-4930Kgpzrtc [Mass/Vol] 4.6 g/dLNormal3.6-5.1NorthThe [facility] Hospital SpecialistComment on above:Performed By: #### CARLITO, LIPD, CBCAD #### [facility] [address], [place] [id number]/Globulin [Mass ratio]2.6 {ratio}High1.0-2.5NoNationwide Children's Hospital SpecialistComment on above:Performed By: #### CMP, LIPD, CBCAD #### [facility] [address], [place] [id number] [Catalytic activity/Vol]40 U/HRitnzo32-025Ehmcbmwb [place] [facility] SpecialistComment on above:Performed By: #### CMP, LIPD, CBCAD #### [facility] [address], [place] [id number] [Catalytic activity/Vol]25 U/LNormal6-33NoNationwide Children's Hospital SpecialistComment on above:Result Comment: 09/26/2021 Female reference range changed.Performed By: #### CMP, LIPD, CBCAD #### [facility] [address], [place] [id number] gap [Moles/Vol]15 mmol/TJlkfcu54-58Wrsicwhf [place] [facility] SpecialistComment on above:Result Comment: Effective 11/01/2019 reference range changed.Performed By: #### CMP, LIPD, CBCAD #### [facility] [address], [place] [id number] [Catalytic activity/Vol]33 U/LNormal9-34NortMercy Health Lorain Hospital SpecialistComment on above:Performed By: #### CMP, LIPD, CBCAD #### [facility] [address], [place] [id number] [Mass/Vol]0.32 mg/dLNormal0.30-1.20NortMercy Health Lorain Hospital SpecialistComment on above:Performed By: #### CMP, LIPD, CBCAD #### [facility] [address], [place] [id number]/CREA24 RatioHigh6-22NortLake [facility] Him Director Comment on above:Performed By: #### CMP, LIPD, CBCAD #### [facility] [address], [place] [id number] [Mass/Vol]9.0 mg/dLNormal8.6-10.2[facility] SpecialistComment on above:Performed By: #### CMP, LIPD, CBCAD #### [facility] [address], [place] [id number] [Moles/Vol]102 mmol/YIiyyvh38-565Gviscuri [place] [facility] SpecialistComment on above:Performed By: #### CMP, LIPD, CBCAD #### [facility] [address], [place] [id number] [Moles/Vol]26 mmol/PWpigki52-78Vgrckukt [place] [facility] SpecialistComment on above:Performed By: #### CMP, LIPD, CBCAD #### [facility] [address], [place] [id number] [Mass/Vol]0.7 mg/dLNormal0.6-1.4NoNationwide Children's Hospital SpecialistComment on above:Performed By: #### IRAIS ESTEBAN, CBCAD #### [facility] [address], [place] [id number] mL/min/1.09h6Rtcqdh>60NoNationwide Children's Hospital SpecialistComment on above:Performed By: #### IRAIS ESTEBAN, CBCAD #### [facility] [address], [place] [id number] mL/min/1.31y8Txtzbu>60NortMercy Health Lorain Hospital SpecialistComment on above:Performed By: #### IRAIS ESTEBAN, CBCAD #### [facility] [address], [place] [id number] (S) [Mass/Vol]1.8 g/dLLow1.9-3.7NoNationwide Children's Hospital SpecialistComment on above:Performed By: #### IRAIS ESTEBAN, CBCAD #### [facility] [address], [place] [id number] [Mass/Vol]89 mg/bMUzenrt19-23Fubgdigu [place] [facility] SpecialistComment on above:Result Comment: For FASTING Glucose --- ADA reference ranges: Normal 65-99 mg/dl Prediabetes 100-125 Diabetes >/= 126Performed By: #### IRAIS ESTEBAN, CBCAD #### [facility] [address], [place] [id number] [Moles/Vol]4.3 mmol/LNormal3.5-5.5NoNationwide Children's Hospital SpecialistComment on above:Performed By: #### IRAIS ESTEBAN, CBCAD #### [facility] [address], [place] [id number] [Mass/Vol]6.4 g/dLNormal6.1-8.1[facility] SpecialistComment on above:Performed By: #### VINNIE ESTEBAND, CBCAD #### [facility] [address], [place] [id number] [Moles/Vol]139 mmol/KOcbrmh544-159Ynenllsm [facility] SpecialistComment on above:Performed By: #### CMP, LIPD, CBCAD #### [facility] [address], [place] [id number] nitrogen [Mass/Vol]18 mg/dLNormal7-25Norttucson va medical centern [facility] SpecialistComment on above:Performed By: #### CMP, LIPD, CBCAD #### [facility] [address], [place] [id number] Panelon 12-60-3978Ullrsswvqeo [Mass/Vol]165 mg/dLNormal 125-200NortMercy Health Lorain Hospital SpecialistComment on above:Result Comment: Low risk < 200mg/dL Borderline risk 201-239 mg/dl High risk > or equal to 240Performed By: #### CMP, LIPD, CBCAD #### [facility] [address], [place] [id number] in HDL [Mass/Vol]74 mg/dLNormal>40NoNationwide Children's Hospital SpecialistComment on above:Result Comment: High Cardiovascular Risk HDL <40 mg/dL Low Cardiovascular Risk HDL > or equal to 60 mg/dlPerformed By: #### CMP, LIPD, CBCAD #### [facility] [address], [place] [id number] in LDL [Mass/Vol]82 mg/dLNormalNoNationwide Children's [facility] SpecialistComment on above:Result Comment: LDL ATP III CLASSIFICATION LDL less than 100 mg/dl Optimal LDL 100-129 mg/dl Near or above optimal LDL 130-159 Borderline high LDL 160-189 High LDL greater than 189 mg/dl Very HighPerformed By: #### CMP, LIPD, CBCAD #### [facility] [address], [place] [id number] in VLDL [Mass/Vol]9 mg/dLNormalNoNationwide Children's Hospital SpecialistComment on above:Performed By: #### CMP, LIPD, CBCAD #### [facility] [address], [place] [id number].total/Cholesterol in HDL [Mass ratio]2 {ratio} NormalNortherAdena Pike Medical CenterComment on above:Performed By: #### CMP, LIPD, CBCAD #### [facility] [address], [place] [id number] [Mass/Vol]45 mg/vVKbyjro26-625Uvxaylzs [place] [facility] SpecialistComment on above:Result Comment: TRIG ATPIII CLASSIFICATIONS TRIG less than 150 mg/dl Normal TRIG 150-199 mg/dl Borderline High TRIG 200-500 mg/dl High TRIG greather than 500 mg/dl Very HighPerformed By: #### CMP, LIPD, CBCAD #### [facility] [address], [place] [id number] (with Creat)on 44-10-8855fZEW09.8 mg/dLNormal [facility] Memorial HospitalComment on above:Result Comment: mALB reference range not established.Performed By: #### mALBC #### [facility] [address], [place] [id number]/Creat Ratio80.0 MCG/MGNormalNoLakeHealth Beachwood Medical CenterComment on above:Result Comment: The ADA (Diabetes Care 26:S94-S98, 2003) defines abnormalities in Albumin excretionas follows: Category Result (MCG/MG Creatinine) Normal <30 Microalbuminuria 30-299 Clinical Albuminuria > or = 300Performed By: #### mALBC #### [facility] [address], [place] [id number] mg/gYGgmv77-927VyafciuhRegional Medical Center Comment on above:Performed By: #### mALBC #### [facility] [address], [place] [id number] Venous, Unilat, Lower Ext Lefton 22-11-3727YX Venous, Unilat, Lower Ext LeftCLINICAL HISTORY: 3 day history of leg pain [...] and signed by JAKE MCCOY on 11/20/2021 1206NormalNoLakeHealth Beachwood Medical CenterAlbumin [Mass/volume] in Serum or Plasmaon 07-19-2020 Albumin [Mass/Vol]4.1 g/dL3.2-5.5FKettering Health Main CampusBasophils Auto (Bld) [#/Vol]on 14-86-5993Tfloxfeha (Bld) [#/Vol]0.1 10*3/uL0.0-0.2FKettering Health Main CampusBasophils/100 WBC Auto (Bld)on 03-52-6548Rqaqwqsbp/100 WBC (Bld)1.2 %.[facility] HospitalBlood hemoglobin measurement (mass/volume)on 46-26-5953Rjaepujmnl (Bld) [Mass/Vol]14.4 g/dL11.8-15.4FKettering Health Main CampusBlood leukocytes automated count (number/volume)on 88-09-3945JNZ (Bld) [#/Vol]5.0 10*3/uL4.5-11.0[facility] Creatinine and Glomerular filtration rate.predicted panel (S/P/Bld)on 07-19-2020 Creatinine [Mass/Vol]0.83 mg/dL0.44-1.03[facility] Eosinophils Auto (Bld) [#/Vol]on 97-27-5527Voshwxmczax (Bld) [#/Vol]0.2 10*3/uL 0.0-0.45[facility] HospitalEosinophils/100 WBC Auto (Bld)on 08-34-5131Aecqfzlgsrb/100 WBC (Bld)4.4 %.[facility] Erythrocyte distribution width Auto (RBC) [Ratio]on 95-28-2264Xpcwaeuxxub distribution width (RBC) [Ratio]13.4 %11.9-15.3FK[facility] Campus Estimated glomerular filtration rate (GFR) non- Americanon 07-19-2020 GFR/1.73 sq M.predicted among non-blacks MDRD (S/P/Bld) [Vol rate/Area] mL/min/{1.73_m2}[facility] HospitalGlobulin Calc (S) [Mass/Vol]on 46-94-5430Yqjuffgd (S) [Mass/Vol]2.7 g/dLMercy Health St. [facility] Hematocrit Auto (Bld) [Volume fraction]on 22-86-7737Ghyddhckjn (Bld) [Volume fraction]43.7 %34.0-46.4[facility] CampusLaboratory - Chemistry and Chemistry - challengeon 28-83-8926WLY/1.73 sq M.predicted MDRD (S/P/Bld) [Vol rate/Area]mL/min/{1.73_m2}[facility] HospitalComment on above:GFR estimated reference range: According to KDOQI guidelines, <60 ml/min/1.73m2 is sufficient todiagnose a patient with chronic kidney disease. Laboratory - Hematology and Cell countson 52-08-8717Dmgekkqwu RBC/100 WBC (Bld) [Ratio]0.2 %0-0.5FK[facility] CampusLymphocytes Auto (Bld) [#/Vol] on 12-82-2381Zvxabnuwdnw (Bld) [#/Vol]1.5 10*3/uL1.00-4.8[facility] HospitalLymphocytes/100 WBC Auto (Bld)on 27-62-4423Lxhievhahsw/100 WBC (Bld)29.5 %.[facility] Auto (RBC) [Entitic mass]on 97-86-0989JYO (RBC) [Entitic mass]28.6 pg24.7-34.3FK[facility] CampusMCHC Auto (RBC) [Mass/Vol]on 43-94-0213RXVB (RBC) [Mass/Vol]33.0 g/dL 32.0-35.0[facility] HospitalMCV Auto (RBC) [Entitic vol]on 97-82-0529IIH (RBC) [Entitic vol]86.5 nF87-941YtdzrxzlkMercy Health St[facility] Monocytes Auto (Bld) [#/Vol]on 64-85-4633Xcovjsdoq (Bld) [#/Vol]0.5 10*3/uL 0.0-0.8[facility] HospitalMonocytes/100 WBC Auto (Bld)on 63-44-2950Utkpqnlgm/100 WBC (Bld)9.7 %.[facility] Neutrophils Auto (Bld) [#/Vol]on 58-00-7483Aihjpikmgpf (Bld) [#/Vol]2.7 10*3/uL 1.8-7.7FKettering Health Main CampusNeutrophils/100 WBC Auto (Bld)on 72-07-8579Kgeyqwwqaqk/100 WBC (Bld)55.2 %.[facility] HospitalNo Panel Informationon 07-66-8292Aizdrgpc Creatinine Clearance (Chem65.81[facility] HospitalPlatelet mean volume Auto (Bld) [Entitic vol]on 05-16-9789Ewmcqgte mean volume (Bld) [Entitic vol]8.6 fL6.3-10.7FKettering Health Main CampusPlatelets Auto (Bld) [#/Vol]on 21-07-7481Cunberdtn (Bld) [#/Vol]183 10*3/wI075-492BfukeigepMercy Health St. [facility] HospitalProtein [Mass/volume] in Serum or Plasmaon 13-66-7154Siylesu [Mass/Vol]6.8 g/dL6.1-7.9[facility] HospitalRBC Auto (Bld) [#/Vol]on 47-38-0169VAE (Bld) [#/Vol]5.05 10*6/uLHigh3.60-5.00[facility] Hospitalerum or plasma alanine aminotransferase measurement without P-5'-P (enzymatic activion 28-57-7371NUC No additional P-5'-P [Catalytic activity/Vol]25 U/M63-77JmpqqnloyWyandot Memorial Hospitalerum or plasma albumin/globulin mass ratioon 22-29-2862Fouvgsh/Globulin [Mass ratio]1.5 {ratio}[facility] Hospitalerum or plasma alkaline phosphatase measurement (enzymatic activity/volume)on 06-54-1564SPY [Catalytic activity/Vol]36 U/C45-79BwhxjteynWyandot Memorial Hospitalerum or plasma aspartate aminotransferase measurement (enzymatic activity/volume)on 07-19-2020 AST [Catalytic activity/Vol]31 U/B65-42BlidcnbzhWyandot Memorial Hospitalerum or plasma calcium measurement (mass/volume)on 18-27-7823Wafmcic [Mass/Vol]8.9 mg/dL 8.2-10.2FProMedica Toledo Hospitalerum or plasma chloride measurement (moles/volume)on 38-14-9119Sxudzdam [Moles/Vol]104 mmol/T72-398LrqeuydoeWyandot Memorial Hospitalerum or plasma glucose measurement (mass/volume)on 19-11-8338Iwiazxq [Mass/Vol]98 mg/kZ86-422QpphgplerMercy Health St[facility] Comment on above:ADA recommended reference range Random Glucose Reference Range is dependent on time and content of last meal. Glucose of more than 200 mg/dL in a nonstressed, ambulatory subject supports the diagnosis of Diabetes Mellitus.ADA recommended reference rangeRandom Glucose Reference Range is dependent on time and content of last meal. Glucose of more than 200 mg/dL in a nonstressed, ambulatory subject supports the diagnosisof Diabetes Mellitus.Serum or plasma potassium measurement (moles/volume)on 50-71-4698Rahyioryn [Moles/Vol]3.7 mmol/L3.5-5.1FProMedica Toledo Hospitalerum or plasma sodium measurement (moles/volume)on 10-98-6821Ysbuiq [Moles/Vol]139 mmol/E113-013WfivpbiymWyandot Memorial Hospitalerum or plasma total bilirubin measurement (mass/volume)on 72-84-8249Cbkonkomk [Mass/Vol]0.6 mg/dL0.3-1.2FProMedica Toledo Hospitalerum or plasma total carbon dioxide measurement (moles/volume)on 34-42-3645JY8 [Moles/Vol]27.0 mmol/L 22.0-30.0[facility] Hospitalerum or plasma urea nitrogen measurement (mass/volume)on 24-91-8732Wisw nitrogen [Mass/Vol]17 mg/dL9-[address] [facility] HospitalFerritin [Mass/volume] in Serum or Plasmaon 61-47-8481Yvkivhqp [Mass/Vol]225.0 ng/qH54-175.8[facility] HospitalIron [Mass/volume] in Serum or Plasmaon 62-50-1614Kvam [Mass/Vol]77 ug/dL 40-150[facility] HospitalIron binding capacity [Mass/volume] in Serum or Plasmaon 09-07-7995Sgyv binding capacity [Mass/Vol]356 ug/aZ608-[address] [facility] HospitalIron saturation [Mass Fraction] in Serum or Plasmaon 66-53-4310Acsc saturation [Mass fraction]21.0 %20-50[facility] Hospitalerum or plasma transferrin measurement (mass/volume)on 07-02-2019 Transferrin [Mass/Vol]254 mg/oP851-848FabjnbmitMercy Health St. [facility] HospitalTS DL <= 0.005 mIU/L Qnon 25-76-4680CBK Qn0.90 m[IU]/L0.45-5.33[facility] HospitalThyroxine (T4) free [Mass/volume] in Serum or Plasmaon 07-02-2019 Free T4 [Mass/Vol]0.81 ng/dL0.61-1.12[facility] Vital Signs Date TimeVital SignValuePerforming WzrpugjklJhcpstip60-92-4359 09:17-040Body engwym279.1 cmAungjeannette Mazariegos DO Work Phone: [facility] CenterFqbkydeacu95-39-6903 09:17-0400Body mass index (BMI) [Ratio]18.47 kg/p1Nretkbqbita Mazariegos DO Work Phone: [facility] CenterKshnfhcxsl33-32-7587 09:17-040Body .35 kgNicolásbita Mazariegos DO Work Phone: [facility] CenterFzphacqlrv14-25-3146 09:17-040Diastolic blood immewaqn22 mm[Hg]Chente Mazariegos DO Work Phone: [facility]-SullivanDzsvngyqrh16-90-5278 09:17040Systolic blood afczombl743 mm[Hg]Chente Mazariegos DO Work Phone: [facility] CenterFbjjumlvwj15-41-8834 13:50-0400Body imeeux549.1 Tramaine Mazariegos DO Work Phone: [facility] CenterKvmumypsjz65-59-9594 13:50-0400Body mass index (BMI) [Ratio]19.3 kg/m2Paul Delilah DO Work Phone: [facility] CenterVrxwkguggi75-91-0130 13:50-0400Body temperature 96.4 [degF]Vishal Mazariegos DO Work Phone: [facility] CenterUuvtfepgyv73-23-5772 13:50-0400Body qeloub39.62 kgPaul Delilah DO Work Phone: [facility] CenterApfovcsjpa98-74-5383 13:50-0400Diastolic blood eaqhgkye39 mm[Hg]Vishal Mazariegos DO Work Phone: [facility] CenterMpotjclnov16-07-3386 13:50-0400Heart rate68 /min Vishal Mazariegos DO Work Phone: 1(572)290-[address] [place], [place] [address]Yqkodfvvgc17-59-7548 13:50-2683FbD0% (BldA) [Mass fraction]97 %Vishal Mazariegos DO Work Phone: [facility] CenterJnfkipptrj52-12-1535 13:50-0400Systolic blood iddclymy320 mm[Hg]Vishal Mazariegos DO Work Phone: [facility] CenterAycczhioiz88-87-9739 09:16-0400Body .1 Tramaine Bernabe DO Work Phone: [facility] CenterXckhjitodp17-40-5383 09:16-0400Body mass index (BMI) [Ratio]17.31 kg/m2Paul Florecita DO Work Phone: [facility] CenterByhdvowhgy98-61-0195 09:16-0400Body evlgyw07.17 kgPaul Florecita DO Work Phone: [facility] CenterDzrunuxexz53-09-5410 15:18-0500Body dbhehc571.1 Tramaine Mazariegos DO Work Phone: [facility] CenterEpgyypwwrd06-68-5359 15:18-0500Body mass index (BMI) [Ratio]17.31 kg/m2Paangela Mazariegos DO Work Phone: [facility] CenterYwtsnhpnqt25-75-7973 15:18-0500Body temperature 97.9 [degF]Vishal Mazariegos DO Work Phone: 1(409)[facility] [place], [place] [address]Htwjzujoml74-89-0390 15:18-0500Body ioiuue82.17 kgPaangela Mazariegos DO Work Phone: [facility] CenterSscsnmwrja01-53-2748 15:18-0500Diastolic blood hmzbkysf84 mm[Hg]Vishal Mazariegos DO Work Phone: 1(220)122-[address] [place], [place] [address]Lpxsdhtgcy93-26-7688 15:18-0500Heart rate80 /min Vishal Mazariegos DO Work Phone: 1(016)903-[address] [place], [place] [address]Pzgmsfllbc84-81-9337 15:18-0500Systolic blood awvdxhcz076 mm[Hg]Vishal Mazariegos DO Work Phone: 1(652)[facility] [place], [place] [address]Qopbsuabiw02-70-8641 08:58-0400Body eejtio793.1 cmTimothy Northwood DO Work Phone: 1(185)603-[address] [place], [place] [address]Lyedlvtniu49-08-3266 08:58-0400Body mass index (BMI) [Ratio]17.97 kg/b4Xivlfri Northwood DO Work Phone: 1(637)[facility] [place], [place] [address]Tljypypksx63-22-1480 08:58-0400Body temperature 97.2 [degF]Missy Northwood DO Work Phone: 1(944)664-[address] [place], [place] [address]Zkexbxrnuv19-54-9301 08:58-0400Body pgszem23.99 kgTimothy Northwood DO Work Phone: 1(606)007-[address] [place], [place] [address]Sueucydcvb45-77-6273 08:58-0400Diastolic blood mm[Hg]Missy Northwood DO Work Phone: 1(839)[facility] [place] [address]-31-2024 08:58-0400Heart rate66 /min Missy Northwood DO Work Phone: 1(089)[facility] [place] [address]-31-2024 08:58-8139RuR3% (BldA) [Mass fraction]100 %Missy Northwood DO Work Phone: 1(817)[facility] [place] [address]-31-2024 08:58-0400Systolic blood tzewekte117 mm[Hg]Missy England DO Work Phone: [facility] CenterCesvytwjoe82-11-0218 15:19-0400Body temperature 97.9 [degF]DO Chente Mazariegos Work Phone: 5(823)196-[address] [place], [place] 0526009-26-2024 15:19-0400 Body .08 kgDO Chente Mazariegos Work Phone: 1(447)570-[address] [place], [place] 0526009-26-2024 15:19-0400 Diastolic blood mm[Hg]DO Chente Mazareigos Work Phone: 1(672)[address]09-26-2024 15:19-0400 Heart rate68 /SherriO Chente Mazariegos Work Phone: 0(312)[address]09-26-2024 15:19-0400 Respiratory rate16 /Laila Mazariegos Work Phone: 1(829)[address]09-26-2024 15:19-0400 SaO2% (BldA) [Mass fraction]99 %DO Chente Mazariegos Work Phone: 1(820)757-[address] [place], [place] 7834309-26-2024 15:19-0400 Systolic blood kcnyiflj026 mm[Hg]DO Chente Mazariegos Work Phone: 0(690)613-[address] [place], [place] 7834309-20-2024 08:53-0400 Body .1 cmWijeannette Mazariegos DO Work Phone: [facility] CenterHwwmvoadff87-21-9300 08:53-0400Body mass index (BMI) [Ratio]17.64 kg/t8MbhsnzgChente Mazariegos DO Work Phone: [facility] CenterErzpdhybfr27-98-4899 08:53-0400Body eidawh22.08 kgWijeannette Mazariegos DO Work Phone: [facility] CenterQzgeuuosns55-10-7289 08:53-0400Diastolic blood ttyncmkl22 mm[Hg]Chente Mazariegos DO Work Phone: [facility] CenterQvpejpcrrb11-48-9580 08:53-0400Systolic blood rrdugfih019 mm[Hg]Chente Mazariegos DO Work Phone: [facility] CenterUrxzphlpdp06-72-8382 08:56-0400Body qgqpwi715.49 cmDO Chente Mazariegos Work Phone: 1(905)006-[address] [place], [place] 7834309-15-2023 08:56-0400 Body qgtyurfetcs22.8 [degF]DO Chente Mazariegos Work Phone: 1(220)[address]09-15-2023 08:56-0400 Body dketka14.67 kgDO Chente Mazariegos Work Phone: 1(098)[address]09-15-2023 08:56-0400 Diastolic blood crvyknhk72 mm[Hg]DO Chente Mazariegos Work Phone: 1(826)[address]09-15-2023 08:56-0400 Heart rate60 /SherriO Chente aMzariegos Work Phone: 1(942)[address] [place], [place] 6694509-15-2023 08:56-0400 Respiratory rate20 /SherriO Chente Mazariegos Work Phone: 1(700)[address] [place], [place] 6694509-15-2023 08:56-0400 SaO2% (BldA) [Mass fraction]97 %DO Chente Mazariegos Work Phone: 7(305)[address]09-15-2023 08:56-0400 Systolic blood hhuxncfe484 mm[Hg]DO Chente Mazariegos Work Phone: 5(818)[address] [place], [place] 6694507-13-2023 22:52-0400 Diastolic blood pehiagwd94 mm[Hg]Darci Ambrose [facility]07-13-2023 22:52-0400Heart rate76 /minDarci Ambrose [facility]07-13-2023 22:52-0400Mean blood lyrgkvpp855 mm[Hg]Darci Pughen [facility]07-13-2023 22:52-0400 Nursing Progress Note ReasonOther: discharge instructons given. pt verbalized understanding. family at bedsideKaylinn Dokken [address]07-13-2023 22:52-7723KuK1% (BldA) [Mass fraction]99 %Nehan Arnol [address]07-13-2023 22:52-0400 Systolic blood mm[Hg]Nehan Arnol [address]07-13-2023 22:45-0400 Diastolic blood vezbdael03 mm[Hg]Nehan Arnol [address] [place], [place] [address]07-13-2023 22:45-0400 Systolic blood xoehgkuv509 mm[Hg]Nehan Keatonen [address] [place], [place] 510[address]07-13-2023 21:47-0400 Diastolic blood fcdokufy23 mm[Hg]Darci Amrbose [address] [place], [place] 5103907-13-2023 21:47-0400Heart rate66 /Jenny Ambrose [address] [place], [place] 5103907-13-2023 21:47-0400Mean blood sfqunhpc73 mm[Hg]Darci Ambrose [address] [place], [place] 3356707-13-2023 21:47-0400 Nursing Progress Note ReasonOther: resting in bed. states pain slightly better family at bedsideDarci Ambrose [address] [place], [place] 3356707-13-2023 21:47-0442XkR9% (BldA) [Mass fraction]100 %Darci Ambrose [address] [place], [place] 3356707-13-2023 21:47-0400 Systolic blood mjdxmrok782 mm[Hg]Nehan Keatonen [address]07-13-2023 21:46-0400Heart rate64 /minFarooqylinn Dokken [address] [place], [place] 510[address]07-13-2023 21:46-0400 Respiratory rate16 /minFarooqylinn Dokken [address] [place], [place] 510[address]07-13-2023 21:46-4436EtY0% (BldA) [Mass fraction]99 %Nehan Dokken [address] [place], [place] 5103907-13-2023 20:15-0400Heart rate61 /minFarooqylinn Dokken [address] [place], [place] 5103907-13-2023 20:15-0400 Respiratory rate16 /minFarooqylinn Dokken [address] [place], [place] 510[address]07-13-2023 19:05-0400Body ppppgefrhab34.42 [degF]Nehan Keatonen [address] [place], [place] 510[address]07-13-2023 19:05-0400Heart rate84 /Kareemn Dokken [address] [place], [place] 5103907-13-2023 19:05-0400 Respiratory rate18 /Kareemn Dokken [address] [place], [place] 5103905-15-2023 10:30-0400Body sbzobv973.1 cmMichelle Perry Other [facility] [employer] Other 05-15-2023 10:30-0400Body temperatureMichelle Perry Other [facility] [employer] Other 05-15-2023 10:30-0400Diastolic blood ugneekzv74 mm[Hg] Michelle Perry Other [employer] Other 05-15-2023 10:30-4111JuJ2% (BldA) [Mass fraction]97 % Michelle [facility]ammon [facility] Other 05-15-2023 10:30-0400Systolic blood lllclfca266 mm[Hg] Michelle Kingammon Other [employer] Other 05-04-2023 10:00-0400Body roftva681.1 cmMichelle Perry Other [facility] Other 05-04-2023 10:00-0400Body mass index (BMI) [Ratio] 17.64 kg/c7HglcmuMichelle Kingammon Other [facility] Other 05-04-2023 10:00-0400Body vfswdluunik10.3 [degF]Michelle Kingammon Other [employer] Other 05-04-2023 10:00-0400Body pxulrn07.08 kgMichelle Perry Other [facility] Other 05-04-2023 10:00-0400Diastolic blood ldibiukc76 mm[Hg] Michelle Vicky Other [employer] Other 05-04-2023 10:00-9138FgS1% (BldA) [Mass fraction]99 % Michelle Vicky Other [employer] Other 05-04-2023 10:00-0400Systolic blood fyohrkum117 mm[Hg] Michelle Vicky Other [employer] Other 01-04-2023 10:30-0500Body .1 cmMaramiro Soler Other [employer] Other 01-04-2023 10:30-0500Body mass index (BMI) [Ratio] 17.64 kg/l2KzqpnynFidel Soler Other [employer] Other 01-04-2023 10:30-0500Body oirmqtqswwv13.2 [degF] Fidel Soler Other [employer] Other 01-04-2023 10:30-0500Body qmmyjr69.08 kgMaramiro Soler Other [employer] Other 01-04-2023 10:30-0500Diastolic blood gydjmftv80 mm[Hg] Fidel Soler Other [employer] Other 01-04-2023 10:30-0693VeB9% (BldA) [Mass fraction]96 % Fidel Soler Other [employer] Other 01-04-2023 10:30-0500Systolic blood wzgryhmr631 mm[Hg] Fidel Soler Other [employer] Other 12-15-2022 09:30-0500Body akqqbv043.1 cmMichelle Perry Other [employer] Other 12-15-2022 09:30-0500Body mass index (BMI) [Ratio] 17.64 kg/s4WnnrzlMichelle Perry Other [employer] Other 12-15-2022 09:30-0500Body yuoowzrupxd47.8 [degF]Michelle Perry Other [employer] Other 12-15-2022 09:30-0500Body umyfat54.08 kgJaluis Perry Other [employer] Other 12-15-2022 09:30-0500Diastolic blood mm[Hg] Michelle Perry Other [employer] Other 12-15-2022 09:30-3998HdD2% (BldA) [Mass fraction]98 % Michelle Perry Other [employer] Other 12-15-2022 09:30-0500Systolic blood kbilfduj46 mm[Hg] Michelle Perry Other [employer] Other 09-14-2022 09:03-0400Body ssyvorjpocj46.8 [degF]MD Nica Nelson Work Phone: [facility]09-14-2022 09:03-0400 Body .98 kgMD Nica Nelson Work Phone: [facility]09-14-2022 09:03-0400 Diastolic blood mm[Hg]MD Nica Nelson Work Phone: [facility]09-14-2022 09:03-0400 Heart rate66 /minMD Nica Nelson Work Phone: [facility]09-14-2022 09:03-0400 Respiratory rate16 /minMD Nica Nelson Work Phone: [facility]09-14-2022 09:03-0400 SaO2% (BldA) [Mass fraction]99 %MD Nica Nelson Work Phone: [facility]09-14-2022 09:03-0400 Systolic blood kdwecocy983 mm[Hg]MD Nica Nelson Work Phone: [facility]06-30-2022 09:45-0400 Body jrkuab471.1 cmMaramiro Soler Other [facility] [employer] Other 06-30-2022 09:45-0400Body mass index (BMI) [Ratio] 19.97 kg/m5TowcnmuFidel Soler Other [employer] Other 06-30-2022 09:45-0400Body ggnlisfhiez02.6 [degF] [facility]idel [facility] 06-30-2022 09:45-0400Body mwtqvy96.43 kgMaramiro Soler Other [employer] Other 06-30-2022 09:45-0400Diastolic blood urxxygde45 mm[Hg] Fidel [facility] Other 06-30-2022 09:45-7800LiR6% (BldA) [Mass fraction]99 % Fidel Soler Other [employer] Other 06-30-2022 09:45-0400Systolic blood lhjribfq123 mm[Hg] Fidel Soler Other [employer] Other 03-31-2022 10:30-0400Body appnfr863.1 cmMichelle Perry Other [employer] Other 03-31-2022 10:30-0400Body mass index (BMI) [Ratio] 19.97 kg/z5Lmlsxiluis Perry Other [facility] Other 03-31-2022 10:30-0400Body ngydnlqbdgn00.4 [degF]Michelle Kingammon Other [employer] Other 03-31-2022 10:30-0400Body xaqysh02.43 kgQuinnluis Kingbarbrabruce Other [facility] Other 03-31-2022 10:30-0400Diastolic blood ajcvbuiz69 mm[Hg] Michelle [facility]ammon Other [facility] Other 03-31-2022 10:30-7887StB1% (BldA) [Mass fraction]97 % Michelle [facility]ammon Other [facility] Other 03-31-2022 10:30-0400Systolic blood urqstmyy509 mm[Hg] Michelle [facility]ammon Other [facility] Other 02-15-2022 10:15-0500Body kjoffe777.1 cmQuinnluis Kingammon Other [facility] Other 02-15-2022 10:15-0500Body mass index (BMI) [Ratio] 19.97 kg/w5Tutctf Rutammon Other [employer] Other 02-15-2022 10:15-0500Body yxztevgmzry37 [degF]Michelle Kingammon Other [employer] Other 02-15-2022 10:15-0500Body xhcvnu01.43 kgJaluis Perry Other [employer] Other 02-15-2022 10:15-0500Diastolic blood xkvausqo75 mm[Hg] Michelle Prery Other [employer] Other 02-15-2022 10:15-8925MaS7% (BldA) [Mass fraction]89 % Michelle Perry Other [employer] Other 02-15-2022 10:15-0500Systolic blood mm[Hg] Michelle Perry Other [employer] Other 06-23-2021 09:09-0400Body mmxvoe330.49 cmMD Nica Omar Work Phone: [facility] Encounters Encounter DateEncounter TypeCare ProviderFacilityStart: 07-27-2025 End: 57-19-8969Aqgqsod encounter procedureVishal Mazariegos [facility] Work Phone: Start: 07-27-2025 End: 43-38-8593tblmxtdztuUmqy Bruner DO Work Phone: [facility] Work Phone: Start: 07-22-2025 End: 89-67-1938Ceatgqz encounter statusWillianunu Mazariegos DO Work Phone: [facility] HealthcareStart: 07-22-2025 End: 98-28-7955Jodsjwom preventive med est patient 40-64yrsWann Mazariegos DO Work Phone: [facility] Mariya OBGYNComment on above:Encounter for gynecological examination without abnormal finding (Primary Dx); Encounter for Papanicolaou smear of vagina; History of breast cancer; Vaginal atrophyStart: 07-22-2025 End: 08-70-5913fcdgdflyhyLQWDGIO Donna Estrada AvailableStart: 07-04-2025 End: 34-00-4866Smtoxlgjb encounterVishal Mazariegos DO Work Phone: [facility] 230Comment on above: ReferralStart: 04-08-2025 End: 49-48-0880Suiepz flowsheetVishal Mazariegos DO Work Phone: [facility] 230Start: 04-08-2025 End: 58-60-7164Mlqtqz flowsheetVishal Meadowser DO Work Phone: [facility] 230Start: 04-08-2025 End: 62-25-5094Tdgihv outpatient visit 25 minutesPaul Gladys Mazariegos DO Work Phone: [facility] 230Comment on above: Primary hypertension (Primary Dx); Multinodular goiter ; Hyperparathyroidism (HCC)Start: 04-08-2025 End: 15-05-4839hsiinvqvdkTLVA J BRUNERNot AvailableStart: 04-06-2025 End: 89-91-4069Aopjxs flowsheetJr. Yuriy Martin DO Work Phone: [facility] SWS ORTHOStart: 04-06-2025 End: 71-15-8973Japroa flowsheetJr. Yuriy Martin DO Work Phone: [facility] SWS ORTHOStart: 04-06-2025 End: 69-77-9680Etptsw outpatient visit 15 minutesJr. Yuriy Martin DO Work Phone: [facility] SWS ORTHOComment on above:Lateral epicondylitis of right elbow (Primary Dx); Right elbow painStart: 04-06-2025 End: 95-24-3887uhqywuvrugTR., YURIY Roth AvailableStart: 04-02-2025 End: 89-04-4782Ejkqdbdcg Result EncounterVishal Mazariegos DO Work Phone: [facility] External Department UnsolicitedStart: 04-02-2025 End: 20-71-3629Ifjfrqxoo Result EncounterPaangela Mazariegos DO Work Phone: [facility] External Department UnsolicitedStart: 04-01-2025 End: 72-63-5312Jaciiy flowsheetPaangela S Biednely DO Work Phone: [facility] ENT SANDUSKYStart: 04-01-2025 End: 73-89-7661Lvbohi flowsheetPaul S Biedenbach DO Work Phone: [facility] ENT SANDUSKYStart: 04-01-2025 End: 21-53-7234Auouaf outpatient visit 25 minutesPaul S Biedenbach DO Work Phone: NOZP ENT SANDUSKYComment on above:Thyroid nodule (CMS/HCC) (Primary Dx); Multinodular goiter (CMS/HCC)Start: 04-01-2025 End: 27-61-3200anledvgwmnAKTW S CHHAYABACHNot AvailableStart: 01-05-2025 End: 18-10-6435Sjsrrk outpatient visit 15 minutesJr. Yuriy Martin DO Work Phone: [facility] SWS ORTHOComment on above:Lateral epicondylitis of right elbow (Primary Dx); Right elbow painStart: 01-05-2025 End: 40-87-9379pidvntwwexJL., YURIY Roth AvailableStart: 11-10-2024 End: 45-70-0246Pvcjit outpatient visit 15 minutesJr. Yuriy Martin DO Work Phone: [facility] SWS ORTHOComment on above:Lateral epicondylitis of right elbow (Primary Dx); Right elbow painStart: 11-10-2024 End: 90-42-9484jmwgkgesmdVE., YURIY Roth AvailableStart: 11-10-2024 End: 70-04-0372Tgscww flowsheetJr. Yuriy Martin DO Work Phone: [facility] SWS ORTHOStart: 11-10-2024 End: 62-40-1149Nzvzlg flowsheetJr. Yuriy Martin DO Work Phone: [facility] SWS ORTHOStart: 10-07-2024 End: 94-89-5261Wstqdm outpatient visit 25 minutesJayaangela Mazariegos DO Work Phone: [facility] 230Comment on above:Easy bruising (Primary Dx); Unspecified protein-calorie malnutrition (CMS/HCC); Immunodeficiency due to conditions classified elsewhere (CMS/HCC); Multinodular goiter (CMS/HCC); Other secondary scoliosis, thoracolumbar regionStart: 10-07-2024 End: 28-12-0855hotijcgozePXAY J BRUNERNot AvailableStart: 10-07-2024 End: 53-52-7929Sdcsya flowsheetVishal Mazariegos DO Work Phone: [facility] 230Start: 10-07-2024 End: 78-48-4377Vbevwq flowsheetVishal Mazariegos DO Work Phone: [facility] FM 230Start: 10-02-2024 End: 33-91-9844Tjbnvfgtf Result EncounterVishal Meadowser DO Work Phone: [facility] External Department UnsolicitedStart: 10-02-2024 End: 24-40-8254Nhhdbqody Result EncounterVishal Gladys Mazariegos DO Work Phone: [facility] External Department UnsolicitedStart: 08-26-2024 End: 32-34-3781Zhdkoc flowsheetTimothy L Northwood DO Work Phone: [facility] FM 230Start: 08-26-2024 End: 39-69-6802Sfunpg flowsheetTimothy L Northwood DO Work Phone: [facility] FM 230Start: 08-26-2024 End: 36-10-7257Xfawiu outpatient visit 25 minutesTimothy L Northwood DO Work Phone: [facility] S[facility] FM 230Comment on above:Easy bruising (Primary Dx); Lumbar facet arthropathy; Lateral epicondylitis of right elbowStart: 08-26-2024 End: 76-35-1267tzuqgragaqBJMGWRS L CUTLERNot AvailableStart: 08-02-2024 End: 97-41-5712Jumfchald encounterJr. Yuriy Martin DO Work Phone: [facility] ORTHOComment on above:medicationStart: 07-30-2024 End: 92-87-0230Dilpmj flowsheetJr. Yuriy Martin DO Work Phone: [facility] ORTHOStart: 07-30-2024 End: 17-62-1057Fxliyx flowsheetJr. Yuriy Martin DO Work Phone: [facility] ORTHOStart: 07-30-2024 End: 43-54-6662Uvixnq outpatient visit 25 minutesJr. Yuriy Martin DO Work Phone: [facility] ORTHOComment on above:Lateral epicondylitis of right elbow (Primary Dx)Start: 07-30-2024 End: 61-51-2063uqhhoghealUN., YURIY MARTINNot AvailableStart: 07-22-2024 End: 71-70-3695ssebknuabmKX Chente Mazariegos Work Phone: [facility] Work Phone: Start: 07-22-2024 End: 71-45-5601Sxmkxmw encounter procedureDO Chente Mazareigos Work Phone: [facility] Phone: Start: 99-98-5805Izduvgdkry RecurringDO Chente Mazariegos Work Phone: [facility] Work Phone: Start: 07-16-2024 End: 67-81-9245Gwuvpcc encounter statusWillbita Mazariegos DO Work Phone: noms HealthcareStart: 07-16-2024 End: 68-75-5974Ufofegym preventive med est patient 40-64yrsWann Mazariegos DO Work Phone: noms [facility] OBComment on above:Encounter for gynecological examination without abnormal finding; Encounter for Papanicolaou smear of vagina; Personal history of malignant neoplasm of breastStart: 06-11-2024 End: 08-41-9308Nuguhy outpatient visit 25 minutesJr. Yuriy Arteaga Stepanic DO Work Phone: NOZQ [facility] ORTHOComment on above:Right elbow pain (Primary Dx); Lateral epicondylitis of right elbowStart: 03-36-1220Ayatn Angely Mazariegos DO Work Phone: noms [facility] FM 230Start: 09-12-2023 End: 88-06-7823kihttbhtxnRN Chente Mazariegos Work Phone: [facility] Work Phone: Start: 09-12-2023 End: 13-29-5782Bldxkkci ReferredDO Chente Mazariegos Work Phone: [facility] Work Phone: Start: 10-14-4106Unfxsbovil RecurringDO Chente Mazariegos Work Phone: [facility] Work Phone: Start: 05-08-2023 End: 18-55-4210Kjxwmytvs department patient visitFarooqyljonathon AmbroseFacility:[facility] Start: 05-08-2023 End: 94-36-7980Vrogijvtl department patient visitaura Ambrose [facility] Start: 03-10-2023 End: 08-22-7413Sqphrao encounter procedureMichelle Beal Vascular Surgery Start: 03-10-2023 End: 38-11-3803etcwumovrbMK Vishal Mazariegos Work Phone: [employer] Other Start: 03-03-2023 End: 53-95-8684Kwwajct encounter procedureDO Vishal Mazariegos Work Phone: [facility] Work Phone: Start: 02-27-2023 End: 68-65-8069dsbyqewihjLtszik Ruttino Other [employer] Other Start: 72-94-7544Myvbegj encounter procedureMichelle TeeoFPG Vascular SurgeryStart: 10-30-2022 End: 45-29-8741haowygilicSzkqarr Langenberg Other [employer] Other Start: 39-47-9062Mfpolr follow up visit related to original pxFidel NielsonG Vascular SurgeryStart: 10-10-2022 End: 95-78-0774fxysvixyrtOynzgv Ruttino Other [employer] Other Start: 25-88-5550Qqpznqs encounter procedureMichelle TeeoFPG Vascular SurgeryStart: 07-11-2022 End: 64-84-2192Tpfmcjl encounter procedureMD Nica Nelson Work Phone: [facility] VascularStart: 07-10-2022 End: 45-28-9104Iiyelsaomj RecurringMD Nica Nelson Work Phone: [facility]Cancer CenterStart: 07-03-2022(EVLT) EVLT saphenous vein ablationMaramiro NielsonG Vascular SurgeryStart: 07-03-2022 End: 38-80-0838puvnqtacitArwkedy Langenberg Other [employer] Other Start: 04-25-2022 End: 75-54-9802wlwbgaaanrHlldyim Langenberg Other [employer] Other Start: 26-97-6385Lykufg outpatient visit 25 minutes Fidel Smith Vascular SurgeryStart: 04-19-2022 End: 49-37-2359qysvhvrxoyMmbjcq Ruttino Other [employer] Other Start: 31-69-0603Aabpwizpa encounterJackie RuttinoFPG Vascular SurgeryStart: 04-04-2022 End: 72-79-9762dgdjqubqgnMvjcoa Ruttino Other [employer] Other Start: 82-88-0472Cfsjilqza encounterJackie RuttinoFPG Family Medicine CastaliaStart: 03-15-2022(Sclerother) SclerotherapyMatthew LangenbergFPG Vascular SurgeryStart: 03-15-2022 End: 60-72-7178uswzjzpgnzGavmvjy Langenberg Other [employer] Other Start: 01-24-2022 End: 09-92-4047atbopgxnlxOzojap Ruttino Other [employer] Other Start: 13-31-6676Zaucxx-up encounterMichelle RuttinoFPG Vascular SurgeryStart: 12-17-2021 End: 38-37-0074ygbcqgpuvxSilgok Ruttino Other [employer] Other Start: 54-71-2842Gbxdxtxat encounterJackie RuttinoFPG Vascular SurgeryStart: 12-11-2021 End: 87-63-3826zuwthjdjhrMhhjnr Ruttino Other [employer] Other Start: 58-74-1493Ydczld outpatient visit 15 minutes Michelle TeeoFPG Vascular SurgeryStart: 70-03-1026Ggmezuc encounterNica Hainescility:9122 Procedures DateProcedureProcedure DetailPerforming ClinicianStart: 67-28-9621Wygyhkqqe mammography of left breastPaul Delilah DO Work Phone: Start: 30-54-2673LHH CBC WITH AUTO DIFFPaul J Delilah DO Work Phone: Start: 43-27-2425DFX CBC WITH AUTO DIFFPaul Gladys Mazariegos DO Work Phone: Start: 81-38-1620Xnalctryc mammography of left breast DO Chente Mazariegos Work Phone: start: 89-33-2044Cyihwjtvv mammography of left breast DO Chente Mazariegos Work Phone: start: 24-49-7438Culwqk scan of lower limb veinsDO Vishal Mazariegos Work Phone: Start: 25-21-3219Kinqtf scan of lower limb veinsMD Nica Nelson Work Phone: Start: 04-51-2821Jluaozdzu mammography of left breast MD Nica Nelson Work Phone: Start: 79-41-1945Vxmkdmbbf mammography of left breast MD Nica Nelson Work Phone: Start: 67-60-7520Nhezqxtmwvvntpo of bilateral breasts MD Nica Nelson Work Phone: Start: 54-72-4837JluyjejgfciNkil Delilah DAVISON Work Phone: Start: 02-89-6526Fprzmjsnba procedure on topographic regionMD Ncia Nelson Work Phone: Start: 32-82-7445Igqjkthc tomography of abdomen and pelvis with contrastMD Nica Nelson Work Phone: Start: 22-19-2266WY of thorax with contrastMD iNca Pagese Work Phone: Start: 22-53-7475Ktwcqwwaa mammographyMD Nica Nelson Work Phone: Start: 61-89-5352ML scan of thyroidMD Nica Pagese Work Phone: Start: 31-06-8818VnmxckyvjaoCJ Nica Nelson Work Phone: Start: 43-41-1369UB diagnostic mammo LT w/CADMD Nica Pagese Work Phone: Plan of Treatment DateCare ActivityDetailAuthorStart: 41-70-3458Rahecrgmz for malignant neoplasm of colonNOMS HealthcareStart: 07-24-2026 End: 29-50-4022Mjdkzgi encounter ovmsquevn72/28/2026 1:30 PM EDT Office Visit GEOVANYBeverly LeyvaRedfordele MEDINA [address] [place] [address] Chente Mazariegos DO [address] [place] [address] NOMBeverly LeyvaM[place]ya OBGYNStart: 04-03-2026 End: 02-58-1112Hpdjifl encounter procedureNO ENT SANDUSKYStart: 10-10-2025 End: 58-50-5292Ohxfrti encounter procedureNOMS SWS FM 230Start: 09-26-2025 End: 93-69-8551Ugfkhyjebbojo metabolic 2000 panel - Serum or PlasmaComprehensive metabolic panel Lab Routine Primary hypertension Multinodular goiter Hyperparathyroidism (HCC) Expected: 09/26/2025 (Approximate), Expires: 04/08/2026[facility] Work Phone: Comment on above:Expected: 09/26/2025 (Approximate), Expires: 04/08/2026Start: 09-26-2025 End: 57-18-3431THWSGRSS CBC WITHOUT DIFF ([facility])HEMOGRAM CBC WITHOUT DIFF ([facility]) Lab Routine Primary hypertension Multinodular goiter Hyperparathyroidism (HCC) Expected: 09/26/2025 (Approximate), Expires: 04/08/2026NOWV HealthcareComment on above:Expected: 09/26/2025 (Approximate), Expires: 04/08/2026Start: 09-26-2025 End: 02-87-3242Jnmwc 1996 panel - Serum or PlasmaLipid panel Lab Routine Primary hypertension Multinodular goiter Hyperparathyroidism (HCC) Expected: 09/26/2025 (Approximate), Expires: 04/08/2026NOWV HealthcareComment on above:Expected: 09/26/2025 (Approximate), Expires: 04/08/2026Start: 07-22-2025 End: 98-64-1264Avohczx encounter procedureNOMS SWS OBStart: 14-94-5553Xzbspftho vaccinationNOMS HealthcareStart: 04-08-2025 End: 48-58-1421Cfjxnag encounter procedureNOMS SWS FM 230Comment on above: ArrivedStart: 04-06-2025 End: 51-73-8285Jaxopsr encounter procedureNOMS SWS ORTHOComment on above:Arrived Start: 04-01-2025 End: 10-21-6941Biwdjtb encounter procedureNOMS ENT SANDUSKYComment on above: ArrivedStart: 03-28-2025 End: 26-24-7311NIK W Auto Differential panel - BloodCBC and differential Lab Routine Easy bruising Expected: 03/28/2025, Expires: 10/07/2025[facility] Work Phone: Comment on above:Expected: 03/28/2025, Expires: 10/07/2025Start: 03-28-2025 End: 04-75-9277Xuowpjirzqkmy metabolic 2000 panel - Serum or PlasmaComprehensive metabolic panel Lab Routine Unspecified protein-calorie malnutrition (CMS/HCC) Expected: 03/28/2025, Expires: 10/07/2025NOWV HealthcareComment on above: Expected: 03/28/2025, Expires: 10/07/2025Start: 03-28-2025 End: 92-28-0476Mkkkt 1996 panel - Serum or PlasmaLipid panel Lab Routine Unspecified protein-calorie malnutrition (CMS/HCC) Expected: 03/28/2025, Exp ires: 10/07/2025NOWV HealthcareComment on above:Expected: 03/28/2025, Expires: 10/07/2025Start: 03-28-2025 End: 57-45-1970Pccntihnuda [Units/volume] in Serum or PlasmaTSH Lab Routine Multinodular goiter (CMS/HCC) Expected: 03/28/2025, Expires: 10/07/2025NOWV HealthcareComment on above:Expected: 03/28/2025, Expires: 10/07/2025Start: 03-28-2025 End: 23-13-6692Qjtackncz (T4) free [Mass/volume] in Serum or PlasmaT4, free Lab Routine Multinodular goiter (CMS/HCC) Expected: 03/28/2025, Expires: 10/07/2025 NOMS HealthcareComment on above:Expected: 03/28/2025, Expires: 10/07/2025Start: 01-05-2025 End: 87-07-6035Pxrpejc encounter mugawznvx58/12/2025 11:00 AM EDT Office Visit [facility] [address] [place] [phone] Jr. Yuriy Martin, DO [address] [place] [address] N[facility]S SWS ORTHOStart: 11-10-2024 End: 32-88-2126Bcfaqev encounter procedureNOMS SWS ORTHOComment on above:Lateral epicondylitis of right elbow (Primary Dx); Right elbow painStart: 11-05-2024 End: 69-26-6549Flykgpc encounter egakejtia09/10/2025 3:00 PM EST Office Visit [facility] [address] [place] [address] Jr. Yuriy Martin, DO [address] [place] [address] N[facility] SWS ORTHOStart: 10-07-2024 End: 27-96-5999Zonsynj encounter procedureNOMS SWS FM 230Comment on above: ArrivedStart: 08-26-2024 End: 27-26-6988Vnggblh encounter yyfukqruw65/31/2024 9:20 AM EDT Office Visit [facility] FM [address] [place] [phone] Missy England, DO [address] [place] [address] ArrivedNOMS SWS FM 230Comment on above:ArrivedStart: 07-30-2024 End: 53-86-9527Lcgdnxf encounter procedureNOMS [facility] ORTHOComment on above:Arrived Start: 07-16-2024 End: 18-60-5090Ypupizi encounter eivwtgsfp21/20/2024 9:15 AM EDT Office Visit [facility] OB [address] [place] [address] Chente Mazariegos, DO [address] [place] [address] N[facility]S [facility] OBStart: 21-64-5080Okjqzndlq vaccinationInfluenza Vaccine (#1)NOMS HealthcareStart: 04-02-2024 End: 63-37-3424Stzqyto encounter dachdgpkp31/07/2024 9:45 AM EDT Office Visit [facility] [place] [address] [place] [phone] Vishal Bernabe, DO [address] [place] [address] NOMS ENT SANDUSKYStart: 04-01-2024 End: 09-49-1694Ejframf encounter ubgmjsnya33/06/2024 3:40 PM EDT Office Visit [facility] [address] [place] [phone] Vishal Mazariegos, DO [address] [place] [address] N[facility]S [facility] 230Start: 12-11-2023 End: 93-82-0511Ygbitwd encounter fomsbhonn40/15/2024 3:20 PM EST Office Visit N[facility] FM [address] [place] [phone] Vishal Mazariegos, DO [address] [place] [address] N[facility] 230Start: 49-74-8028Qtnzvszqw vaccination Influenza Vaccine (#1)NOMS HealthcareStart: 31-22-2602Widqqanuf for malignant neoplasm of colonNOWV HealthcareIGP,rfxAptima HPV all,16/18,45IGP,rfxAptima HPV all,16/18,45 Pathology and Cytology Routine Encounter for Papanicolaou smear of vagina Ordered: 07/22/2025[facility] Healthcare Work Phone: comment on above:Ordered: 07/22/2025[facility] Breast - [facility]eningOhio[facility] Work Phone: mg Breast - left ScreeningWyandot Memorial HospitalENDOUT TEST MISCELLANEOUS [facility]ABC[facility]PSENDOUT TEST MISCELLANEOUS [facility] Lab Routine Encounter for Papanicolaou smear of vagina Ordered: 07/16/2024[facility] Healthcare Work Phone: comment on above:Ordered: 07/16/2024[facility] Payers DatePayer CategoryPayerPolicy ID2016MedicaidCARESOURCECARESOURCE MEDICAID CARESOURCE MEDICAID [place] [id number] 2016-Present [address] [place] [address] [id number] Health Insurance [employer] MEDICAID [id number] 2.840.1.230232.3.579.2.727 [id number] 2.0.1.029748.3.579.2.875502-08-3453Bizkrbh [id number] 2..840.1.248938.3.57[id number] 2..840.1.906206.3.57[id number] 2.840.1.542125.3.57[id number] 2.0.1.895494.3.57[id number] 2.0.1.344876.3.57[id number] 2.0.1.236642.3.57[id number] 2.0.1.524859.3.57[id number] 2.0.1.840005.3.579.2.1259Self-paySelf Pay [id number] Social History DateTypeDetailFacilityStart: 07-08-2023 End: 81-20-7067Qnu [facility]igned [facility] CenterStart: 07-10-2022 End: 42-43-1579Ebzuoao smoking status NHISNever smoked tobacco (finding) [facility] Hospitaltart: 43-33-0268Asn Assigned At [facility] PrebleTobacco smoking statusNo Smoking Status [facility] Administrationtart: 94-85-5821Pvcgvor use and exposureSmokeless tobacco non-userNOMS HealthcareStart: 12-11-2023 End: 62-30-8668Yoivbtk intakeLifetime non-drinker (finding)[facility] HealthcareStart: 07-08-2023 End: 31-11-9657Ojjwpwz of Social functionNOMS HealthcareHow often to you have a drink containing alcohol?NeverNOMS HealthcareHow many standard drinks containing alcohol do you have on a typical day?Patient does not drinkNOMS Healthcare Start: 55-25-9174Pefezab CommentCaffeine intake: noneNOMS HealthcareStart: 98-43-2298Roy Assigned At BirthNot on fileNOMS HealthcareDo you belong to any clubs or organizations such as rastafarian groups, unions, fraJaman or athletic nato ups, or school groups?YesNOMS HealthcareAre you now , , , , never or living with a partner?DivorcedNOMS HealthcareDo you feel stress - tense, restless, nervous, or anxious, or unable to sleep at night because yourmind is troubled all the time - these days [OSQ]Very muchNOMS Healthcare(I/We) worried whether (my/our) food would run out before (I/we) got money to buy more.Never trueNOMS HealthcareIn the past 12 months, was there a time when you were not able to pay the mortgage or rent on time?NoNOMS HealthcareSexFemale (finding)[facility] HospitalNEGATED: Highlighted rowStart: NINFHistory of tobacco usePassive smokerNOWV Healthcare Functional Status VtstKtpxqeugciTugorrFmfzutvc74-73-4607Dmqjt score [AUDIT-C]0 07/22/2025 9:17 AM EDT Caro Zimmerman MANOMS Ukslckspqr93-61-9894Znjacml Health Questionnaire 2 item (PHQ-2) [Reported][facility] CenterJsnstjrwqy71-51-1278Ldvqvkl Health Questionnaire 2 item (PHQ-2) [Reported][facility] CenterPxwchmngax42-91-8385Avxvu score [AUDIT-C]0 04/01/2025 8:48 AM EDT Lisandra RendonNOMissouri Baptist Hospital-SullivanPvwajheihc38-64-5200Dbt often to you have a drink containing alcohol?Never 04/01/2025 8:48 AM EDT Lisandra Rendon NeverNOMissouri Baptist Hospital-SullivanOegxkagakw95-79-7419Ebvjbdcgix statusPatient does not drink 04/01/2025 8:48 AM EDT Julieta, Generic Patient does not drinkOzarks Medical CenterIlbkuzshdj33-71-7530Pwm often do you have 6 or more drinks on 1 occasion?Never 04/01/2025 8:48 AM EDT Julieta Generic NeverOzarks Medical CenterSsydugwxxf62-18-0914Wwajnzyufy StatusN/AFriley - [facility] Clinical Notes 07-08-2017 to 07-22-2025 Note Date & FeyfFufxJtsrsqbv41-17-9381 History of Present illness Narrative* Susi HicksKIERA - 07/22/2025 9:15 AM EDT Images from the original note were not included. Chente Mazariegos DO Obstetrics and Gynecology Maricel Easton 1965 07/22/25 [id number] Exam Chief Complaint Patient presents with Gynecologic Exam LMP: KIMO BSO 2017 HRT: none Last pap 07-16-24 neg. PCP managing mammograms, since cleared by oncology last year. Denies breast or urinary concerns. bowel Feels bloated. Feels like food goes right through her. States not diarrhea, but going 3-4x daily. Last colonoscopy 2020 for blood in stool- normal. Repeat 7-10 years per op report. Visit Vitals BP 104/68 Ht 5' 5 Wt 111 lb BMI 18.47 kg/m OB Status Hysterectomy Smoking Status Never BSA 1.52 m OB History Para Term AB Living 2 2 2 SAB IAB Ectopic Multiple Live Births 2 # Outcome Date GA Lbr Fernando/2nd Weight Sex Type Anes PTL Lv 2 Para 7 lb 2 oz Vag-Spont AMRIT 1 Para 6 lb 12 oz Vag-Spont AMRIT Current Outpatient Medications Medication Sig Dispense Refill calcium carbonate 1500 (600 Ca) MG tablet Take 1 tablet (1,500 mg) by mouth Daily 90 tablet 3 cholecalciferol (Vitamin D-3) 50 MCG (1999 UT) tablet Take 1 tablet (50 mcg) by mouth Daily 30 tablet 5 ferrous sulfate 325 (65 Fe) MG EC tablet Take 1 tablet (325 mg) by mouth in the morning. Take with meals. Do not crush, chew, or split.. 90 tablet 3 lisinopril 10 MG tablet Take 1 tablet (10 mg) by mouth Daily 90 tablet 3 Multiple Vitamin (Multivitamin Adult) tablet No current facility-administered medications for this visit. Allergies Allergen Reactions Other Other Reaction(s): Unknown Tramadol Other Reaction(s): Unknown Wound Dressing Adhesive Other Reaction(s): Unknown Hydromorphone Other Reaction(s): Flushing Past Surgical History: Procedure Laterality Date COLONOSCOPY 2016 normal COLONOSCOPY 01/24/2021 LUMBAR EPIDURAL INJECTION 06/26/2017 MASTECTOMY Right 10/06/2014 PELVIC LAPAROSCOPY Diag Lap pelvic pain 30 years ago TOTAL ABDOMINAL HYSTERECTOMY W/ BILATERAL SALPINGOOPHORECTOMY 12/24/2017 VARICOSE VEIN SURGERY Left 12/2021 Past Medical History: Diagnosis Date Breast disease 2013 right Breast lump Burn Cancer (HCC) Cardiomegaly Chicken pox Costochondritis 04/2023 Dextroscoliosis of thoracic spine Significant thoracic dextroscoliosis Family history of cancer Heart disease Heart murmur History of right breast cancer Hypertension Liver lesion small Scoliosis Tennis elbow Thyroid nodule small Vaginal infection ROS Const: Denies appetite [...] nodes grossly normal. BREASTS:no masses palpable bilaterally, normal nipples bilaterally - everted - fatty replaced - dense - well supported- axilla negative. ABDOMEN: soft, nontender, nondistended, no masses palpable. BACK: no costovertebral angle tenderness, no obvious scoliosis/kyphosis. FEMALE GENITOURINARY:front clerk in room -front clerk in room - atrophic vaginal mucousa - [...] patient is to contact the office with anychanges to her gynecological condition or any changes with breast or bleeding. The patient is to return in 1 year or as needed 2. Encounter for Papanicolaou smear of vagina Z12.72 IGP,rfxAptima HPV all,16/18,45 Thinprep collected. Will notify patient if results are abnormal. 3. History of breast cancer Z85.3 Follows PCP 4. Vaginal atrophy N95.2 Discussed soft stools, feels she always burping up her food. Always makes it to the bathroom just have cramps and knows when to go. Could try gas X- but voiced doesn't feel gassy. Lives with her parents, helps take care of them. Entered by Susi Hicks MA acting as scribe for Dr. Chente Mazariegos. Signature Susi Hicks MA Date 07/22/25 . Time 9:25 AM . The documentation recorded by the scribe accurately reflects the service(s) I personally performed and the decisions I made. Signature Romel Mazariegos D.O. Date 07/22/25 Time 5:00PM. documented in this encounterNOMissouri Baptist Hospital-SullivanWyeqavyfod60-64-3904 Telephone encounter Note* Telephone Encounter - Toña Bartlett - 07/04/2025 3:25 PM EDT Requesting mammogram orders to [facility] [id number] Miscellaneous Notes* Telephone Encounter - Toña Bartlett - 07/04/2025 3:25 PM EDT [facility] documented in this encounterOzarks Medical CenterJxvkpflytz26-13-0883 History of Present illness Narrative* Vishal Mazariegos DO - 04/08/2025 2:00 PM EDT Images from the original note were not included. Former[facility] GOLDEN Meraz SUBJECTIVE: HPI: Mariecl Easton is a 59 y.o. female who presents with chief complaint of No chief complaint on file. Pt is in office for a 6 month follow up. Pt states she did have her blood work she would like the results. Pt states on her right side lower rib area it feels like it is sticking out a little, when she lays on that side it does become a little painful. History of Present Illness The patient is a 59-year-old female who presents for evaluation of weight gain, right lower chest discomfort, and abdominal pain. She reports a recent weight gain, which she attributes to her inability to fit into her previous summer clothing. The weight gain appears to be localized to her legs and buttocks, with no significantchange in her waist size. She has not been engaging in any specific exercise regimen but acknowledges frequent stair climbing due to her living arrangements. She also notes a change in her eating habits, now consuming three meals a day compared to her previous routine of skipping meals during work hours. She has been wearing elastic shorts and men's style clothes. She describes a palpable lump on her right lower chest, which she suspects may be related to her bra line. The area is sensitive to touch and causes discomfort when lying on that side. She recalls a similar sensation of a pulled muscle or bruise in the same area. She has a history of costochondritis diagnosed 2 years ago while playing softball, which was associated with severe pain on her side and restricted movement. She also mentions a diagnosis of scoliosis 15 years ago, with a curvature of 60 degrees, which has since worsened. She has a noticeable hump on one side due to this condition. She experienced a sudden, sharp pain in the region of her ovaries while brushing her hair, despite having undergone an oophorectomy. The pain was severe enough to prompt her to research appendicitis symptoms online, but it resolved spontaneously. She occasionally experiences similar pains, althoughthey are not frequent. She also reports occasional cramping sensations, reminiscent of menstrual cramps, despite being postmenopausal. She has noticed episodes of bloating and an enlarged abdomen, even after consuming small meals. She had a checkup with Dr. Sandoval back last week and was told there was no change in her conditionand nothing that could cause cancer. She is scheduled to see him every year now. She has been taking calcium tablets and drinking milk. SOCIAL HISTORY She is retired. SUBJECTIVE: MEDICATIONS: ALLERGIES Current Outpatient Medications Medication Instructions calcium carbonate 1,500 mg, Oral, Daily cholecalciferol (VITAMIN D-3) 50 mcg, Oral, Daily ferrous sulfate 325 mg, Oral, Daily with breakfast, Do not crush, chew, or split. lisinopril 10 mg, Oral, Daily Multiple Vitamin (Multivitamin Adult) tablet Allergies Allergen Reactions Other Other Reaction(s): Unknown Tramadol Other Reaction(s): Unknown Wound Dressing Adhesive Other Reaction(s): Unknown Hydromorphone Other Reaction(s): Flushing Depression: Not at risk (04/08/2025) PHQ-2 PHQ-2 Score: 0 REVIEW OF SYMPTOMS: Review of Systems OBJECTIVE: BP 112/70 Pulse 68 Temp 96.4 F Ht 5' 5 Wt 116 lb SpO2 97% BMI 19.30 kg/m No results found for this or any previous visit (from the past 6 weeks). Results Labs - Thyroid levels: Normal - Total cholesterol: 195 mg/dL - HDL: 78 mg/dL - LDL: 104 mg/dL - Liver enzymes: Normal - Protein nutrition: Normal - White blood cells: Normal - Red blood cells: Normal - Sodium levels: Normal - Calcium levels: Normal GENERAL EXAM: Physical Exam Physical Exam Neck: No abnormalities Respiratory: Clear to auscultation, no wheezing, rales or rhonchi Other: BMI is underweight ASSESSMENT AND PLAN: Assessment/Plan Diagnoses and all orders for this visit: Primary hypertension - Comprehensive metabolic panel; Future - Lipid panel; Future - HEMOGRAM CBC WITHOUT DIFF ([facility]); Future Multinodular goiter - Comprehensive metabolic panel; Future - Lipid panel; Future - HEMOGRAM CBC WITHOUT DIFF ([facility]); Future Hyperparathyroidism (HCC) - Comprehensive metabolic panel; Future - Lipid panel; Future - HEMOGRAM CBC WITHOUT DIFF [place] [place] Future Assessment & Plan 1. Weight gain. Her body mass index remains at the lower end of the spectrum, bordering on underweight. The weight gain appears to be localized to her legs and buttocks, with no significant change in her waist size. Increased caloric intake and reduced physical activity since alf. She has not been engaging in any specific exercise regimen but acknowledges frequent stair climbingdue to her living arrangements. Counseled on the potential impact of dietary changes and reduced physical activity on weight distribution. 2. Right lower chest discomfort. The discomfort could potentially be attributed to muscular strain or stretching. Scoliosis may be contributing to the discomfort by exerting pressure on the rib cage. Reviewed the potential musculoskeletal causes of the discomfort, including costochondritis. Advised to monitor the discomfort and consider supportive measures such as avoiding pressure on thearea. 3. Abdominal pain. The abdominal pain could be indicative of bowel cramping. No associated symptoms such as fever or persistent discomfort reported. Discussed the potential causes of abdominal pain, including gastrointestinal issues. Advised to monitor for any red flags such as fever or persistent pain that would necessitate immediate medical attention. 4. Health maintenance. Thyroid function is within normal limits. Cholesterol panel is satisfactory with a total cholesterol of 195, HDL at 78, and LDL at 104. Liver enzymes and protein nutrition levels are normal. Complete blood count shows normal white and red blood cell counts. A lab order has been placed for the week of 09/26/2025, and she is scheduled for a follow-up visit in the week of 10/03/2025. Follow-up The patient will follow up in the week of 10/03/2025. No follow-ups on file. I have reviewed and reconciled the history and medication list with the patient today. documented in this encounterOzarks Medical [id number] History of Present illness Narrative* Jr. Yuriy Martin DO - 04/06/2025 11:00 AM EDT Images from the original note were not included. HISTORY OF PRESENT ILLNESS: EST PT Maricel Easton is an 59 y.o. @ female. (EST PT) - RECHECK (R) ELBOW XRAYS, 04/01/24 IN [facility] NO MRI S/P PREDNISONE 12/11/23 - DR ENGLAND S/P LAT EPICONDYLE CORTISONE INJ 04/01/24, 12/26/23 S/P PHYSICAL THERAPY (12 VISITS) @ [facility] ; DECEMBER - JANUARY 2024 NO PAIN MGMT PRESENTS IN ELBOW BRACE, PURCHASED NEW BRACE THAT IS ON ELBOW VS THE WRIST. DOING BETTER. PRESENTS IN ELBOW BRACE - WEARS BRACE ON/OFF, 2-3X A WEEK WEARS BRACE. CONTINUES HEP - WITH RELIEF. NOTES SYMPTOMS ARE IMPROVING DAILY. NO LONGER WORKING. DISCOMFORT DIFFUSE. DOES NOT WAKE UP AT NIGHT ANY LONGER. BRACE HELPING WITH SYMPTOMS. RADIATION INTO MID FOREARM. DENIES N/T. ADMITS DIFFICULTY WITH OPENING JARS - WEAKNESS. 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 DENIES SWELLING. GOOD ROM. NO PAIN MEDS. NO ICING / HEATING. ALLA: SEPTEMBER 2023 - NOTICED A SHARP PAIN WHEN FLIPPING A NOWAK BASKET AT WORK (NOT [facility]) ALLERGIES: Allergies Allergen Reactions Other Other Reaction(s): Unknown Tramadol Other Reaction(s): Unknown Wound Dressing Adhesive Other Reaction(s): Unknown Hydromorphone Other Reaction(s): Flushing HOME MEDICATIONS: Current Outpatient Medications Medication Instructions calcium carbonate 1500 (600 Ca) MG tablet TAKE 1 TABLET BY MOUTH DAILY WITH A MEAL cholecalciferol (VITAMIN D-3) 50 mcg, Oral, Daily ferrous sulfate 325 mg, Oral, Daily with breakfast, Do not crush, chew, or split. lisinopril 10 mg, Oral, Daily Multiple Vitamin (Multivitamin Adult) tablet PHYSICAL EXAM: Elbow Musculoskeletal Exam Inspection Right Right elbow inspection is normal. Ecchymosis: none Swelling: none Deformity: none Palpation Right Right elbow palpation is normal. Crepitus (radiocapitellar): none Tenderness: none Range of Motion Right Right elbow range of motion is normal. Active Extension: 0 Passive Extension: 0 Active Flexion: 140 Passive Flexion: 140 Active Pronation: 90 Passive Pronation: 90 Active Supination: 90 Passive Supination: 90 Strength Right Right elbow strength is normal. Extension: 5/5. Flexion: 5/5. Pronation: 5/5. Supination: 5/5. Finger abduction: 5/5. German Tutor strength: 5/5. Neurovascular Right Right elbow nerve sensation is normal. Radial pulse: normal and 2+ Capillary refill: <3 sec Special Tests Right Right elbow special tests are normal. Instability Exam Varus test: negative Valgus test: negative General Constitutional: appears stated age Lymphadenopathy: none Vitals: There is no height or weight on file to calculate BMI. Tobacco Use: Low Risk (04/08/2025) Patient History Smoking Tobacco Use: Never Smokeless Tobacco Use: Never Passive Exposure: Never Alcohol Use: Not At Risk (04/01/2025) AUDIT-C Frequency of Alcohol Consumption: Never Average Number of Drinks: Patient does not drink Frequency of Binge Drinking: Never IMAGING: Procedures No orders of the defined types were placed in this encounter. ASSESSMENT: ICD-10-CM 1. Lateral epicondylitis of right elbow M77.11 2. Right elbow pain M25.521 PLAN: Patient is nearly completely asymptomatic she is very pleased with her progress as am I. We will restrict her activities and see her back on a when necessary basis. Questions answered in laymen terms at the bedside. The diagnosis, home exercise plan and any ongoing restrictions/ recommendations reviewed. If unable to be reached in office, I recommend evaluation at nearest Emergency Room if any symptoms worsened or new symptoms develop for requiring urgent evaluation. documented in this encounterOzarks Medical [id number] History of Present illness Narrative* Vishal Bernabe DO - 04/01/2025 9:30 AM EDT Subjective Patient ID: Maricel Easton is a 59 y.o. female who presents for Thyroid Nodule (Yearly US) HPI This patient presents for recheck of left thyroid nodule and multinodular goiter. Patient states bedoing very well. No changes of her condition since her last visit. Currently being treated for tennis elbow Review of Systems Patient does have a history of multinodular goiter with a dominant nodule on the left side. Previous needle aspiration has revealed atypia of undetermined significance. The rest of her review of systems is negative. Objective ENT Physical Exam General Examination: General overview: Normal, age-appropriate, no evidence of distress Head: Normocephalic, atraumatic Eyes: Pupils are equally round and reactive to light and accommodation, extraocular muscles are intact Ears: External ear architecture within normal limits, ear canals are patent, tympanic membranes areintact. Nose: External nose unremarkable, nares patent, septum intact, no evidence of congestion. Oral cavity: Mucosa moist, no evidence of ulcer, mass, or lesion Throat: Clear Neck/thyroid: Neck supple, full range of motion, no cervical lymphadenopathy, no evidence of thyromegaly Thyroid ultrasound: Indication: Thyroid goiter /thyroid nodule(s) Consent: Proper consent is obtained. The procedure risks are explained in detail. Questions were encouraged and answered Anesthesia: No anesthesia given Preparation: The patient was placed in proper position. Patient is prepped in standard fashion. Findings: Ultrasound is completed of the thyroid gland. Thyroid gland remains multinodular in appearance. The dominant nodule on the left is very close to her esophagus. Remains hypoechoic measuring 7 x 8 x 12 mm. This is essentially unchanged from prior evaluation. Exact measurement is very difficult secondary to its close approximation to the esophagus Disposition: The patient tolerated the procedure extremely well. Patient is fully instructed on postprocedure care and follow-up in this office. Lymph nodes: No cervical lymphadenopathy Skin: Warm and dry, no evidence of suspicious lesions, no rash Heart: No jugular venous distention, point of maximal impulse normal Lungs: Good air movement, no audible wheezing, no shortness of breath Chest: Normal shape and expansion Abdomen: Normal, soft, nontender, nondistended Musculoskeletal: Cervical spine normal, full range of motion Extremities: No clubbing, cyanosis, or edema Peripheral pulses: 2+ radial, 2+ carotid Neurologic: Alert and oriented, cranial nerves 2-12 are grossly intact Psych: Alert and oriented, normal affect, no evidence of distress Assessment/Plan Diagnoses and all orders for this visit: Thyroid nodule (CMS/HCC) Comments: Dominant nodule unchanged, recheck in 1 year Multinodular goiter (CMS/HCC) Comments: Recommend continue surveillance, thyroid functions are normal Patient is encouraged to contact this office if she noticed in his acute change of her condition involving her neck, voice, swallowing documented in this encounterOzarks Medical [id number] History of Present illness Narrative* Jr. Yuriy Martin DO - 01/05/2025 11:00 AM EDT Images from the original note were not included. HISTORY OF PRESENT ILLNESS: EST PT Maricel Easton is an 59 y.o. @ female. (EST PT) - RECHECK (R) ELBOW - S/P HEP XRAYS, 04/01/24 IN [facility] NO MRI S/P PREDNISONE 12/11/23 - DR ENGLAND S/P LAT EPICONDYLE CORTISONE INJ 04/01/24, 12/26/23 S/P PHYSICAL THERAPY (12 VISITS) @ [facility] ; DECEMBER - JANUARY 2024 NO PAIN MGMT DOING BETTER. PRESENTS IN WRIST BRACE - WEARING AT ALL TIMES. CONTINUES HEP - WITH RELIEF. NOTES SYMPTOMS ARE IMPROVING DAILY. NO LONGER WORKING. DISCOMFORT DIFFUSE. MOST DISCOMFORT HS WHEN SLEEPING.BRACE HELPING WITH SYMPTOMS. RADIATION INTO MID FOREARM. DENIES N/T. ADMITS DIFFICULTY WITH OPENINGJARS - WEAKNESS. 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 DENIES SWELLING. GOOD ROM. NO PAIN MEDS. NO ICING / HEATING. 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 Finger abduction: 5/5. German Tutor strength: 5/5. Neurovascular Right Right elbow nerve [...] her back in 3 months to reassess. Ifher symptoms persist or worsen we may recommend lateral epicondylectomy. Questions answered in laymen terms at the bedside. The diagnosis, home exercise plan and any ongoing restrictions/ recommendations reviewed. If unable to be reached in office, I recommend evaluation at nearest Emergency Room if any symptoms worsened or new symptoms develop for requiring urgent evaluation. documented in this encounterOzarks Medical [id number] History of Present illness Narrative* Jr. Yuriy Martin, - 11/10/2024 2:45 PM EST Images from the original note were not included. HISTORY OF PRESENT ILLNESS: EST PT Maricel Easton is an 59 y.o. @ female. (EST PT) RECHECK (R) ELBOW - S/P CELEBREX AND ICE AFTER ACTIVITY XRAYS, 04/01/24 IN [facility] NO MRI S/P PREDNISONE 12/11/23 - DR ENGLAND S/P LAT EPICONDYLE CORTISONE INJ 04/01/24, 12/26/23 S/P PHYSICAL THERAPY (12 VISITS) @ [facility] ; DECEMBER - JANUARY 2024 NO PAIN MGMT STATES SHE WOULD EXPECT SOME TYPE OF IMPROVEMENT BY NOW. SHE IS CURRENTLY OFF WORK. PAIN IS LATERAL; SOME FOREARM PAIN WITH RADIATION INTO HER HAND. DENIES ANY WEAKNESS WHEN GRIPPING / GRASPING / SQUEEZING. DENIES ANY SWELLING. WEARS VELCRO STRAP/BRACE WHEN PAINFUL. LIMITED ROM. NO PAIN MEDS AT THIS TIME. H/O INJURY : SYMPTOMS FOR BEGAN IN SEPTEMBER 2023 (~6 MONTHS) ; NOTICED A SHARP PAIN WHEN FLIPPING AFRY BASKET AT WORK (NOT [facility]) ALLERGIES: Allergies Allergen Reactions Other Other [...] is affected by pain. Finger abduction: 5/5. German Tutor strength: 5/5. Neurovascular Right Right elbow nerve [...] program and see her back in 8 weeks.If her symptoms persist or worsen, we may recommend a lateral epicondylectomy, right elbow. Questions answered in laymen terms at the bedside. The diagnosis, home exercise plan and any ongoing restrictions/ recommendations reviewed. If unable to be reached in office, I recommend evaluation at nearest Emergency Room if any symptoms worsened or new symptoms develop for requiring urgent evaluation. documented in this encounterOzarks Medical [id number] History of Present illness Narrative* Vishal Mazariegos, DO - 10/07/2024 3:20 PM EST Images from the original note were not [...] as evidenced by the absence of bruising fromFriday to Friday. However, upon returning to work, [...] 9:00 PM. She has been maintaining a fnt-ljzg-s-day diet for the past 7 years. FAMILY [...] 10 3/uL [facility] CMP (CMP) (FOR REMOTE [facility] USE) Collection Time: 10/02/24 7:17 AM Result Value Ref Range SODIUM 144 136 - 145 mmol/L POTASSIUM 4.3 3.5 - 5.1 mmol/L CHLORIDE 105 98 - 107 mmol/L CARBON DIOXIDE 33.1 (H) 21.0 - 32.0 mmol/L ANION GAP 10.2 GLUCOSE 93 74 - 106 mg/dL BLOOD UREA NITROGEN 22.0 (H) 7.0 - 18.0 mg/dL CREATININE 0.90 0.55 - 1.02 mg/dL [facility] EGFR-AF GUYANESE >60 >=60 mL/min/1.73m 2 TB EGFR-NON AF GUYANESE >60 >=60 mL/min/1.73m 2 BUN CREATININE RATIO [...] Blood urea nitrogen is high. Blood sugar was93. GFR is greater than 60. Calcium, bilirubin, AST, ALT are normal. Alkaline phosphatase is low. Total protein is normal. White blood cell count is normal. GENERAL EXAM: Physical Exam Physical Exam Lungs were auscultated. Vital Signs BMI is 17.3. ASSESSMENT AND PLAN: Assessment/Plan Diagnoses and all orders for this visit: Easy bruising - CBC and differential; Future Unspecified protein-calorie malnutrition (CMS/HCC) - Comprehensive metabolic panel; Future - Lipid [...] that her blood pressure is too low, andmedication adjustments will be considered. She has been [...] with the patient today. documented in this encounterOzarks Medical [id number] History of Present illness Narrative* Missy England DO - 08/26/2024 9:20 AM EDT Images from the original note were not included. [facility] [place], [place] SUBJECTIVE: HPI: Maricel Easton is a 59 [...] which has not improved in the last fewweeks since starting celebrex anyway. Missy England DO [...] Past Medical History: Diagnosis Date Breast disease 2013 right Breast lump Burn Cardiomegaly Chicken pox Costochondritis 04/2023 Dextroscoliosis of thoracic spine Significant thoracic dextroscoliosis Family history of cancer Heart disease Heart murmur History of right breast cancer Hypertension (CMS/HCC) Liver lesion small Scoliosis Thyroid nodule (CMS/HCC) small Vaginal infection documented in this encounterOzarks Medical CenterYklwyualsj43-99-0813 Telephone encounter Note* Telephone Encounter - Toña Bartlett - 08/02/2024 2:57 PM EDT Pt recently prescribed Celebrex for tennis elbow. That doctor told her she could not continue to take her Naproxen while taking the celebrex. She is wondering if Dr. Mazariegos could prescribe something for her back pain that she could take while taking the celebrex. Pt is going to [place] for disability evaluation.They will send Dr. Mazariegos a copy of this evaluation. [facility] Medical CenterEqgsfhgrcw90-02-0499 Miscellaneous Notes* Telephone Encounter - Toña Dhruv - 08/02/2024 2:57 PM EDT Pt recently prescribed Celebrex for tennis elbow. That doctor told her she could not continue to take her Naproxen while taking the celebrex. She is wondering if Dr. Mazariegos could prescribe something for her back pain that she could take while taking the celebrex. Pt is going to [place] for disability evaluation.They will send Dr. Mazariegos a copy of this evaluation. documented in this encounterOzarks Medical CenterAtfkhtlmfx09-84-1499 Telephone encounter Note* Telephone Encounter - Shelby Subramanian - 08/02/2024 10:05 AM EDT Called and left vm letting patient know. [facility] Medical [id number] Miscellaneous Notes* Telephone Encounter - Shelby Subramanian - 08/02/2024 10:05 AM EDT Called and left vm letting patient know. * Telephone Encounter - Yari Mc MA - 08/02/2024 9:44 AM EDT Case has been discussed with Dr. Martin ; ok to proceed with Celebrex. * Telephone Encounter - Shelby Subramanian - 08/02/2024 8:52 AM EDT Patient called regarding medication prescribed to her at her appt on Friday. Patient states that she has a family history of heart disease and high blood pressure. Patient has not started taking new medication yet. She wants to know if it is ok to still take the medication prescribed onFriday 07/30/24? Please advise [phone]. documented in this encounterOzarks Medical CenterJckssygjab74-68-1786 Telephone encounter Note* Telephone Encounter - Yari Mc MA - 08/02/2024 9:44 AM EDT Case has been discussed with Dr. Martin ; ok to proceed with Celebrex. [facility] Medical CenterShtbuywuag76-53-7859 Telephone encounter Note* Telephone Encounter - Shelby Subramanian - 08/02/2024 8:52 AM EDT Patient called regarding medication prescribed to her at her appt on Friday. Patient states that she has a family history of heart disease and high blood pressure. Patient has not started taking new medication yet. She wants to know if it is ok to still take the medication prescribed onFriday 07/30/24? Please advise [phone]. [facility] Medical CenterBlpbdrrhot11-97-6231 History of Present illness Narrative* Jr. Yuriy Martin DO - 07/30/2024 8:45 AM EDT Images from the original note were not included. HISTORY OF PRESENT ILLNESS: EST PT Maricel Easton is an 59 y.o. @ female. (EST PT) RECHECK (R) ELBOW ; S/P HEP XRAYS, 04/01/24 [facility] NO MRI S/P PREDNISONE 12/11/23 - DR ENGLAND S/P LAT EPICONDYLE CORTISONE INJ 04/01/24, 12/26/23 S/P PHYSICAL THERAPY (12 VISITS) @ [facility] ; DECEMBER - JANUARY 2024 NO PAIN MGMT STATES SHE FELT GREAT WHILE OFF WORK FOR 2 WEEKS ; NOTES INCREASED PAIN / THROBBING SINCE RTW - CONTINUES TO AVOID [employer] STATION. PAIN IS LATERAL ; SOME FOREARM PAIN WITH RADIATION INTO HER HAND. NOTESGOOD ROM ; DENIES ANY WEAKNESS WHEN GRIPPING / GRASPING / SQUEEZING. DENIES ANY SWELLING. CONTINUESTO WEAR VELCRO WRIST SPLINT WHILE WORKING. TAKES NAPROXEN PRN (SCOLIOSIS PAIN). CONTINUES WORK RESTRICTIONS - NO LIFTING OVER 5LBS H/O INJURY : SYMPTOMS FOR BEGAN IN SEPTEMBER 2023 (~6 MONTHS) ; NOTICED A SHARP PAIN WHEN FLIPPING AFRY BASKET AT WORK (NOT [facility]) ALLERGIES: Allergies Allergen Reactions Other Other [...] is affected by pain. Finger abduction: 5/5. German Tutor strength: 5/5. Neurovascular Right Right elbow nerve [...] We are recommending that she discontinue Naproxen andstart Celebrex with verbal understanding she is unable [...] epicondylectomy. Yuriy Martin D.O. documented in this encounterOzarks Medical [id number] History of Present illness Narrative* Susi Hicks MA - 07/16/2024 9:15 AM EDT Images from the original note were not included. Chente Mazariegos, Obstetrics and Gynecology Maricel Easton 1965 07/16/24 [id number] Yearly Wellness Exam Chief Complaint Patient presents with Gynecologic Exam LMP: KIMO BSO 2017 HRT: none Last pap 07-08-23 neg. Follow [...] tablet 5 cholecalciferol (Vitamin D-3) 50 MCG (1999 [place]) tablet TAKE 1 TABLET BY MOUTH [...] Past Medical History: Diagnosis Date Breast disease 2013 right Breast lump Burn Cardiomegaly Chicken pox [...] costovertebral angle tenderness, no obvious scoliosis/kyphosis. 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 Now she is working at [employer] in [place] a few days a week, and [employer] in [place] 2 days. Discussed weight, she is now is exercising. Has also been very petite. Entered by Susi Hicks MA acting as scribe for Dr. Chente Mazariegos. Signature Susi Hicks MA Date 07/16/24 . Time 9:24 AM . The documentation recorded by the scribe accurately reflects the service(s) I personally performed and the decisions I made. Signature Romel Mazariegos D.O. Date 07/16/24 Time 5:00PM. documented in this encounterOzarks Medical [id number] History of Present illness Narrative* Jr. Yuriy Martin, - 06/11/2024 9:30 AM EDT Images from the original note were not included. HISTORY OF PRESENT ILLNESS: EST PT Maricel Easton is an 59 y.o. @ female. (EST PT) RECHECK (R) ELBOW ; S/P HEP (INCREASED STRETCHING) XRAYS, 04/01/24 IN [facility] NO MRI S/P PREDNISONE 12/11/23 - DR ENGLAND S/P LAT EPICONDYLE CORTISONE INJ 04/01/24, 12/26/23 S/P PHYSICAL THERAPY (12 VISITS) @ [facility] ; DECEMBER - JANUARY 2024 NO PAIN [...] ; NOTICED A SHARP PAIN WHEN FLIPPING AFRY BASKET AT WORK (NOT [facility]) ALLERGIES: Allergies Allergen Reactions Other Other [...] is affected by pain. Finger abduction: 5/5. German Tutor strength: 5/5. Neurovascular Right Right elbow nerve [...] weeks to reassess her right elbow, if examwarrants we may recommend lateral epicondylectomy. Yuriy Martin D.O. documented in this encounterOzarks Medical [id number] Hospital Discharge instructions Patient Education 05/08/2023 22:53:28 Costochondritis, Jokm-ke-Yvtx Costochondritis Costochondritis is irritation and swelling (inflammation) [...] are safe for you. General instructions Take bcdl-dvv-qcxdwrc and prescription medicines only as told by [...] provider. Document Revised: 08/25/2020 Document Reviewed: 08/25/2020 [email or web address] Patient Education 2022 [employer]. Follow Up Care 05/08/2023 19:03:42 With:VISHAL MAZARIEGOS Address: [address] [place] [address], [address] [address]- Business (1) When:05/11/2023 Comments:You can take the medications as prescribed as needed for pain. Please follow-up with your primary care doctor in the next 2 to 3 days for further evaluation management. Please return to the ED for any new or worsening symptoms. [facility]07-13-2023 Evaluation + Plan noteExtracted from: Title:ED NoteAuthor:Darci Ambrose DO ADate:05/08/23 Rib pain on right side (R07. 81: Pleurodynia) Orders: acetaminophen-hydrocodone, 1 EA, Tab, Oral, Once, Stop date 05/08/23 22:30:00 EDT, STAT, Start date05/08/23 22:30:00 EDT ketorolac, 30 mg = 1 mL, Injection, IV Push, Once, Stop date 05/08/23 19:37:00 EDT, STAT, Start date 05/08/23 19:37:00 EDT, 05/08/23 19:37:00 EDT lidocaine topical, 1 patch(es), Patch, TransDermal, Once, Stop date 05/08/23 19:37:00 EDT, STAT, Start date 05/08/23 19:37:00 EDT lidocaine topical, 1 patch(es), Topical, Daily, 7 EA, Refill(s) 0, apply 12 hours on and 12 hours off daily, [facility] [id number], 163, cm, 05/08/23 19:14:00 EDT, Height/Length Dosing, 47.8, kg, 05/08/23 19:14:00 EDT, Weight Dosing methocarbamol, 500 mg = 1 tab(s), Oral, TID, X 3 day(s), # 9 tab(s), Refills(s) 0, Pharm[facility] [id number], 163, cm, 05/08/23 19:14:00 EDT, Height/Length Dosing, 47.8, kg, 05/08/23 19:14:00 EDT, Weight Dosing morphine, 4 mg = 2 mL, Injection, IV Push, Once, Stop date 05/08/23 19:37:00 EDT, STAT, Start date 05/08/23 19:37:00 EDT, 05/08/23 19:37:00 EDT naproxen, 500 mg = 1 tab(s), Oral, BID, PRN for pain, # 20 tab(s), Refills(s) 0, Pharmacy: [facility] [id number], 163, cm, 05/08/23 19:14:00 EDT, Height/Length Dosing, 47.8, kg, 05/08/23 19:14:00 EDT, Weight Dosing Automated Diff Basic Metabolic Panel CBC w/ Auto Diff CTA Chest D-Dimer ED Cardiac Monitoring eGFR Hepatic Function Panel Oxygen Saturation Oxygen Therapy PT & PTT Saline Lock Insert Troponin 0 Hr. XR Chest Single View [facility]05-15-2023 Evaluation note* Encounter Date Diagnosis Assessment Notes Treatment Notes Treatment Clinical Notes February, Venous insufficiency (ICD-10 - I 87.2) We reviewed today's full functional duplex of [...] chronic and progressive nature of venous disease. [facility] Other 05-04-2023 Evaluation note* Encounter Date Diagnosis Assessment Notes Treatment Notes Treatment Clinical Notes February, Venous insufficiency of both low er extremities (ICD-10 - I87.2) This patient continues [...] chronic and progressive nature of venous disease. February,Symptomatic varicose veins of both lower extremities (ICD-10 - I83.893) [facility] Other 01-04-2023 Evaluation note* Encounter Date Diagnosis Assessment Notes Treatment Notes Treatment Clinical Notes Oct, Venous insufficiency (ICD-10 - I 87.2) Oct,OtherWe will see this patient back in 2 to 4 months. She is undergoing the remodeling phase after her vein procedure and I expect full recovery in the near future. She should continue with the prescribed treatment of leg elevation moisturizer therapy alternating ice with warm compresses and compression stockings. All of her questions were addressed. She understands agrees the plan. [facility] Other 12-15-2022 Evaluation note* Encounter Date Diagnosis Assessment Notes Treatment Notes Treatment Clinical Notes Sep, Venous insufficiency of both low er extremities (ICD-10 - I87.2) This patient continues with achiness and heaviness in the right lower extremity along with some pain in her anterior upper leg. She has had RF ablation of the right GSV. Postprocedure duplex showed good closure of the greater saphenous vein 1.9 cm from the junction as expected.. With her reports ofsymptoms today, I would recommend repeat full functional venous duplex of the right lower extremityto evaluate for any other problematic areas for [...] agrees with this plan, denies any questions. [facility] Other 06-30-2022 Evaluation note* Encounter Date Diagnosis Assessment Notes Treatment Notes Treatment Clinical Notes Mar, Superficial thrombosis of left l ower extremity (ICD-10 - I82.812) This patient has superficial thrombosis of the left greater saphenous vein as to be expected. This was our goal of the procedure. I consider this a successful outcome. I explained to the patient thatthis is normal and that she is going through a remodeling phase with her vein. This is the reason why her pain has gone away. I congratulated her. Now, we need to work on the right leg. The patient also has pain in this leg which I believe is related to her superficial varicosities. The patient hasreflux of 3 seconds in the right greater [...] plan all of her questions were addressed. [facility] Other 06-24-2022 Evaluation note* Encounter Date Diagnosis Assessment Notes Treatment Notes Treatment Clinical Notes Mar, Venous insufficiency (ICD-10 - I 87.2) [facility] Other 03-31-2022 Evaluation note* Encounter Date Diagnosis Assessment Notes Treatment Notes Treatment Clinical Notes Dec, Symptomatic varicose veins of both lower extremities (ICD-10 - I83.893) We reviewed results of today's full functional venous duplex which revealed reflux of the right GSV2 to 3 seconds and left GSV of 3 seconds. The left lower extremity had reflux 1 to 2 seconds of theCFV, 3 seconds in the SF J, and [...] symptomatic than her right, she would like tostart with treatment of the left leg. Are happy with the results after this procedure. She will continue using her graded compression stockings, elevation of her legs, and continue practicing good skin care moisturizer therapy. We discussed the procedure, risk, benefits of Varithena and she wishes to proceed with treatment at this time. We will get this scheduled for her in the future. [facility] Other 03-31-2022 Evaluation note* Encounter Date Diagnosis Assessment Notes Treatment Notes Treatment Clinical Notes Dec, Symptomatic varicose veins of both lower extremities (ICD-10 - I83.893) We reviewed results of today's full functional venous duplex which revealed reflux of the right GSV2 to 3 seconds and left GSV of 3 seconds. The left lower extremity had reflux 1 to 2 seconds of theCFV, 3 seconds in the SF J, and [...] this scheduled for her in the future. [facility] Other 02-17-2022 Progress note Author Rachel Hastings [facility] December 13, 2021 10:37amNote Date/TimeFebruary 2021 10:26[facility] [place] [address] Hem/Onc Follow Up Note - OP Signed Patient: Maricel Easton MR#: [id number] : 1965 Acct:[id number] Age/Sex: 56 / F Type: REG RCR Copies to: DO Chente Barrett DO~ Subjective Date/Time of Service: Date of Service: 12/13/2021 Time of Service: 10:24 Chief Complaint: Patient is here today for 8 month follow up visit and last mamogram was 07/05/2021 HPI: Patient is a 56-year-old female with history of early stage right breast cancer,pT1b pN0 M0, ER/MS positive, HER-2 negative, status post right breast mastectomy. She started tamoxifen because she waspremenopausal when she was diagnosed. She has continued tamoxifen ever since. Clinically she has been doing well and she has tolerated tamoxifen well without significant complaints. She denies coughing, SOB, headaches, new lumps/bumps, pain, lymphedema, lower extremity edema or weight loss. She does mention some occasional pain in her right hand and right foot, but very rarely. She has continued work at [employer]. She had negative mammogram in June 2021 [...] EGD and colonoscopy with Dr. Mcdaniel at [facility]. She was found to have moderate antral gastritis with gastric erosions, normal duodenum, with random biopsies for celiacdisease negative, and colonoscopy with small nonbleeding internal [...] [facility] 181/115[facility] [...] injection therapy. She previously was seen [facility] many years ago and [...] of frequent infections or delayed wound healing. PMFSH - Medical History Medical History: Medical [...] Provider: Nica Nelson MD Date of Service: 09/09/21 MM/MM screening mammo LT w/CAD: annual on [...] June 2022 - this was ordered today andshe has requested follow up thereafter. We will [...] periods over several months. She referred to [facility] with negative endometrial biopsy for malignancy and pelvic ultrasound revealing only a large fibroid. Since she was taking tamoxifen, LINE OPERATOR ultimately decided to perform hysterectomy and this was negative for malignancy. Patient recovered well. She continues annual follow up with Dr. Chente Mazariegos - last saw June 2021. - Chemo [...] for coordination of care (as documented) and ysxo-rk-[id number] counseling of patient and/or family. Dictated By: Rachel Hastings APRN DD/ 1024 Signed By: <Electronically signed by FERNANDO Hastings> 12/13/21 10[address] [facility] Work Phone: 1(742) 410-167302-15-2022 Evaluation note* Encounter Date Diagnosis Assessment Notes [...] with this plan, denies any additional questions. [facility] Other 06-23-2021 Progress note Author Donnell Jane [facility] April 18, 2021 1:38pmNote Date/TimeJune 2020 11:30[facility] [place] [address] Hem/Onc Follow Up Note - OP Signed Patient: Maricel Easton MR#: [id number] : 1965 Acct:[id number] Age/Sex: 55 / F Type: REG RCR [...] renal vein breast cancer, pT1b pN0 M0, ER/MS positive, HER-2 negative, status post mastectomy. She [...] very rarely. She has continued work at [employer]. She has not had Covid-19 vaccination yet. DIAGNOSES 1. T1b N0 M0 [...] EGD and colonoscopy with Dr. Mcdaniel at [facility]. She was found to have moderate antral gastritis with gastric erosions, normal duodenum, with random biopsies for celiacdisease negative, and colonoscopy with small nonbleeding internal [...] of 181/115, [facility] [...] injection therapy. She previously was seen by [facility] many years ago and [...] stage I right central breast cancer in September2014, status post mastectomy with low risk Oncotype RS, who has completed 6.5 years of Tamoxifen. Her next screening mammogram is due in June 2021. She had ultrasound of her bilateral axilla which showed small benign looking lymph nodes. She will continue tamoxifen for a total of 10 years. Shewill follow up with Dr. Nelson in 6 months. (2) S/P total hysterectomy and bilateral salpingo-oophorectomy Prior altered menstrual frequency with heavier periods over several months. She referred to [facility] with negative endometrial biopsy for malignancy and pelvic ultrasound revealing only a large fibroid. Since she was taking tamoxifen, LINE OPERATOR ultimately decided to perform hysterectomy and this was negative for malignancy. Patient recovered well. - Chemo Plan Goal of Treatment: Curative - Time with Patient Time Spent with Patient (Follow Up Visit): 35 minutes Coordination of Care & Counseling Time: Greater than 50% of time spent with patient was for coordination of care (as documented) and opvp-es-kovu counseling of patient and/or family. Dictated By: Donnell Jane MD DD/ [id number] Signed By: <Electronically signed by Donnell Jane MD> 04/18/21 [address] [facility] Work Phone: 1(123) 951-221212-28-2020 Progress note Author Nica Nelson [facility] October 23, 2020 7:19pmNote Date/TimeDecemb2019 10:06[facility] [place] [address] Hem/Onc Follow Up Note - OP Signed Patient: Maricel Easton MR#: [id number] : 1965 Acct:[id number] Age/Sex: 55 / F Type: REG RCR [...] evaluation--this appears more consistent with telangiectasia, but Bita not concerned with malignant features. --Left axillary [...] in the liver. She has stable intermittent rightchest wall pain at mastectomy site with no changes on exam. She requests followup chest and abdomenCT to evaluate heart and liver lesions. I [...] structure in the midportion of the left thyroidmeasuring 1.4 x 0.8 x 0.9 cm corresponding to a smal hypoechoic lesions shown on recent CT chest.l r ecommendation was for thyroid ultrasound-guided fine-needle aspiration. TSH and free T4 are normal.I have requested ENT consultation to arrange ultrasound- guided biopsy and further follow-up of results. --07/08/2019: [...] EGD and colonoscopy with Dr. Mcdaniel at [facility]. She was found to have moderate antral gastritis with gastric erosions, normal duodenum, with random biopsies for celiacdisease negative, and colonoscopy with small nonbleeding internal [...] of 181/115, [facility] [...] injection therapy. She previously was seen by [facility] spine service many years ago and [...] surveillance axillary US with mild enlargement of leftaxillary LN, fatty hilum suggests benign disease. Integumentary: [...] in area of concern), no mass, no tenderness,other - No right or left upper extremity [...] performed. There are a couple lymph nodes withfatty ivanna. The larger measures 19 x 7 [...] mm hypoattenuating lesion along the anterior margin ofthe right hepatic lobe near the junction of [...] thoracic spine. There is a levoconvex curvature ofthe lumbar spine. CT/CT chest w con IMPRESSION: [...] of 10 years as patient does not wishto change to aromatase inhibitor therapy due to chronic back pain and leg cramps from scoliosis andvaricosities. 2. She was noted to have iron deficiency summer 2015 due to gastric erosions one year ago and had normalization of her complete blood count (borderline low platelets in November 2017). Her recurrent charley horses of the legs responded to resuming her iron therapy and use of compression stockings for venous varicosities. Resolved leg cramps and with normal iron levels 06/2019 and normal hemoglobintoday. 3. She has hypertension, now managed by [...] year Chest CT. [facility] of [facility] (3) Thyroid nodule Incidental finding [...] with her primary physician after ENT evaluation--Dr. Bernabe receommended annual thyroid US (overdue, should have [...] evidence of deficiency. Hemoglobin normal and leg crampsimproved. (5) Abnormal finding on imaging of liver [...] of her pain after injections with [facility]. She had a followup spine clinic consultation in 2017 (she did not state who she saw orprovide records) but she was not felt to be a surgical candidate. Will continue followup with pain clinic as needed for local therapy. (7) S/P total hysterectomy and bilateral salpingo-oophorectomy Prior altered menstrual frequency with heavier periods over several months. She referred to [facility] with negative endometrial biopsy for malignancy and pelvic ultrasound revealing only a large fibroid. Since she was taking tamoxifen, LINE OPERATOR ultimately decided to perform hysterectomy and this [...] for coordination of care (as documented) and gfmy-ep-[id number] counseling of patient and/or family. Dictated By: Nica Nelson MD DD/ 1006 Signed By: <Electronically signed by MD Nica Nelson> 10/23/20 [address] [facility] Work Phone: [phone]) 501-494309-17-2020 Progress note Author Nica Nelson [facility] July 12, 2020 11:21pmNote Date/TimeSeptember 2019 10:11[facility] [address] [address] Hem/Onc Follow Up Note - OP Signed Patient: Maricel Easton MR#: [id number] : 1965 Acct:[id number] Age/Sex: 55 / F Type: REG RCR Copies to: Casper MD Gwendolyn Rosenthal MD William D Bruner,DO~ Subjective Date/Time of [...] a rash on neck that is also bothershere. Patient also wonders if spot on liver [...] in the liver. She has stable intermittent rightchest wall pain at mastectomy site with no changes on exam. She requests followup chest and abdomenCT to evaluate heart and liver lesions. I [...] structure in the midportion of the left thyroidmeasuring 1.4 x 0.8 x 0.9 cm corresponding to a smal hypoechoic lesions shown on recent CT chest.l r ecommendation was for thyroid ultrasound-guided fine-needle aspiration. TSH and free T4 are normal.I have requested ENT consultation to arrange ultrasound- guided biopsy and further follow-up of results. --07/08/2019: [...] EGD and colonoscopy with Dr. Mcdaniel at [facility]. She was found to have moderate antral gastritis with gastric erosions, normal duodenum, with random biopsies for celiacdisease negative, and colonoscopy with small nonbleeding internal [...] of 181/115, [facility] [...] injection therapy. She previously was seen by [facility] spine service many years ago and [...] Recent right chest wall pain prompting Dr. Connor carreon CT scan. Patient is anxiousregarding multiple abnormalities [...] of 10 years as patient does not wishto change to aromatase inhibitor therapy due to chronic back pain and leg cramps from scoliosis andvaricosities. 2. She was noted to have iron deficiency summer 2015 due to gastric erosions one year ago and had normalization of her complete blood count (borderline low platelets in November 2017). Her recurrent charley horses of the legs responded to resuming her iron therapy and use of compression stockings for venous varicosities. Resolved leg cramps and with normal iron levels 06/2019 and normal hemoglobintoday. 3. She has hypertension, now managed by [...] me will be annual as noted above forher breast cancer (4) History of iron deficiency anemia Prior increased leg cramps and required iron repletion in the past due to iron deficiency anemia. Follow-up CBC and iron studies 06/2019 had no evidence of deficiency. Hemoglobin normal and leg crampsimproved. (5) Abnormal finding on imaging of liver She had a small indeterminate lesion of liver on imaging. Comprehensive metabolic panel with liver function normal. She request one year f/u Chest/Abdomen CT. (6) Idiopathic scoliosis of thoracolumbar region She has marked scoliosis and did not have improvement of her pain after injections with Dr. [facility]. She had a followup spine clinic consultation in 2017 (she did not state who she saw orprovide records) but she was not felt to be a surgical candidate. Will continue followup with pain clinic as needed for local therapy. (7) S/P total hysterectomy and bilateral salpingo-oophorectomy Prior altered menstrual frequency with heavier periods over several months. She referred to [facility] with negative endometrial biopsy for malignancy and pelvic ultrasound revealing only a large fibroid. Since she was taking tamoxifen, LINE OPERATOR ultimately decided to perform hysterectomy and this was negative for malignancy. Patient recovered well. - Chemo Plan Goal of Treatment: Curative - Time with Patient Total Time Spent with Patient: 30 min Coordination of Care & Counseling Time: Greater than 50% of time spent with patient was for coordination of care (as documented) and jdwi-[id number] counseling of patient and/or family. Dictated By: Nica Nelson MD DD/ [id number] Signed By: <Electronically signed by MD Nica Nelson> 07/12/20 [address] [facility] Work Phone: [phone]) [phone] Progress note Author Nica Nelson [facility] July 14, 2019 8:34amNote Date/TimeSeptember 2018 8:08[facility] [address] [address] Hem/Onc Follow Up Note - OP Signed Patient: Maricel Easton MR#: [id number] : 1965 Acct:[id number] Age/Sex: 54 / F Type: REG RCR [...] structure in the midportion of the left thyroidmeasuring 1.4 x 0.8 x 0.9 cm corresponding to a smal hypoechoic lesions shown on recent CT chest.l r ecommendation was for thyroid ultrasound-guided fine-needle aspiration. TSH and free T4 are normal.I have requested ENT consultation to arrange ultrasound- guided biopsy and further follow-up of results. --07/08/2019: [...] EGD and colonoscopy with Dr. Mcdaniel at [facility]. She was found to have moderate antral gastritis with gastric erosions, normal duodenum, with random biopsies for celiacdisease negative, and colonoscopy with small nonbleeding internal [...] of 181/115, [facility] [...] injection therapy. She previously was seen by [facility] many years ago and [...] Recent right chest wall pain prompting Dr. Connor carreon CT scan. Patient is anxiousregarding multiple abnormalities [...] thyroid measuring 4 x 2 x 4 mm.A complex cystic/solid structure is noted within the midportion of left thyroid measuring 1.4 x 0.8x 0.9 cm corresponding to a smallhypoechoic lesion [...] MD~ Height: 64 in Referring Physician: Chente Mazariegos Weight: 119 lb Performed By: LION Kiran [...] recently saw Dr. Ryan and due to right-sided chest wall pain CT was ordered with multiplefindings as noted below. No evidence of local [...] 07/08/2019 which showed normal ejection fraction, normal leftventricular wall motion, normal valves, but severe inspiratory [...] a complex cystic left thyroid nodule. I amsending her for ENT consultation to coordinate ultrasound-guided [...] hypertension and should be reviewed with the manager urgent care the time of consultation. (5) Abnormal finding on imaging of liver She has a small indeterminate lesion on imaging. Comprehensive metabolic panel is ordered and liverfunction is within normal limits. I doubt that she requires liver ultrasound at this time, but thismay be followed up by her primary physician for surveillance of this tiny opacity. (6) Idiopathic scoliosis of thoracolumbar region She has marked scoliosis and did not have improvement of her pain after injections with Dr. [facility]. She had a followup spine clinic consultation in 2017 (she did not state who she saw orprovide records) but she was not felt to be a surgical candidate. Will continue followup with pain clinic as needed for local therapy. (7) S/P total hysterectomy and bilateral salpingo-oophorectomy Prior altered menstrual frequency with heavier periods over several months. She referred to [facility] with negative endometrial biopsy for malignancy and pelvic ultrasound revealing only a large fibroid. Since she was taking tamoxifen, LINE OPERATOR ultimately decided to perform hysterectomy and this was negative for malignancy. Patient recovered well. - Chemo Plan Goal of Treatment: Curative - Time with Patient Coordination of Care & Counseling Time: Greater than 50% of time spent with patient was for coordination of care (as documented) and [id number]-[id number] counseling of patient and/or family. Dictated By: Nica Nelson MD DD/ [id number] Signed By: <Electronically signed by MD Nica Nelson> 07/14/19 [address] [facility] Work Phone: 1(154) 554-758709-06-2019 Progress note Author Nica Nelson [facility] July 02, 2019 2:00pmNote Date/TimeSept2018 9:14[facility] [address] [address] Hem/Onc Follow Up Note - OP Signed Patient: Maricel Easton MR#: [id number] : 1965 Acct:[id number] Age/Sex: 54 / F Type: REG RCR [...] EGD and colonoscopy with Dr. Mcdaniel at [facility]. She was found to have moderate antral gastritis with gastric erosions, normal duodenum, with random biopsies for celiacdisease negative, and colonoscopy with small nonbleeding internal [...] of 181/115, [facility] [...] injection therapy. She previously was seen [facility] many years ago and [...] Recent right chest wall pain prompting Dr. Connor carreon CT scan. Patient is anxiousregarding multiple abnormalities [...] prior studies from June 21, 2015 through 2017. This examination was reviewed with the aid [...] indeterminate liver lesion. Impression dictated by: Maris Baum Jr., M.D.06/18/2019 12:06 PM Assessment and Plan [...] recently saw Dr. Steward and due to right-sided chest wall pain CT was ordered with multiplefindings as noted below. No evidence of local [...] not had a prior documented heart murmur. Weare sending for echocardiogram for further evaluation and to determine whether she requires cardiology evaluation consultation. This will be reviewed at follow-up in the next 1 to 2 weeks. (3) Thyroid nodule Incidental finding of thyroid nodule on recent imaging. She does not have symptomatic hyper or hypothyroidism, however she will have TSH and free T4 to exclude a functional nodule. Thyroid ultrasoundwill be performed to further characterize the nodule and to determine if ENT or endocrinology follow-up is warranted. Follow-up results in the next 1 to 2 weeks. (4) History of iron deficiency anemia She recently notes some increased leg cramps and has required iron repletion in the past due to iron deficiency anemia. Follow-up CBC and iron studies are ordered with her other labs will be followedup with her in the next 1 to [...] of her pain after injections with Dr[facility]. She had a followup spine clinic consultation in 2017 (she did not state who she saw orprovide records) but she was not felt to be a surgical candidate. Will continue followup with pain clinic as needed for local therapy. (7) S/P total hysterectomy and bilateral salpingo-oophorectomy Prior altered menstrual frequency with heavier periods over several months. She referred to [facility] with negative endometrial biopsy for malignancy and pelvic ultrasound revealing only a large fibroid. Since she was taking tamoxifen, LINE OPERATOR ultimately decided to perform hysterectomy and this was negative for malignancy. Patient recovered well. - Chemo Plan Goal of Treatment: Curative - Time with Patient Coordination of Care & Counseling Time: Greater than 50% of time spent with patient was for coordination of care (as documented) and [id number] counseling of patient and/or family. Dictated By: Nica Nelson MD DD/ 2 Signed By: <Electronically signed by MD Nica Nelson> 07/02/19 [address] [facility] Work Phone: 1(520) 157-544009-06-2018 Progress note Author Nica Nelson [facility] July 02, 2018 6:02pmNote Date/TimeSept2017 3:[facility]pm[facility] [place] [address] Hem/Onc Follow Up Note - OP Signed Patient: Maricel [place]on MR#: [id number] : 1965 Acct:[id number] Age/Sex: 53 / F Type: REG RCR [...] EGD and colonoscopy with Dr. Mcdaniel at [facility]. She was found to have moderate antral gastritis with gastric erosions, normal duodenum, with random biopsies for celiacdisease negative, and colonoscopy with small nonbleeding internal [...] injection therapy. She previously was seen by [facility] spine service over 5 years ago [...] medications. No further surgical interventions offered by senior marketing specialist she saw in 2016. She was seen for left leg pain in ED October 2016--doppler US negative for DVT. Improved with use of thigh high compression stockings. Still intermittent cramping due to venous varicosities. She has no changes on self breast exam and her mammogram was unremarkable. Normal left mammogram 06/2018 reviewed with patient today. We will extend to one- year follow-up visits after mammogram unlessnew symptoms arise. - Summary of Therapies Summary [...] THE NEXT MAMMOGRAM. Transcribed By: CHA 06/30/18 [id number] Dictated By: Jamal Solorzano DO 06/30/18 2592 Assessment and Plan (1) Cancer of central [...] who is on five years of hormonal antagonisttherapy. We are continuing tamoxifen for a total [...] of her pain after injections with Dr[facility]. She had a followup spine clinic consultation in 2016 (she did not state who she saw orprovide records) but she was not felt to be a surgical candidate. Will continue followup with pain clinic as needed for local therapy. (3) S/P total hysterectomy and bilateral salpingo-oophorectomy Status: Chronic Prior altered menstrual frequency with heavier periods over several months. She referred to [facility]PER[facility] with negative endometrial biopsy for malignancy and pelvic ultrasound revealing only a large fibroid. Since she was taking tamoxifen, LINE OPERATOR ultimately decided to perform hysterectomy and this was negative for malignancy. Patient recovered well. - Chemo Plan Goal of Treatment: Curative - Time Spent with Patient Greater than 50% of time spent with patient was for coordination of care (as documented) and abem-gs-wniw counseling of patient and/or family. less than 15 minutes Dictated By: Nica Nelson MD DD/ 1547 Signed By: <Electronically signed by Nica Nelson MD> 07/02/18 1800 [facility] Work Phone: [phone]) 343-694803-13-2018 Progress note Author Nica Nelson [facility] January 06, 2018 9:44pmNote Date/TimeMarch 2017 3:53pmWright-Patterson [place] [address] Hem/Onc Follow Up Note - OP Signed Patient: Maricel aEston MR#: [id number] : 1965 Acct:[id number] Age/Sex: 52 / F Type: REG RCR [...] EGD and colonoscopy with Dr. Mcdaniel at [facility]. She was found to have moderate antral gastritis with gastric erosions, normal duodenum, with random biopsies for celiacdisease negative, and colonoscopy with small nonbleeding internal [...] injection therapy. She previously was seen by [facility] spine service over 5 years ago [...] medications. No further surgical interventions offered by senior marketing specialist she saw over the last 6 [...] who is on five years of hormonal antagonisttherapy. We are continuing tamoxifen at this time [...] anemia recently). Her recurrent charley horses of thelegs responded to resuming her iron therapy. 3. [...] her pain after injections with Dr[facility]. She had a followup spine clinic consultation (she did not state who she saw or providerecords) but she was not felt to be a surgical candidate. Will continue followup with pain clinic as needed for local therapy. (3) S/P total hysterectomy and bilateral salpingo-oophorectomy Status: Chronic Prior altered menstrual frequency with heavier periods over several months. She referred to LINE OPERATOR with negative endometrial biopsy for malignancy and pelvic ultrasound revealing only a large fibroid. Since she was taking tamoxifen, LINE OPERATOR ultimately decided to perform hysterectomy and this was negative for malignancy. Patient is recovering well. - Chemo Plan Goal of Treatment: Curative - Time Spent with Patient Greater than 50% of time spent with patient was for coordination of care (as documented) and jzgc-ui-jnzl counseling of patient and/or family. 25 - 35 minutes Dictated By: Nica Nelson MD DD/ 1552 Signed By: <Electronically signed by MD Nica Nelson> 01/06/18 214 [facility] Work Phone: [phone]) 644-715109-12-2017 Progress note Author Nica Nelson [facility] July 08, 2017 6:57pmNote Date/TimeSept2016 4:12p[facility] [place] [address] Hem/Onc Follow Up Note - OP Signed Patient: Maricel Easton MR#: [id number] : 1965 Acct:[id number] Age/Sex: 52 / F Type: REG RCR cc: Gwendolyn Cr MD, Albert MD~ Subjective Date/Time of Service: Date of Service: 07/08/2017 Time of Service: 16:00 Chief Complaint: Patient is here for routine follow up. Patient has been following with Dr Jensen forback pain. - Diagnosis DIAGNOSIS: 1. T1b N0 [...] EGD and colonoscopy with Dr. Mcdaniel at [facility]. She was found to have moderate antral gastritis with gastric erosions, normal duodenum, with random biopsies for celiacdisease negative, and colonoscopy with small nonbleeding internal [...] today. Mostrecent menses 12/20/2016 was heavy like anormal menstrual period lasting 7 days,prior month menses lasted 13 days. No hot flashes on tamoxifen. Her last LINE OPERATOR exam with Pap smear in April 2016 was normal but she has had some issues with urinary retention recently. She had endometrial biopsy recently which was negative for malignancy. She hasnot had any further menses since November 2016. 5. She has long-standing scoliosis and has noted increasing back pain over the last 1-2 years. She has a 69? curvature and has been seeing Dr. Jensen without any improvement of symptoms with injection therapy. She previously was seen by [facility] spine service over 5 years ago [...] She would be interested in seeing a senior marketing specialist for further medical orsurgical options. Change in menstrual period frequency as noted above. Last menstrual period in 2Feb2016, now scant intermittent flow since negative endometrial biopsy by LINE OPERATOR. Pelvic US in late March 2017 did show heterogeneous uterine mass consistentwith a large fibroid. She was not offered any further options1 endometrial biopsy was negative and has not [...] take any pain medication other than occasional plkr-vke-vtuvctq Tylenol. - Summary of Therapies Summary of [...] more intense recently and has not responded toinjection therapy by Dr. Jensen. Marked kyphoscoliosis Integumentary: [...] apex to the left. Vertebral alignment is normaland the intervertebral disc spaces are relatively intact. [...] stenosis and no significant lateral recessor neural foraminalnarrowing. Dictation Location: [facility] <Electronically signed by MARIS BAUM JR, MD in [place]> 04/15/176 Assessment and Plan (1) Cancer of central portion of right female breast Status: Acute 1. This is a 52-year-old female who was diagnosed with stage I right central breast cancer in September 2014, status post mastectomy with low risk Oncotype, who is on five years of hormonal antagonisttherapy. We are continuing tamoxifenat this time due to continued menses. However, if the patient does not have menstrual periods for over 6 months, we would consider checking her estrogen levels andpossible change to aromatase inhibitor at that time. [...] 2 months. 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 We have initiated a [facility] has [facility]. 6. We will continue annual mammograms for surveillance of potential recurrence with clinical exam every 6 months. [facility] This is a moderate complexity visit for management of multiple symptomatic complaints. (2) Idiopathic scoliosis of thoracolumbar region Status: Acute Referral to [facility]. I am deferring medication therapyfor pain to Dr. Kunz her spine clinic referral. - Chemo Plan Chemo Plan (Dose, Rate, Freq): Tamoxifen ?10 years. May change to aromatase inhibitor if deemed menopausal by cessation of menses and low estrogen levels Goal of Treatment: Curative - Time Spent with Patient Greater than 50% of time spent with patient was for coordination of care (as documented) and czdi-no-zlyg counseling of patient and/or family. Dictated By: Nica Nelson MD DD/ 1600 Signed By: <Electronically signed by MD Nica Nelson> 07/08/17 5237 [facility] Work Phone: Evaluation noteNo [facility] [employer] Other Evaluation note* Diagnosis Onset Date Resolution Status Cardiomegaly acuteAbnormal echocardiogram findings without diagnosischronicAbnormal finding on imaging of liverchronicCancer of central portion of right female breast chronicHistory of iron deficiency anemiachronicIdiopathic scoliosis of thoracolumbar regionchronicMild pulmonary hypertensionchronicS/P total hysterectomy and bilateral salpingo-oophorectomychronicThyroid nodulechronic [facility] Work Phone: evaluation note* Diagnosis Onset Date Resolution Status Cardiomegaly acuteAbnormal echocardiogram findings without diagnosischronicAbnormal finding on imaging of liverchronicCancer of central portion of right female breast chronicEncounter for monitoring tamoxifen therapychronicHistory of iron deficiency anemiachronicIdiopathic scoliosis of thoracolumbar regionchronicMild pulmonary hypertensionchronicS/P total hysterectomy and bilateral salpingo-oophorectomychronicThyroid nodulechronic [facility] Work Phone: Evaluation noteNo assessment information available [facility] Work Phone: evaluation note* Diagnosis Onset Date Resolution Status Cardiomegaly acuteAbnormal echocardiogram findings without diagnosischronicAbnormal finding on imaging of liverchronicCancer of central portion of right female breast chronicEncounter for monitoring tamoxifen therapychronicHistory of iron deficiency anemiachronicIdiopathic scoliosis of thoracolumbar regionchronicMild pulmonary hypertensionchronicS/P total hysterectomy and bilateral salpingo-oophorectomychronicThyroid nodulechronicCancer of central portion of right female breastchronicEncounter for monitoring tamoxifen therapychronic Idiopathic scoliosis of thoracolumbar regionchronicMild pulmonary hypertension chronic [facility] Work Phone: Evaluation note* Diagnosis Lateral epicondylitis [...] [facility] Diagnosis Thyroid nodule (CMS/HCC)- Primary Nontoxic uninodular goiter Multinodular goiter (CMS/HCC) Nontoxic multinodular goiter documented [facility] encounter [facility]* Diagnosis Lateral epicondylitis of right elbow- Primary Right elbow pain Pain in joint, upper arm documented [facility] this [facility]* Diagnosis Primary hypertension- Primary Unspecified essential hypertension Multinodular goiter Nontoxic multinodular goiter Hyperparathyroidism (HCC) Hyperparathyroidism, unspecified documented [facility]* Diagnosis Encounter for gynecological examination without abnormal finding- Primary Encounter for Papanicolaou smear of vagina History of breast cancer Personal history of malignant neoplasm of breast Vaginal atrophy Postmenopausal atrophic vaginitis documented in this encounter [facility] general Narrative - Reported* Type Description Date Medical History scoliosis Medical Historybreast cancerMedical HistoryHTNMedical HistoryVV mari. legs Surgical Historywisdom teeth extractSurgical Historylump on left breast removed Surgical Historymastectomy [id number] HistoryHyster2/2018Hospitalization Historysee above [facility] Other History general Narrative - Reported* Type Description Date Medical History scoliosis Medical Historybreast cancerMedical HistoryHTNMedical HistoryVV mari. legs Surgical Historywisdom teeth extractSurgical Historylump on left breast removed Surgical Historymastectomy [id number] HistoryHyster2/2018Surgical History Bilateral greater saphenous vein ablationHospitalization Historysee above [facility] Other Hospital course Narrative No data available for this section [facility] No data available for this section [facility] HospitalReason for referral (narrative)No reason for referral information availableFulton [facility] Work Phone: Summary Purpose Family History No Family History Records Found Relationship Condition Age at Onset Recorded Date/T alex father Malignant neoplasm of prostate Unknown Diabetes mellitusUnknownNot SpecifiedPresence of cardiac pacemakerUnknownbrother Malignant neoplasm of lungUnknown Relationship Condition Age at Onset Recorded Date/T alex father Malignant neoplasm of prostate Unknown Diabetes mellitusUnknownmotherPresence of cardiac pacemakerUnknownbrother Malignant neoplasm of lungUnknownbrotherMalignant neoplasmUnknownFamily history of lung cancerUnknownfatherHypertensionUnknownMalignant neoplasmUnknownHistory of malignant neoplasm of prostateUnknownmotherHypertensionUnknownHeart disease Unknown Advance Directives No Advanced Directives [...] nodule Chief Complaint Breast Cancer I83.811 s/p RFAReason for VisitCardiomegaly Abnormal echocardiogram findings without diagnosis Abnormal finding on imaging of liver Cancer of central portion of right female breast Encounter for monitoring tamoxifen therapy History of iron deficiency anemia Idiopathic scoliosis of thoracolumbar region Mild pulmonary hypertension S/P total hysterectomy and bilateral salpingo-oophorectomy Thyroid nodule Chief Complaint E21.3;I10;E04.1 i83.811 Chief Complaint Breast Cancer Fine needle aspiration of left thyroid noduleReason for VisitCardiomegaly Abnormal echocardiogram findings without diagnosis Abnormal finding on imaging of liver Cancer of central portion of right female breast Encounter for monitoring tamoxifen therapy History of iron deficiency anemia Idiopathic scoliosis of thoracolumbar region Mild pulmonary hypertension S/P total hysterectomy and bilateral salpingo-oophorectomy Thyroid nodule Chief Complaint Breast Cancer 1 year follow up visit breast cancerReason for VisitCardiomegaly Abnormal echocardiogram findings without diagnosis Abnormal finding [...] scoliosis of thoracolumbar region Mild pulmonary hypertension Chief Complaint Admit Date Z10.26July 27, 2025 3: 25pm Additional Source Comments INFORMATION SOURCE (unrecogn ized section and content) DATE CREATED AUTHOR 08/05/2018 [facility] DATE CREATED AUTHOR AUTHOR'S ORGANIZ ATION 03/04/2022 [facility] DATE CREATED AUTHOR AUTHOR'S ORGANIZ ATION 05/09/2023 [facility] DATE CREATED AUTHOR AUTHOR'S ORGANIZ ATION 07/29/2025 [facility] DATE CREATED AUTHOR AUTHOR'S ORGANIZ ATION 08/01/2025 [facility] REASON FOR VISIT (unrecogniz ed section and content) ReasonOnset HcqzEryoehewviotiejbdj28/07/2024ReasonCommentsPainReasonComments Gynecologic ExamLMP: [facility] BSO 2018HRT: noneLast pap 07-08-23 neg. Follow oncology for mammograms. Appt next week- hopes to be cleared after 10 years. Denies breast, urinary, or bowel concerns.ReasonCommentsThyroid NoduleYearly USReason Onset HblvDtjrczltVknkmycb30/08/2025ReasonCommentsGynecologic ExamLMP: [facility] BSO 2018HRT: noneLast pap 07-16-24 neg. PCP managing mammograms, since cleared by oncology last year. Denies breast or urinary concerns.bowelFeels bloated. Feels like food goes right through her. States not diarrhea, but going 3-4x daily. [facility] colonoscopy 2020 for blood in stool- normal. Repeat 7-10 years per op report. Care Teams (unrecognized sec tion and content) Team Status: Active Member Role Status Dates PHYSICIAN NO FAMILY Primary Care Provider Active Team Status: Active Member Role Status Dates Nica Nelson MD Attending Provider Active Luca Purcell ProviderActivePaHasmukh Lang ProviderActive Team Status: Inactive Member Role Status Dates Vishal Bernabe DO Attending Provider Active PHYSICIAN MARCO FAMILYPrnovant health forsyth medical centerry Care ProviderActive Team Status: Active Member Role Status Dates Vishal Mazariegos , Primary Care Provider Active Team Status: Inactive Member Role Status Dates Vishal Mazariegos DO Primary Care Provider Active Panda Ruby ProviderActive Team Status: Inactive Member Role Status Dates Vishal Mazariegos DO Primary Care Provider, Attending Prov ider Active Team Status: Inactive Member Role Status Dates Vishal Mazariegos , Primary Care Provider Active Michelle Perry VICE PRESIDENT OF HUMAN RESOURCES-CAttending ProviderActiveTeam MemberRelationshipSpecialty Start DateEnd Date Vishal Mazariegos DO [address] [place] [address] PCP - [facility]01/25/23 Missy England DO [address] [place] [address] [facility] - [facility]11/13/23 Team Status: Active Member Role Status Dates Nica Nelson MD Attending Provider Active Start: July 22, 2024 Luca Purcell ProviderActiveStart: July 22, 2024 Hasmukh Boyle ProviderActiveStart: July 22, 2024 Team Status: Inactive Member Role Status Dates PHYSICIAN NO FAMILY Primary Care Provider Active Start: July 22, 2024 End: July 22my Omar SANGEETAttanita ProviderActiveStart: July 22, 2024 End: July 22, 2024Team MemberRelationshipSpecialtyStart DateEnd Date Vishal Mazariegos, DO [address] [place] [address] PCP - [facility]01/25/23 Vishal Mazariegos, DO [address] [place] [address] PCP - [facility]01/05/24Team MemberRelationshipSpecialtyStart DateEnd Date Vishal Mazariegos, DO [address] [place] [address] [facility]01/25/23 Vishal Mazariegos, DO [address] [place] [address] [facility]01/05/24Team MemberRelationshipSpecialtyStart DateEnd Date Vishal Mazariegos, DO [address] [place] [address] [facility]01/25/23 Vishal Mazariegos, DO [address] [place] [address] [facility]01/05/24Team MemberRelationshipSpecialtyStart DateEnd Date Visahl Mazariegos, DO [address] [place] [address] [place] [address] Vishal Mazariegos, DO [address] [place] [address] [facility]01/05/24Te MemberRelationshipSpecialtyStart DateEnd Date Vishal Mazariegos, DO [address] [place] [address] [facility]01/25/23 Vishal Mazariegos, DO [address] [place] [address] [facility]01/05/24Te MemberRelationshipSpecialtyStart DateEnd Date Vishal Mazariegos, DO [address] [place] [address] [facility]01/25/23 Vishal Mazariegos, DO [address] [place] [address] [facility]01/05/24Team MemberRelationshipSpecialtyStart DateEnd Date Vishal Mazariegos, DO [address] [place] [address] [facility]01/25/23 Vishal Mazariegos, DO [address] [place] [address] [facility]01/05/24Te MemberRelationshipSpecialtyStart DateEnd Date Vishal Mazariegos, DO [address] [place] [address] [facility] - [facility]01/25/23 Vishal Mazariegos, DO [address] [place] [address] [facility]01/05/24Team MemberRelationshipSpecialtyStart DateEnd Date Vishal Mazariegos, DO [address] [place] [address] [facility]01/25/23 Vishal Mazariegos, DO [address] [place] [address] [facility]01/05/24Team MemberRelationshipSpecialtyStart DateEnd Date Vishal Mazariegos, DO [address] [place] [address] [facility]01/25/23 Vishal Mazariegos, DO [address] [place] [address] [facility]01/05/24Team MemberRelationshipSpecialtyStart DateEnd Date Vishal Mazariegos, DO [address] [place] [address] [facility]01/25/23 Vishal Mazariegos, DO [address] [place] [address] [facility]01/05/24Team MemberRelationshipSpecialtyStart DateEnd Date Vishal Mazariegos, DO [address] [place] [address] [facility]01/25/23 Vishal Mazariegos, [address] [place] [address] PCP - [facility]01/05/24 Nica Nelson MD [address] [facility] [place] [address] Oncology04/01/25 Vishal Bernabe, [address] [place] [address] Otolaryngology04/01/25Team MemberRelationshipSpecialtyStart DateEnd Vishal Mazariegos, DO [address] [place] [address] [facility]01/25/23 Vishal Mazariegos, [address] [place] [address] PCP - [facility]01/05/24 Nica Nelson MD [address] [facility] [place] [address] Oncology04/01/25 Vishal Bernabe, [address] [place] [address] Otolaryngology04/01/25Team MemberRelationshipSpecialtyStart DateEnd Date Vishal Mazariegos DO [address] [place] [address] PCP [facility]01/25/23 Vishal Mazariegos, DO [address] [place] [address] PCP - [facility]01/05/24 Nica Nelson MD [address] [facility] [place] [address] Oncology04/01/25 Vishal Bernabe DO [address] [place] [address] Otolaryngology04/01/25Team MemberRelationshipSpecialtyStart DateEnd Date Vishal Mazariegos, DO [address] [place] [address] [facility]01/25/23 Vishal Mazariegos, [address] [place] [address] PCP - [facility]01/05/24 Nica Nelson MD [address] [facility] [place] [address] Oncology04/01/25 Vishal Bernabe DO [address] [place] [address] Otolaryngology04/01/25Team MemberRelationshipSpecialtyStart DateEnd Date Vishal Mazariegos DO [address] [place] [address] [facility] - [facility]01/25/23 Vishal Mazariegos, [address] [place] [address] PCP - [facility]01/05/24 Nica Nelson MD [address] [facility] [place] [address] Oncology04/01/25 Vishal Bernabe DO [address] [place] [address] Otolaryngology04/01/25Team MemberRelationshipSpecialtyStart DateEnd Date Vishal Mazariegos, DO [address] [place] [address] [facility]01/25/23 Vishal Mazariegos DO [address] [place] [address] PCP - [facility]01/05/24 Nica Nelson MD [address] [facility] [place] [address] Oncology04/01/25 Vishal Bernabe DO [address] [place] [address] Otolaryngology04/01/25Team MemberRelationshipSpecialtyStart DateEnd Date Vishal Mazariegos DO [address] [place] [address] PCP - [facility]01/25/23 Vishal Mazariegos DO [address] [place] [address] [facility] Nica Nelson MD [address] [facility] [place] [address] Oncology04/01/25 Vishal Bernabe DO [address] [place] [address] Otolaryngology04/01/25 Team Status: Inactive Member Role Status Dates Vishal Mazariegos DO Primary Care Provider Active St art: July 27, 2025 End: July 27, 2025Paangela Mazariegos DOAttending ProviderActiveStart: July 27, 2025 End: July 27, 2025 Goals (unrecognized section and content) Goals may [...] BE BASED ON THE PRIMARY CLINICAL RECORDS. [employer] provides no warranty or guarantee of the accuracy or completeness of information in this [id number]
[2025-10-01 09:16] LABS: Hematocrit 43.5 % (36.0-48.0); Hemoglobin 14.5 g/dL (12.0-16.0); Mean Corpuscular HGB Conc 33.3 g/dL (29.9-35.2); Mean Corpuscular Hemoglobin 28.8 pg (26.7-34.0); Mean Corpuscular Volume 86.3 fL (81.0-99.0); Platelet Count 173 10^3/uL (150-450); Red Blood Count 5.04 10^6/uL (4.20-5.40); White Blood Count 4.8 10^3/uL (4.0-11.0)
[2025-10-01 09:30] LABS: Alanine Aminotransferase 35 U/L (14-59); Albumin Globulin Ratio 1.1; Albumin Level 3.8 g/dL (3.4-5.0); Alkaline Phosphatase 68 U/L (46-116); Anion Gap 10.9; Aspartate Amino Transferase 34 U/L (15-37); Blood Urea Nitrogen 22.0 mg/dL (7.0-18.0); Calcium 8.9 mg/dL (8.5-10.1); Carbon Dioxide 28.5 mmol/L (21.0-32.0); Chloride 105 mmol/L (98-107); Estimated GFR (African America >60 (>=60 mL/min/1.73m^2); Estimated GFR (Non-African Ame >60 (>=60 mL/min/1.73m^2); Globulin 3.4 g/dL; Glucose 86 mg/dL (74-106); Potassium 4.4 mmol/L (3.5-5.1); Sodium 140 mmol/L (136-145); Total Protein 7.2 g/dL (6.4-8.2)
== END 2025-10-01 08:26 | disposition home or self-care (01) ==
LOC: LAB 08:27
PROVIDERS: PCP Family Medicine; Visit Provider Family Medicine
DX: E04.2 Nontoxic multinodular goiter (principal); I10 Essential (primary) hypertension; E21.3 Hyperparathyroidism, unspecified
CPT/HCPCS: 36415; 80053; 85027